=== PATIENT | male | born 1950 | race Caucasian/White ===

== ENCOUNTER 2016-11-10 20:32 | Emergency (ER) | payer BC ==
[~2016-11-10] VITALS: Ht 182.9 cm; Wt 126.9 kg
[~2016-11-10 20:32] MED LIST: ACET650T82 PO; ALLO300T2 PO; CHOL100027 PO; CLC6 PO; CYCL10TA6 PO; DOCU50CA2 PO; HYDR-5688 PO; METH2.5T PO; POTA20TA16 PO; TAMS0.4C38 PO
[2016-11-10 20:37] VITALS: Ht 182.9 cm; Wt 126.9 kg
[2016-11-10] MEDS ORDERED: HYDROmorphone INJ 1 MG/ML SYR IM STA (21:01)
[2016-11-10] MEDS ORDERED: ONDANSETRON 4MG OD TAB PO STA (21:01)
[2016-11-10] MEDS ORDERED: ONDA8TAB62 SL (21:04)
[2016-11-10] MEDS ORDERED: TYLER650 PO (21:04)
[2016-11-10] MEDS ORDERED: BACL10TA PO (21:04)
[2016-11-10] MEDS ORDERED: HYDR-5688 PO (21:04)
[2016-11-10] MEDS ORDERED: DOCU100C31 PO (21:04)
[2016-11-10] MEDS ORDERED: PRED-301 PO ×2 (21:04→21:34)
[2016-11-10] MEDS ORDERED: HYDR200T5 PO (21:25)
[2016-11-10] MEDS ORDERED: FRS/40 PO (21:25)
[2016-11-10] MEDS ORDERED: PRT/20 PO (21:25)
[2016-11-10] MEDS ORDERED: GABA-112 PO (21:25)
[2016-11-10] MEDS ORDERED: FOLI1TAB7 PO (21:25)
[2016-11-10] MEDS ORDERED: GLC/500 PO (21:34)
[2016-11-10] MEDS ORDERED: ACET-1256 PO (21:34)
[2016-11-10] MEDS ORDERED: CYAN100074 INJ (21:37)
[2016-11-10] MEDS ORDERED: CYAN100T6 PO (21:37)
--- NOTE | 2016-11-10 21:50 | EMERGENCY ROOM VISIT NOTE ---
ED Visit Note First contact with patient: 20:41 Patient was seen by our PA/CONCILIATION COURT JUDGE. I was involved in the patient's care and did evaluate the patient myself. I was involved in the care throughout the ER stay. The patient presents with neuropathic foot pain. He has tried other meds without relief. We will try some Dilaudid as his gabapentin is titrated up. He can follow with his doctors as an outpatient.
[2016-11-10] MEDS ORDERED: HYDROmorphone HCL 2 MG TAB PO STA (21:55)
[2016-11-10] MEDS ORDERED: HYDR4TAB2 PO (22:01)
--- NOTE | 2016-11-10 22:02 | EMERGENCY ROOM VISIT NOTE ---
History First contact with patient: 20:41 Chief Complaint: FOOT PAIN Stated Complaint: NERVE PAIN IN FOOT History of Present Illness The patient is a 66 year old male who presents to the Emergency Room via private vehicle accompanied by with complaints of "nerve pain and foot". The patient states that 19 months ago, he began with pitting edema, and neuropathy as well as has had L3, L4 and L5 fused together. He states that he is followed by many specialists who were attempting to identify the cause for his pitting edema. He also is status post shoulder surgery 1 week ago. He has been taking [place] 5 mg a muscle relaxers for pain. He states that approximately 3 days ago his lower extremity neuropathy has flared. He states that the pain medication that typically works is no longer working. He has increased from [place] 5 mg to [place] 10 mg. He points to the superior portion of the feet overlying the medial metatarsals extending between the great toe and the second toe. He notes that the pain is symmetric bilaterally. There is been no recent injury or trauma. He follows with [facility] orthopedics of which notes he has bone spurs and osteoarthritis. He has had cortisone injections in the past with minimal relief. Patient also follows with Dr. 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 Patient states he has been emailing Dr. Pate and also been discussing with his family doctor potential treatment options for his increase in pain. Patient has increased prednisone, 30 mg daily for the past 3 days. He notes this makes his blood sugars increase. He takes metformin. Patient states that the foot pain will at times make his toes curl. The pain is constant at a 3-4/10 with bursts of extreme pain rated as a 6 -7/10. Patient at this time denies any chest pain, shortness of breath, fevers , chills. He cannot take oxycodone as this makes him very nauseous. He states he is here looking for some pain relief until his gabapentin can be titrated up. Review of Systems A complete 10-point Review of Systems was discussed with the patient, with pertinent positives and negatives listed in the History of Present Illness. All remaining Review of Systems questions can be considered negative unless otherwise specified. Past Medical/Surgical History Medical Problems: (1) Bullard's esophagus (2) Dyslipidemia (3) GERD (gastroesophageal reflux disease) (4) Gout (5) IBS (irritable bowel syndrome) (6) Lumbar disc disorder (7) Metabolic syndrome (8) THAO on CPAP (9) Renal colic (10) Rheumatoid arthritis (11) Situational hypertension (12) Stasis edema of both lower extremities (13) Testicular hypofunction (14) Uric acid kidney stone Surgical Problems: (1) H/O colonoscopy (2) H/O esophagogastroduodenoscopy (3) History of repair of hiatal hernia (4) S/P arthroscopic knee surgery (5) S/P ear surgery (6) S/p kidney stone removal (7) S/P lumbar fusion (8) S/p removal of polyp from larynx (9) S/P tonsillectomy and adenoidectomy Family History Diabetes mellitus GRANDMOTHER FH: CAD (coronary artery disease) MOTHER ([place] age 81) UNCLE FH: cancer MOTHER (stomach CA) FATHER (lung CA) Stroke GRANDFATHER Social History Smoking Status: Never Smoker Occupation Status: retired Current/Historical Medications Scheduled Allopurinol (Zyloprim), 300 MG PO DAILY Cholecalciferol (Vitamin D 1000 Unit), 1,000 INTER.UNIT PO DAILY Cyanocobalamin (Vitamin B12 100 Mcg), 100 MCG PO DAILY Cyanocobalamin (Vitamin Deficiency Inject), MONTHLY Docusate Sodium (Docusate Sodium), 1 CAP PO BID Folic Acid (Folvite), 1 MG PO DAILY Furosemide (Lasix), 40 MG PO DAILY Gabapentin (Neurontin), 200 MG PO TID Hydroxychloroquine Sulfate (Plaquenil), 400 MG PO HS Metformin Hcl (Glucophage), 500 MG PO BIDM Methotrexate (Methotrexate), 6 TABS PO WK Pantoprazole (Protonix), 20 MG PO HS Potassium Ext Rel (Klor-Con), 20 MEQ PO DAILY Prednisone (Prednisone), 5 MG PO TAPER UD Scheduled PRN Acetaminophen (Tylenol), 1,000 MG PO TID PRN for Pain or Fever Baclofen (Lioresal), 10 MG PO BID PRN for Muscle Spasms Colchicine (Colcrys), 0.6 MG PO DAILY PRN for GOUT Hydrocodone/Acetaminophen 5MG/325MG (Rock[place] 5MG/325MG), 1 TABLET PO Q6 PRN for Pain Hydromorphone Hcl (Dilaudid), 1 TAB PO Q4 PRN for Pain Ondansetron Odt (Zofran Odt), 8 MG SL Q6H PRN for Nausea Allergies Coded Allergies: Penicillins (Verified Allergy, Unknown, RASH, 05/29/14) Sulfa Antibiotics (Verified Allergy, Unknown, RASH, 04/07/16) Trimethoprim (Verified Allergy, Unknown, RASH, 05/29/14) Physical Exam Vital Signs Date Time Temp Pulse Resp B/P Pulse Ox O2 Delivery O2 Flow Rate FiO2 11/10/16 22:31 36.8 65 18 168/76 96 11/10/16 22:07 65 168/76 96 Room Air 11/10/16 20:37 36.8 73 18 164/79 96 Room Air Physical Exam VITAL SIGNS - Vital signs and nursing notes were reviewed. Patient is afebrile , hypertensive at 164/79, non-tachycardic and is saturating well on room air at 96%. GENERAL -66-year-old male appearing his stated age who is in no acute distress. Communicates well with provider and answers questions appropriately. SKIN - Without rashes. The skin overlying the feet are unremarkable. HEAD - NC/AT. EXTREMITIES - No clubbing or peripheral cyanosis. No pretibial edema present. He is neurovascularly intact in the lower extremities. +5/5 strength noted in UE/LE bilaterally. Pain is minimally reproducible over palpation of the nerve tract. No evidence of fracture. No bony abnormalities. No deformity noted. No evidence of infection. No evidence of infection. Medical Decision & Procedures Medications Administered Medications (Trade) Dose Ordered Sig/Batool Route Start Time Stop Time Status Last Admin Dose Admin Hydromorphone HCl (Dilaudid Inj) 1 mg NOW STAT IM 11/10/16 21:01 11/10/16 21:02 DC 11/10/16 21:09 1 MG Ondansetron HCl (Zofran Odt) 4 mg NOW STAT PO 11/10/16 21:01 11/10/16 21:02 DC 11/10/16 21:08 4 MG Hydromorphone HCl (Dilaudid Tab) 2 mg NOW STAT PO 11/10/16 21:55 11/10/16 21:57 DC 11/10/16 22:06 2 MG Medical Decision Patient was seen and evaluated as above. After obtaining a thorough history and physical examination it was apparent the patient was likely experiencing neuropathic pain. There is been no recent injury or trauma. Physical exam does not show any evidence of infection or bony abnormalities. The patient has had numerous evaluation and studies regarding his lower leg pain. He has had arterial studies. The patient does have good pulses today. I believe that providing the patient with bridge of pain medication at this time is reasonable. The patient was offered various pain modalities, at this time it appears that intramuscular Dilaudid and oral Zofran is best. The Zofran as a combat any potential nausea. Patient was checked within the [place] drug monitoring system and no red flags were identified. Patient was also evaluated by my attending. The patient will be sent home on oral Dilaudid, and due to the patient's severity of pain I will begin him on 4 mg according to the rn primary care labeling. I do believe this is reasonable. The patient is currently titrating his gabapentin with his doctors. The patient was educated upon management today's findings, educated upon worrisome symptoms which to return, feels that he can be managed in the outpatient setting and was discharged home in good condition. The patient did have relief of his pain while here in the emergency department to a tolerable level. In evaluation treatment this patient the following differential diagnoses were entertained: Cellulitis, fracture, trauma, gout, neuropathic pain, among others. Impression Primary Impression: Foot pain Departure Information Dispostion Home / Self-Care Condition GOOD Prescriptions Hydromorphone Hcl (DILAUDID) 4 Mg Tab 1 TAB PO Q4 Y for Pain, #18 TAB For initial treatment Prov: Alejandro Alfaro PA-C 11/10/16 Referrals Rob Weiss M.D. (PCP) Patient Instructions My [facility] Additional Instructions You have been treated in the Emergency Department for bilateral foot pain. You have received pain medicine in the emergency department which impairs your ability to operate a vehicle. It is illegal for you to drive after receiving these medicines. You have been prescribed DILAUDID to be used for pain control. This is a narcotic medication. You cannot drive or consume alcohol while on this medicine. This medicine should only be used for pain that cannot be controlled with [id number] pain medicines. Please drink plenty of water and take stool softeners as you indicated. You should schedule a follow-up appointment in 2-3 days with your Primary Care Provider for further evaluation and treatment of your pain. Return to the Emergency Department if your current symptoms worsen despite treatment course outlined above, or if you develop any of the following symptoms : intractable pain despite aforementioned treatment course, loss of control of your bowel or bladder, numbness or tingling in your groin, or development of a fever. Please return to the emergency department with any new/concerning symptoms.
[2016-11-10 22:31] VITALS: BP 168/76; PULSE 65; TEMP 36.8; O2SAT 96
[2016-12-03] MEDS ORDERED: DXY100 PO (09:06)
[2016-12-27] MEDS ORDERED: LYR75 PO (13:57)
== END 2016-11-10 22:30 | disposition home or self-care (01) ==
LOC: C.EDB 20:35 → C.EDA 22:30
DX: G57.90 Unspecified mononeuropathy of unspecified lower limb (principal); M10.9 Gout, unspecified; K21.9 Gastro-esophageal reflux disease without esophagitis; Z98.1 Arthrodesis status; E78.5 Hyperlipidemia, unspecified; K22.70 Barrett's esophagus without dysplasia; Z98.890 Other specified postprocedural states; K58.9 Irritable bowel syndrome, unspecified; G47.33 Obstructive sleep apnea (adult) (pediatric); M06.9 Rheumatoid arthritis, unspecified; I10 Essential (primary) hypertension; E88.81 Metabolic syndrome and other insulin resistance; Z87.442 Personal history of urinary calculi; Z83.3 Family history of diabetes mellitus; Z82.49 Family history of ischemic heart disease and other diseases of the circulatory system; Z80.0 Family history of malignant neoplasm of digestive organs; Z80.1 Family history of malignant neoplasm of trachea, bronchus and lung; Z82.3 Family history of stroke; Z79.899 Other long term (current) drug therapy

== ENCOUNTER 2016-12-02 05:08 | Inpatient (IN) | payer BC, OTHER ==
[~2016-12-02] VITALS: Ht 182.9 cm; Wt 134.6 kg
[~2016-12-02 05:08] MED LIST changes: +ACET-1256 PO; -ACET650T82 PO; +BACL10TA PO; +CYAN100074 INJ; +CYAN100T6 PO; -CYCL10TA6 PO; +DOCU100C31 PO; -DOCU50CA2 PO; +FOLI1TAB7 PO; +FRS/40 PO; +GABA-112 PO; +GLC/500 PO; +HYDR200T5 PO; +ONDA8TAB62 SL; +PRED-301 PO; +PRT/20 PO; -TAMS0.4C38 PO
--- NOTE | 2016-12-02 05:35 | EMERGENCY ROOM VISIT NOTE ---
History Report prepared by Lakshmi: Jesse Contreras Under the Supervision of: Dr. Sneha Brink D.O. First contact with patient: 05:21 Chief Complaint: FEVER Stated Complaint: FEVER, SHAKES History of Present Illness The patient is a 66 year old male who presents to the Emergency Room with complaints of a fever that began this morning. When he took his temperature, it was 102.5 F. He is experiencing bilateral lower extremity pitting edema, neuropathy in his bilateral legs, shakiness, and a cough. He took Tylenol 1000 mg PO and Gabapentin 200 mg PO this morning. He currently has a kidney stone and gallstone. He is not experiencing pain that is different from his baseline stone pain. He also taken Lasix 40 mg twice a day. He has an appointment for his neuropathy next week. He denies any diarrhea or any other sickness. Source of History: patient Onset: this morning Position: other (global) Symptom Intensity: 102.5 F Quality: other (Fever) Timing: worsening Associated Symptoms: + chills, + cough, + numbness, No diarrhea Review of Systems See HPI for pertinent positives & negatives. A total of 10 systems reviewed and were otherwise negative. Past Medical & Surgical Medical Problems: (1) Bullard's esophagus (2) Dyslipidemia (3) GERD (gastroesophageal reflux disease) (4) Gout (5) IBS (irritable bowel syndrome) (6) Lumbar disc disorder (7) Metabolic syndrome (8) THAO on CPAP (9) Renal colic (10) Rheumatoid arthritis (11) Situational hypertension (12) Stasis edema of both lower extremities (13) Testicular hypofunction (14) Uric acid kidney stone Surgical Problems: (1) H/O colonoscopy (2) H/O esophagogastroduodenoscopy (3) History of repair of hiatal hernia (4) S/P arthroscopic knee surgery (5) S/P ear surgery (6) S/p kidney stone removal (7) S/P lumbar fusion (8) S/p removal of polyp from larynx (9) S/P tonsillectomy and adenoidectomy Family History Diabetes mellitus GRANDMOTHER FH: CAD (coronary artery disease) MOTHER ([place] age 81) UNCLE FH: cancer MOTHER (stomach CA) FATHER (lung CA) Stroke GRANDFATHER Social History Smoking Status: Never Smoker Drug Use: none Marital Status: Occupation Status: retired Current/Historical Medications Scheduled Allopurinol (Zyloprim), 300 MG PO DAILY Cholecalciferol (Vitamin D 1000 Unit), 1,000 INTER.UNIT PO DAILY Cyanocobalamin (Vitamin B12 100 Mcg), 100 MCG PO DAILY Cyanocobalamin (Vitamin Deficiency Inject), 1 ML INJ MONTHLY Docusate Sodium (Docusate Sodium), 1 CAP PO BID Folic Acid (Folvite), 1 MG PO DAILY Furosemide (Lasix), 40 MG PO DAILY Gabapentin (Neurontin), 600 MG PO TID Hydroxychloroquine Sulfate (Plaquenil), 400 MG PO HS Methotrexate (Methotrexate), 6 TABS PO WK Pantoprazole (Protonix), 20 MG PO HS Potassium Ext Rel (Klor-Con), 20 MEQ PO DAILY Scheduled PRN Acetaminophen (Tylenol), 1,000 MG PO TID PRN for Pain or Fever Colchicine (Colcrys), 0.6 MG PO DAILY PRN for GOUT Hydrocodone/Acetaminophen 5MG/325MG ([place] 5MG/325MG), 1 TABLET PO Q6 PRN for Pain Ondansetron Odt (Zofran Odt), 8 MG SL Q6H PRN for Nausea Allergies Coded Allergies: Penicillins (Verified Allergy, Unknown, RASH, 05/29/14) Sulfa Antibiotics (Verified Allergy, Unknown, RASH, 04/07/16) Trimethoprim (Verified Allergy, Unknown, RASH, 05/29/14) Physical Exam Vital Signs Date Time Temp Pulse Resp B/P (MAP) Pulse Ox O2 Delivery O2 Flow Rate FiO2 12/02/16 06:58 88 22 109/53 92 Room Air 12/02/16 06:50 38.1 121/58 94 Room Air 12/02/16 06:49 Room Air 12/02/16 05:13 38.3 90 20 145/67 93 Room Air Physical Exam HEENT: Head - normocephalic and atraumatic Pupils are equal, round, and reactive to light. Extraocular eye muscles are intact, and sclera are anicteric. Nose - moist nasal mucosa without discharge. Mouth - extremely dry buccal mucosa. Oropharynx is nonerythematous and there is no tonsillar exudate or edema noted. Neck: Supple; no JVD, nuchal rigidity, cervical lymphadenopathy. Heart: Regular rate and rhythm. There is a normal S1 and S2 with no murmurs, clicks, or gallops appreciated. Lungs: Clear to auscultation bilaterally with no wheezes, rales, or rhonchi. Abdomen: Soft, completely nontender, nondistended, with good bowel sounds. There are no palpable pulsatile masses or hepatosplenomegaly. There is no guarding, rigidity, or rebound noted. Extremities: No evidence of cyanosis or clubbing. 3+ pitting edema in his bilateral legs. There are easily palpable peripheral pulses. On his right upper extremity, there are well healing surgical incisions on the shoulder. Skin: hot and dry with good turgor and no rashes. Medical Decision & Procedures ER Provider Diagnostic Interpretation: X-ray results as stated below per interpretation by me: CHEST X-RAY 1 VIEW: Significant cardiomegaly. Calcified aortic knob. Questionable left lower lobe infiltrate. Per me. 2 View CXR: The patient does have evidence of cardiomegaly but the heart does not appear quite as enlarged as it did on the portable x-ray. The lateral does confirm a probable left lower lobe infiltrate. Laboratory Results 12/02/16 05:45 Red Blood Count 3.70, Mean Corpuscular Volume 92.4, Mean Corpuscular Hemoglobin 28.6, Mean Corpuscular Hemoglobin Concent 31.0, Mean Platelet Volume 8.8, Neutrophils (%) (Auto) 83.1, Lymphocytes (%) (Auto) 8.3, Monocytes (%) (Auto) 6.8, Eosinophils (%) (Auto) 1.6, Basophils (%) (Auto) 0.1, Neutrophils # (Auto) 5.58, Lymphocytes # (Auto) 0.56, Monocytes # (Auto) 0.46, Eosinophils # (Auto) 0.11, Basophils # (Auto) 0.01 12/02/16 05:45 Test 12/02/16 05:45 12/02/16 05:56 12/02/16 06:00 White Blood Count 6.73 K/uL (4.8-10.8) Red Blood Count 3.70 M/uL (4.7-6.1) Hemoglobin 10.6 g/dL (14.0-18.0) Hematocrit 34.2 % (42-52) Mean Corpuscular Volume 92.4 fL (80-100) Mean Corpuscular Hemoglobin 28.6 pg (25-34) Mean Corpuscular Hemoglobin Concent 31.0 g/dl (32-36) Platelet Count 227 K/uL (130-400) Mean Platelet Volume 8.8 fL (7.4-10.4) Neutrophils (%) (Auto) 83.1 % Lymphocytes (%) (Auto) 8.3 % Monocytes (%) (Auto) 6.8 % Eosinophils (%) (Auto) 1.6 % Basophils (%) (Auto) 0.1 % Neutrophils # (Auto) 5.58 K/uL (1.4-6.5) Lymphocytes # (Auto) 0.56 K/uL (1.2-3.4) Monocytes # (Auto) 0.46 K/uL (0.11-0.59) Eosinophils # (Auto) 0.11 K/uL (0-0.5) Basophils # (Auto) 0.01 K/uL (0-0.2) RDW Standard Deviation 44.6 fL (36.4-46.3) RDW Coefficient of Variation 13.4 % (11.5-14.5) Immature Granulocyte % (Auto) 0.1 % Immature Granulocyte # (Auto) 0.01 K/uL (0.00-0.02) Anion Gap 8.0 mmol/L (3-11) Est Creatinine Clear Calc Drug Dose 91.6 ml/min Estimated GFR () 80.1 Estimated GFR (Non- 69.1 BUN/Creatinine Ratio 22.0 (10-20) Calcium Level 8.7 mg/dl (8.5-10.1) Total Bilirubin 0.3 mg/dl (0.2-1) Aspartate Amino Transf (AST/SGOT) 19 U/L (15-37) Alanine Aminotransferase (ALT/SGPT) 37 U/L (12-78) Alkaline Phosphatase 64 U/L (45-117) Total Protein 6.2 gm/dl (6.4-8.2) Albumin 3.3 gm/dl (3.4-5.0) Globulin 2.9 gm/dl (2.5-4.0) Albumin/Globulin Ratio 1.1 (0.9-2) Bedside Lactic Acid Venous 3.25 mmol/L (0.90-1.70) Urine Color DK YELLOW Urine Appearance CLEAR (CLEAR) Urine pH 5.0 (4.5-7.5) Urine Specific [place] 1.025 (1.000-1.030) Urine Protein NEG (NEG) Urine Glucose (UA) NEG (NEG) Urine Ketones TRACE (NEG) Urine Occult Blood NEG (NEG) Urine Nitrite NEG (NEG) Urine Bilirubin NEG (NEG) Urine Urobilinogen NEG (NEG) Urine Leukocyte Esterase NEG (NEG) Urine WBC (Auto) 1-5 /hpf (0-5) Urine RBC (Auto) 0-4 /hpf (0-4) Urine Hyaline Casts (Auto) 1-5 /lpf (0-5) Urine Epithelial Cells (Auto) 5-10 /lpf (0-5) Urine Bacteria (Auto) NEG (NEG) Laboratory results per my review. Medications Administered Medications (Trade) Dose Ordered Sig/Batool Route Start Time Stop Time Status Last Admin Dose Admin Acetaminophen (Tylenol Tab) 1,000 mg NOW STAT PO 12/02/16 06:08 12/02/16 06:09 DC 12/02/16 06:08 1,000 MG Daptomycin 600 mg/ Sodium Chloride 62 ml @ 100 mls/hr NOW STAT IV 12/02/16 06:29 12/02/16 07:06 DC 12/02/16 07:07 100 MLS/HR Aztreonam 2000 mg/ Dextrose 110 ml @ 100 mls/hr NOW STAT IV 12/02/16 06:29 12/02/16 07:34 DC 12/02/16 07:07 100 MLS/HR Procedure Acetaminophen 1000 mg PO Aztreonam 2000 mg/Dextrose 110 ml @ 100 mls/hr IV Daptomycin 600 mg/ Sodium Chloride 62 ml @ 100 mls/hr IV ECG Indication: other (Fever) Rate (beats per minute): 82 Rhythm: normal sinus Findings: RBBB, no ectopy Comparison ECG Date: 03/29/2016 Change: no significant change ED Course 0521: Past medical records reviewed. The patient was evaluated in room B6. A complete history and physical exam was performed. A septic protocol was performed. EKG was obtained as described above. A urine was obtained. 0559: I was notified that the patient's lactic acid is 3.25. A chest x-ray was performed. 0608: Ordered Acetaminophen 1000 mg PO 0629: Ordered Aztreonam 2000 mg/Dextrose 110 ml @ 100 mls/hr IV, Daptomycin 600 mg/ Sodium Chloride 62 ml @ 100 mls/hr IV 0656: No previous echo study was found in [facility]'s system. 0700: Upon reevaluation, I discussed findings and results with him. He verbalized agreement of the treatment plan. I spoke with Dr. Holman of the [facility]. The patient will be evaluated for further management and care. Medical Decision The patient is a 56 year old male who presents to the ED with a fever. Differential diagnosis includes sepsis, UTI, bacteremia, and pneumonia. I attest that I have personally reviewed the patient's current medication list. Patient was found to have normal blood pressure on screening and does not require follow-up. Laboratory Results Showed: White Blood Cell count 6.7, hemoglobin 10.6, platelet count 227, lactic acid 3.25, BUN 24, creatinine 1.1, glucose 129, normal LFTs, and trace ketones. This is a 66-year-old male patient who developed a sudden onset of fever and shaking chills. The patient has no leukocytosis but does have significant lactic acidosis. He has remained hemodynamically stable. A specific source could not be identified. He had undergone recent right shoulder surgery but has no increased pain in that area and surgical incisions appear well healing. The patient did have a brief episode of coughing. Chest x-ray shows cardiomegaly and a questionable opacity in the left lung base. I did send the patient for a lateral view which did not confirm the presence of a pulmonary infiltrate. I discussed the case with the [facility]ist and they will evaluate for further management. The patient appears to have an acute infection. The source most likely from the lungs. Consults Time Called: 0655 Consulting Physician: Dr. Holman - [facility] Returned Call: [phone] He will be evaluating the patient for further management and care. Impression Primary Impression: Elevated lactic acid level Additional Impression: Left lower lobe pneumonia Scribe Attestation The scribe's documentation has been prepared under my direction and personally reviewed by me in its entirety. I confirm that the note above accurately reflects all work, treatment, procedures, and medical decision making performed by me. Departure Information Dispostion Being Evaluated By Hospitalist Referrals Rob Weiss M.D. (PCP) Patient Instructions My [facility] Problem Qualifiers
[2016-12-02] MEDS ORDERED: GABA-113 PO (05:39)
[2016-12-02 06:05] LABS: BASO % 0.1 %; BASO ABS # 0.01 K/uL (0-0.2); COMPLETE YES; EOS % 1.6 %; HEMATOCRIT 34.2 % (42-52); IG% 0.1 %; LYMPH % 8.3 %; LYMPH ABS # 0.56 K/uL (1.2-3.4); MEAN CELL VOLUME 92.4 fL (80-100); MEAN CORPUSCULAR HEMOGLOBIN 28.6 pg (25-34); MEAN PLATELET VOLUME 8.8 fL (7.4-10.4); MONO % 6.8 %; NEUT % 83.1 %; PLATELET COUNT 227 K/uL (130-400); WHITE BLOOD COUNT 6.73 K/uL (4.8-10.8)
[2016-12-02] MEDS ORDERED: ACETAMINOPHEN 500 MG TAB PO STA (06:08)
[2016-12-02 06:20] LABS: URINE APPEARANCE CLEAR (CLEAR); URINE BILIRUBIN NEG (NEG); URINE COLOR DK YELLOW; URINE NITRITE NEG (NEG); URINE SPECIFIC GRAVITY 1.025 (1.000-1.030); UROBILINOGEN NEG (NEG); ZZUR CULT IF INDIC CLEAN CATCH NO
[2016-12-02 06:22] LABS: MANUAL MICROSCOPIC REQUIRED? NO; REVIEW REQ? NO
[2016-12-02 06:23] LABS: CALCIUM 8.7 mg/dl (8.5-10.1); CREATININE 1.1 mg/dl (0.60-1.40)
[2016-12-02 06:26] LABS: ALB/GLOB RATIO 1.1 (0.9-2)
[2016-12-02] MEDS ORDERED: AZTREONAM IV 2,000 MG in DEXTROSE 5% 100ML 100 ML IV STA (06:29)
[2016-12-02] MEDS ORDERED: DAPTOmycin IV 600 MG in SODIUM CHLORIDE 0.9% 50ML 50 ML IV STA (06:29)
--- NOTE | 2016-12-02 06:58 | DIAGNOSTIC IMAGING REPORT ---
CHEST ONE VIEW PORTABLE CLINICAL HISTORY: Sepsis FEVER COMPARISON STUDY: 05/12/2014 FINDINGS: The heart is borderline enlarged. There is no failure. There are equivocal left basal airspace opacities. If symptoms persist, a follow-up PA and lateral study is recommended. There are no pleural effusions.[ IMPRESSION: Equivocal left basal airspace opacities. If symptoms persist, a follow-up PA and lateral study is recommended. Electronically signed by: Roger Villalpando M.D. 12/02/2016 6:56 AM Dictated Date/Time: 12/02/2016 6:55 AM
--- NOTE | 2016-12-02 07:37 | DIAGNOSTIC IMAGING REPORT ---
CHEST 2 VIEWS ROUTINE CLINICAL HISTORY: eval with lateral view COMPARISON STUDY: 12/02/2016 FINDINGS: Vague parenchymal infiltrate left lower lobe. Lungs otherwise appear clear. Diaphragms are smooth. IMPRESSION: Vague parenchymal infiltrate left lower lobe. Electronically signed by: Rob Queen M.D. 12/02/2016 7:35 AM Dictated Date/Time: 12/02/2016 7:35 AM
[2016-12-02] MEDS ORDERED: SODIUM CHLORIDE 0.9% 1000ML 500 ML IV ONE (08:11)
[2016-12-02] MEDS ORDERED: ALUMINUM/MAGNESIUM/SIMETH (MAALOX MAX) 30 ML UDC PO PRN (08:15)
[2016-12-02] MEDS ORDERED: ONDANSETRON INJ 2 MG/ML 2 ML VIAL IV PRN (08:15)
[2016-12-02] MEDS ORDERED: NITROGLYCERIN 0.4 MG SL PER TAB CHARGE SL PRN (08:15)
[2016-12-02] MEDS ORDERED: ACETAMINOPHEN 325 MG TAB PO PRN (08:15)
[2016-12-02] MEDS ORDERED: MAGNESIUM HYDROXIDE SUSP 30 ML UDC PO PRN (08:15)
[2016-12-02] MEDS ORDERED: ZOLPIDEM TARTRATE 5 MG TAB PO PRN (08:15)
[2016-12-02] MEDS ORDERED: POLYETHYLENE (MIRALAX) 17 GM PACK PO PRN (08:15)
--- NOTE | 2016-12-02 08:16 | History and Physical ---
History & Physical Date & Time of Service: Dec 02, 2016 at 08:16 Chief Complaint: Fever, Shakes Primary Care Physician: Rob Weiss M.D. History of Present Illness Source: patient This is a 66 yo M with hx of obesity , chronic bilateral lower ext edema , polyneuropathy, Rheumatoid arthritis on Methotrexate , GERD -came to ED with complains of fever , chills rigor Pt had a normal day yesterday , woke up around 3 am with chills , rigor , fever in the ED pt was found to be hypotensive , fever 38 , lactic acid elevated > 3 Cxray shows vague ill defined density on left lower lobe pt denies of any sick contact , no cough or SOB , no chest pain no GI or symptoms Past Medical/Surgical History Medical Problems: (1) Bullard's esophagus Status: Chronic (2) Dyslipidemia Status: Chronic (3) GERD (gastroesophageal reflux disease) Status: Chronic (4) Gout Status: Chronic (5) IBS (irritable bowel syndrome) Status: Chronic (6) Lumbar disc disorder Status: Chronic (7) Metabolic syndrome Status: Chronic (8) THAO on CPAP Status: Chronic (9) Rheumatoid arthritis Status: Chronic (10) Situational hypertension Status: Chronic (11) Stasis edema of both lower extremities Status: Chronic (12) Testicular hypofunction Status: Chronic (13) Uric acid kidney stone Status: Chronic Surgical Problems: (1) H/O colonoscopy Status: Chronic (2) H/O esophagogastroduodenoscopy Status: Chronic (3) History of repair of hiatal hernia Status: Chronic (4) S/P arthroscopic knee surgery Status: Chronic (5) S/P ear surgery Status: Chronic (6) S/p kidney stone removal Status: Chronic (7) S/P lumbar fusion Status: Chronic (8) S/p removal of polyp from larynx Status: Chronic (9) S/P tonsillectomy and adenoidectomy Status: Chronic Family History Diabetes mellitus GRANDMOTHER FH: CAD (coronary artery disease) MOTHER (OK age 81) UNCLE FH: cancer MOTHER (stomach CA) FATHER (lung CA) Stroke GRANDFATHER Social History Smoking Status: Never Smoker Drug Use: none Marital Status: Occupational Status: retired Immunizations History of Influenza Vaccine: Yes Influenza Vaccine Date: Apr 06, 2016 History of Tetanus Vaccine?: Yes Tetanus Immunization Date: Feb 14, 2012 History of Pneumococcal: Yes Pneumococcal Date: Mar 04, 2015 Multi-Drug Resistant Organisms History of MDRO: No Allergies Coded Allergies: Penicillins (Verified Allergy, Unknown, RASH, 05/29/14) Sulfa Antibiotics (Verified Allergy, Unknown, RASH, 04/07/16) Trimethoprim (Verified Allergy, Unknown, RASH, 05/29/14) Home Medications Scheduled Allopurinol (Zyloprim), 300 MG PO DAILY Cholecalciferol (Vitamin D 1000 Unit), 1,000 INTER.UNIT PO DAILY Cyanocobalamin (Vitamin B12 100 Mcg), 100 MCG PO DAILY Cyanocobalamin (Vitamin Deficiency Inject), 1 ML INJ MONTHLY Docusate Sodium (Docusate Sodium), 1 CAP PO BID Folic Acid (Folvite), 1 MG PO DAILY Furosemide (Lasix), 40 MG PO DAILY Gabapentin (Neurontin), 600 MG PO TID Hydroxychloroquine Sulfate (Plaquenil), 400 MG PO HS Methotrexate (Methotrexate), 6 TABS PO WK Pantoprazole (Protonix), 20 MG PO HS Potassium Ext Rel (Klor-Con), 20 MEQ PO DAILY Scheduled PRN Acetaminophen (Tylenol), 1,000 MG PO TID PRN for Pain or Fever Colchicine (Colcrys), 0.6 MG PO DAILY PRN for GOUT Hydrocodone/Acetaminophen 5MG/325MG ([place] 5MG/325MG), 1 TABLET PO Q6 PRN for Pain Ondansetron Odt (Zofran Odt), 8 MG SL Q6H PRN for Nausea Review of Systems Constitutional: + fever, + chills, + sweats, + weakness, + fatigue Respiratory: + cough (dry non productive started this AM ), No sputum, No wheezing, No shortness of breath, No dyspnea on exertion, No dyspnea at rest, No hemoptysis, No problem reported Cardiovascular: No chest pain, No orthopnea, No PND, No edema, No claudication , No palpitations, No problem reported Abdomen: No pain, No nausea, No vomiting, No diarrhea, No constipation, No GI bleeding, No problem reported Musculoskeletal: + swelling (bilater lower extremity chronic edema ), + problem reported (neuropathic pain ) Genitourinary - Male: No hematuria, No dysuria, No urinary frequency, No urinary urgency, No urinary hesitancy, No urinary retention, No urinary incontinence, No penile discharge, No lesions, No impotence, No problem reported Neurologic: + numbness/tingling (in both bilaterel lower ext ) Physical Exam Vital Signs Date Time Temp Pulse Resp B/P (MAP) Pulse Ox O2 Delivery O2 Flow Rate FiO2 12/02/16 06:58 88 22 109/53 92 Room Air 12/02/16 06:50 38.1 121/58 94 Room Air 12/02/16 06:49 Room Air 12/02/16 05:13 38.3 90 20 145/67 93 Room Air General Appearance: no apparent distress Head: normocephalic, atraumatic Eyes: sclerae normal Neck: no carotid bruits Respiratory/Chest: chest non-tender, no respiratory distress, + crackles (on base ) Cardiovascular: regular rate, rhythm, + pertinent finding (bilateral lower ext edema + 2-3 ) Abdomen/GI: normal bowel sounds, non tender, soft Extremities/Musculoskelatal: + calf tenderness, + pedal edema (+ 2-3 bilateral lower ext pitting edema ) Neurologic/Psych: alert, normal mood/affect, oriented x 3 Diagnostics Laboratory Results Results Past 24 Hours Test 12/02/16 05:45 12/02/16 05:56 12/02/16 06:00 Range/Units White Blood Count 6.73 4.8-10.8 K/uL Red Blood Count 3.70 4.7-6.1 M/uL Hemoglobin 10.6 14.0-18.0 g/dL Hematocrit 34.2 42-52 % Mean Corpuscular Volume 92.4 80-100 fL Mean Corpuscular Hemoglobin 28.6 25-34 pg Mean Corpuscular Hemoglobin Concent 31.0 32-36 g/dl Platelet Count 227 130-400 K/uL Mean Platelet Volume 8.8 7.4-10.4 fL Neutrophils (%) (Auto) 83.1 % Lymphocytes (%) (Auto) 8.3 % Monocytes (%) (Auto) 6.8 % Eosinophils (%) (Auto) 1.6 % Basophils (%) (Auto) 0.1 % Neutrophils # (Auto) 5.58 1.4-6.5 K/uL Lymphocytes # (Auto) 0.56 1.2-3.4 K/uL Monocytes # (Auto) 0.46 0.11-0.59 K/uL Eosinophils # (Auto) 0.11 0-0.5 K/uL Basophils # (Auto) 0.01 0-0.2 K/uL RDW Standard Deviation 44.6 36.4-46.3 fL RDW Coefficient of Variation 13.4 11.5-14.5 % Immature Granulocyte % (Auto) 0.1 % Immature Granulocyte # (Auto) 0.01 0.00-0.02 K/uL Sodium Level 144 136-145 mmol/L Potassium Level 4.0 3.5-5.1 mmol/L Chloride Level 107 98-107 mmol/L Carbon Dioxide Level 29 21-32 mmol/L Anion Gap 8.0 3-11 mmol/L Blood Urea Nitrogen 24 7-18 mg/dl Creatinine 1.10 0.60-1.40 mg/dl Est Creatinine Clear Calc Drug Dose 91.6 ml/min Estimated GFR () 80.1 Estimated GFR (Non- 69.1 BUN/Creatinine Ratio 22.0 10-20 Random Glucose 129 70-99 mg/dl Calcium Level 8.7 8.5-10.1 mg/dl Total Bilirubin 0.3 0.2-1 mg/dl Aspartate Amino Transf (AST/SGOT) 19 15-37 U/L Alanine Aminotransferase (ALT/SGPT) 37 12-78 U/L Alkaline Phosphatase 64 45-117 U/L Total Protein 6.2 6.4-8.2 gm/dl Albumin 3.3 3.4-5.0 gm/dl Globulin 2.9 2.5-4.0 gm/dl Albumin/Globulin Ratio 1.1 0.9-2 Bedside Lactic Acid Venous 3.25 0.90-1.70 mmol/L Urine Color DK YELLOW Urine Appearance CLEAR CLEAR Urine pH 5.0 4.5-7.5 Urine Specific Martin 1.025 1.000-1.030 Urine Protein NEG NEG Urine Glucose (UA) NEG NEG Urine Ketones TRACE NEG Urine Occult Blood NEG NEG Urine Nitrite NEG NEG Urine Bilirubin NEG NEG Urine Urobilinogen NEG NEG Urine Leukocyte Esterase NEG NEG Urine WBC (Auto) 1-5 0-5 /hpf Urine RBC (Auto) 0-4 0-4 /hpf Urine Hyaline Casts (Auto) 1-5 0-5 /lpf Urine Epithelial Cells (Auto) 5-10 0-5 /lpf Urine Bacteria (Auto) NEG NEG Microbiology Results 12/02/16 Blood Culture, Received Pending 12/02/16 Blood Culture, Received Pending Diagnostic Radiology CHEST 2 VIEWS ROUTINE CLINICAL HISTORY: eval with lateral view COMPARISON STUDY: 12/02/2016 FINDINGS: Vague parenchymal infiltrate left lower lobe. Lungs otherwise appear clear. Diaphragms are smooth. IMPRESSION: Vague parenchymal infiltrate left lower lobe. EKG NORMAL SINUS RHYTHM LEFT AXIS DEVIATION RT BUNDLE BRANCH BLOCK PROLONG QTC 516 Impression Assessment and Plan SEPSIS : meets criteria -presented with hypotension , fever , chills , elevated lactic acid possible source of infection -left lower lobe pneumonia pt will be admitted to tele IV fluid resuscitation ordered serial Lactic acid level to be checked to asses vol resuscitation status galeas culture -blood /urine culture , MRSA screen ordered empiric Abx with Vancomycin /Azactam ( Penicillin allergy ) ID eval requested CHRONIC BILATERAL LOWER EXT POLYNEUROPATHY : follows with neuro physiology in [place] cont Gabapentin pain control BILATERAL LOWER EXT PITTING EDEMA : due to above ? has been taking Lasix -on hold for sepsis /dehydration /hypotension lower ext Doppler to R/O DVT ordered ECHO ordered to assess LV function PROLONG QTC Qtc > 500 monitor in tele daily EKG , avoid medications causing EKG prolongation will D/c Zofran RHEUMATOID ARTHRITIS : hold MTx and Plaquenil for sepsis Follows with Dr Pate Rheumatology GERD: cont PPI THAO : uses CPAP at night pt can continue to use his own device while in hospital FULL CODE DVT PROPHYLAXIS: moderate to high risk due to bilateral + 3 pitting edema , obesity Sub q heparin DISPOSITION : was independent in his ADL's lives with expected to be discharged home when medically stable Medicine follow up with Dr Weiss Plan of care explained to Pt and Family ( and son ) present at bedside - verbalized understanding Level of Care Telemetry Resuscitation Status FULL RESUSCITATION VTE Prophylaxis VTE Risk Assessment Done? Y/N: Yes Risk Level: High Given or contraindicated: Unfractionated heparin SQ Additional Copies To Rob Weiss M.D.
[2016-12-02] MEDS ORDERED: ONDANSETRON 8MG OD TAB SL PRN (08:30)
[2016-12-02] MEDS ORDERED: HYDROmorphone HCL 2 MG TAB PO PRN (08:30)
[2016-12-02] MEDS ORDERED: VANCOMYCIN CONSULT ACTIVE PRN (08:45)
[2016-12-02] MEDS ORDERED: AZTREONAM CONSULT ACTIVE PRN ×2 (08:45)
[2016-12-02] MEDS ORDERED: VANCOMYCIN INJ 2,750 MG in SODIUM CHLORIDE 0.9% 500ML 500 ML IV ONE (08:45)
[2016-12-02] MEDS: SODIUM CHLORIDE 0.9% 1000ML 1,000 ML IV SCH ×2 (09:31→18:00)
[2016-12-02 09:33] VITALS: BP 121/74; PULSE 76; TEMP 37.1; O2SAT 91
[2016-12-02] MEDS: ALLOPURINOL 300 MG TAB PO SCH (09:37)
[2016-12-02] MEDS: HYDROCODONE/ACETAMOPHEN 5/325MG TAB PO PRN ×2 (09:37→18:00)
[2016-12-02] MEDS: DOCUSATE SODIUM 100 MG CAP PO SCH ×2 (09:37→20:40)
[2016-12-02] MEDS: PANTOprazole SOD 40 MG TAB PO SCH (09:37)
[2016-12-02] MEDS: CYANOCOBALAMIN 100 MCG TAB (VIT B-12) PO SCH (09:37)
[2016-12-02] MEDS: GABAPENTIN 600 MG TAB PO SCH ×3 (09:37→20:40)
[2016-12-02] MEDS: CHOLECALCIFEROL 1000 INTER.UNIT TAB PO SCH (09:38)
[2016-12-02 10:22] VITALS: O2SAT 91; Ht 182.9 cm; Wt 134.6 kg
--- NOTE | 2016-12-02 10:28 | Pharmacy Progress Note ---
Pharmacy Abx Initial Consult Date of Service Dec 02, 2016. Pharmacy Dosing Scope Date of Consult: 12/02/16 Consultation requested by: Dr. Howe Pharmacy is consulted to initiate Vancomycin/Azactam IV dosing therapy, order appropriate labs and adjust drug dose/frequency. Subjective The patient is a 66 year old male admitted on Dec 02, 2016 at 08:08 with sepsis secondary to likely lung source. Objective Height (Feet): 6 Height (Inches): 0 Weight (Kilograms): 132.000 Vital Signs (Past 12Hrs) Vital Signs Past 12 Hours Date Time Temp Pulse Resp B/P (MAP) Pulse Ox O2 Delivery O2 Flow Rate FiO2 12/02/16 09:33 37.1 76 18 121/74 (90) 91 Room Air 12/02/16 08:39 76 18 118/64 92 Room Air 12/02/16 06:58 88 22 109/53 92 Room Air 12/02/16 06:50 38.1 121/58 94 Room Air 12/02/16 06:49 Room Air 12/02/16 05:13 38.3 90 20 145/67 93 Room Air Lab Results (24Hrs) Laboratory Tests (24 Hours) Test 12/02/16 05:45 White Blood Count 6.73 K/uL (4.8-10.8) Red Blood Count 3.70 M/uL (4.7-6.1) L Hemoglobin 10.6 g/dL (14.0-18.0) L Hematocrit 34.2 % (42-52) L Mean Corpuscular Volume 92.4 fL (80-100) Mean Corpuscular Hemoglobin 28.6 pg (25-34) Mean Corpuscular Hemoglobin Concent 31.0 g/dl (32-36) L Platelet Count 227 K/uL (130-400) Mean Platelet Volume 8.8 fL (7.4-10.4) Neutrophils (%) (Auto) 83.1 % Lymphocytes (%) (Auto) 8.3 % Monocytes (%) (Auto) 6.8 % Eosinophils (%) (Auto) 1.6 % Basophils (%) (Auto) 0.1 % Neutrophils # (Auto) 5.58 K/uL (1.4-6.5) Lymphocytes # (Auto) 0.56 K/uL (1.2-3.4) L Monocytes # (Auto) 0.46 K/uL (0.11-0.59) Eosinophils # (Auto) 0.11 K/uL (0-0.5) Basophils # (Auto) 0.01 K/uL (0-0.2) Micro Results Date/Time Source Procedure Growth Status 12/02/16 05:55 Blood Blood Culture Pending Received 12/02/16 05:45 Blood Blood Culture Pending Received 12/02/16 00:00 Nasal MRSA DNA Surveillance Screen Pending Received 12/02/16 09:53 Urine , Clean Catch Urine Culture Pending Lucina Batch Assessment & Plan Assessment 66 year old male initiated on Vancomycin + Azactam IV for sepsis secondary to likely pulmonary source. MRSA swab, blood cultures, urine culture pending to aid in de-escalation. Plan Vancomycin * Loading dose: 2750 mg (20 mg/kg) * Maintenance dose: 2000 mg IV (15 mg/kg) every 12 hours * Goal trough level for lung source: 15 to 20 mcg/mL * Trough level ordered for 12/04/16 @0530 prior to the 0600 dose. * An extended dosing interval has been selected due to likelihood of drug accumulation in obese patient. After evaluation of first trough, may need to change dosing in attempts to stop patient from further accumulation. Azactam * 2 g IV every 8 hours * No renal adjustment at this time. Pharmacy will continue to follow and will adjust dose/frequency as necessary. Thank you.
[2016-12-02 10:36] LABS: PROTHROMBIN TIME (PATIENT) 10.4 SECONDS (9.0-12.0)
--- NOTE | 2016-12-02 11:13 | DIAGNOSTIC IMAGING REPORT ---
ULTRASOUND VENOUS DOPPLER LWR EXT BILA CLINICAL HISTORY: Leg swelling COMPARISON STUDY: No previous studies for comparison. FINDINGS: Real-time and color flow Doppler imaging were performed. Flow was seen within the femoral, popliteal and calf veins with no intraluminal thrombus demonstrated. The saphenous vein is patent. There is bilateral calf edema. IMPRESSION: No evidence of lower extremity DVT Electronically signed by: Roger Villalpando M.D. 12/02/2016 11:12 AM Dictated Date/Time: 12/02/2016 11:12 AM
[2016-12-02] MEDS ORDERED: PERFLUTREN LIPID MICROSPHERE (DEFINITY) IV ONE (12:17)
--- NOTE | 2016-12-02 13:15 | Progress Note ---
Progress Note Date of Service Dec 02, 2016. Progress Note ID Consult Dictated #[id number] A/P: 1. CAP 2. Fever -Continue abx, add azithro for atypical coverage -follow cultures -will follow, thank you
[2016-12-02] MEDS: HEPARIN SOD 5000 UNIT/0.5 ML CARP SQ SCH ×2 (13:50→20:43)
[2016-12-02 14:43] VITALS: BP 135/79; PULSE 69; TEMP 37.9; O2SAT 93
--- NOTE | 2016-12-02 14:45 | INFECT. DISEASE CONSULTATION ---
DATE OF CONSULTATION: 12/02/2016 REQUESTING PHYSICIAN: Dr. Howe. HISTORY OF PRESENT ILLNESS: This is a 66-year-old gentleman who was admitted after he awoke at 3:00 a.m. with shaking fever and chills. He states that he tried to take a warm shower but his chills returned. He also had a mild cough associated with this. He does struggle with bilateral lower extremity edema and neuropathy and follows with neurology in [place] for this. He states his temperature at home was as high as 105 degrees. Upon arrival to the ER, his temperature was 38.3. He did undergo blood and urine cultures which are pending. He does not have leukocytosis. His urinalysis was unremarkable. His lactic acid was elevated however. He did undergo a chest x-ray which shows a left lower lobe infiltrate. He also had bilateral lower extremity Dopplers which were unremarkable. He does have a chronic history of lower extremity edema which is unchanged. He states today he is still having episodes of fever but he has not had any additional shaking chills since admission to the hospital. He denies any pleuritic chest pain. He denies any shortness of breath or dyspnea on exertion. He denies any sick contacts. He has minimal cough with mild production of sputum and denies any hemoptysis. He has no nausea, vomiting, diarrhea, abdominal pain or urinary symptoms. All remaining review of systems are reviewed and are unremarkable. PAST MEDICAL HISTORY: Significant for Bullard esophagus, high cholesterol, GERD, gout, irritable bowel syndrome, lumbar pain, metabolic syndrome, obstructive sleep apnea with CPAP, rheumatoid arthritis, on methotrexate, hypertension, bilateral lower extremity edema and neuropathy, testicular hypofunction, history of kidney stones. PAST SURGICAL HISTORY: Significant for colonoscopy, EGD, hiatal hernia repair, knee surgery, ear surgery, kidney stone removal, lumbar fusion, polypectomies, larynx and tonsillectomy. FAMILY HISTORY: Noncontributory. SOCIAL HISTORY: Negative for alcohol use, drug use or tobacco use. He is and lives with his . ALLERGIES: HE HAS ALLERGIES TO PENICILLIN AND SULFA. CURRENT MEDICATIONS: Include vancomycin, aztreonam, subQ heparin, allopurinol, vitamin D, vitamin B, Colace, folic acid, Neurontin, Protonix, Dilaudid, Tylenol, Maalox, milk of magnesia, Ambien, and MiraLax. PHYSICAL EXAMINATION: VITAL SIGNS: T-max is 38.3, current temperature is 37.1, pulse 76, respiratory rate 18, blood pressure 121/74, oxygen saturation is 91-94% on room air. GENERAL: He is awake, alert and oriented x3 on my exam, he is ambulating in his room. HEENT: Mucous membranes are moist. Extraocular muscles are intact. HEART: Regular. LUNGS: Clear bilaterally. ABDOMEN: Soft, nontender, nondistended. SKIN: There are no rashes. EXTREMITIES: There is bilateral lower extremity edema. LABORATORY STUDIES: Urinalysis is unremarkable. CBC reveals a white blood cell count of 6.7, hemoglobin 10.6, hematocrit is 34.2, and platelets are 227. Chemistry panel reveals a sodium of 144, potassium 4.0, chloride 107, bicarb 29, BUN 24, creatinine 1.1, random glucose is 129. Lactic acid is 3.2. LFTs are within normal limits. Blood and urine cultures are pending. IMAGING: As above. ASSESSMENT AND PLAN: 1. Left lower lobe pneumonia. 2. Fever. At this time, he can be continued on empiric antibiotics. Blood cultures are pending. Sputum culture was not ordered. If he is able to produce a specimen, this would be helpful. I will also add azithromycin for atypical coverage. Thank you for this consultation.
--- NOTE | 2016-12-02 15:21 | ECHOCARDIOGRAM REPORT ---
*NOTICE TO RECEIVING [employer] This information is strictly Confidential and protected under [place] law. [place] law prohibits you from making any further disclosure of this information unless further disclosure is expressly permitted by the written consent of the person to whom it pertains or is authorized by law. A general authorization for the release of medical or other information is not sufficient for this purpose. Hospital accepts no responsibility if the information is made available to any other person, INCLUDING THE PATIENT. Interpretation Summary * Name: ABA AYERS Study Date: 12/02/2016 11:11 AM BP: 121/74 mmHg * Patient Location: [facility]\S\N276\S\2 HR: 76 * : 1950 (M/d/yyyy) Gender: Male Height: 72 in * Age: 66 yrs Ethnicity: [place] Weight: 291 lb * Ordering Physician: Colette Howe * Referring Physician: Self, Referred * Performed By: Kanwal Alcaraz RDCS * * Reason For Study: HYPOTENSION/ SEPSIS * BSA: 2.5 m2 * History: HYPOTENSION/SEPSIS * -- Conclusions -- * The study was technically difficult. * A contrast injection of Definity was performed to improve assessment of LV function. * The left ventricle is normal in size. * There is moderate concentric left ventricular hypertrophy. * The left ventricular wall motion is normal. * Left ventricular systolic function is normal. * Ejection Fraction = 65-70%. * Theere is no significant valvular disease Procedure Details * A contrast injection of Definity was performed to improve assessment of LV function. * Contrast was injected into an intravenous site in the left arm. * One vial of Definity ultrasound contrast was diluted in normal saline to a total volume of 10 ml. A total of '2' ml of solution was administered during imaging. * Lot # [id number] of Definity utilized for procedure. * Expiration date FEB 03. * The attending nurse who injected the contrast agent was SMITA HARDY RN. * The study was technically difficult. * A complete two-dimensional transthoracic echocardiogram was performed (2D, M-mode, Doppler and color flow Doppler). Left Ventricle * The left ventricle is normal in size. * There is moderate concentric left ventricular hypertrophy. * Ejection Fraction = 65-70%. * Left ventricular systolic function is normal. * The left ventricular wall motion is normal. Right Ventricle * The right ventricle is normal in size and function. Atria * The left atrial size is normal. * Right atrial size is normal. * No ASD detected; PFO is not assessed. Mitral Valve * The mitral valve is normal. * There is no mitral valve stenosis. * There is trace mitral regurgitation. Tricuspid Valve * The tricuspid valve is normal. * There is no tricuspid stenosis. * There is trace tricuspid regurgitation. * Doppler findings do not suggest pulmonary hypertension. Aortic Valve * The aortic valve is trileaflet. * Aortic valve sclerosis mild, without significant aortic valvular stenosis. * No hemodynamically significant valvular aortic stenosis. * No aortic regurgitation is present. Pulmonic Valve * The pulmonic valve is not well visualized. Great Vessels * The aortic root is normal size. Pericardium/Pleural * There is a trivial circumferential pericardial effusion of nonhemodydnamic significance MMode 2D Measurements and Calculations IVSd 2.0 cm IVSs 2.5 cm LVIDd 3.8 cm LVIDs 2.5 cm LVPWd 2.0 cm LVPWs 2.4 cm IVS/LVPW 1.0 FS 33.8 % EDV(Teich) 60.9 ml ESV(Teich) 22.3 ml EF(Teich) 63.4 % EDV(cubed) 53.7 ml ESV(cubed) 15.6 ml EF(cubed) 70.9 % % IVS thick 22.2 % % LVPW thick 16.3 % LV mass(C)d 355.1 grams LV mass(C)dI 142.1 grams/m\S\2 LV mass(C)s 316.2 grams LV mass(C)sI 126.5 grams/m\S\2 SV(Teich) 38.6 ml SI(Teich) 15.4 ml/m\S\2 SV(cubed) 38.1 ml SI(cubed) 15.2 ml/m\S\2 Ao root diam 4.0 cm Ao root area 12.3 cm\S\2 LA dimension 3.5 cm LA/Ao 0.89 Doppler Measurements and Calculations MV E max esperanza 112.7 cm/sec MV A max esperanza 74.9 cm/sec MV E/A 1.5 MV dec time 0.20 sec Ao V2 max 175.5 cm/sec Ao max PG 12.3 mmHg Ao max PG (full) 2.3 mmHg LV V1 max PG 10.0 mmHg LV V1 max 158.1 cm/sec TR max esperanza 260.1 cm/sec
[2016-12-02] MEDS: AZTREONAM IV 2,000 MG in DEXTROSE 5% 100ML 100 ML IV SCH ×2 (15:32→23:33)
[2016-12-02 16:45] VITALS: TEMP 37.6
[2016-12-02] MEDS: VANCOMYCIN INJ 2,000 MG in SODIUM CHLORIDE 0.9% 500ML 500 ML IV SCH (18:00)
[2016-12-02 19:42] VITALS: BP 132/81; PULSE 70; TEMP 36.9; O2SAT 93
[2016-12-02 23:25] VITALS: BP 107/66; PULSE 66; TEMP 36.7; O2SAT 91
[2016-12-03] MEDS: SODIUM CHLORIDE 0.9% 1000ML 1,000 ML IV SCH (04:14)
[2016-12-03 04:20] VITALS: BP 111/67; PULSE 65; TEMP 36.6; O2SAT 92
[2016-12-03] MEDS: VANCOMYCIN INJ 2,000 MG in SODIUM CHLORIDE 0.9% 500ML 500 ML IV SCH (06:06)
[2016-12-03] MEDS: HEPARIN SOD 5000 UNIT/0.5 ML CARP SQ SCH ×2 (06:08→13:13)
[2016-12-03 06:35] LABS: MEAN CELL VOLUME 93.8 fL (80-100); MEAN CORPUSCULAR HEMOGLOBIN 29.3 pg (25-34); MEAN CORPUSCULAR HGB CONC 31.3 g/dl (32-36); MEAN PLATELET VOLUME 8.8 fL (7.4-10.4); PLATELET COUNT 202 K/uL (130-400); RED BLOOD COUNT 3.41 M/uL (4.7-6.1); WHITE BLOOD COUNT 6.98 K/uL (4.8-10.8)
[2016-12-03 06:48] VITALS: BP 125/72; PULSE 70; TEMP 37; O2SAT 92
[2016-12-03 07:13] LABS: CALCIUM 8.1 mg/dl (8.5-10.1); CREATININE 0.96 mg/dl (0.60-1.40); MAGNESIUM 2.1 mg/dl (1.8-2.4)
[2016-12-03] MEDS: GABAPENTIN 600 MG TAB PO SCH ×2 (07:36→13:11)
[2016-12-03] MEDS: CHOLECALCIFEROL 1000 INTER.UNIT TAB PO SCH (07:36)
[2016-12-03] MEDS: ALLOPURINOL 300 MG TAB PO SCH (07:36)
[2016-12-03] MEDS: CYANOCOBALAMIN 100 MCG TAB (VIT B-12) PO SCH (07:36)
[2016-12-03] MEDS: DOCUSATE SODIUM 100 MG CAP PO SCH (07:36)
[2016-12-03] MEDS: PANTOprazole SOD 40 MG TAB PO SCH (07:36)
[2016-12-03] MEDS: AZTREONAM IV 2,000 MG in DEXTROSE 5% 100ML 100 ML IV SCH (07:37)
[2016-12-03] MEDS ORDERED: AZITHROMYCIN 250 MG TAB PO SCH (09:00)
--- NOTE | 2016-12-03 09:01 | Discharge Instructions ---
Discharge Instructions Date of Service Dec 03, 2016. Admission Reason for Admission: Sepsis Discharge Discharge Diagnosis / Problem: SEPSIS/LEFT LOWER LOBE PNEUMONIA Discharge Goals Goal(s): Improve disease control, Diagnostic testing Activity Recommendations Activity Limitations: resume your previous activity . Instructions / Follow-Up Instructions / Follow-Up HOSPITAL FOLLOW UP 12/07/2016 1:[address] Rashmi Amaral DO [facility] DR BARBA'S SCHEDULE IS FULL FOLLOW UP : 12/09/2016 1:[address] [facility] NOT [facility]XATE /PLAQUENIL TILL ANTIBIOTIC COURSE IS COMPLETED Current Hospital Diet Patient's current hospital diet: Low Sodium Diet (2gm Na), AHA Diet (Heart Healthy) Discharge Diet Recommended Diet: AHA Diet (Heart Healthy), Low Sodium Diet (2gm Na) Pending Studies Studies pending at discharge: no Medical Emergencies . Who to Call and When: Medical Emergencies: If at any time you feel your situation is an emergency, please call 911 immediately. . Non-Emergent Contact Non-Emergency issues call your: Primary Care Provider . . "Provider Documentation" section prepared by Colette Howe. . VTE Core Measure Inpt VTE Proph given/why not?: Unfractionated heparin SQ
[2016-12-03] MEDS ORDERED: DXY100 PO (09:06)
[2016-12-03 09:15] VITALS: BP 125/72; PULSE 70; TEMP 37; O2SAT 92
--- NOTE | 2016-12-03 09:17 | Progress Note ---
Internal Med Progress Note Date of Service: Dec 03, 2016. Provider Documentation: SUBJECTIVE: no fever or chills seen ambulating in [address] , no SOB or hypoxia has non productive cough energy and appetite improved to baseline OBJECTIVE: Vital Signs-as noted below Exam: General-no sign of distress Eyes-sclera non icteric ENT-NAD Lungs-no rales or wheeze noted Heart-regular S1/S2 Abdomen-soft, non tender Extremities-+ 1-2 bilateral pitting edema -chronic Neuro-AAO x3, no focal deficit Lab data as noted below. ASSESSMENT & PLAN: SEPSIS/LEFT LOWER LOBE PNEUMONIA /COMMUNITY ACQUIRED : resolved, afebrile , normal white count BP stable , hypotension/Lactic acidosis resolved with IV fluid admitted yesterday with chills /rigor meets criteria -presented with hypotension , fever , chills , elevated lactic acid Source of infection -left lower lobe pneumonia Blood cultures no growth was treated empiric Abx with Vancomycin /Azactam ( Penicillin allergy ) IVF and IV ABx is discontinued ' Abx changed to PO Doxycycline ( Quinolones avoided for prolong Qtc ) ID eval requested -appreciate input CHRONIC BILATERAL LOWER EXT POLYNEUROPATHY : follows with neuro physiology in [place] cont Gabapentin pain control BILATERAL LOWER EXT PITTING EDEMA : possible due to above Lasix -resumed lower ext Doppler negative for DVT ECHO normal LV function The left ventricle is normal in size. There is moderate concentric left ventricular hypertrophy. The left ventricular wall motion is normal. Left ventricular systolic function is normal. Ejection Fraction = 65-70%. There is no significant valvular disease PROLONG QTC improved Qtc > 500 -> 471 avoid medications causing EKG prolongation Zithromax D/cleo PO Doxycycline for CAP RHEUMATOID ARTHRITIS : MTx and Plaquenil was on hold for sepsis Follows with Dr Pate Rheumatology pt is asked not to take Mtx and Plaquenil till Antibiotic course is completed GERD: cont PPI THAO : uses CPAP at night using his own device while in hospital FULL CODE DVT PROPHYLAXIS: moderate to high risk due to bilateral + 3 pitting edema , obesity Sub q heparin ambulate DISPOSITION discharge home today afternoon Medicine follow up with Dr Weiss Vital Signs: Date Time Temp Pulse Resp B/P (MAP) Pulse Ox O2 Delivery O2 Flow Rate FiO2 12/03/16 06:48 37.0 70 18 125/72 (89) 92 Room Air 12/03/16 04:20 36.6 65 18 111/67 (82) 92 CPAP 12/03/16 04:00 CPAP 12/03/16 00:37 CPAP 12/02/16 23:25 36.7 66 18 107/66 (80) 91 CPAP 12/02/16 19:59 Room Air 12/02/16 19:42 36.9 70 20 132/81 (98) 93 Room Air 12/02/16 16:45 37.6 12/02/16 16:00 Room Air 12/02/16 14:43 37.9 69 20 135/79 (97) 93 Room Air 12/02/16 12:00 Room Air 12/02/16 10:22 91 Room Air 12/02/16 09:33 37.1 76 18 121/74 (90) 91 Room Air Lab Results: Results Past 24 Hours Test 12/02/16 09:55 12/02/16 14:24 12/02/16 22:07 12/03/16 06:22 Range/Units Prothrombin Time 10.4 9.0-12.0 SECONDS Prothromb Time International Ratio 1.0 0.9-1.1 Lactic Acid Level 1.3 1.1 1.6 0.4-2.0 mmol/L White Blood Count 6.98 4.8-10.8 K/uL Red Blood Count 3.41 4.7-6.1 M/uL Hemoglobin 10.0 14.0-18.0 g/dL Hematocrit 32.0 42-52 % Mean Corpuscular Volume 93.8 80-100 fL Mean Corpuscular Hemoglobin 29.3 25-34 pg Mean Corpuscular Hemoglobin Concent 31.3 32-36 g/dl RDW Standard Deviation 47.2 36.4-46.3 fL RDW Coefficient of Variation 14.0 11.5-14.5 % Platelet Count 202 130-400 K/uL Mean Platelet Volume 8.8 7.4-10.4 fL Sodium Level 142 136-145 mmol/L Potassium Level 4.0 3.5-5.1 mmol/L Chloride Level 107 98-107 mmol/L Carbon Dioxide Level 27 21-32 mmol/L Anion Gap 8.0 3-11 mmol/L Blood Urea Nitrogen 20 7-18 mg/dl Creatinine 0.96 0.60-1.40 mg/dl Est Creatinine Clear Calc Drug Dose 106.0 ml/min Estimated GFR () 94.4 Estimated GFR (Non- 81.5 BUN/Creatinine Ratio 21.0 10-20 Random Glucose 101 70-99 mg/dl Calcium Level 8.1 8.5-10.1 mg/dl Magnesium Level 2.1 1.8-2.4 mg/dl Microbiology Results 12/02/16 Urine Culture, Received Pending
[2016-12-03] MEDS ORDERED: POTASSIUM CHLORIDE 20 MEQ TABCR PO SCH (10:00)
[2016-12-03] MEDS ORDERED: FUROSEMIDE 40 MG TAB PO SCH (10:00)
[2016-12-03] MEDS ORDERED: DOXYCYCLINE HYCLATE 100 MG CAP PO SCH (10:00)
[2016-12-03] MEDS: HYDROCODONE/ACETAMOPHEN 5/325MG TAB PO PRN (13:11)
[2016-12-03 15:02] VITALS: BP 125/72; PULSE 70; TEMP 37; O2SAT 92
--- NOTE | 2016-12-03 15:06 | Discharge Summary ---
Discharge Summary Date of Service Dec 03, 2016. Discharge Summary Admission Date: Dec 02, 2016 at 08:08 Discharge Date: Dec 03, 2016 Discharge Disposition: Home Principal Diagnosis: SEPSIS/LEFT LOWER LOBE PNEUMONIA Procedures: ECHO : The study was technically difficult. A contrast injection of Definity was performed to improve assessment of LV function. The left ventricle is normal in size. There is moderate concentric left ventricular hypertrophy. The left ventricular wall motion is normal. Left ventricular systolic function is normal. Ejection Fraction = 65-70%. There is no significant valvular disease CHEST XRAY IMPRESSION: Vague parenchymal infiltrate left lower lobe. LOWER EXTREMITY DOPPLER IMPRESSION: No evidence of lower extremity DVT Consultations: INFECTIOUS DISEASE Medication Reconciliation New Medications: Doxycycline Hyclate (Doxycycline Hyclate) 100 Mg Cap 1 CAP PO BID for 7 Days, #14 CAP Continued Medications: Acetaminophen (Tylenol) 500 Mg Tab 1000 MG PO TID PRN for Pain or Fever, TAB Allopurinol (Zyloprim) 300 Mg Tab 300 MG PO DAILY, TAB Cholecalciferol (Vitamin D 1000 Unit) 1,000 Unit Cap 1000 INTER.UNIT PO DAILY, CAP Colchicine (Colcrys) 0.6 Mg Tab 0.6 MG PO DAILY PRN for GOUT Cyanocobalamin (Vitamin B12 100 Mcg) 100 Mcg Tab 100 MCG PO DAILY, TAB Cyanocobalamin (Vitamin Deficiency Inject) 1,000 Mcg/Ml Kit 1 ML INJ MONTHLY Docusate Sodium (Docusate Sodium) 100 Mg Cap 1 CAP PO BID for 15 Days, #30 CAP Folic Acid (Folvite) 1 Mg Tab 1 MG PO DAILY, TAB Furosemide (Lasix) 40 Mg Tab 40 MG PO DAILY, TAB Gabapentin (Neurontin) 300 Mg Cap 600 MG PO TID, CAP Hydrocodone/Acetaminophen 5MG/325MG (Xenia 5MG/325MG) Tab 1 TABLET PO Q6 PRN for Pain, TAB PRN PAIN Hydroxychloroquine Sulfate (Plaquenil) 200 Mg Tab 400 MG PO HS, TAB Methotrexate (Methotrexate) 2.5 Mg Tab 6 TABS PO WK, TAB MONDAY Ondansetron Odt (Zofran Odt) 8 Mg Soltab 8 MG SL Q6H PRN for Nausea, TAB Pantoprazole (Protonix) 20 Mg Tab 20 MG PO HS, #30 TAB Potassium Ext Rel (Klor-Con) 20 Meq Tabcr 20 MEQ PO DAILY, TAB Referrals At Discharge Follow up Referrals: Physician Referral - 12/07/16 with Rashmi Amaral D.O. Admission Information HPI (per Admitting provider): This is a 66 yo M with hx of obesity , chronic bilateral lower ext edema , polyneuropathy, Rheumatoid arthritis on Methotrexate , GERD -came to ED with complains of fever , chills rigor Pt had a normal day yesterday , woke up around 3 am with chills , rigor , fever in the ED pt was found to be hypotensive , fever 38 , lactic acid elevated > 3 Cxray shows vague ill defined density on left lower lobe pt denies of any sick contact , no cough or SOB , no chest pain no GI or symptoms Physical Exam (per Admitting): General Appearance: no apparent distress Head: normocephalic, atraumatic Eyes: sclerae normal Neck: no carotid bruits Respiratory/Chest: chest non-tender, no respiratory distress, + crackles ( on base ) Cardiovascular: regular rate, rhythm, + pertinent finding (bilateral lower ext edema + 2-3 ) Abdomen/GI: normal bowel sounds, non tender, soft Extremities/Musculoskelatal: + calf tenderness, + pedal edema (+ 2-3 bilateral lower ext pitting edema ) Neurologic/Psych: alert, normal mood/affect, oriented x 3 Hospital Course SEPSIS/LEFT LOWER LOBE PNEUMONIA /COMMUNITY ACQUIRED : resolved, afebrile , normal white count BP stable , hypotension/Lactic acidosis resolved with IV fluid admitted yesterday with chills /rigor meets criteria -presented with hypotension , fever , chills , elevated lactic acid Source of infection -left lower lobe pneumonia Blood cultures no growth was treated empiric Abx with Vancomycin /Azactam ( Penicillin allergy ) IVF and IV ABx is discontinued ' Abx changed to PO Doxycycline ( Quinolones avoided for prolong Qtc ) ID eval requested -appreciate input CHRONIC BILATERAL LOWER EXT POLYNEUROPATHY : follows with neuro physiology in [place] cont Gabapentin pain control BILATERAL LOWER EXT PITTING EDEMA : possible due to above Lasix -resumed lower ext Doppler negative for DVT ECHO normal LV function The left ventricle is normal in size. There is moderate concentric left ventricular hypertrophy. The left ventricular wall motion is normal. Left ventricular systolic function is normal. Ejection Fraction = 65-70%. There is no significant valvular disease PROLONG QTC improved Qtc > 500 -> 471 avoid medications causing EKG prolongation Zithromax D/cleo PO Doxycycline for CAP RHEUMATOID ARTHRITIS : MTx and Plaquenil was on hold for sepsis Follows with Dr Pate Rheumatology pt is asked not to take Mtx and Plaquenil till Antibiotic course is completed GERD: cont PPI THAO : uses CPAP at night using his own device while in hospital FULL CODE DVT PROPHYLAXIS: moderate to high risk due to bilateral + 3 pitting edema , obesity Sub q heparin ambulate DISPOSITION discharge home today afternoon Medicine follow up with Dr Weiss Total time spent on discharge = 35 MINS This includes examination of the patient, discharge planning, medication reconciliation, and communication with other providers. Discharge Instructions Discharge Instructions Date of Service Dec 03, 2016. Admission Reason for Admission: Sepsis Discharge Discharge Diagnosis / Problem: SEPSIS/LEFT LOWER LOBE PNEUMONIA Discharge Goals Goal(s): Improve disease control, Diagnostic testing Activity Recommendations Activity Limitations: resume your previous activity . Instructions / Follow-Up Instructions / Follow-Up HOSPITAL FOLLOW UP 12/07/2016 1:[address] Rashmi Amaral DO [facility] DR WEISS'S SCHEDULE IS FULL FOLLOW UP : 12/09/2016 1:[address] Jarocho Zeng MD Neurophysiology, [place] DO NOT TAKE METHOTREXATE /PLAQUENIL TILL ANTIBIOTIC COURSE IS COMPLETED Current Hospital Diet Patient's current hospital diet: Low Sodium Diet (2gm Na), AHA Diet (Heart Healthy) Discharge Diet Recommended Diet: AHA Diet (Heart Healthy), Low Sodium Diet (2gm Na) Pending Studies Studies pending at discharge: no Medical Emergencies . Who to Call and When: Medical Emergencies: If at any time you feel your situation is an emergency, please call 911 immediately. . Non-Emergent Contact Non-Emergency issues call your: Primary Care Provider . . "Provider Documentation" section prepared by Colette Howe. . VTE Core Measure Inpt VTE Proph given/why not?: Unfractionated heparin SQ Additional Copies To Rashmi Amaral D.O.
[2016-12-03 15:07] VITALS: BP 140/70; PULSE 70; TEMP 37.6; O2SAT 96
[2016-12-04] MEDS ORDERED: VANCOMYCIN TROUGH SCH (05:30)
[2016-12-27] MEDS ORDERED: LYR75 PO (13:57)
== END 2016-12-03 15:45 | disposition home or self-care (01) | DRG 871 ==
LOC: C.EDB 05:09 → C.MED 08:08 → ENRESERV 08:37
PROVIDERS: ADMIT Hospitalist; ATTEND Hospitalist
DX: A41.9 Sepsis, unspecified organism (principal); J18.9 Pneumonia, unspecified organism; Z68.41 Body mass index [BMI] 40.0-44.9, adult; E66.9 Obesity, unspecified; K21.9 Gastro-esophageal reflux disease without esophagitis; I95.9 Hypotension, unspecified; I10 Essential (primary) hypertension; G47.33 Obstructive sleep apnea (adult) (pediatric); M54.5 Low back pain; E78.00 Pure hypercholesterolemia, unspecified; R60.0 Localized edema; G62.9 Polyneuropathy, unspecified; M06.9 Rheumatoid arthritis, unspecified; I45.81 Long QT syndrome; R74.0 Nonspecific elevation of levels of transaminase and lactic acid dehydrogenase [LDH]; K22.70 Barrett's esophagus without dysplasia; K58.9 Irritable bowel syndrome, unspecified; E88.81 Metabolic syndrome and other insulin resistance; M10.9 Gout, unspecified; Z87.442 Personal history of urinary calculi; Z98.1 Arthrodesis status; Z79.899 Other long term (current) drug therapy; Z79.891 Long term (current) use of opiate analgesic; Z99.89 Dependence on other enabling machines and devices

== ENCOUNTER 2016-12-26 10:25 | Observation (INO) | payer BC, OTHER ==
[~2016-12-26] VITALS: Ht 182.9 cm; Wt 131.5 kg
[~2016-12-26 10:25] MED LIST changes: -BACL10TA PO; +DXY100 PO; -GABA-112 PO; +GABA-113 PO; -GLC/500 PO; -PRED-301 PO
[2016-12-26 11:52] LABS: BASO % 0.6 %; BASO ABS # 0.03 K/uL (0-0.2); COMPLETE YES; EOS % 3.2 %; HEMATOCRIT 37.3 % (42-52); IG% 0.4 %; LYMPH % 17.3 %; LYMPH ABS # 0.93 K/uL (1.2-3.4); MEAN CORPUSCULAR HEMOGLOBIN 29.4 pg (25-34); MEAN CORPUSCULAR HGB CONC 31.6 g/dl (32-36); MEAN PLATELET VOLUME 9.8 fL (7.4-10.4); MONO % 13.8 %; NEUT % 64.7 %; PLATELET COUNT 207 K/uL (130-400); RED BLOOD COUNT 4.01 M/uL (4.7-6.1); WHITE BLOOD COUNT 5.38 K/uL (4.8-10.8)
[2016-12-26 12:06] LABS: INR 0.9 (0.9-1.1); PARTIAL THROMBOPLASTIN RATIO 0.9; PROTHROMBIN TIME (PATIENT) 9.6 SECONDS (9.0-12.0)
[2016-12-26 12:09] LABS: ALT/SGPT 61 U/L (12-78); BLOOD UREA NITROGEN 24 mg/dl (7-18); BUN/CREATININE RATIO 24.8 (10-20); CALCIUM 8.7 mg/dl (8.5-10.1); CARBON DIOXIDE 26 mmol/L (21-32); CHLORIDE 105 mmol/L (98-107); CREATININE 0.95 mg/dl (0.60-1.40); GLUCOSE 100 mg/dl (70-99); POTASSIUM 3.9 mmol/L (3.5-5.1); SODIUM 140 mmol/L (136-145)
[2016-12-26 12:14] LABS: ALKALINE PHOSPHATASE 72 U/L (45-117); AST/SGOT 32 U/L (15-37)
[2016-12-26 12:15] LABS: URINE APPEARANCE CLEAR (CLEAR); URINE BILIRUBIN NEG (NEG); URINE COLOR YELLOW; URINE NITRITE NEG (NEG); URINE SPECIFIC GRAVITY 1.015 (1.000-1.030); UROBILINOGEN NEG (NEG)
[2016-12-26 12:19] LABS: MANUAL MICROSCOPIC REQUIRED? NO; REVIEW REQ? NO
--- NOTE | 2016-12-26 12:39 | DIAGNOSTIC IMAGING REPORT ---
CHEST ONE VIEW PORTABLE CLINICAL HISTORY: Respiratory distress. Dyspnea. COMPARISON STUDY: Chest radiograph December 02, 2016. FINDINGS: No pneumothorax or pleural effusion is present. Mild enlargement of the cardiac silhouette is unchanged. Left lower lung airspace opacity shown on exam of December 02, 2016 has likely resolved. There is no evidence of pulmonary edema. IMPRESSION: 1. No acute cardiopulmonary findings. 2. Resolution of left lower lung consolidation shown on prior exam. Electronically signed by: Gerber Moraes M.D. 12/26/2016 12:38 PM Dictated Date/Time: 12/26/2016 12:37 PM
[2016-12-26] MEDS ORDERED: OPTIRAY 320 IV PRN (13:30)
--- NOTE | 2016-12-26 13:45 | DIAGNOSTIC IMAGING REPORT ---
CT ANGIOGRAM OF THE CHEST CLINICAL HISTORY: Atypical chest pain. Dyspnea. COMPARISON STUDY: Chest x-ray dated 12/26/2016. Chest CT dated 06/16/2009. TECHNIQUE: Following the IV administration of 112 cc of Optiray 320, CT angiogram of the chest was performed from the upper abdomen to the thoracic inlet utilizing the pulmonary embolus protocol. Images are reviewed in the axial, sagittal, and coronal planes. 3-D MIPS images are created and assessed. IV contrast was administered without complication. The examination is degraded by large body habitus, and by streak artifact from the body wall abutting the CT gantry. The examination is also degraded by streak artifact from the right arm which could not be elevated above the chest. CT DOSE: 785.92 mGy.cm FINDINGS: Thyroid: Imaged portions of the thyroid gland are normal in size and attenuation. Thoracic aorta: There is atherosclerotic calcification of the thoracic aorta, which is normal in caliber and demonstrates standard 3-vessel arch anatomy. No dissection is seen. Pulmonary vasculature: The pulmonary trunk is normal in caliber. There are no filling defects identified in main, lobar, or segmental pulmonary branches to suggest pulmonary embolus. Heart: The heart is mildly enlarged and without pericardial effusion. There are coronary artery calcifications. Lungs and pleural spaces: Mild emphysematous change is observed. There is no lobar consolidation or pleural effusion. Faint groundglass opacities are seen in the left lower lobe on image #137 and in the medial right lower lobe on image #173. These likely represent a mild infectious/inflammatory pneumonitis. Mild diffuse peribronchial thickening suggests reactive airway disease. A small calcified granulomas in the right lower lobe. The trachea and central airways are clear. Mediastinum: There is no mediastinal lymphadenopathy. Arelis: Clear. Axillae: There is no axillary lymphadenopathy. Upper abdomen: The liver is enlarged and steatotic. There is a moderate hiatal hernia. Diverticula are identified in the partially imaged left colon. Skeletal structures: The skeletal structures are osteopenic. No lytic or blastic bony lesions are seen. Degenerative change is seen throughout the thoracic spine. IMPRESSION: 1. There is no evidence of pulmonary embolus in the main, lobar, or segmental pulmonary arteries. 2. Cardiomegaly and emphysema. 3. There are faint groundglass opacities seen in the lower lobes, likely representing a mild infectious/inflammatory pneumonitis. Clinical correlation will be required. 4. There is no lobar consolidation or pleural effusion. Mild peribronchial thickening suggests reactive airway disease. 5. Hepatomegaly and severe hepatic steatosis. 6. Moderate hiatal hernia. 7. Additional findings as above. Electronically signed by: Tico Reyes M.D. 12/26/2016 1:44 PM Dictated Date/Time: 12/26/2016 1:36 PM
[2016-12-26] MEDS ORDERED: ASPIRIN 324 MG CHEW PO STA (14:25)
[2016-12-26] MEDS ORDERED: FUROSEMIDE INJ 20 MG in SYRINGE 0 ML IV SCH (14:30)
[2016-12-26 14:49] VITALS: O2SAT 95; Ht 182.9 cm; Wt 131.5 kg
[2016-12-26] MEDS ORDERED: HYDROCODONE/ACETAMOPHEN 5/325MG TAB PO PRN (15:15)
[2016-12-26] MEDS ORDERED: ONDANSETRON 8MG OD TAB SL PRN (15:15)
[2016-12-26] MEDS ORDERED: ACETAMINOPHEN 325 MG TAB PO PRN (15:30)
[2016-12-26] MEDS ORDERED: MAGNESIUM HYDROXIDE SUSP 30 ML UDC PO PRN (15:30)
[2016-12-26] MEDS ORDERED: ZOLPIDEM TARTRATE 5 MG TAB PO PRN (15:30)
[2016-12-26] MEDS ORDERED: ONDANSETRON INJ 2 MG/ML 2 ML VIAL IV PRN (15:30)
[2016-12-26] MEDS ORDERED: POLYETHYLENE (MIRALAX) 17 GM PACK PO PRN (15:30)
--- NOTE | 2016-12-26 15:56 | History and Physical ---
History & Physical Date & Time of Service: Dec 26, 2016 at 15:48 Chief Complaint: Sob,Heaviness In Chest Primary Care Physician: Rob Weiss M.D. History of Present Illness Source: patient The patient is a 66 year old male with PMH mentioned below, who presents to the Emergency Room with complaints of c/o intermittent chest heaviness, SOB x 3 days. Patient was recently discharged from hospital 11/2016 and rxed for pneumonia , left sided with IV Vanco/Azactam and discharged on Doxycycline. Patient was recovering well with symptoms of pneumonia improving till 3 days ago when he noticed intermittent chest heaviness, SOB, mainly orthopnea, worsening of leg swelling. Denies any cough, improving in fact. No chest pain, fever, chills, nasal congestion, nausea, vomiting, diaphoresis, palpitations. Does mention that he has had b/l lower extremity edema x 3 years and has been on lasix 40 mg daily for that. Does have chronic neuropathic pain b/l lower extremity In ED, he is hemodynamically stable. Afebrile, BP/HR stable, Saturating well on RA. Labs - normal, CXR- improving Left sided consolidation, CT scan- no PE. EKG - no acute changes compared to prior EKG. Troponin x 1 negative. BNP is 189 Will admit him under observation for chest heaviness/SOB to rule out ACS as pulmonary issues seems to be better. Past Medical/Surgical History Medical Problems: (1) Bullard's esophagus Status: Chronic (2) Dyslipidemia Status: Chronic (3) GERD (gastroesophageal reflux disease) Status: Chronic (4) Gout Status: Chronic (5) IBS (irritable bowel syndrome) Status: Chronic (6) Lumbar disc disorder Status: Chronic (7) Metabolic syndrome Status: Chronic (8) THAO on CPAP Status: Chronic (9) Rheumatoid arthritis Status: Chronic (10) Situational hypertension Status: Chronic (11) Stasis edema of both lower extremities Status: Chronic (12) Testicular hypofunction Status: Chronic (13) Uric acid kidney stone Status: Chronic Surgical Problems: (1) H/O colonoscopy Status: Chronic (2) H/O esophagogastroduodenoscopy Status: Chronic (3) History of repair of hiatal hernia Status: Chronic (4) S/P arthroscopic knee surgery Status: Chronic (5) S/P ear surgery Status: Chronic (6) S/p kidney stone removal Status: Chronic (7) S/P lumbar fusion Status: Chronic (8) S/p removal of polyp from larynx Status: Chronic (9) S/P tonsillectomy and adenoidectomy Status: Chronic Family History Diabetes mellitus GRANDMOTHER FH: CAD (coronary artery disease) MOTHER ([place] age 81) UNCLE FH: cancer MOTHER (stomach CA) FATHER (lung CA) Stroke GRANDFATHER Social History Smoking Status: Never Smoker Drug Use: none Marital Status: Occupational Status: retired Immunizations History of Influenza Vaccine: Yes Influenza Vaccine Date: Apr 06, 2016 History of Tetanus Vaccine?: Yes Tetanus Immunization Date: Feb 14, 2012 History of Pneumococcal: Yes Pneumococcal Date: Mar 04, 2015 Multi-Drug Resistant Organisms History of MDRO: No Allergies Coded Allergies: Penicillins (Verified Allergy, Unknown, RASH, 12/26/16) Sulfa Antibiotics (Verified Allergy, Unknown, RASH, 12/26/16) Trimethoprim (Verified Allergy, Unknown, RASH, 12/26/16) Home Medications Scheduled Allopurinol (Zyloprim), 300 MG PO QAM Cholecalciferol (Vitamin D 1000 Unit), 1,000 INTER.UNIT PO QAM Cyanocobalamin (Vitamin B12 100 Mcg), 100 MCG PO QAM Cyanocobalamin (Vitamin Deficiency Inject), 1 ML INJ MONTHLY Docusate Sodium (Docusate Sodium), 1 CAP PO BID Folic Acid (Folvite), 1 MG PO QAM Furosemide (Lasix), 40 MG PO QAM Gabapentin (Neurontin), 600 MG PO TID Hydroxychloroquine Sulfate (Plaquenil), 400 MG PO HS Methotrexate (Methotrexate), 6 TABS PO WK Pantoprazole (Protonix), 20 MG PO HS Potassium Ext Rel (Klor-Con), 20 MEQ PO QAM Scheduled PRN Acetaminophen (Tylenol), 1,000 MG PO TID PRN for Pain or Fever Hydrocodone/Acetaminophen 5MG/325MG ([place] 5MG/325MG), 1 TABLET PO Q6 PRN for Pain Ondansetron Odt (Zofran Odt), 8 MG SL Q6H PRN for Nausea Review of Systems Constitutional: No fever, No chills Eyes: No worsening of vision, No eye pain, No redness, No discharge ENT: No hearing loss, No nasal symptoms Respiratory: + shortness of breath, No cough, No sputum, No wheezing, No hemoptysis Cardiovascular: + chest pain, + orthopnea, + edema, No palpitations Abdomen: No nausea, No vomiting, No diarrhea, No constipation Genitourinary - Male: No hematuria, No dysuria, No urinary frequency Neurologic: No memory loss, No paralysis Psychiatric: + anxiety Hematologic / Lymphatic: No abnormal bleeding/bruising Integumentary: No rash Physical Exam Vital Signs Date Time Temp Pulse Resp B/P (MAP) Pulse Ox O2 Delivery O2 Flow Rate FiO2 12/26/16 15:24 58 20 129/71 97 Room Air 12/26/16 14:49 95 Room Air 12/26/16 14:06 53 20 128/71 95 Room Air 12/26/16 13:53 56 12/26/16 12:04 62 12 135/76 99 Room Air 12/26/16 11:12 98 Room Air 12/26/16 11:12 98 Room Air 12/26/16 11:12 98 Room Air 12/26/16 11:05 60 12/26/16 10:29 36.4 63 22 131/72 96 Room Air General Appearance: no apparent distress Head: normocephalic, atraumatic Eyes: PERRL ENT: hearing grossly normal Neck: supple, no JVD Respiratory/Chest: chest non-tender, lungs clear, normal breath sounds, no respiratory distress, no accessory muscle use Cardiovascular: regular rate, rhythm, + pertinent finding (B/L pedal edema) Abdomen/GI: normal bowel sounds, non tender, soft, no organomegaly Extremities/Musculoskelatal: no calf tenderness, + pedal edema (bilateral pedal edema) Neurologic/Psych: no motor/sensory deficits, alert, oriented x 3 Skin: normal color Diagnostics Laboratory Results Results Past 24 Hours Test 12/26/16 11:40 12/26/16 12:00 Range/Units White Blood Count 5.38 4.8-10.8 K/uL Red Blood Count 4.01 4.7-6.1 M/uL Hemoglobin 11.8 14.0-18.0 g/dL Hematocrit 37.3 42-52 % Mean Corpuscular Volume 93.0 80-100 fL Mean Corpuscular Hemoglobin 29.4 25-34 pg Mean Corpuscular Hemoglobin Concent 31.6 32-36 g/dl Platelet Count 207 130-400 K/uL Mean Platelet Volume 9.8 7.4-10.4 fL Neutrophils (%) (Auto) 64.7 % Lymphocytes (%) (Auto) 17.3 % Monocytes (%) (Auto) 13.8 % Eosinophils (%) (Auto) 3.2 % Basophils (%) (Auto) 0.6 % Neutrophils # (Auto) 3.49 1.4-6.5 K/uL Lymphocytes # (Auto) 0.93 1.2-3.4 K/uL Monocytes # (Auto) 0.74 0.11-0.59 K/uL Eosinophils # (Auto) 0.17 0-0.5 K/uL Basophils # (Auto) 0.03 0-0.2 K/uL RDW Standard Deviation 46.5 36.4-46.3 fL RDW Coefficient of Variation 13.6 11.5-14.5 % Immature Granulocyte % (Auto) 0.4 % Immature Granulocyte # (Auto) 0.02 0.00-0.02 K/uL Prothrombin Time 9.6 9.0-12.0 SECONDS Prothromb Time International Ratio 0.9 0.9-1.1 Activated Partial Thromboplast Time 22.8 21.0-31.0 SECONDS Partial Thromboplastin Ratio 0.9 D-Dimer 1100 0-500 ug/L FEU Sodium Level 140 136-145 mmol/L Potassium Level 3.9 3.5-5.1 mmol/L Chloride Level 105 98-107 mmol/L Carbon Dioxide Level 26 21-32 mmol/L Anion Gap 9.0 3-11 mmol/L Blood Urea Nitrogen 24 7-18 mg/dl Creatinine 0.95 0.60-1.40 mg/dl Est Creatinine Clear Calc Drug Dose 106.9 ml/min Estimated GFR () 95.6 Estimated GFR (Non- 82.5 BUN/Creatinine Ratio 24.8 10-20 Random Glucose 100 70-99 mg/dl Calcium Level 8.7 8.5-10.1 mg/dl Total Bilirubin 0.2 0.2-1 mg/dl Aspartate Amino Transf (AST/SGOT) 32 15-37 U/L Alanine Aminotransferase (ALT/SGPT) 61 12-78 U/L Alkaline Phosphatase 72 45-117 U/L Troponin I < 0.015 0-0.045 ng/ml Pro-B-Type Natriuretic Peptide 189 0-900 pg/ml Total Protein 6.8 6.4-8.2 gm/dl Albumin 3.4 3.4-5.0 gm/dl Globulin 3.4 2.5-4.0 gm/dl Albumin/Globulin Ratio 1.0 0.9-2 Urine Color YELLOW Urine Appearance CLEAR CLEAR Urine pH 5.0 4.5-7.5 Urine Specific [place] 1.015 1.000-1.030 Urine Protein NEG NEG Urine Glucose (UA) NEG NEG Urine Ketones NEG NEG Urine Occult Blood NEG NEG Urine Nitrite NEG NEG Urine Bilirubin NEG NEG Urine Urobilinogen NEG NEG Urine Leukocyte Esterase NEG NEG Diagnostic Radiology CXR IMPRESSION: 1. No acute cardiopulmonary findings. 2. Resolution of left lower lung consolidation shown on prior exam. CT CHEST IMPRESSION: 1. There is no evidence of pulmonary embolus in the main, lobar, or segmental pulmonary arteries. 2. Cardiomegaly and emphysema. 3. There are faint groundglass opacities seen in the lower lobes, likely representing a mild infectious/inflammatory pneumonitis. Clinical correlation will be required. 4. There is no lobar consolidation or pleural effusion. Mild peribronchial thickening suggests reactive airway disease. 5. Hepatomegaly and severe hepatic steatosis. 6. Moderate hiatal hernia. 7. Additional findings as above. EKG Sinus bradycardia Right bundle branch block Abnormal ECG When compared with ECG of 03-DEC-2016 07:45, No significant change was found Impression Assessment and Plan Patient is a 66 year old M who comes in with C/o SOB, Orthopnea, chest heaviness , worsening leg edema x 3 days. Recently discharged from hospital 11/2016 for pneumonia and rxed with course of doxycycline. ASSESSMENT AND PLAN: INTERMITTENT CHEST HEAVINESS/SOB: Rule out ACS. Recently discharged from hospital in 11/2016 - rxed for pneumonia with IV Vancomycin/Azactam followed by Doxycycline on discharge. Symptoms/signs of pneumonia resolved, CXR showing improved Left lung consolidation, CT scan shows no PE, No Pulmonary congestion. Though presentation seems like fluid overload, he actually has venous insufficiency causing chronic b/l pedal edema x 3 years, gets worse with walking and at end of day with normal EF, creatinine, Liver function tests. BNP is normal. CHF is unlikely. Echo recently done - EF 65-70%; Mod LVH -Unlikely pulmonary etiology with pneumonia symptoms improving -Will do telemetry, EKG - serial, Troponin serial . If trop negative, stress echo in AM CHRONIC BILATERAL LOWER EXT POLYNEUROPATHY : Uncontrolled symptoms. Overnight had worsening of s ymptoms, so took percocet. -On Gabapentin 600 mg PO TID which has not helped at all to relieve the pain. Will try Lyrica BID to see if it helps -Follows with neuro physiology in [place] -Would avoid NARCOTICS for neuropathic pain. Explained him side effects, understands and agreeable to cut down on it. CHRONIC BILATERAL LOWER EXT PITTING EDEMA : Patient has had it for 3 years now. -Echo done in 11/2016- EF 65-70%, Mod LVH, Creatinine normal, LFTs normal. Swelling does get worse towards the end of the day -Most likely this is venous insufficiency. Unlikely CHF with normal EF, BNP, Clinically no crackles on exam, CXR/CT scan not suggestive of congestion -Recommend leg elevation and TEDS. -On lasix 40 mg for this. Defer discontinuation of lasix to PCP. -Had venous duplex last month- negative for clots HX OF RHEUMATOID ARTHRITIS : -Continue with MTx and Plaquenil -Follows with Dr Pate Rheumatology GERD: -cont PPI THAO : -uses CPAP at night - use his own device while in hospital FULL CODE DVT PROPHYLAXIS: Moderate risk due to chronic edema Lovenox SQ DISPOSITION Observation telemetry If stress test negative, okay to discharge tomorrow Level of Care Telemetry Advanced Directives Existing Living Will: No Existing Power of Supply Chain Systems Manager: No Resuscitation Status FULL RESUSCITATION VTE Prophylaxis VTE Risk Assessment Done? Y/N: Yes Risk Level: Moderate Given or contraindicated: Enoxaparin (Lovenox)SQ
[2016-12-26] MEDS ORDERED: IV FLUIDS COMPLETED PRN (16:00)
[2016-12-26 16:50] VITALS: O2SAT 96
--- NOTE | 2016-12-26 17:11 | EMERGENCY ROOM VISIT NOTE ---
History Report prepared by Lakshmi: Ros Berry Under the Supervision of: Dr. Kyle Mahoney D.O. First contact with patient: 10:40 Chief Complaint: SHORTNESS OF BREATH Stated Complaint: SOB,HEAVINESS IN CHEST History of Present Illness The patient is a 66 year old male who presents to the Emergency Room with complaints of worsening shortness of breath beginning 5 days prior to arrival. He describes the shortness of breath as a labored breathing. The patient states that his shortness of breath worsens when he lays down. The patient is also experiencing chest heaviness for the last 5 days. This chest heaviness is relieved when he takes a deep breath. The patient was in the ED on December 02 for pneumonia. He was hospitalized and had an echo done. The echo showed EF of 60-75% and no valvular disease. He also notes that he is retaining fluid. Since hospitalization on December 02 the patient has been experiencing a worsening in his lower leg swelling. He has chronic swelling for the past 3 years. He is on 40 gm Lasix twice a day. The patient does wear a CPAP at night. Last night he notes almost having an anxiety attack when wearing the CPAP and laying flat due to trouble breathing. 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 Pt denies headache, change in vision, arm or jaw pain, nausea, vomiting, diarrhea, pain with urination, and melena. He does not have a history of diabetes, hypertension, high cholesterol or blood thinner use. 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 Review of Systems See HPI for pertinent positives & negatives. A total of 10 systems reviewed and were otherwise negative. Past Medical & Surgical Medical Problems: (1) Bullard's esophagus (2) Chest discomfort (3) Dyslipidemia (4) GERD (gastroesophageal reflux disease) (5) Gout (6) IBS (irritable bowel syndrome) (7) Lumbar disc disorder (8) Metabolic syndrome (9) THAO on CPAP (10) Renal colic (11) Rheumatoid arthritis (12) Sepsis (13) Situational hypertension (14) Stasis edema of both lower extremities (15) Testicular hypofunction (16) Uric acid kidney stone Surgical Problems: (1) H/O colonoscopy (2) H/O esophagogastroduodenoscopy (3) History of repair of hiatal hernia (4) S/P arthroscopic knee surgery (5) S/P ear surgery (6) S/p kidney stone removal (7) S/P lumbar fusion (8) S/p removal of polyp from larynx (9) S/P tonsillectomy and adenoidectomy Family History Diabetes mellitus GRANDMOTHER FH: CAD (coronary artery disease) MOTHER (OR age 81) UNCLE FH: cancer MOTHER (stomach CA) FATHER (lung CA) Stroke GRANDFATHER Social History Smoking Status: Never Smoker Drug Use: none Marital Status: Occupation Status: retired Current/Historical Medications Scheduled Allopurinol (Zyloprim), 300 MG PO QAM Cholecalciferol (Vitamin D 1000 Unit), 1,000 INTER.UNIT PO QAM Cyanocobalamin (Vitamin B12 100 Mcg), 100 MCG PO QAM Cyanocobalamin (Vitamin Deficiency Inject), 1 ML INJ MONTHLY Docusate Sodium (Docusate Sodium), 1 CAP PO BID Folic Acid (Folvite), 1 MG PO QAM Furosemide (Lasix), 40 MG PO QAM Gabapentin (Neurontin), 600 MG PO TID Hydroxychloroquine Sulfate (Plaquenil), 400 MG PO HS Methotrexate (Methotrexate), 6 TABS PO WK Pantoprazole (Protonix), 20 MG PO HS Potassium Ext Rel (Klor-Con), 20 MEQ PO QAM Scheduled PRN Acetaminophen (Tylenol), 1,000 MG PO TID PRN for Pain or Fever Hydrocodone/Acetaminophen 5MG/325MG ([place] 5MG/325MG), 1 TABLET PO Q6 PRN for Pain Ondansetron Odt (Zofran Odt), 8 MG SL Q6H PRN for Nausea Allergies Coded Allergies: Penicillins (Verified Allergy, Unknown, RASH, 12/26/16) Sulfa Antibiotics (Verified Allergy, Unknown, RASH, 12/26/16) Trimethoprim (Verified Allergy, Unknown, RASH, 12/26/16) Physical Exam Vital Signs Date Time Temp Pulse Resp B/P (MAP) Pulse Ox O2 Delivery O2 Flow Rate FiO2 12/26/16 14:49 95 Room Air 12/26/16 14:06 53 20 128/71 95 Room Air 12/26/16 13:53 56 12/26/16 12:04 62 12 135/76 99 Room Air 12/26/16 11:12 98 Room Air 12/26/16 11:12 98 Room Air 12/26/16 11:12 98 Room Air 12/26/16 11:05 60 12/26/16 10:29 36.4 63 22 131/72 96 Room Air Physical Exam GENERAL: sitting up in bed, alert, talking in full sentences, well appearing, well nourished, no distress, non-toxic EYE EXAM: normal conjunctiva OROPHARYNX: no exudate, no erythema, lips, buccal mucosa, and tongue normal and mucous membranes are moist NECK: supple, no nuchal rigidity, no adenopathy, non-tender, unable to appreciate JVD LUNGS: Clear to auscultation. Normal chest wall mechanics HEART: no murmurs, S1 normal and S2 normal ABDOMEN: abdomen soft, non-tender, normo-active bowel sounds, no masses, no rebound or guarding. BACK: Back is symmetrical on inspection and there is no deformity, no midline tenderness, no CVA tenderness. SKIN: no rashes and no bruising UPPER EXTREMITIES: upper extremities are grossly normal. LOWER EXTREMITIES: Bilateral pitting edema. Calves equal bilaterally. NEURO EXAM: Normal sensorium, cranial nerves II-XII grossly intact, normal speech, no gross weakness of arms, no gross weakness of legs. Medical Decision & Procedures ER Provider Diagnostic Interpretation: Radiology results as stated below per my review and the radiologist's interpretation: CHEST ONE VIEW PORTABLE CLINICAL HISTORY: Respiratory distress. Dyspnea. COMPARISON STUDY: Chest radiograph December 02, 2016. FINDINGS: No pneumothorax or pleural effusion is present. Mild enlargement of the cardiac silhouette is unchanged. Left lower lung airspace opacity shown on exam of December 02, 2016 has likely resolved. There is no evidence of pulmonary edema. IMPRESSION: 1. No acute cardiopulmonary findings. 2. Resolution of left lower lung consolidation shown on prior exam. Electronically signed by: Gerber Moraes M.D. 12/26/2016 12:38 PM Dictated Date/Time: 12/26/2016 12:[address] ANGIOGRAM OF THE CHEST CLINICAL HISTORY: Atypical chest pain. Dyspnea. COMPARISON STUDY: Chest x-ray dated 12/26/2016. Chest CT dated 06/16/2009. TECHNIQUE: Following the IV administration of 112 cc of Optiray 320, CT angiogram of the chest was performed from the upper abdomen to the thoracic inlet utilizing the pulmonary embolus protocol. Images are reviewed in the axial, sagittal, and coronal planes. 3-D MIPS images are created and assessed. IV contrast was administered without complication. The examination is degraded by large body habitus, and by streak artifact from the body wall abutting the CT gantry. The examination is also degraded by streak artifact from the right arm which could not be elevated above the chest. CT DOSE: 785.92 mGy.cm FINDINGS: Thyroid: Imaged portions of the thyroid gland are normal in size and attenuation. Thoracic aorta: There is atherosclerotic calcification of the thoracic aorta, which is normal in caliber and demonstrates standard 3-vessel arch anatomy. No dissection is seen. Pulmonary vasculature: The pulmonary trunk is normal in caliber. There are no filling defects identified in main, lobar, or segmental pulmonary branches to suggest pulmonary embolus. Heart: The heart is mildly enlarged and without pericardial effusion. There are coronary artery calcifications. Lungs and pleural spaces: Mild emphysematous change is observed. There is no lobar consolidation or pleural effusion. Faint groundglass opacities are seen in the left lower lobe on image #137 and in the medial right lower lobe on image #173. These likely represent a mild infectious/inflammatory pneumonitis. Mild diffuse peribronchial thickening suggests reactive airway disease. A small calcified granulomas in the right lower lobe. The trachea and central airways are clear. Mediastinum: There is no mediastinal lymphadenopathy. Arelis: Clear. Axillae: There is no axillary lymphadenopathy. Upper abdomen: The liver is enlarged and steatotic. There is a moderate hiatal hernia. Diverticula are identified in the partially imaged left colon. Skeletal structures: The skeletal structures are osteopenic. No lytic or blastic bony lesions are seen. Degenerative change is seen throughout the thoracic spine. IMPRESSION: 1. There is no evidence of pulmonary embolus in the main, lobar, or segmental pulmonary arteries. 2. Cardiomegaly and emphysema. 3. There are faint groundglass opacities seen in the lower lobes, likely representing a mild infectious/inflammatory pneumonitis. Clinical correlation will be required. 4. There is no lobar consolidation or pleural effusion. Mild peribronchial thickening suggests reactive airway disease. 5. Hepatomegaly and severe hepatic steatosis. 6. Moderate hiatal hernia. 7. Additional findings as above. Electronically signed by: Tico Reyes M.D. 12/26/2016 1:44 PM Dictated Date/Time: 12/26/2016 1:36 PM Laboratory Results 12/26/16 11:40 Red Blood Count 4.01, Mean Corpuscular Volume 93.0, Mean Corpuscular Hemoglobin 29.4, Mean Corpuscular Hemoglobin Concent 31.6, Mean Platelet Volume 9.8, Neutrophils (%) (Auto) 64.7, Lymphocytes (%) (Auto) 17.3, Monocytes (%) (Auto) 13.8, Eosinophils (%) (Auto) 3.2, Basophils (%) (Auto) 0.6, Neutrophils # (Auto ) 3.49, Lymphocytes # (Auto) 0.93, Monocytes # (Auto) 0.74, Eosinophils # (Auto ) 0.17, Basophils # (Auto) 0.03 12/26/16 11:40 Test 12/26/16 11:40 12/26/16 12:00 White Blood Count 5.38 K/uL (4.8-10.8) Red Blood Count 4.01 M/uL (4.7-6.1) Hemoglobin 11.8 g/dL (14.0-18.0) Hematocrit 37.3 % (42-52) Mean Corpuscular Volume 93.0 fL (80-100) Mean Corpuscular Hemoglobin 29.4 pg (25-34) Mean Corpuscular Hemoglobin Concent 31.6 g/dl (32-36) Platelet Count 207 K/uL (130-400) Mean Platelet Volume 9.8 fL (7.4-10.4) Neutrophils (%) (Auto) 64.7 % Lymphocytes (%) (Auto) 17.3 % Monocytes (%) (Auto) 13.8 % Eosinophils (%) (Auto) 3.2 % Basophils (%) (Auto) 0.6 % Neutrophils # (Auto) 3.49 K/uL (1.4-6.5) Lymphocytes # (Auto) 0.93 K/uL (1.2-3.4) Monocytes # (Auto) 0.74 K/uL (0.11-0.59) Eosinophils # (Auto) 0.17 K/uL (0-0.5) Basophils # (Auto) 0.03 K/uL (0-0.2) RDW Standard Deviation 46.5 fL (36.4-46.3) RDW Coefficient of Variation 13.6 % (11.5-14.5) Immature Granulocyte % (Auto) 0.4 % Immature Granulocyte # (Auto) 0.02 K/uL (0.00-0.02) Prothrombin Time 9.6 SECONDS (9.0-12.0) Prothromb Time International Ratio 0.9 (0.9-1.1) Activated Partial Thromboplast Time 22.8 SECONDS (21.0-31.0) Partial Thromboplastin Ratio 0.9 D-Dimer 1100 ug/L FEU (0-500) Anion Gap 9.0 mmol/L (3-11) Est Creatinine Clear Calc Drug Dose 106.9 ml/min Estimated GFR () 95.6 Estimated GFR (Non- 82.5 BUN/Creatinine Ratio 24.8 (10-20) Calcium Level 8.7 mg/dl (8.5-10.1) Total Bilirubin 0.2 mg/dl (0.2-1) Aspartate Amino Transf (AST/SGOT) 32 U/L (15-37) Alanine Aminotransferase (ALT/SGPT) 61 U/L (12-78) Alkaline Phosphatase 72 U/L (45-117) Pro-B-Type Natriuretic Peptide 189 pg/ml (0-900) Total Protein 6.8 gm/dl (6.4-8.2) Albumin 3.4 gm/dl (3.4-5.0) Globulin 3.4 gm/dl (2.5-4.0) Albumin/Globulin Ratio 1.0 (0.9-2) Urine Color YELLOW Urine Appearance CLEAR (CLEAR) Urine pH 5.0 (4.5-7.5) Urine Specific [place] 1.015 (1.000-1.030) Urine Protein NEG (NEG) Urine Glucose (UA) NEG (NEG) Urine Ketones NEG (NEG) Urine Occult Blood NEG (NEG) Urine Nitrite NEG (NEG) Urine Bilirubin NEG (NEG) Urine Urobilinogen NEG (NEG) Urine Leukocyte Esterase NEG (NEG) Laboratory results per my review. Medications Administered Medications (Trade) Dose Ordered Sig/Batool Route Start Time Stop Time Status Last Admin Dose Admin Aspirin (Aspirin Chew) 324 mg NOW STAT PO 12/26/16 14:25 12/26/16 14:27 DC 12/26/16 14:58 324 MG ECG Indication: SOB/dyspnea Rate (beats per minute): 58 Rhythm: sinus bradycardia Findings: RBBB, other (flip T wave in lead 3) Change: no significant change (from 12/03/16) ED Course ED COURSE: Vital signs were reviewed and showed hypertension. The patients medical record was reviewed The above diagnostic studies were performed and reviewed. ED treatments and interventions as stated above. 1045: The patient was evaluated in room A9. A complete history and physical examination was performed. 1223: I checked on the patient and he is feeling better. 1420: I checked on the patient and he is feeling better. 1424: I reviewed the patient's case with KARLOS Martinez. She will evaluate the patient for further management. 1425: Aspirin Chew 324 mg PO. 1430: Furosemide 20 mg/ Syringe 2 ml @ 4 mls/min IV. 1436: Upon reevaluation, the patient is hemodynamically stable.I discussed my findings with the patient and he understands and agrees with the treatment plan. Based on the patients age, coexisting illnesses, exam and lab findings the decision to treat as an inpatient was made. The patient remained stable while under my care. The patient will be evaluated for further management. Medical Decision The patient is a 66 year old male who presents to the ED with complaints of shortness of breath. Patient notes that this has been getting worse with past 4 -5 days. He is unable to sleep flat without, short of breath. He does admit to increased swelling of his legs. He also admits to heaviness in his chest when he becomes short of breath. No arm or jaw pain. Previous echo was unremarkable. CBC along BMP, LFTs, bilirubin, troponin were all unremarkable. D-dimer was elevated and consequently CT PE was performed. CT PE showed no clots but did show groundglass opacities in the lung suggesting an infectious process. He has no current symptoms of this. I do favor this is likely secondary to his recent pneumonia which has resolved. With his pain edema, waking and inability to lie flat and favor this is most consistent with CHF. He was given a small dose Lasix in its internal medicine. Differential diagnoses includes but is not limited to pneumonia, bronchitis, COPD/Asthma exacerbation, pneumothorax, pulmonary embolism, congestive heart failure, acute coronary syndrome Medication Reconciliation: I attest that I have personally reviewed the patient' s current medication list. Blood pressure screening: Patient was found to have an elevated blood pressure and was referred to their primary doctor for recheck and further treatment. Consults Time Called: 142 Consulting Physician: KARLOS Martinez Returned Call: 1424 I reviewed the patient's case with KARLOS Martinez. She will evaluate the patient for further management. Impression Primary Impression: SOB (shortness of breath) Additional Impression: Precordial chest pain Scribe Attestation The scribe's documentation has been prepared under my direction and personally reviewed by me in its entirety. I confirm that the note above accurately reflects all work, treatment, procedures, and medical decision making performed by me. Departure Information Dispostion Being Evaluated By Hospitalist Referrals Rob Weiss M.D. (PCP) Problem Qualifiers
[2016-12-26 17:14] VITALS: BP 156/83; PULSE 58; TEMP 36.7; O2SAT 99
[2016-12-26] MEDS: PREGABALIN 75 MG CAP PO SCH ×2 (18:49→21:00)
[2016-12-26 20:02] VITALS: O2SAT 96
[2016-12-26] MEDS ORDERED: HYDROXYCHLOROQUINE SULFATE 200 MG TAB PO SCH (21:00)
[2016-12-26] MEDS ORDERED: GABAPENTIN 300 MG CAP PO SCH (21:00)
[2016-12-26] MEDS ORDERED: ENOXAPARIN 30 MG/0.3 ML SYR SC SCH (21:00)
[2016-12-26] MEDS ORDERED: PANTOprazole SOD 40 MG TAB PO SCH (21:00)
[2016-12-26] MEDS: DOCUSATE SODIUM 100 MG CAP PO SCH (21:13)
[2016-12-26] MEDS: GABAPENTIN 300 MG CAP PO SCH (21:14)
[2016-12-26 23:01] VITALS: BP 150/80; PULSE 58; TEMP 36.6; O2SAT 96
[2016-12-27] MEDS ORDERED: GABAPENTIN 600 MG TAB PO STA (01:30)
[2016-12-27] MEDS ORDERED: HYDROCODONE/ACETAMOPHEN 5/325MG TAB PO STA (01:46)
[2016-12-27 03:50] VITALS: BP 138/85; PULSE 56; TEMP 36.3; O2SAT 95
[2016-12-27 04:50] LABS: HEMATOCRIT 35.8 % (42-52); MEAN CELL VOLUME 92.7 fL (80-100); MEAN CORPUSCULAR HEMOGLOBIN 30.1 pg (25-34); MEAN CORPUSCULAR HGB CONC 32.4 g/dl (32-36); MEAN PLATELET VOLUME 9.7 fL (7.4-10.4); PLATELET COUNT 177 K/uL (130-400); RED BLOOD COUNT 3.86 M/uL (4.7-6.1); WHITE BLOOD COUNT 4.97 K/uL (4.8-10.8)
[2016-12-27 05:08] LABS: BLOOD UREA NITROGEN 21 mg/dl (7-18); BUN/CREATININE RATIO 22.1 (10-20); CALCIUM 8.9 mg/dl (8.5-10.1); CARBON DIOXIDE 29 mmol/L (21-32); CHLORIDE 103 mmol/L (98-107); CREATININE 0.97 mg/dl (0.60-1.40); GLUCOSE 105 mg/dl (70-99); POTASSIUM 3.9 mmol/L (3.5-5.1); SODIUM 139 mmol/L (136-145)
[2016-12-27 07:40] VITALS: O2SAT 95
[2016-12-27 07:46] VITALS: BP 124/78; PULSE 55; TEMP 36.6; O2SAT 96
[2016-12-27] MEDS: POTASSIUM CHLORIDE 20 MEQ TABCR PO SCH ×2 (08:55→12:44)
[2016-12-27] MEDS: ASPIRIN 81 MG ECTAB PO SCH ×2 (08:55→12:44)
[2016-12-27] MEDS: DOCUSATE SODIUM 100 MG CAP PO SCH ×2 (08:55→12:43)
[2016-12-27] MEDS: FUROSEMIDE 40 MG TAB PO SCH ×2 (08:56→12:44)
[2016-12-27] MEDS: PREGABALIN 75 MG CAP PO SCH ×2 (08:56→12:44)
[2016-12-27] MEDS: GABAPENTIN 300 MG CAP PO SCH ×3 (08:56→14:11)
[2016-12-27] MEDS: CHOLECALCIFEROL 1000 INTER.UNIT TAB PO SCH ×2 (08:56→12:44)
[2016-12-27] MEDS ORDERED: CYANOCOBALAMIN 100 MCG TAB (VIT B-12) PO SCH (09:00)
[2016-12-27] MEDS ORDERED: ALLOPURINOL 300 MG TAB PO SCH (09:00)
[2016-12-27] MEDS ORDERED: DOBUTamine HCL 12.5 MG/ML 20 ML VIAL ONE (10:10)
[2016-12-27] MEDS ORDERED: METOPROLOL TARTRATE 1 MG/ML VIAL ONE (10:10)
[2016-12-27] MEDS ORDERED: ATROPINE SULFATE 0.1 MG/ML 5ML SYR ONE (10:10)
[2016-12-27 11:30] VITALS: O2SAT 96
[2016-12-27] MEDS ORDERED: PERFLUTREN LIPID MICROSPHERE (DEFINITY) IV ONE (11:33)
--- NOTE | 2016-12-27 11:56 | DOBUTAMINE ECHO ---
*NOTICE TO RECEIVING DEMOCRAT AGENCY This information is strictly Confidential and protected under [place] law. [place] law prohibits you from making any further disclosure of this information unless further disclosure is expressly permitted by the written consent of the person to whom it pertains or is authorized by law. A general authorization for the release of medical or other information is not sufficient for this purpose. Hospital accepts no responsibility if the information is made available to any other person, INCLUDING THE PATIENT. Interpretation Summary * Name: ABA AYERS Study Date: 12/27/2016 09:27 AM BP: 148/57 mmHg * Patient Location: [facility]\S\N277\S\1 HR: 57 * : 1950 (M/d/yyyy) Gender: Male Height: 72 in * Age: 66 yrs Ethnicity: [place] Weight: 289 lb * Ordering Physician: Shon Stevenson * Referring Physician: Self, Referred * Performed By: Geni Bustillo RDCS * * Reason For Study: Chest pain * BSA: 2.5 m2 * -- Conclusions -- * Normal pharmacologic stress echocardiogram. * No echocardiographic or ECG evidence of myocardial ischemia having achieved heart rate adequate for diagnostic purposes. * No symptoms suggestive of angina were induced. * The heart rate and blood pressure response to pharmacologic stress was normal. * There is no significant valvular heart disease on the resting study. Procedure Details * DOBUTAMINE ECHO, CPT#27459 * ECHO DOPPLER, CPT #[id number] * ECHO COLOR FLOW, CPT #[id number] * A contrast injection of Definity was performed to improve assessment of LV function. * Contrast was injected into an intravenous site in the left arm. * One vial of Definity ultrasound contrast was diluted in normal saline to a total volume of 10 ml. A total of '8' ml of solution was administered during imaging. * Lot # [id number] of Definity utilized for procedure. * Expiration date FEB 03. * The attending nurse who injected the contrast agent was Surekha Brooke RN. Left Ventricle * The left ventricle is normal in size. * There is normal left ventricular wall thickness. * Left ventricular systolic function is normal. * Ejection Fraction = 60-65%. * The left ventricular wall motion is normal at rest. * The left ventricular ejection fraction increases normally with stress. The left ventricular end-systolic cavity size reduces post-stress (normal response). The left ventricular wall motion with stress is normal. Right Ventricle * The right ventricle is normal in size and function. Atria * The left atrial size is normal. * Right atrial size is normal. * No ASD detected; PFO is not assessed. Mitral Valve * The mitral valve is normal. * There is no mitral valve stenosis. * Significant mitral regurgitation is absent. Tricuspid Valve * The tricuspid valve is normal. * There is no tricuspid stenosis. * Significant tricuspid regurgitation is absent. Aortic Valve * The aortic valve is trileaflet. * Aortic valve sclerosis mild, without significant aortic valvular stenosis. * Aortic stenosis is absent. * There is no significant aortic regurgitation. Pulmonic Valve * The pulmonary valve is not well seen, but the Doppler examination is normal without significant regurgitation or stenosis. Great Vessels * The aortic root and proximal ascending aorta are normal sized. Pericardium * There is no pericardial effusion. * There is an echodensity in the pericardial space consistent with pericardial fat. Stress Parameters * The baseline EKG revealed sinus bradycardia with right bundle branch block pattern. * The stress EKG was negative for ischemia. No arrhythmias were observed. * The stress portion of this study was personally supervised by the undersigned interpreting physician. * Rest heart rate was '57' BPM. * Rest blood pressure was '148/57' * Maximum heart rate achieved was 134 bpm. * Maximum heart rate was 87 % of maximum age-predicted heart rate. * Maximum blood pressure was '175/52' * Maximum Dobutamine infusion rate was '40' mcg/kg/min. * A total of 0.5 mg of intravenous Atropine was used to supplement Dobutamine for heart rate response. * Dobutamine infusion was terminated due to achieving target heart rate * A total of 5 mg of IV Metoprolol was administered to reverse Dobutamine-induced tachycardia. * The patient did not exhibit any symptoms during drug infusion. Left Ventricular Diastolic Function * Grade I diastolic dysfunction, (abnormal relaxation pattern). MMode 2D Measurements and Calculations IVSd 1.2 cm LVIDd 4.8 cm LVIDs 3.2 cm LVPWd 1.0 cm IVS/LVPW 1.2 FS 34.4 % EDV(Teich) 108.5 ml ESV(Teich) 39.8 ml EF(Teich) 63.3 % EDV(cubed) 111.9 ml ESV(cubed) 31.6 ml EF(cubed) 71.7 % LV mass(C)d 205.8 grams LV mass(C)dI 82.6 grams/m\S\2 SV(Teich) 68.7 ml SI(Teich) 27.6 ml/m\S\2 SV(cubed) 80.2 ml SI(cubed) 32.2 ml/m\S\2 Ao root diam 3.7 cm Ao root area 10.5 cm\S\2 ACS 1.8 cm LA dimension 4.5 cm asc Aorta Diam 3.6 cm LA/Ao 1.2 LVOT diam 2.0 cm LVOT area 3.0 cm\S\2 LVAd ap4 30.1 cm\S\2 LVLd ap4 8.7 cm EDV(MOD-sp4) 88.6 ml EDV(sp4-el) 88.4 ml LVAs ap4 15.5 cm\S\2 LVLs ap4 6.8 cm ESV(MOD-sp4) 29.2 ml ESV(sp4-el) 30.1 ml EF(MOD-sp4) 67.0 % EF(sp4-el) 66.0 % LVAd ap2 26.4 cm\S\2 LVLd ap2 8.7 cm EDV(MOD-sp2) 64.2 ml EDV(sp2-el) 68.4 ml LVAs ap2 13.1 cm\S\2 LVLs ap2 6.9 cm ESV(MOD-sp2) 21.0 ml ESV(sp2-el) 21.3 ml EF(MOD-sp2) 67.3 % EF(sp2-el) 68.8 % LVLd %diff -0.03 % EDV(MOD-bp) 74.7 ml LVLs %diff 0.63 % ESV(MOD-bp) 24.5 ml EF(MOD-bp) 67.3 % SV(MOD-sp4) 59.4 ml SI(MOD-sp4) 23.8 ml/m\S\2 SV(MOD-sp2) 43.2 ml SI(MOD-sp2) 17.3 ml/m\S\2 SV(MOD-bp) 50.3 ml SI(MOD-bp) 20.2 ml/m\S\2 SV(sp4-el) 58.4 ml SI(sp4-el) 23.4 ml/m\S\2 SV(sp2-el) 47.0 ml SI(sp2-el) 18.9 ml/m\S\2 Doppler Measurements and Calculations MV E max esperanza 101.7 cm/sec MV A max esperanza 68.6 cm/sec MV E/A 1.5 MV dec time 0.24 sec Ao V2 max 168.3 cm/sec Ao max PG 11.3 mmHg Ao max PG (full) 6.7 mmHg NAYAN(V,A) 1.9 cm\S\2 NAYAN(V,D) 1.9 cm\S\2 LV V1 max PG 4.6 mmHg LV V1 max 107.4 cm/sec PA V2 max 112.7 cm/sec PA max PG 5.1 mmHg PA acc slope 607.5 cm/sec\S\2 PA acc time 0.14 sec PI end-d esperanza 129.0 cm/sec TR max esperanza 228.0 cm/sec PA pr(Accel) 17.2 mmHg
[2016-12-27 13:00] VITALS: BP 124/78; PULSE 55; TEMP 36.6; O2SAT 96
[2016-12-27] MEDS ORDERED: PREGABALIN 75 MG CAP PO SCH (13:45)
--- NOTE | 2016-12-27 13:48 | Progress Note ---
Internal Med Progress Note Date of Service: Dec 27, 2016. Provider Documentation: SUBJECTIVE: The patient was seen and examined No more Chest pain Complains of chronic Bilateral Legs edema OBJECTIVE: Vital Signs-as noted below Exam: General-no distress at rest Eyes-normal ENT-normal Neck-supple Lungs-clear to ausucltate bilaterally Heart-Regular,no murmur appreciated Abdomen-Benign,no masses,bowel sound present Extremities-1+ edema bilaterally Neuro-AAOx3 Lab data as noted below. ASSESSMENT & PLAN: INTERMITTENT CHEST HEAVINESS/SOB: Recently discharged from hospital in 11/2016 - rxed for pneumonia with IV Vancomycin/Azactam followed by Doxycycline on discharge. CXR showing improved Left lung consolidation, CT scan shows no PE, No Pulmonary congestion. Echo recently done - EF 65-70%; Mod LVH,EF, creatinine, Liver function tests. BNP is normal. CHF is unlikely. Serial Jean Claude and EKS did not show any evidence of ACS S/P negative Dobutamine Stress ECHO :: Normal pharmacologic stress echocardiogram. * No echocardiographic or ECG evidence of myocardial ischemia having achieved heart rate adequate for diagnostic purposes. * No symptoms suggestive of angina were induced. * The heart rate and blood pressure response to pharmacologic stress was normal. * There is no significant valvular heart disease on the resting study. No more chest pain Ambulating well Discharge home today CHRONIC BILATERAL LOWER EXT POLYNEUROPATHY : Uncontrolled symptoms -On Gabapentin 600 mg PO TID which has not helped at all to relieve the pain. Try Lyrica BID to see if it helps -Follows with neuro physiology in [place] -Would avoid NARCOTICS for neuropathic pain. CHRONIC BILATERAL LOWER EXT PITTING EDEMA : Patient has had it for 3 years now. -Echo done in 11/2016- EF 65-70%, Mod LVH, Creatinine normal, LFTs normal. -Most likely this is venous insufficiency. Unlikely CHF with normal EF, BNP, CXR/CT scan not suggestive of congestion -Recommend leg elevation and TEDS. -On lasix 40 mg for this.. -Had venous duplex last month- negative for clots HX OF RHEUMATOID ARTHRITIS : -Continue with MTx and Plaquenil -Follows with Dr Pate Rheumatology GERD: -cont PPI THAO : -uses CPAP at night - use his own device while in hospital FULL CODE DVT PROPHYLAXIS: Moderate risk due to chronic edema Lovenox SQ DISPOSITION Discharge home today Vital Signs: Date Time Temp Pulse Resp B/P (MAP) Pulse Ox O2 Delivery O2 Flow Rate FiO2 12/27/16 13:00 36.6 55 20 96 Room Air 12/27/16 11:30 96 Room Air 12/27/16 07:46 36.6 55 20 124/78 (93) 96 Room Air 12/27/16 07:40 95 Room Air 12/27/16 04:00 Room Air 12/27/16 03:50 36.3 56 18 138/85 (102) 95 Room Air 12/27/16 00:01 Room Air 12/26/16 23:01 36.6 58 18 150/80 (103) 96 Room Air 12/26/16 20:02 96 Room Air 12/26/16 17:14 36.7 58 18 156/83 (107) 99 Room Air 12/26/16 16:50 96 Room Air 12/26/16 16:30 58 20 139/97 96 12/26/16 16:01 58 20 139/97 96 Room Air 12/26/16 15:24 58 20 129/71 97 Room Air 12/26/16 14:49 95 Room Air 12/26/16 14:06 53 20 128/71 95 Room Air 12/26/16 13:53 56 Lab Results: Results Past 24 Hours Test 12/26/16 17:02 12/26/16 22:03 12/27/16 04:43 Range/Units Troponin I < 0.015 < 0.015 < 0.015 0-0.045 ng/ml White Blood Count 4.97 4.8-10.8 K/uL Red Blood Count 3.86 4.7-6.1 M/uL Hemoglobin 11.6 14.0-18.0 g/dL Hematocrit 35.8 42-52 % Mean Corpuscular Volume 92.7 80-100 fL Mean Corpuscular Hemoglobin 30.1 25-34 pg Mean Corpuscular Hemoglobin Concent 32.4 32-36 g/dl RDW Standard Deviation 46.4 36.4-46.3 fL RDW Coefficient of Variation 13.7 11.5-14.5 % Platelet Count 177 130-400 K/uL Mean Platelet Volume 9.7 7.4-10.4 fL Sodium Level 139 136-145 mmol/L Potassium Level 3.9 3.5-5.1 mmol/L Chloride Level 103 98-107 mmol/L Carbon Dioxide Level 29 21-32 mmol/L Anion Gap 7.0 3-11 mmol/L Blood Urea Nitrogen 21 7-18 mg/dl Creatinine 0.97 0.60-1.40 mg/dl Est Creatinine Clear Calc Drug Dose 104.7 ml/min Estimated GFR () 93.2 Estimated GFR (Non- 80.5 BUN/Creatinine Ratio 22.1 10-20 Random Glucose 105 70-99 mg/dl Calcium Level 8.9 8.5-10.1 mg/dl
[2016-12-27] MEDS ORDERED: LYR75 PO (13:57)
--- NOTE | 2016-12-27 13:59 | Discharge Instructions ---
Discharge Instructions Date of Service Dec 27, 2016. Admission Reason for Admission: Chest Discomfort Discharge Discharge Diagnosis / Problem: Chest pain,NO ACS-negative DSE Discharge Goals Goal(s): Prevent Disease Progression Activity Recommendations Activity Limitations: resume your previous activity . Instructions / Follow-Up Instructions / Follow-Up DR Weiss on 01/03/17 at 11:05AM Current Hospital Diet Patient's current hospital diet: AHA Diet (Heart Healthy), Low Sodium Diet (2gm Na) Discharge Diet Recommended Diet: AHA Diet (Heart Healthy), Low Sodium Diet (2gm Na) Fluid Restriction: 1800 ml (7 cups) Pending Studies Studies pending at discharge: no Medical Emergencies . Who to Call and When: Medical Emergencies: If at any time you feel your situation is an emergency, please call 911 immediately. . Non-Emergent Contact Non-Emergency issues call your: Primary Care Provider . Past History Medical & Surgical History: (1) Chest discomfort (2) Metabolic syndrome (3) THAO on CPAP (4) Rheumatoid arthritis (5) Bullard's esophagus (6) Stasis edema of both lower extremities (7) S/P tonsillectomy and adenoidectomy (8) S/P ear surgery (9) S/P arthroscopic knee surgery (10) History of repair of hiatal hernia (11) S/p removal of polyp from larynx (12) S/p kidney stone removal (13) H/O esophagogastroduodenoscopy (14) H/O colonoscopy . "Provider Documentation" section prepared by Shon Stevenson. . VTE Core Measure Inpt VTE Proph given/why not?: Enoxaparin (Lovenox)SQ
--- NOTE | 2016-12-28 08:19 | Discharge Summary ---
Discharge Summary Date of Service Dec 28, 2016. Discharge Summary Admission Date: Dec 26, 2016 at 15:18 Discharge Date: Dec 27, 2016 Discharge Disposition: Home Principal Diagnosis: Chest pain,NO ACS-negative DSE Secondary Diagnoses/Problems: Please see H&P and Hospital Progress note Medication Reconciliation New Medications: Pregabalin (Lyrica) 75 Mg Cap 75 MG PO BID for 7 Days, #14 CAP Continued Medications: Acetaminophen (Tylenol) 500 Mg Tab 1000 MG PO TID PRN for Pain or Fever, TAB Allopurinol (Zyloprim) 300 Mg Tab 300 MG PO QAM Cholecalciferol (Vitamin D 1000 Unit) 1,000 Unit Cap 1000 INTER.UNIT PO QAM Cyanocobalamin (Vitamin B12 100 Mcg) 100 Mcg Tab 100 MCG PO QAM Cyanocobalamin (Vitamin Deficiency Inject) 1,000 Mcg/Ml Kit 1 ML INJ MONTHLY Docusate Sodium (Docusate Sodium) 100 Mg Cap 1 CAP PO BID Folic Acid (Folvite) 1 Mg Tab 1 MG PO QAM Furosemide (Lasix) 40 Mg Tab 40 MG PO QAM Gabapentin (Neurontin) 300 Mg Cap 600 MG PO TID Hydrocodone/Acetaminophen 5MG/325MG ([place] 5MG/325MG) Tab 1 TABLET PO Q6 PRN for Pain PRN PAIN Hydroxychloroquine Sulfate (Plaquenil) 200 Mg Tab 400 MG PO HS Methotrexate (Methotrexate) 2.5 Mg Tab 6 TABS PO WK, TAB MONDAY Ondansetron Odt (Zofran Odt) 8 Mg Soltab 8 MG SL Q6H PRN for Nausea, TAB Pantoprazole (Protonix) 20 Mg Tab 20 MG PO HS Potassium Ext Rel (Klor-Con) 20 Meq Tabcr 20 MEQ PO QAM Admission Information HPI (per Admitting provider): The patient is a 66 year old male with PMH mentioned below, who presents to the Emergency Room with complaints of c/o intermittent chest heaviness, SOB x 3 days. Patient was recently discharged from hospital 11/2016 and rxed for pneumonia , left sided with IV Vanco/Azactam and discharged on Doxycycline. Patient was recovering well with symptoms of pneumonia improving till 3 days ago when he noticed intermittent chest heaviness, SOB, mainly orthopnea, worsening of leg swelling. Denies any cough, improving in fact. No chest pain, fever, chills, nasal congestion, nausea, vomiting, diaphoresis, palpitations. Does mention that he has had b/l lower extremity edema x 3 years and has been on lasix 40 mg daily for that. Does have chronic neuropathic pain b/l lower extremity In ED, he is hemodynamically stable. Afebrile, BP/HR stable, Saturating well on RA. Labs - normal, CXR- improving Left sided consolidation, CT scan- no PE. EKG - no acute changes compared to prior EKG. Troponin x 1 negative. BNP is 189 Will admit him under observation for chest heaviness/SOB to rule out ACS as pulmonary issues seems to be better. Past Medical/Surgical History Medical Problems: (1) Bullard's esophagus Status: Chronic (2) Dyslipidemia Status: Chronic (3) GERD (gastroesophageal reflux disease) Status: Chronic (4) Gout Status: Chronic (5) IBS (irritable bowel syndrome) Status: Chronic (6) Lumbar disc disorder Status: Chronic (7) Metabolic syndrome Status: Chronic (8) THAO on CPAP Status: Chronic (9) Rheumatoid arthritis Status: Chronic (10) Situational hypertension Status: Chronic (11) Stasis edema of both lower extremities Status: Chronic (12) Testicular hypofunction Status: Chronic (13) Uric acid kidney stone Status: Chronic Surgical Problems: (1) H/O colonoscopy Status: Chronic (2) H/O esophagogastroduodenoscopy Status: Chronic (3) History of repair of hiatal hernia Status: Chronic (4) S/P arthroscopic knee surgery Status: Chronic (5) S/P ear surgery Status: Chronic (6) S/p kidney stone removal Status: Chronic (7) S/P lumbar fusion Status: Chronic (8) S/p removal of polyp from larynx Status: Chronic (9) S/P tonsillectomy and adenoidectomy Status: Chronic Family History Diabetes mellitus GRANDMOTHER FH: CAD (coronary artery disease) MOTHER (SC age 81) UNCLE FH: cancer MOTHER (stomach CA) FATHER (lung CA) Stroke GRANDFATHER Social History Smoking Status: Never Smoker Drug Use: none Marital Status: Occupational Status: retired Immunizations History of Influenza Vaccine: Yes Influenza Vaccine Date: Apr 06, 2016 History of Tetanus Vaccine?: Yes Tetanus Immunization Date: Feb 14, 2012 History of Pneumococcal: Yes Pneumococcal Date: Mar 04, 2015 Multi-Drug Resistant Organisms History of MDRO: No Allergies Coded Allergies: Penicillins (Verified Allergy, Unknown, RASH, 12/26/16) Sulfa Antibiotics (Verified Allergy, Unknown, RASH, 12/26/16) Trimethoprim (Verified Allergy, Unknown, RASH, 12/26/16) Home Medications Scheduled Allopurinol (Zyloprim), 300 MG PO QAM Cholecalciferol (Vitamin D 1000 Unit), 1,000 INTER.UNIT PO QAM Cyanocobalamin (Vitamin B12 100 Mcg), 100 MCG PO QAM Cyanocobalamin (Vitamin Deficiency Inject), 1 ML INJ MONTHLY Docusate Sodium (Docusate Sodium), 1 CAP PO BID Folic Acid (Folvite), 1 MG PO QAM Furosemide (Lasix), 40 MG PO QAM Gabapentin (Neurontin), 600 MG PO TID Hydroxychloroquine Sulfate (Plaquenil), 400 MG PO HS Methotrexate (Methotrexate), 6 TABS PO WK Pantoprazole (Protonix), 20 MG PO HS Potassium Ext Rel (Klor-Con), 20 MEQ PO QAM Scheduled PRN Acetaminophen (Tylenol), 1,000 MG PO TID PRN for Pain or Fever Hydrocodone/Acetaminophen 5MG/325MG ([place] 5MG/325MG), 1 TABLET PO Q6 PRN for Pain Ondansetron Odt (Zofran Odt), 8 MG SL Q6H PRN for Nausea Review of Systems Constitutional: No fever, No chills Eyes: No worsening of vision, No eye pain, No redness, No discharge ENT: No hearing loss, No nasal symptoms Respiratory: + shortness of breath, No cough, No sputum, No wheezing, No hemoptysis Cardiovascular: + chest pain, + orthopnea, + edema, No palpitations Abdomen: No nausea, No vomiting, No diarrhea, No constipation Genitourinary - Male: No hematuria, No dysuria, No urinary frequency Neurologic: No memory loss, No paralysis Psychiatric: + anxiety Hematologic / Lymphatic: No abnormal bleeding/bruising Integumentary: No rash Physical Ex - H&P Physical Exam Vital Signs Date Time Temp Pulse Resp B/P (MAP) Pulse Ox O2 Delivery O2 Flow Rate FiO2 12/26/16 15:24 58 20 129/71 97 Room Air 12/26/16 14:49 95 Room Air 12/26/16 14:06 53 20 128/71 95 Room Air 12/26/16 13:53 56 12/26/16 12:04 62 12 135/76 99 Room Air 12/26/16 11:12 98 Room Air 12/26/16 11:12 98 Room Air 12/26/16 11:12 98 Room Air 12/26/16 11:05 60 12/26/16 10:29 36.4 63 22 131/72 96 Room Air General Appearance: no apparent distress Head: normocephalic, atraumatic Eyes: PERRL ENT: hearing grossly normal Neck: supple, no JVD Respiratory/Chest: chest non-tender, lungs clear, normal breath sounds, no respiratory distress, no accessory muscle use Cardiovascular: regular rate, rhythm, + pertinent finding (B/L pedal edema) Abdomen/GI: normal bowel sounds, non tender, soft, no organomegaly Extremities/Musculoskelatal: no calf tenderness, + pedal edema (bilateral pedal edema) Neurologic/Psych: no motor/sensory deficits, alert, oriented x 3 Skin: normal color Diagnostics - H&P Diagnostics Laboratory Results Results Past 24 Hours Test 12/26/16 11:40 12/26/16 12:00 Range/Units White Blood Count 5.38 4.8-10.8 K/uL Red Blood Count 4.01 4.7-6.1 M/uL Hemoglobin 11.8 14.0-18.0 g/dL Hematocrit 37.3 42-52 % Mean Corpuscular Volume 93.0 80-100 fL Mean Corpuscular Hemoglobin 29.4 25-34 pg Mean Corpuscular Hemoglobin Concent 31.6 32-36 g/dl Platelet Count 207 130-400 K/uL Mean Platelet Volume 9.8 7.4-10.4 fL Neutrophils (%) (Auto) 64.7 % Lymphocytes (%) (Auto) 17.3 % Monocytes (%) (Auto) 13.8 % Eosinophils (%) (Auto) 3.2 % Basophils (%) (Auto) 0.6 % Neutrophils # (Auto) 3.49 1.4-6.5 K/uL Lymphocytes # (Auto) 0.93 1.2-3.4 K/uL Monocytes # (Auto) 0.74 0.11-0.59 K/uL Eosinophils # (Auto) 0.17 0-0.5 K/uL Basophils # (Auto) 0.03 0-0.2 K/uL RDW Standard Deviation 46.5 36.4-46.3 fL RDW Coefficient of Variation 13.6 11.5-14.5 % Immature Granulocyte % (Auto) 0.4 % Immature Granulocyte # (Auto) 0.02 0.00-0.02 K/uL Prothrombin Time 9.6 9.0-12.0 SECONDS Prothromb Time International Ratio 0.9 0.9-1.1 Activated Partial Thromboplast Time 22.8 21.0-31.0 SECONDS Partial Thromboplastin Ratio 0.9 D-Dimer 1100 0-500 ug/L FEU Sodium Level 140 136-145 mmol/L Potassium Level 3.9 3.5-5.1 mmol/L Chloride Level 105 98-107 mmol/L Carbon Dioxide Level 26 21-32 mmol/L Anion Gap 9.0 3-11 mmol/L Blood Urea Nitrogen 24 7-18 mg/dl Creatinine 0.95 0.60-1.40 mg/dl Est Creatinine Clear Calc Drug Dose 106.9 ml/min Estimated GFR () 95.6 Estimated GFR (Non- 82.5 BUN/Creatinine Ratio 24.8 10-20 Random Glucose 100 70-99 mg/dl Calcium Level 8.7 8.5-10.1 mg/dl Total Bilirubin 0.2 0.2-1 mg/dl Aspartate Amino Transf (AST/SGOT) 32 15-37 U/L Alanine Aminotransferase (ALT/SGPT) 61 12-78 U/L Alkaline Phosphatase 72 45-117 U/L Troponin I < 0.015 0-0.045 ng/ml Pro-B-Type Natriuretic Peptide 189 0-900 pg/ml Total Protein 6.8 6.4-8.2 gm/dl Albumin 3.4 3.4-5.0 gm/dl Globulin 3.4 2.5-4.0 gm/dl Albumin/Globulin Ratio 1.0 0.9-2 Urine Color YELLOW Urine Appearance CLEAR CLEAR Urine pH 5.0 4.5-7.5 Urine Specific [place] 1.015 1.000-1.030 Urine Protein NEG NEG Urine Glucose (UA) NEG NEG Urine Ketones NEG NEG Urine Occult Blood NEG NEG Urine Nitrite NEG NEG Urine Bilirubin NEG NEG Urine Urobilinogen NEG NEG Urine Leukocyte Esterase NEG NEG Diagnostic Radiology CXR IMPRESSION: 1. No acute cardiopulmonary findings. 2. Resolution of left lower lung consolidation shown on prior exam. CT CHEST IMPRESSION: 1. There is no evidence of pulmonary embolus in the main, lobar, or segmental pulmonary arteries. 2. Cardiomegaly and emphysema. 3. There are faint groundglass opacities seen in the lower lobes, likely representing a mild infectious/inflammatory pneumonitis. Clinical correlation will be required. 4. There is no lobar consolidation or pleural effusion. Mild peribronchial thickening suggests reactive airway disease. 5. Hepatomegaly and severe hepatic steatosis. 6. Moderate hiatal hernia. 7. Additional findings as above. EKG Sinus bradycardia Right bundle branch block Abnormal ECG When compared with ECG of 03-DEC-2016 07:45, No significant change was found Impression - H&P Impression Assessment and Plan Patient is a 66 year old M who comes in with C/o SOB, Orthopnea, chest heaviness , worsening leg edema x 3 days. Recently discharged from hospital 11/2016 for pneumonia and rxed with course of doxycycline. ASSESSMENT AND PLAN: INTERMITTENT CHEST HEAVINESS/SOB: Rule out ACS. Recently discharged from hospital in 11/2016 - rxed for pneumonia with IV Vancomycin/Azactam followed by Doxycycline on discharge. Symptoms/signs of pneumonia resolved, CXR showing improved Left lung consolidation, CT scan shows no PE, No Pulmonary congestion. Though presentation seems like fluid overload, he actually has venous insufficiency causing chronic b/l pedal edema x 3 years, gets worse with walking and at end of day with normal EF, creatinine, Liver function tests. BNP is normal. CHF is unlikely. Echo recently done - EF 65-70%; Mod LVH -Unlikely pulmonary etiology with pneumonia symptoms improving -Will do telemetry, EKG - serial, Troponin serial . If trop negative, stress echo in AM CHRONIC BILATERAL LOWER EXT POLYNEUROPATHY : Uncontrolled symptoms. Overnight had worsening of s ymptoms, so took percocet. -On Gabapentin 600 mg PO TID which has not helped at all to relieve the pain. Will try Lyrica BID to see if it helps -Follows with neuro physiology in [place] -Would avoid NARCOTICS for neuropathic pain. Explained him side effects, understands and agreeable to cut down on it. CHRONIC BILATERAL LOWER EXT PITTING EDEMA : Patient has had it for 3 years now. -Echo done in 11/2016- EF 65-70%, Mod LVH, Creatinine normal, LFTs normal. Swelling does get worse towards the end of the day -Most likely this is venous insufficiency. Unlikely CHF with normal EF, BNP, Clinically no crackles on exam, CXR/CT scan not suggestive of congestion -Recommend leg elevation and TEDS. -On lasix 40 mg for this. Defer discontinuation of lasix to PCP. -Had venous duplex last month- negative for clots HX OF RHEUMATOID ARTHRITIS : -Continue with MTx and Plaquenil -Follows with Dr Pate Rheumatology GERD: -cont PPI THAO : -uses CPAP at night - use his own device while in hospital FULL CODE DVT PROPHYLAXIS: Moderate risk due to chronic edema Lovenox SQ DISPOSITION Observation telemetry If stress test negative, okay to discharge tomorrow Level of Care Telemetry Advanced Directives Existing Living Will: No Existing Power of Window [place]er: No Resuscitation Status FULL RESUSCITATION VTE Prophylaxis VTE Risk Assessment Done? Y/N: Yes Risk Level: Moderate Given or contraindicated: Enoxaparin (Lovenox)SQ Physical Exam (per Admitting): General Appearance: no apparent distress Head: normocephalic, atraumatic Eyes: PERRL ENT: hearing grossly normal Neck: supple, no JVD Respiratory/Chest: chest non-tender, lungs clear, normal breath sounds, no respiratory distress, no accessory muscle use Cardiovascular: regular rate, rhythm, + pertinent finding (B/L pedal edema) Abdomen/GI: normal bowel sounds, non tender, soft, no organomegaly Extremities/Musculoskelatal: no calf tenderness, + pedal edema (bilateral pedal edema) Neurologic/Psych: no motor/sensory deficits, alert, oriented x 3 Skin: normal color Hospital Course INTERMITTENT CHEST HEAVINESS/SOB: Recently discharged from hospital in 11/2016 - rxed for pneumonia with IV Vancomycin/Azactam followed by Doxycycline on discharge. CXR showing improved Left lung consolidation, CT scan shows no PE, No Pulmonary congestion. Echo recently done - EF 65-70%; Mod LVH,EF, creatinine, Liver function tests. BNP is normal. CHF is unlikely. Serial Jean Claude and EKS did not show any evidence of ACS S/P negative Dobutamine Stress ECHO :: Normal pharmacologic stress echocardiogram. * No echocardiographic or ECG evidence of myocardial ischemia having achieved heart rate adequate for diagnostic purposes. * No symptoms suggestive of angina were induced. * The heart rate and blood pressure response to pharmacologic stress was normal. * There is no significant valvular heart disease on the resting study. No more chest pain Ambulating well Discharge home today CHRONIC BILATERAL LOWER EXT POLYNEUROPATHY : Uncontrolled symptoms -On Gabapentin 600 mg PO TID which has not helped at all to relieve the pain. Try Lyrica BID to see if it helps -Follows with neuro physiology in [place] -Would avoid NARCOTICS for neuropathic pain. CHRONIC BILATERAL LOWER EXT PITTING EDEMA : Patient has had it for 3 years now. -Echo done in 11/2016- EF 65-70%, Mod LVH, Creatinine normal, LFTs normal. -Most likely this is venous insufficiency. Unlikely CHF with normal EF, BNP, CXR/CT scan not suggestive of congestion -Recommend leg elevation and TEDS. -On lasix 40 mg for this.. -Had venous duplex last month- negative for clots HX OF RHEUMATOID ARTHRITIS : -Continue with MTx and Plaquenil -Follows with Dr Pate Rheumatology GERD: -cont PPI THAO : -uses CPAP at night - use his own device while in hospital FULL CODE DVT PROPHYLAXIS: Moderate risk due to chronic edema Lovenox SQ DISPOSITION Discharge home today Total time spent on discharge = 35 minutes This includes examination of the patient, discharge planning, medication reconciliation, and communication with other providers. Discharge Instructions Date of Service Dec 27, 2016. Admission Reason for Admission: Chest Discomfort Discharge Discharge Diagnosis / Problem: Chest pain,NO ACS-negative DSE Discharge Goals Goal(s): Prevent Disease Progression Activity Recommendations Activity Limitations: resume your previous activity . Instructions / Follow-Up Instructions / Follow-Up DR Weiss on 01/03/17 at 11:05AM Current Hospital Diet Patient's current hospital diet: AHA Diet (Heart Healthy), Low Sodium Diet (2gm Na) Discharge Diet Recommended Diet: AHA Diet (Heart Healthy), Low Sodium Diet (2gm Na) Fluid Restriction: 1800 ml (7 cups) Pending Studies Studies pending at discharge: no Medical Emergencies . Who to Call and When: Medical Emergencies: If at any time you feel your situation is an emergency, please call 911 immediately. . Non-Emergent Contact Non-Emergency issues call your: Primary Care Provider . Past History Medical & Surgical History: (1) Chest discomfort (2) Metabolic syndrome (3) THAO on CPAP (4) Rheumatoid arthritis (5) Bullard's esophagus (6) Stasis edema of both lower extremities (7) S/P tonsillectomy and adenoidectomy (8) S/P ear surgery (9) S/P arthroscopic knee surgery (10) History of repair of hiatal hernia (11) S/p removal of polyp from larynx (12) S/p kidney stone removal (13) H/O esophagogastroduodenoscopy (14) H/O colonoscopy . "Provider Documentation" section prepared by Shon Stevenson. . VTE Core Measure Inpt VTE Proph given/why not?: Enoxaparin (Lovenox)SQ <Electronically signed by Shon Stevenson M.D.> Additional Copies To Rob Weiss M.D.
[2016-12-28] MEDS ORDERED: METHOTREXATE 2.5 MG TAB PO SCH (09:00)
[2017-01-04] MEDS ORDERED: CYANOCOBALAMIN 1000 MCG/ML VIAL IM SCH (09:00)
== END 2016-12-27 14:29 | disposition home or self-care (01) ==
LOC: C.EDB 10:27 → C.MED 15:18 → ENRESERV 15:52
PROVIDERS: ADMIT Internal Medicine; ATTEND Internal Medicine
DX: R07.9 Chest pain, unspecified (principal); G47.33 Obstructive sleep apnea (adult) (pediatric); M06.9 Rheumatoid arthritis, unspecified; K22.70 Barrett's esophagus without dysplasia; Z87.442 Personal history of urinary calculi; Z83.3 Family history of diabetes mellitus; Z82.49 Family history of ischemic heart disease and other diseases of the circulatory system; Z80.0 Family history of malignant neoplasm of digestive organs; Z80.1 Family history of malignant neoplasm of trachea, bronchus and lung; M10.9 Gout, unspecified; Z79.899 Other long term (current) drug therapy

== ENCOUNTER 2017-06-20 11:21 | Emergency (ER) | payer BC ==
[~2017-06-20] VITALS: Ht 180.3 cm; Wt 115.0 kg
[~2017-06-20 11:21] MED LIST changes: -CLC6 PO; -DXY100 PO; -FOLI1TAB7 PO; +FOLI1TAB8 PO; +LYR75 PO; +POTA-639 PO; -POTA20TA16 PO
[2017-06-20 11:29] VITALS: TEMP 36.9; Ht 180.3 cm; Wt 115.0 kg
[2017-06-20] MEDS ORDERED: DULO-24 PO (12:00)
[2017-06-20] MEDS ORDERED: MORP-157 PO (12:01)
[2017-06-20] MEDS ORDERED: AMT50 PO (12:02)
--- NOTE | 2017-06-20 13:17 | DIAGNOSTIC IMAGING REPORT ---
BILATERAL LOWER EXTREMITY VENOUS DOPPLER CLINICAL HISTORY: Leg pain and swelling. COMPARISON STUDY: Bilateral lower extremity venous Doppler December 02 2016. TECHNIQUE: Sonography of the deep venous system of the bilateral lower extremities was performed. Compression and augmentation were evaluated. FINDINGS: The bilateral common femoral, superficial femoral and popliteal veins were compressible. Augmentation was normal. Flow was shown within the deep calf vessels. Note is made of a 5.3 x 2.1 x 4 cm cystic focus within the subcutaneous tissues of the distal left thigh. This was not evident on exam of December 02, 2016. IMPRESSION: 1. No evidence of deep venous thrombus within the bilateral lower extremities. 2. 5.3 x 2.1 x 4 cm subcutaneous cystic focus within the distal left thigh which is predominantly simple-appearing with exception of slight irregularity along the wall. The sonographic appearance is nonspecific although this could reflect a resolving hematoma. Clinical follow-up to ensure resolution is recommended. If this should enlarge, a repeat ultrasound is recommended to exclude the much less likely possibility of a cystic mass. Electronically signed by: Gerber Moraes M.D. 06/20/2017 1:16 PM Dictated Date/Time: 06/20/2017 1:12 PM
--- NOTE | 2017-06-20 14:31 | EMERGENCY ROOM VISIT NOTE ---
History Report prepared by Lakshmi: Jesse Contreras Under the Supervision of: Dr. Rufino Wyman D.O. First contact with patient: 12:24 Chief Complaint: LEG PAIN,LEG INJURY Stated Complaint: LUMP ON LEG, LEFT History of Present Illness The patient is a 67 year old male who presents to the Emergency Room with complaints of left lower extremity pain (inner thigh) that began recently. He has a past medical history of bilateral lower extremity pitting edema and neuropathy. He does not have a history of diabetes. He states that recently he noticed that he has a lump to this left inner thigh that is causing him pain. He denies any other abnormal symptoms at this time. He is requesting an US to rule out a potential blood clot. Source of History: patient Onset: recently Position: leg (left) Symptom Intensity: moderate Quality: ache Timing: constant Note: He denies any other abnormal symptoms at this time. Review of Systems See HPI for pertinent positives & negatives. A total of 10 systems reviewed and were otherwise negative. Past Medical & Surgical Medical Problems: (1) Bullard's esophagus (2) Chest discomfort (3) Dyslipidemia (4) GERD (gastroesophageal reflux disease) (5) Gout (6) IBS (irritable bowel syndrome) (7) Lumbar disc disorder (8) Metabolic syndrome (9) THAO on CPAP (10) Renal colic (11) Rheumatoid arthritis (12) Sepsis (13) Situational hypertension (14) Stasis edema of both lower extremities (15) Testicular hypofunction (16) Uric acid kidney stone Surgical Problems: (1) H/O colonoscopy (2) H/O esophagogastroduodenoscopy (3) History of repair of hiatal hernia (4) S/P arthroscopic knee surgery (5) S/P ear surgery (6) S/p kidney stone removal (7) S/P lumbar fusion (8) S/p removal of polyp from larynx (9) S/P tonsillectomy and adenoidectomy Family History Diabetes mellitus GRANDMOTHER FH: CAD (coronary artery disease) MOTHER (HI age 81) UNCLE FH: cancer MOTHER (stomach CA) FATHER (lung CA) Stroke GRANDFATHER Social History Smoking Status: Never Smoker Smokeless Tobacco Use: No Drug Use: none Marital Status: Occupation Status: retired Current/Historical Medications Scheduled Allopurinol (Zyloprim), 300 MG PO QAM Amitriptyline Hcl (Elavil), 25 MG PO HS Cholecalciferol (Vitamin D 1000 Unit), 1,000 INTER.UNIT PO QAM Cyanocobalamin (Vitamin B12 100 Mcg), 100 MCG PO QAM Cyanocobalamin (Vitamin Deficiency Inject), 1 ML INJ MONTHLY Docusate Sodium (Docusate Sodium), 1 CAP PO BID Duloxetine HCl (Cymbalta), 50 MG PO DAILY Folic Acid (Folvite), 1 MG PO QAM Furosemide (Lasix), 40 MG PO QAM Methotrexate (Methotrexate), 6 TABS PO WK Morphine Cont Rel (Ms Contin), 15 MG PO QPM Pantoprazole (Protonix), 20 MG PO HS Potassium Ext Rel (Klor-Con), 20 MEQ PO QAM Scheduled PRN Acetaminophen (Tylenol), 1,000 MG PO TID PRN for Pain or Fever Ondansetron Odt (Zofran Odt), 8 MG SL Q6H PRN for Nausea Allergies Coded Allergies: Penicillins (Verified Allergy, Unknown, RASH, 06/20/17) Sulfa Antibiotics (Verified Allergy, Unknown, RASH, 06/20/17) Trimethoprim (Verified Allergy, Unknown, RASH, 06/20/17) Physical Exam Vital Signs Date Time Temp Pulse Resp B/P (MAP) Pulse Ox O2 Delivery O2 Flow Rate FiO2 06/20/17 13:49 65 18 141/76 94 Room Air 06/20/17 12:44 64 20 131/71 94 Room Air 06/20/17 11:29 36.9 77 20 150/75 93 Room Air Physical Exam CONSTITUTIONAL/VITAL SIGNS: Reviewed / noted above. GENERAL: Non-toxic in appearance. INTEGUMENTARY: Warm, dry, and [place]. HEAD: Normocephalic. EYES: without scleral icterus or trauma. ENT/OROPHARYNX: clear and moist. LYMPHADENOPATHY/NECK: Is supple without lymphadenopathy or meningismus. RESPIRATORY: Lungs clear and equal. CARDIOVASCULAR: Regular rate and rhythm. GI/ABDOMEN: Soft and nontender. No organomegaly or pulsatile mass. No rebound or guarding. Normal bowel sounds. EXTREMITIES: Warm and well perfused. Bilateral lower extremity edema. Left inner thigh reveals a nodular structure about 1 inch in diameter. BACK: No CVA tenderness. NEUROLOGICAL: Intact without focal deficits. PSYCHIATRIC: normal affect. MUSCULOSKELETAL: Normally developed with good muscle tone. Medical Decision & Procedures ER Provider Diagnostic Interpretation: Radiology results as stated below per my review and radiologist interpretation: BILATERAL LOWER EXTREMITY VENOUS DOPPLER CLINICAL HISTORY: Leg pain and swelling. COMPARISON STUDY: Bilateral lower extremity venous Doppler December 02 2016. TECHNIQUE: Sonography of the deep venous system of the bilateral lower extremities was performed. Compression and augmentation were evaluated. FINDINGS: The bilateral common femoral, superficial femoral and popliteal veins were compressible. Augmentation was normal. Flow was shown within the deep calf vessels. Note is made of a 5.3 x 2.1 x 4 cm cystic focus within the subcutaneous tissues of the distal left thigh. This was not evident on exam of December 02, 2016. IMPRESSION: 1. No evidence of deep venous thrombus within the bilateral lower extremities. 2. 5.3 x 2.1 x 4 cm subcutaneous cystic focus within the distal left thigh which is predominantly simple-appearing with exception of slight irregularity along the wall. The sonographic appearance is nonspecific although this could reflect a resolving hematoma. Clinical follow-up to ensure resolution is recommended. If this should enlarge, a repeat ultrasound is recommended to exclude the much less likely possibility of a cystic mass. Electronically signed by: Gerber Moraes M.D. 06/20/2017 1:16 PM Dictated Date/Time: 06/20/2017 1:12 PM ED Course 1224: Previous medical records were reviewed. The patient was evaluated in room B9. A complete history and physical examination was performed. 1436: On reevaluation, the patient is resting. I discussed the results and findings with the patient. He verbalized agreement of the treatment plan. He was discharged home. Medical Decision Differential diagnosis: Etiologies such as DVT, musculoskeletal, infection, joint effusion, trauma, lymphedema, idiopathic, CHF, as well as others were entertained. This is a 67-year-old male who presents to the ED with a chief complaint of bilateral inner thigh pain. The patient states that his symptoms started recently but he reports chronic lower extremity edema. The patient wanted to confirm that he has not developed a DVT. He does report chronic issues with his legs. He has no other complaints. Denies any chest pains, shortness of breath or fevers. Ultrasound of bilateral lower extremities did not reveal DVT. He was told the results. He is felt to be stable for discharge and outpatient follow-up. Medication Reconcilliation Current Medication List: was personally reviewed by me Blood Pressure Screening Patient's blood pressure: Elevated blood pressure Blood pressure disposition: Referred to PCP Impression Primary Impression: Edema of both legs Additional Impression: Thigh pain Scribe Attestation The scribe's documentation has been prepared under my direction and personally reviewed by me in its entirety. I confirm that the note above accurately reflects all work, treatment, procedures, and medical decision making performed by me. Departure Information Dispostion Home / Self-Care Referrals Rob Weiss M.D. (PCP) Forms HOME CARE DOCUMENTATION FORM, IMPORTANT VISIT INFORMATION Patient Instructions My [facility] Additional Instructions Follow-up with your doctor for further care and evaluation in 2-7 days. Return to the emergency department for worsening or new symptoms or any concerns. You have been examined and treated today on an emergency basis only. This is not a substitute for, or an effort to provide, complete comprehensive medical care. It is impossible to recognize and treat all injuries or illnesses in a single emergency department visit. It is therefore important that you follow up closely with your doctor. Call as soon as possible for an appointment. Problem Qualifiers
[2017-06-20 15:18] VITALS: BP 139/69; PULSE 71; O2SAT 94
[2017-07-10] MEDS ORDERED: ASPI81TA28 PO (14:33)
[2017-07-10] MEDS ORDERED: GLC/500 PO (14:33)
[2017-07-11] MEDS ORDERED: CARB100C2 PO (09:36)
[2017-07-11] MEDS ORDERED: CARB1TAB8 (09:36)
== END 2017-06-20 15:18 | disposition home or self-care (01) ==
LOC: C.EDB 11:24
DX: R60.0 Localized edema (principal); M79.652 Pain in left thigh; G62.9 Polyneuropathy, unspecified; R22.42 Localized swelling, mass and lump, left lower limb; K22.70 Barrett's esophagus without dysplasia; E78.5 Hyperlipidemia, unspecified; K21.9 Gastro-esophageal reflux disease without esophagitis; M10.9 Gout, unspecified; K58.9 Irritable bowel syndrome, unspecified; E88.81 Metabolic syndrome and other insulin resistance; G47.33 Obstructive sleep apnea (adult) (pediatric); M06.9 Rheumatoid arthritis, unspecified; I87.2 Venous insufficiency (chronic) (peripheral); E29.1 Testicular hypofunction; Z87.442 Personal history of urinary calculi; Z83.3 Family history of diabetes mellitus; Z82.3 Family history of stroke; Z80.0 Family history of malignant neoplasm of digestive organs; Z80.1 Family history of malignant neoplasm of trachea, bronchus and lung

== ENCOUNTER → 2017-08-08 | Outpatient (CLI) | payer BC ==
[~2017-08-08] MED LIST changes: +AMT50 PO; +ASPI81TA28 PO; +CARB100C2 PO; +CARB1TAB8; +DULO-24 PO; -GABA-113 PO; +GLC/500 PO; -HYDR-5688 PO; -HYDR200T5 PO; -LYR75 PO; +MORP-157 PO; -POTA-639 PO; +POTA20TA16 PO
== END | disposition home or self-care (01) ==
LOC: C.RDSM 08:00
PROVIDERS: ATTEND Family Medicine Sports Medicine
DX: M25.561 Pain in right knee (principal)

== ENCOUNTER → 2017-08-21 | Outpatient (CLI) | payer BC ==
--- NOTE | 2017-08-21 09:29 | DIAGNOSTIC IMAGING REPORT ---
R HEEL MIN 2 VIEWS, R FOOT MIN 3 VIEWS ROUTINE CLINICAL HISTORY: 67 years-old Male presenting with R FOOT PAIN. TECHNIQUE: Frontal and lateral views of the right heel and frontal, oblique, and lateral views of the right foot were obtained. COMPARISON: None. FINDINGS: Right heel: Prominent enthesophytes at the insertion of the Achilles tendon and origin of the plantar fascia. No abnormal sclerosis or fracture of the calcaneus. Right foot: Osteopenia may be present. Mild osteophytosis at the first metatarsophalangeal joint. No acute fracture or malalignment. Image quality is degraded by overexposure. IMPRESSION: 1. No acute osseous injury of the right foot or heel. 2. Prominent enthesophytes at the insertion of the Achilles tendon and origin of the plantar fascia, which implies chronic degenerative change. 3. Mild degenerative changes of the first metatarsophalangeal joint. Electronically signed by: Anton Echols M.D. 08/21/2017 9:28 AM Dictated Date/Time: 08/21/2017 9:26 AM
== END | disposition home or self-care (01) ==
LOC: C.RADBC 09:06
PROVIDERS: ATTEND Physician Assistant
DX: M79.671 Pain in right foot (principal); M76.61 Achilles tendinitis, right leg

== ENCOUNTER → 2017-11-02 | Outpatient (CLI) | payer OTHER ==
[~2017-11-02] VITALS: Ht 182.9 cm; Wt 127.8 kg
[~2017-11-02] MED LIST changes: -METH2.5T PO; +POTA-639 PO; -POTA20TA16 PO
[2017-11-02 13:24] VITALS: BP 133/79; PULSE 73; Ht 182.9 cm; Wt 127.8 kg
== END | disposition home or self-care (01) ==
LOC: C.NEUR 12:57
PROVIDERS: ATTEND Internal Medicine Pulmonary Disease
DX: G47.33 Obstructive sleep apnea (adult) (pediatric) (principal); Z88.0 Allergy status to penicillin; Z88.1 Allergy status to other antibiotic agents

== ENCOUNTER 2019-05-14 08:12 | Observation (INO) ==
[2019-05-14] MEDS ORDERED: methylPREDNISolone 125 MG/2 ML VIAL ONE (08:17)
[2019-05-14] MEDS ORDERED: EPINEPHrine INJ 1 MG/ML AMP ONE (08:18)
[2019-05-14] MEDS ORDERED: FAMOTIDINE 20MG/5ML IV PUSH IV ONE (08:18)
[2019-05-14] MEDS ORDERED: DiphenhydrAMINE HCL 50 MG/ML VIAL ONE (08:18)
[2019-05-14] MEDS ORDERED: EPINEPHrine INJ 1 MG/ML AMP IM STA ×2 (08:22→10:59)
[2019-05-14] MEDS ORDERED: DiphenhydrAMINE HCL 50 MG/ML VIAL IV PRN (08:24)
[2019-05-14] MEDS ORDERED: SODIUM CHLORIDE 0.9% 1000ML 1,000 ML IV ONE (08:43)
[2019-05-14] MEDS ORDERED: DiphenhydrAMINE HCL 50 MG/ML VIAL IV STA (10:59)
[2019-05-14] MEDS ORDERED: SODIUM CHLORIDE 0.9% 1000ML 1,000 ML IV SCH (11:30)
--- NOTE | 2019-05-14 12:32 | History & Physical Report ---
Date of Service May 14, 2019 Assessment & Plan (1) Anaphylaxis: (2) Allergic reaction: This is a 69 yr old M who has significant pmh of T2DM, HTN, HLD, THAO on CPAP, diabetic neuropathy, GERD who presents to [facility] ED 2/2 rash, lip/tongue swelling and SOB prior to arrival. Allergic rxn of unknown etiology No new medications, detergents or soaps Last new medication was gabapentin 2 weeks ago Known hx of sulfa/bactrim rxn ? if cross sensitivity with lasix but has been on for many years admit to med/surg tele IV methylprednisolone 40mg q8hr Pepcid 20mg IV Q12h benadryl 50mg po q6h prn mary 60mg Q12 repeat labs in a.m. alb neb tx for sob/wheezing incentive spirometry (3) Abnormal ECG: compared to ecg 12/2016 pt with known RBBB and known LAFB only change is twave inversion v4 attending reviewed with cardiology - no further recommendations will check trop x 3 to be thorough (4) T2DM (type 2 diabetes mellitus): Last A1C 6.2 hold metformin lantus/novolog per protocol except hyperglycemia in setting of steroid use (5) HTN (hypertension): blood pressure elevated in ED lasix daily monitor (6) THAO on CPAP: CPAP at HS (7) Dyslipidemia: continue statin (8) Gout: continue allopurinol (9) DVT prophylaxis: SCD/TEDS Disposition: admit to med/surg tele Follow up: PCP Dr. Weiss upon discharge Patient was seen and examined in collaboration with Dr. Dean, please see addendum History of Present Illness Chief Complaint: Rash, lip and tongue swelling, SOB prior to arrival. Primary Care Provider: Rob Weiss MD This is a 69 yr old M who has significant pmh of T2DM, HTN, HLD, THAO on CPAP, diabetic neuropathy, GERD who presents to [facility] ED 2/2 rash, lip/tongue swelling and SOB prior to arrival. He elicits when he took his CPAP off this morning his face felt funny and swollen. His also noted hives all over body. This then progressed to lip/tongue swelling and SOB. 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 He received epi, bendaryl, pepcid and solumedrol with improvement of symptoms. He was feeling better and got up to go to the bathroom. While in bathroom he noticed his rash start to return in groin region and his lip/tongue were starting to swell again. Because of this he received additional dose of epi and IV benadryl. Currently he feels much improved except for residual rash and lip swelling. He denies any new medications. Last new medication was gabapentin started 2-3 weeks ago. He started with 300mg daily and 6 days ago increased to bid. He has previous hx of PCN and sulfa but no history of anaphylaxis. No FH of anaphylaxis. Denies recent illness, f/c/s, dizziness, lightheaded, chest pain, sob, wheezing, n/v/d, abdominal pain, dysuria, increased urg/freq with urination, melena, hematochezia. is at bedside. Allergies Allergy/AdvReac Type Severity Reaction Status Date / Time Penicillins Allergy Unknown RASH Verified 05/14/19 09:05 Sulfa (Sulfonamide Allergy Unknown RASH Verified 05/14/19 09:05 Antibiotics) trimethoprim Allergy Unknown RASH Verified 05/14/19 09:05 sulfamethoxazole Allergy Unknown Unverified 05/14/19 09:05 [From Bactrim] Home Medications Home Medications Medication Instructions Recorded Confirmed Type acetaminophen [Tylenol Arthritis 650 mg PO Q12H PRN 05/14/19 05/14/19 History Pain] allopurinol 300 mg PO DAILY 05/14/19 05/14/19 History amitriptyline 50 mg PO DAILY 05/14/19 05/14/19 History aspirin [Aspirin Low Dose] 81 mg PO DAILY 05/14/19 05/14/19 History atorvastatin 40 mg PO DAILY 05/14/19 05/14/19 History cholecalciferol (vitamin D3) 1,000 unit PO DAILY 05/14/19 05/14/19 History cyanocobalamin (vitamin B-12) 100 mcg PO DAILY 05/14/19 05/14/19 History docusate sodium 100 mg PO BID PRN 05/14/19 05/14/19 History furosemide 20 mg PO DAILY 05/14/19 05/14/19 History gabapentin 300 mg PO DIRECTED 05/14/19 05/14/19 History metformin 500 mg PO BID 05/14/19 05/14/19 History morphine 15 mg PO HS PRN 05/14/19 05/14/19 History morphine 15 mg PO QPM 05/14/19 05/14/19 History pantoprazole 20 mg PO DAILY 05/14/19 05/14/19 History potassium chloride 10 meq PO DAILY 05/14/19 05/14/19 History Past Med/Surg History Medical History Dyslipidemia (Chronic) GERD (gastroesophageal reflux disease) (Chronic) IBS (irritable bowel syndrome) (Chronic) Metabolic syndrome (Chronic) THAO on CPAP (Chronic) Rheumatoid arthritis (Chronic) Situational hypertension (Chronic) Surgical History H/O colonoscopy (Chronic) H/O esophagogastroduodenoscopy (Chronic) S/P arthroscopic knee surgery (Chronic) S/P ear surgery (Chronic) S/P tonsillectomy and adenoidectomy (Chronic) Family History Father Lung cancer Mother Stomach cancer Social History (Updated 05/14/19 @ 12:46 by Estefania Lemus PA-C) Preferred Language: Korean Communication Ability: Effective Inspector Rag Sorting Required: No Beliefs That Will Affect Care: None Current Living Situation: Spouse Other Information That Helps Us Care for You: No Feels Safe at Home: Yes Safety Concerns: Feels Safe At This Time Smoking Status: Former smoker Tobacco Type: cigarettes ; Do You Dip or Chew Tob acco: No ; Smoking End Date: 1998 ; Second Hand Exposure: No ; Tobacco Cessation Education Requested by Patient: No Hx Alcohol Use: No Hx Substance Use: No Review of Systems Review of Systems: All systems reviewed & are unremarkable except as noted in HPI & below Physical Exam Physical Exam: Constitutional: WD/WN, obese, Mvitals as above, NAD, sitting up in bed, pleasant, conversing easily Head: Normocephalic, Atraumatic Eyes: PERRL, conjunctivae normal, anicteric sclerae ENMT: external ear and nose normal, oropharynx normal, mild upper lip swelling Neck: trachea midline, no thyromegaly normal visual inspection Respiratory: normal respiratory effort, lungs clear to auscultation, no wheeze, rales, rhonchi. Normal insp/exp effort, no accessory muscle use Cardiovascular: RRR, no murmur, trace lower ext edema Vessels: no JVD or carotid bruit Chest: normal inspection of chest Abdomen: normal bowel sounds, soft, nontender, no hepatosplenomegaly Musculoskeletal: no cyanosis or clubbing, extremities motor strength 5/5 Skin: no rashes, warm and dry normal turgor Neurologic: PERRL, EOMI, accommodation nl, no face palsy, no dysarthria CN's II-XI intact bilaterally and moves all extremities Psychiatric: A+Ox3, euthymic affect Lymphatic: no cervical or axillary lymphadenopathy : deferred Results & Data Vital Signs (Past 12 Hours) Vital Signs Temp Pulse Pulse Resp BP BP Pulse Ox 05/14/19 11:37 70 16 162/64 H 95 05/14/19 11:00 62 18 136/62 94 05/14/19 09:10 60 18 144/64 H 95 05/14/19 08:35 57 L 18 149/72 H 97 05/14/19 08:18 37.3 C 59 L 26 H 157/103 H 99 05/14/19 08:12 98 Laboratory Results Short CBC 05/14/19 Range/Units 08:20 WBC 4.87 (4.8-10.8) K/uL Hgb 12.9 L (14.0-18.0) g/dL Hct 40.5 L (42-52) % Plt Count 205 (130-400) K/uL BMP 05/14/19 08:20 Sodium 136 Potassium Chloride 104 Carbon Dioxide 27 BUN 23 H Creatinine 1.31 Glucose 105 H Calcium 9.1 Liver Function 05/14/19 Range/Units 08:20 Total Bilirubin 0.5 (0.2-1) mg/dl AST (15-37) U/L ALT 45 (12-78) U/L Alkaline Phosphatase 83 (45-117) U/L Albumin 3.5 (3.4-5.0) gm/dl Medications Administered Diphenhydramine HCl (Benadryl) 50 mg IV ONCE PRN PRN Reason: Anaphylaxis Stop: 06/13/19 08:23 Last Admin: 05/14/19 08:20 Dose: 50 mg Documented by: [id number] Sodium Chloride (Nss 1000ml) 1,000 mls @ 100 mls/hr IV .Q10H JC Stop: 06/13/19 11:29 Last Admin: 05/14/19 11:21 Dose: 100 mls/hr Documented by: [id number] Discontinued Medications Diphenhydramine HCl (Benadryl) Confirm Administered Dose 50 mg .ROUTE .STK-MED ONE Stop: 05/14/19 08:19 Last Admin: 05/14/19 08:29 Dose: Not Given Documented by: [id number] Diphenhydramine HCl (Benadryl) 25 mg IV NOW STA Stop: 05/14/19 11:00 Last Admin: 05/14/19 11:07 Dose: 25 mg Documented by: [id number] Epinephrine HCl (Epinephrine) 0.3 mg IM ONCE STA Stop: 05/14/19 08:23 Last Admin: 05/14/19 08:19 Dose: 0.3 mg Documented by: [id number] Epinephrine HCl (Epinephrine) Confirm Administered Dose 1 mg .ROUTE .[facility] ONE Stop: 05/14/19 08:19 Last Admin: 05/14/19 08:29 Dose: Not Given Documented by: [id number] Epinephrine HCl (Epinephrine) 0.3 mg IM NOW STA Stop: 05/14/19 11:00 Last Admin: 05/14/19 11:01 Dose: 0.3 mg Documented by: [id number] Famotidine (Pepcid 20mg Iv Push) Confirm Administered Dose 20 mg IV .STK-MED ONE Stop: 05/14/19 08:19 Last Admin: 05/14/19 08:21 Dose: 20 mg Documented by: [id number] Sodium Chloride (Nss 1000ml) 1,000 mls @ 999 mls/hr IV .Q1H1M ONE Stop: 05/14/19 09:43 Last Infusion: 05/14/19 09:22 Dose: 0 mls/hr Documented by: [id number] Admin: 05/14/19 08:20 Dose: 999 mls/hr Documented by: [id number] Methylprednisolone (Solumedrol) Confirm Administered Dose 125 mg .ROUTE .STK-MED ONE Stop: 05/14/19 08:18 Last Admin: 05/14/19 08:20 Dose: 125 mg Documented by: [id number] ECG Rate (beats per minute): 65 Findings: + LAFB and + RBBB Additional Comments: compared to ECG from 12/2016 reveals now LAFB, V4 more pronounced Code Status & VTE Plan Code Status Full Code VTE Prophylaxis Plan VTE Prophylaxis will be ordered: Yes Supervising Physician Co-Signing Physician Notes ROS-No Headache, No Visual Changes, No Nausea, No Vomiting, No Fever, No Chills, No Neck Pain or Stiffness, No Chest Pain, No Palpitations, No SOB, No CARREON, No Cough, No Sputum, No Wheezing, No Abdominal Pain, No Diarrhea, No Hematemesis, No Hemoptysis, No Unexpected Weight Loss, No Flank pain, No Melena, No Hematochezia, No Frequency, No Urgency, No Burning, No Hematuria, No Rashes, No Diaphoresis. Appetite is Normal, [place] an itchy rash on legs groin back and trunk Physical Exam Gen-AAO x 3, NAD, Afebrile, Obese Head-NCAT, EOMI, PERRLA, Anicteric Sclera, No Posterior Pharyngeal Erythema, swollen lips Neck-Supple, No JVD, No Thyromegaly, No Masses, No LAD, No Bruits Lungs-Clear to Auscultation Bilaterally, No Rales, No Rhonchi, No Wheezing, No Crepitus Chest-No S4, +S1, +S2, No S3, No Murmurs, No Rubs, No Gallops, No Ectopy Abdomen-Soft, Bowel Sounds Present, Non Tender, Non Distended, No Hepatomegaly, No Splenomegaly, No Palpable Masses, No Rebound, No Rigidity, No Guarding Musculoskeletal-Full Range of Motion Bilaterally, No CVAT Extremities-No Cyanosis, No Clubbing, No Edema Nuero-Cranial Nerves II-XII grossly intact, Motor WNL, DTRs WNL, Strength WNL, Non Focal Psych-Normal Mood Skin-Urticarial rash (1) Anaphylaxis Encounter type: initial encounter Qualified Code(s): T78.2XXA - Anaphylactic shock, unspecified, initial encounter
[2019-05-14 12:35] LABS: Basophils # (auto) 0.02 K/uL (0-0.2); Basophils % (auto) 0.4 %; Eosinophils # (auto) 0.15 K/uL (0-0.5); Eosinophils % (auto) 3.1 %; Hematocrit (blood only) 40.5 % (42-52); Hemoglobin 12.9 g/dL (14.0-18.0); Lymphocytes # (auto) 1.56 K/uL (1.2-3.4); Mean Corpuscular Hemoglobin 27.4 pg (25-34); Mean Corpuscular Hgb Conc 31.9 g/dL (32-36); Monocytes # (auto) 0.58 K/uL (0.11-0.59); Monocytes % (auto) 11.9 %; Neutrophils # (auto) 2.56 K/uL (1.4-6.5); Neutrophils % (auto) 52.6 %; Platelet Count 205 K/uL (130-400); RDW Standard Deviation 40.6 fL (36.4-46.3); Red Blood Count 4.71 M/uL (4.7-6.1); White Blood Count 4.87 K/uL (4.8-10.8)
[2019-05-14 12:42] LABS: Albumin Globulin Ratio 0.9 (0.9-2); Albumin Level 3.5 gm/dl (3.4-5.0); BUN Creatinine Ratio 17.8 (10-20); Bilirubin,Total 0.5 mg/dl (0.2-1); Calcium 9.1 mg/dl (8.5-10.1); Creatinine Clr Calc Pharmacy 68.8 ml/min; Est GFR (African American) 63.5; Est GFR (Non-African American) 54.8; Globulin 3.7 gm/dl (2.5-4.0); Total Protein 7.2 gm/dl (6.4-8.2)
[2019-05-14] MEDS ORDERED: DEXTROSE 50% 50 ML SYRINGE IV PRN (13:10)
[2019-05-14] MEDS ORDERED: CARBOHYDRATES FOR HYPOGLYCEMIA PO PRN (13:10)
[2019-05-14] MEDS ORDERED: ALBUTEROL 0.083% NEBU SOLN 3 ML VIAL NEB PRN (13:10)
[2019-05-14] MEDS ORDERED: GLUCOSE 10 TABS/TUBE PO PRN (13:10)
[2019-05-14] MEDS ORDERED: GLUCOSE 40% GEL 15 GM TUBE PO PRN (13:10)
[2019-05-14] MEDS ORDERED: ACETAMINOPHEN 325 MG TAB PO PRN (13:10)
[2019-05-14] MEDS ORDERED: FAMOTIDINE 20MG/5ML IV PUSH IV SCH (13:10)
[2019-05-14] MEDS ORDERED: MAGNESIUM HYDROXIDE SUSP 30 ML UDC PO PRN (13:10)
[2019-05-14] MEDS ORDERED: GLUCAGON FOR INJ 1 MG VIAL SQ PRN (13:10)
[2019-05-14] MEDS ORDERED: DOCUSATE SODIUM 100 MG CAP PO PRN (13:10)
[2019-05-14] MEDS ORDERED: ONDANSETRON INJ 2 MG/ML 2 ML VIAL IV PRN (13:10)
[2019-05-14] MEDS ORDERED: POLYETHYLENE (MIRALAX) 17 GM PACK PO PRN (13:10)
[2019-05-14] MEDS ORDERED: ALUMINUM/MAGNESIUM SUSP 30 ML UDC PO PRN (13:10)
--- NOTE | 2019-05-14 13:41 | Emergency Department Note ---
Entered by Fawn Blanton acting as a scribe for Jose David Quiñonez History of Present Illness General Chief complaint: Allergic Reaction Stated complaint: ALLERGIC RXN Time Seen by Provider: 05/14/19 08:17 Source: patient and family History of Present Illness Provider complaint: allergic reaction Onset (ago): hour(s) greater than 10 Location: head, back and genitals Pain Consistency: + constant Quality: + other (hives and shortness of breath ) Associated symptoms: + denies other symptoms The patient is a 69 year old male who presents to the emergency department for evaluation of allergic reaction and difficulty breathing when he woke up this morning. The patient states that he has face swelling and tongue swelling that started prior to arrival but began having a rash and hives on his lower back last night. The states the patients hives are especially concentrated near the groin that are new with the reaction. He notes shortness of breath as well. The patient denies any other symptoms. Home Medications Home Medications Medication Instructions Recorded Confirmed Type acetaminophen [Tylenol Arthritis 650 mg PO Q12H PRN 05/14/19 05/14/19 History Pain] allopurinol 300 mg PO DAILY 05/14/19 05/14/19 History amitriptyline 50 mg PO DAILY 05/14/19 05/14/19 History aspirin [Aspirin Low Dose] 81 mg PO DAILY 05/14/19 05/14/19 History atorvastatin 40 mg PO DAILY 05/14/19 05/14/19 History cholecalciferol (vitamin D3) 1,000 unit PO DAILY 05/14/19 05/14/19 History cyanocobalamin (vitamin B-12) 100 mcg PO DAILY 05/14/19 05/14/19 History docusate sodium 100 mg PO BID PRN 05/14/19 05/14/19 History furosemide 20 mg PO DAILY 05/14/19 05/14/19 History gabapentin 300 mg PO DIRECTED 05/14/19 05/14/19 History metformin 500 mg PO BID 05/14/19 05/14/19 History morphine 15 mg PO QPM 05/14/19 05/14/19 History pantoprazole 20 mg PO DAILY 05/14/19 05/14/19 History potassium chloride 10 meq PO DAILY 05/14/19 05/14/19 History Allergies Allergy/AdvReac Type Severity Reaction Status Date / Time Penicillins Allergy Unknown RASH Verified 05/14/19 09:05 Sulfa (Sulfonamide Allergy Unknown RASH Verified 05/14/19 09:05 Antibiotics) trimethoprim Allergy Unknown RASH Verified 05/14/19 09:05 sulfamethoxazole Allergy Unknown Unverified 05/14/19 09:05 [From Bactrim] Past Med/Surg History Medical History Dyslipidemia (Chronic) GERD (gastroesophageal reflux disease) (Chronic) IBS (irritable bowel syndrome) (Chronic) Metabolic syndrome (Chronic) THAO on CPAP (Chronic) Rheumatoid arthritis (Chronic) Situational hypertension (Chronic) Surgical History H/O colonoscopy (Chronic) H/O esophagogastroduodenoscopy (Chronic) S/P arthroscopic knee surgery (Chronic) S/P ear surgery (Chronic) S/P tonsillectomy and adenoidectomy (Chronic) Family History Father Lung cancer Mother Stomach cancer Social History (Updated 05/14/19 @ 12:46 by Estefania Lemus PA-C) Preferred Language: [place] Communication Ability: Effective Health Safety Manager Required: No Beliefs That Will Affect Care: None Current Living Situation: Spouse Other Information That Helps Us Care for You: No Feels Safe at Home: Yes Safety Concerns: Feels Safe At This Time Smoking Status: Former smoker Tobacco Type: cigarettes ; Do You Dip or Chew Tobacco: No ; Smoking End Date: 1998 ; Second Hand Exposure: No ; Tobacco Cessation Education Requested by Patient: No Hx Alcohol Use: No Hx Substance Use: No Review of Systems See HPI for pertinent positives & negatives. and A total of 10 systems reviewed and were otherwise negative Physical Exam Vital Signs Vital Signs - 24 hr 05/14/19 08:12 05/14/19 08:18 05/14/19 08:35 Temperature 37.3 C Temperature Source Oral Pulse Rate 59 L Pulse Rate [Apical] 57 L Pulse Rhythm Regular Respiratory Rate 26 H 18 Respiratory Effort / Characteristics Short of Breath Blood Pressure 157/103 H Blood Pressure [Left Arm] 149/72 H Blood Pressure Mean 121 Blood Pressure Mean [Left Arm] 97 Pulse Oximetry 98 99 97 Oxygen Delivery Method Room Air Room Air Room Air Sepsis Recent Fever Within 48 Hours No Sepsis New/Unexplained Change in Mental Status No Sepsis Action Taken by Nursing No Action Required 05/14/19 09:10 05/14/19 11:00 05/14/19 11:37 Temperature Temperature Source Pulse Rate Pulse Rate [Apical] 60 62 70 Pulse Rhythm Respiratory Rate 18 18 16 Respiratory Effort / Characteristics Blood Pressure Blood Pressure [Left Arm] 144/64 H 136/62 162/64 H Blood Pressure Mean Blood Pressure Mean [Left Arm] 90 86 96 Pulse Oximetry 95 94 95 Oxygen Delivery Method Room Air Room Air Room Air Sepsis Recent Fever Within 48 Hours Sepsis New/Unexplained Change in Mental Status Sepsis Action Taken by Nursing Physical Exam GENERAL: He does appear acutely distressed. ____ HENT: Exam performed. - Head: Normocephalic and atraumatic. - Right Ear: External ear normal. No mastoid tenderness. - Left Ear: External ear normal. No mastoid tenderness. - Mouth/Throat: Lower lip and tongue swollen. EYES: Conjunctivae and EOM are normal. Pupils are equal, round, and reactive to light. Right eye exhibits no discharge. Left eye exhibits no discharge. No scleral icterus. ____ NECK: Normal range of motion. Neck supple. No JVD present. No spinous process tenderness present. No carotid bruit present. No rigidity. No tracheal deviation and normal range of motion present. No Brudzinski's sign and no Kernig's sign noted. ____ CV: Normal rate, regular rhythm, normal heart sounds and intact distal pulses. There is no peripheral edema. Palpable radial pulses bue. ____ PULM/CHEST: respiratory distress with wheezing bilaterally no stridor. - Chest Wall: He exhibits no tenderness. ____ ABD: The abdomen is soft. Bowel sounds are normal. He has no distension. No mass is present. There is no tenderness. There is no rebound, no guarding, no Mckeon's sign and no tenderness at McBurney's point. Rovsig negative MUSC/SKEL: Normal range of motion. There is no peripheral edema, tenderness or deformity. LYMPH: No cervical adenopathy. ____ NEURO: He is alert and oriented to person, place, and time. He has normal strength. No cranial nerve deficit or sensory deficit. Coordination and gait normal. GCS eye subscore is 4. GCS verbal subscore is 5. GCS motor subscore is 6. cerbellar tests wnl. ____ SKIN: Skin is warm and dry. He is not diaphoretic. Urticaria over his anterior chest wall and abdomen, bilateral upper extremity, bilateral lower and groin. PSYCH: He has a normal mood and affect. His behavior is normal. Judgment and thought content normal. ____ Course Course 0815: Past medical records reviewed. The patient was evaluated in room A10. A complete history and physical exam was performed. It is thought that the patient is suffering from an acute allergic/anaphylactic reaction. Anaphylactic reaction was favored over possible angioedema given the patient's urticaria. He was therefore given epinephrine 0.3 mg IM, SOLU-MEDROL 125 mg IV push, Pepcid 20 mg IV push, Benadryl 50 mill grams IV push and 1 L normal saline. 0832: I checked on the patient after receiving 0.3 mg Epi IM, Benadryl 50mg IV, Solu-Medrol 125 mg IV, Pepcid 20 mg IV, patient reports feeling better and that his breathing is improved, swelling in lips is resolving and Urticaria is improving. 0850: Patient reports his rash is improving and his breathing is fine. He is in no respiratory distress at this time. Observation for anaphylactic reaction will begin at this time. Patient was kept on a play writer and pulse ox continuous. Administered Medications Discontinued Medications Diphenhydramine HCl (Benadryl) 50 mg IV ONCE PRN PRN Reason: Anaphylaxis Stop: 06/13/19 08:23 Last Admin: 05/14/19 08:20 Dose: 50 mg Documented by: [id number] Diphenhydramine HCl (Benadryl) Confirm Administered Dose 50 mg .ROUTE .STK-MED ONE Stop: 05/14/19 08:19 Last Admin: 05/14/19 08:29 Dose: Not Given Documented by: [id number] Diphenhydramine HCl (Benadryl) 25 mg IV NOW STA Stop: 05/14/19 11:00 Last Admin: 05/14/19 11:07 Dose: 25 mg Documented by: [id number] Epinephrine HCl (Epinephrine) 0.3 mg IM ONCE STA Stop: 05/14/19 08:23 Last Admin: 05/14/19 08:19 Dose: 0.3 mg Documented by: [id number] Epinephrine HCl (Epinephrine) Confirm Administered Dose 1 mg .ROUTE .STK-MED ONE Stop: 05/14/19 08:19 Last Admin: 05/14/19 08:29 Dose: Not Given Documented by: [id number] Epinephrine HCl (Epinephrine) 0.3 mg IM NOW STA Stop: 05/14/19 11:00 Last Admin: 05/14/19 11:01 Dose: 0.3 mg Documented by: [id number] Famotidine (Pepcid 20mg Iv Push) Confirm Administered Dose 20 mg IV .STK-MED ONE Stop: 05/14/19 08:19 Last Admin: 05/14/19 08:21 Dose: 20 mg Documented by: [id number] Sodium Chloride (Nss 1000ml) 1,000 mls @ 999 mls/hr IV .Q1H1M ONE Stop: 05/14/19 09:43 Last Infusion: 05/14/19 09:22 Dose: 0 mls/hr Documented by: [id number] Admin: 05/14/19 08:20 Dose: 999 mls/hr Documented by: [id number] Sodium Chloride (Nss 1000ml) 1,000 mls @ 100 mls/hr IV .Q10H JC Stop: 06/13/19 11:29 Last Infusion: 05/14/19 13:12 Dose: 0 mls/hr Documented by: [id number] Admin: 05/14/19 11:21 Dose: 100 mls/hr Documented by: [id number] Methylprednisolone (Solumedrol) Confirm Administered Dose 125 mg .ROUTE .STK-MED ONE Stop: 05/14/19 08:18 Last Admin: 05/14/19 08:20 Dose: 125 mg Documented by: [id number] Critical Care Time Critical Care Time: Yes Total Critical Care Time: 35 I have personally spent 35 minutes of critical care time in the direct management of this patient. This includes bedside care, interpretation of diagnostic studies, and testing, discussion with consultants, patient, and family members, and other required patient management activities. This 35 minutes is in excess of all separately billable procedures. Medical Decision Making Medical Records Attestation: I reviewed the patient's medical records. Home Medications Current Medication List: was personally reviewed by me Laboratory Data Attestation: I reviewed the patient's lab results. Result diagrams: 05/14/19 08:20 05/14/19 08:20 Lab Results 05/14/19 05/14/19 Range/Units 08:20 08:20 WBC 4.87 (4.8-10.8) K/uL RBC 4.71 (4.7-6.1) M/uL Hgb 12.9 L (14.0-18.0) g/dL Hct 40.5 L (42-52) % MCV 86.0 (80-100) fL MCH 27.4 (25-34) pg MCHC 31.9 L (32-36) g/dL RDW Std Deviation 40.6 (36.4-46.3) fL RDW Coeff of Mehran 13.0 (11.5-14.5) % Plt Count 205 (130-400) K/uL MPV 10.0 (7.4-10.4) fL Immature Gran % (Auto) 0.0 % Neut % (Auto) 52.6 % Lymph % (Auto) 32.0 % [place] % (Auto) 11.9 % Eos % (Auto) 3.1 % Baso % (Auto) 0.4 % Immature Gran # (Auto) 0.00 (0.00-0.02) K/uL Neut # (Auto) 2.56 (1.4-6.5) K/uL Lymph # (Auto) 1.56 (1.2-3.4) K/uL [place] # (Auto) 0.58 (0.11-0.59) K/uL Eos # (Auto) 0.15 (0-0.5) K/uL Baso # (Auto) 0.02 (0-0.2) K/uL Sodium 136 (136-145) mmol/L Potassium (3.5-5.1) mmol/L Chloride 104 (98-107) mmol/L Carbon Dioxide 27 (21-32) mmol/L Anion Gap 5.0 (3-11) BUN 23 H (7-18) mg/dl Creatinine 1.31 (0.6-1.4) mg/dl Est Cr Clr Drug Dosing 68.8 ml/min Est GFR ( Amer) 63.5 Est GFR (Non-Af Amer) 54.8 BUN/Creatinine Ratio 17.8 (10-20) Glucose 105 H (70-99) mg/dl Calcium 9.1 (8.5-10.1) mg/dl Magnesium (1.8-2.4) mg/dl Total Bilirubin 0.5 (0.2-1) mg/dl AST (15-37) U/L ALT 45 (12-78) U/L Alkaline Phosphatase 83 (45-117) U/L Total Protein 7.2 (6.4-8.2) gm/dl Albumin 3.5 (3.4-5.0) gm/dl Globulin 3.7 (2.5-4.0) gm/dl Albumin/Globulin Ratio 0.9 (0.9-2) ECG Data Attestation: I personally reviewed and interpreted this ECG as follows: Indication: + SOB/dyspnea Rate (beats per minute): 65 Rhythm: + sinus rhythm ECG ST segments: no ST depression and no ST elevation ECG Findings: + Other (QRS: 142, QTC: 463, CO:188 and a bifascicular block) Blood Pressure Blood Pressure Findings: Elevated blood pressure Blood Pressure Disposition: further management by hospitalist HAIM Narrative 0815: Past medical records reviewed. The patient was evaluated in room A10. A complete history and physical exam was performed. It is thought that the patient is suffering from an acute allergic/anaphylactic reaction. Anaphylactic reaction was favored over possible angioedema given the patient's urticaria. He was therefore given epinephrine 0.3 mg IM, SOLU-MEDROL 125 mg IV push, Pepcid 20 mg IV push, Benadryl 50 mill grams IV push and 1 L normal saline. 0832: I checked on the patient after receiving 0.3 mg Epi IM, Benadryl 50mg IV, Solu-Medrol 125 mg IV, Pepcid 20 mg IV, patient reports feeling better and that his breathing is improved, swelling in lips is resolving and Urticaria is improving. 0850: Patient reports his rash is improving and his breathing is fine. He is in no respiratory distress at this time. Observation for anaphylactic reaction will begin at this time. Patient was kept on a play writer and pulse ox continuous. Observation note: Indication: Anaphylaxis Patient, with history of hypertension, allergy to penicillin, Bactrim was first seen at 0815 hrs and the observation time began at 0850 hrs and was necessary in order to determine response to epinephrine for anaphylactic reaction and avoid unnecessary admission . 0912: I checked on the patient and his lip swelling improved, he does not feel like tongue or throat is still swelling and his urticaria is almost completely resolved. 0945: I checked on the patient his vitals are stable, he is feeling better, no wheezing, urticaria resolved, will continue to observe him. 1058: I was called to bedside by nursing staff the rash is coming back and his lip and tongue feels like they are swelling again. The urticaria is reappearing over back and groin. I will be giving a second dose of epi 0.3 mg IM and Benadryl 25 mg IV. 1106: I reexamined the patient. He reports his lip and tongue swelling sensation have completely resolved after receiving the second dose of epinephrine 0.3 mg IM and Benadryl IV push. The ureter cardia has also resolved again. Given the multiple doses of epi required for this patient's allergic reaction, the patient will be admitted to the hospitalist service. I spoke to Estefania Corbett for Dr.Giordano[facility] hospitalist. They will evaluate for further management. 2 hours 26 minutes of observation revealed that the patient should be admitted. Disposition date and time 1106 05/14/19. Impression & Plan Anaphylaxis Discharge Plan Visit Data *Final* Discharge Date/Time: 05/14/19 12:26 Chief Complaint: Allergic Reaction Stated Complaint: ALLERGIC RXN ED Provider: Jose David Quiñonez Discharge Problem: Anaphylaxis Patient Disposition: Admitted As Inpatient Discharge Instructions Interventions: ED Discharge Assessment Last Done: 05/14/19 12:26 Discharge Problem: Anaphylaxis Qualifiers: Encounter type: initial encounter Qualified Code(s): T78.2XXA - Anaphylactic shock, unspecified, initial encounter The scribe's documentation has been prepared under my direction and personally reviewed by me in its entirety. I confirm that the note above accurately reflects all work, treatment, procedures, and medical decision making performed by me.
[2019-05-14 13:58] LABS: Potassium 4.2 mmol/L (3.5-5.1)
[2019-05-14 14:07] LABS: Aspartate Aminotransferase 25 U/L (15-37); Troponin I < 0.015 ng/ml (0-0.045)
[2019-05-14] MEDS: INSULIN ASPART 100 UNITS/ML 3 ML PEN SC SCH ×3 (14:33→21:58)
[2019-05-14] MEDS ORDERED: MoRPHine SULFATE CR 15 MG TABCR PO PRN (14:47)
[2019-05-14] MEDS ORDERED: MoRPHine SULFATE CR 15 MG TABCR PO SCH ×2 (17:00→21:00)
[2019-05-14] MEDS: methylPREDNISolone 40 MG in SYRINGE 0 ML IV SCH (17:12)
[2019-05-14] MEDS ORDERED: GABAPENTIN 300 MG CAP PO SCH (21:00)
[2019-05-14] MEDS: FEXOFENADINE 60 MG TAB PO SCH (21:51)
[2019-05-14] MEDS: INSULIN GLARGINE SOLOSTAR 100 UNITS/ML 3 ML PEN SC SCH (21:56)
[2019-05-14] MEDS: FAMOTIDINE 20 MG in SYRINGE 3 ML IV SCH (22:09)
[2019-05-15] MEDS: methylPREDNISolone 40 MG in SYRINGE 0 ML IV SCH ×2 (00:09→08:06)
[2019-05-15] MEDS ORDERED: LORazepam 0.5 MG TAB PO STA (01:42)
[2019-05-15 05:58] LABS: Hematocrit (blood only) 35.6 % (42-52); Hemoglobin 11.5 g/dL (14.0-18.0); Mean Corpuscular Hemoglobin 27.6 pg (25-34); Mean Corpuscular Hgb Conc 32.3 g/dL (32-36); Mean Corpuscular Volume 85.6 fL (80-100); Mean Platelet Volume 9.3 fL (7.4-10.4); Platelet Count 198 K/uL (130-400); RDW Coefficient of Variation 12.9 % (11.5-14.5); RDW Standard Deviation 40.4 fL (36.4-46.3); Red Blood Count 4.16 M/uL (4.7-6.1)
[2019-05-15 06:33] LABS: BUN Creatinine Ratio 24.7 (10-20); Calcium 9.1 mg/dl (8.5-10.1); Creatinine Clr Calc Pharmacy 90.9 ml/min; Est GFR (African American) 90.2; Est GFR (Non-African American) 77.8; Magnesium 2.2 mg/dl (1.8-2.4); Potassium 4.2 mmol/L (3.5-5.1)
[2019-05-15] MEDS: FEXOFENADINE 60 MG TAB PO SCH (08:06)
[2019-05-15] MEDS ORDERED: PANTOprazole 40 MG TAB PO SCH (09:00)
[2019-05-15] MEDS ORDERED: CYANOCOBALAMIN (VITAMIN B-12) 100 MCG TABLET PO SCH (09:00)
[2019-05-15] MEDS ORDERED: FUROSEMIDE 20 MG TAB PO SCH (09:00)
[2019-05-15] MEDS ORDERED: ATORVASTATIN 40 MG TAB PO SCH (09:00)
[2019-05-15] MEDS ORDERED: CHOLECALCIFEROL 1,000 UNITS TAB PO SCH (09:00)
[2019-05-15] MEDS ORDERED: allopurinoL 300 MG TAB PO SCH (09:00)
[2019-05-15] MEDS ORDERED: ASPIRIN 81 MG ECTAB PO SCH (09:00)
[2019-05-15] MEDS ORDERED: POTASSIUM CHLORIDE 10 MEQ TABCR PO SCH (09:00)
[2019-05-15] MEDS ORDERED: AMITRIPTYLINE HCL 50 MG TAB PO SCH (09:00)
[2019-05-15] MEDS: FAMOTIDINE 20 MG in SYRINGE 3 ML IV SCH (09:06)
[2019-05-15] MEDS: INSULIN GLARGINE SOLOSTAR 100 UNITS/ML 3 ML PEN SC SCH (09:06)
[2019-05-15] MEDS: INSULIN ASPART 100 UNITS/ML 3 ML PEN SC SCH ×2 (09:07→12:54)
--- NOTE | 2019-05-15 13:53 | Hospitalist Progress Note ---
Date of Service May 15, 2019 Assessment & Plan (1) Anaphylaxis: (2) Allergic reaction: This is a 69 yr old M who has significant pmh of T2DM, HTN, HLD, THAO on CPAP, diabetic neuropathy, GERD who presents to [facility] ED 2/2 rash, lip/tongue swelling and SOB prior to arrival. Did not take any unusual food and/or drugs New medication has been gabapentin which can cause anaphylaxis in less than 1% population Receiving IV methylprednisolone 40mg q8hr Received Pepcid 20mg IV Q12h Received Benadryl 50mg po q6h prn Received Vanesa 60mg Q12 Has been on Alb neb tx for sob/wheezing Incentive spirometry Clinically improved and denies any significant symptoms Generalized rashes disappeared and denies any throat, lip or face swelling Will be discharged home this afternoon with EpiPen (3) Abnormal ECG: Compared to ecg 12/2016 pt with known RBBB and known LAFB Only change is twave inversion v4 Attending reviewed with cardiology - no further recommendations Will check trop x 3 to be thorough Troponin has been negative x3 Doubt any ACS (4) T2DM (type 2 diabetes mellitus): Last A1C 6.2 hold metformin lantus/novolog per protocol except hyperglycemia in setting of steroid use (5) HTN (hypertension): blood pressure elevated in ED lasix daily monitor (6) THAO on CPAP: CPAP at HS (7) Dyslipidemia: continue statin (8) Gout: continue allopurinol (9) DVT prophylaxis: SCD/TEDS Disposition: admit to med/surg tele Follow up: PCP Dr. Weiss upon discharge We will discharge him today Subjective 05/15 The patient was seen and examined in medical telemetry unit This is a 69 yr old M who has significant pmh of T2DM, HTN, HLD, THAO on CPAP, diabetic neuropathy, GERD who presents to [facility] ED 2/2 rash, lip/tongue swelling and SOB prior to arrival. His symptoms have completely resolved Denies any swelling of the lips and/or throat and denies any shortness of breath and/or palpitation The rash is completely resolved Review of Systems Review of Systems: All systems reviewed and are unremarkable except as noted below Physical Exam Physical Exam: Sitting on a chair without any acute distress Constitutional: well developed, well nourished and + obese; no acute distress and not ill appearing Eyes: PERRL, conjunctivae normal, anicteric sclerae ENMT: external ear and nose normal, oropharynx normal Neck: trachea midline, no thyromegaly Respiratory: normal respiratory effort; no respiratory distress Auscultation: lungs clear to auscultation bilaterally Cardiovascular: Rate/Rhythm: regular rate and regular rhythm Heart Sounds: no murmur Gastrointestinal (Abdomen): Inspection/Auscultation: abdomen normal to in spection and normal bowel sounds Percussion/Palpation: abdomen soft; abdomen nontender Musculoskeletal: No acute arthritis in any joints Neurologic: moves all extremities; no focal motor deficits Alert, awake and oriented x3 Lymphatic: no cervical or axillary lymphadenopathy Results & Data Vital Signs (Past 12 Hours) Vital Signs Temp Pulse Pulse Resp BP Pulse Ox 05/15/19 11: 36.3 C L 71 18 148/76 H 94 05/15/19 07:24 36.4 C L 72 20 169/91 H 92 05/15/19 07:16 69 05/15/19 04:34 36.5 C 64 18 162/78 H 96 Laboratory Results Short CBC 05/15/19 Range/Units 05:27 WBC 6.50 (4.8-10.8) K/uL Hgb 11.5 L (14.0-18.0) g/dL Hct 35.6 L (42-52) % Plt Count 198 (130-400) K/uL BMP 05/14/19 05/15/19 13:38 05:27 Sodium 137 Potassium 4.2 4.2 Chloride 104 Carbon Dioxide 26 BUN 24 H Creatinine 0.98 D Glucose 166 H Calcium 9.1 Cardiac Enzymes 05/14/19 05/14/19 05/15/19 Range/Units 13:38 19:09 00:34 Troponin I < 0.015 < 0.015 < 0.015 (0-0.045) ng/ml Liver Function 05/14/19 Range/Units 13:38 AST 25 (15-37) U/L Medications Administered Current Inpatient Medications Acetaminophen (Tylenol) 650 mg PO Q4H PRN PRN Reason: Pain or Fever Stop: 06/13/19 13:09 Last Admin: 05/14/19 14:35 Dose: 650 mg Documented by: Al Hydrox/Mg Hydrox/Simethicone (Maalox) 15 ml PO Q4H PRN PRN Reason: Dyspepsia Stop: 06/13/19 13:09 Albuterol (Ventolin 0.083% 2.5mg/3ml) 2.5 mg NEB Q6R PRN PRN Reason: sob/wheezing Stop: 06/13/19 13:09 Allopurinol (Zyloprim) 300 mg PO DAILY JC Stop: 06/14/19 08:59 Last Admin: 05/15/19 08:04 Dose: 300 mg Documented by: Amitriptyline HCl (Elavil) 50 mg PO DAILY JC Stop: 06/14/19 08:59 Last Admin: 05/15/19 08:04 Dose: Not Given Documented by: Aspirin (Ecotrin Ectab) 81 mg PO DAILY JC Stop: 06/14/19 08:59 Last Admin: 05/15/19 08:06 Dose: 81 mg Documented by: Atorvastatin Calcium (Lipitor) 40 mg PO DAILY JC Stop: 06/14/19 08:59 Last Admin: 05/15/19 08:04 Dose: 40 mg Documented by: Cyanocobalamin (Vitamin B-12) 100 mcg PO DAILY JC Stop: 06/14/19 08:59 Last Admin: 05/15/19 08:06 Dose: 100 mcg Documented by: Dextrose (Dextrose 50%) 25 - 50 ml IV UD PRN; Protocol PRN Reason: Hypoglycemia Protocol Stop: 06/13/19 13:09 Diphenhydramine HCl (Benadryl Capsule) 50 mg PO Q6H PRN PRN Reason: rash/sob/anaphylaxis Stop: 06/13/19 13:09 Docusate Sodium (Colace) 100 mg PO BID PRN PRN Reason: Constipation Stop: 06/13/19 13:09 Fexofenadine HCl (Vanesa) 60 mg PO BID JC Stop: 06/13/19 20:59 Last Admin: 05/15/19 08:06 Dose: 60 mg Documented by: Furosemide (Lasix) 20 mg PO DAILY JC Stop: 06/14/19 08:59 Last Admin: 05/15/19 08:05 Dose: 20 mg Documented by: Gabapentin (Neurontin) 300 mg PO BID JC Stop: 06/13/19 20:59 Last Admin: 05/14/19 21:52 Dose: Not Given Documented by: Glucagon (Glucagen) 1 mg SQ UD PRN; Protocol PRN Reason: Hypoglycemia Protocol Stop: 06/13/19 13:09 Glucose (Dex4 Glucose) 4 - 8 tabs PO UD PRN; Protocol PRN Reason: Hypoglycemia Protocol Stop: 06/13/19 13:09 Glucose (Glucose 40%) 15 - 30 gm PO UD PRN; Protocol PRN Reason: Hypoglycemia Protocol Stop: 06/13/19 13:09 Famotidine 20 mg/ Syringe 5 mls @ 2.5 mls/min IV Q12H [facility] Stop: 06/13/19 19:59 Last Admin: 05/15/19 09:06 Dose: 2.5 mls/min Documented by: Methylprednisolone 40 mg/ (Syringe) 0.64 mls @ 1.5 mls/min IV Q8H JC Stop: 06/13/19 15:59 Last Admin: 05/15/19 08:06 Dose: 1.5 mls/min Documented by: Insulin Aspart (Novolog Flexpen) 0 units SC ACHS [facility] Stop: 06/13/19 16:29 Last Admin: 05/15/19 12:54 Dose: 9 units Documented by: Insulin Glargine (Lantus Solostar Pen) 0 - 10 units SC BID JC; Protocol Stop: 06/13/19 20:59 Last Admin: 05/15/19 09:06 Dose: 5 units Documented by: Magnesium Hydroxide (Milk Of Magnesia) 30 ml PO Q12H PRN PRN Reason: Constipation Stop: 06/13/19 13:09 Miscellaneous (Carbohydrates For Hypoglycemia) 15 - 30 gm PO UD PRN PRN Reason: Hypoglycemia Protocol Stop: 06/13/19 13:09 Morphine Sulfate (Ms Contin) 15 mg PO HS PRN PRN Reason: Pain Stop: 05/28/19 20:59 Last Admin: 05/14/19 22:33 Dose: 15 mg Documented by: Morphine Sulfate (Ms Contin) 15 mg PO Q24H JC Stop: 05/28/19 16:59 Last Admin: 05/14/19 17:12 Dose: 15 mg Documented by: Ondansetron HCl (Zofran) 4 mg IV Q6H PRN PRN Reason: Nausea Stop: 06/13/19 13:09 Pantoprazole Sodium (Protonix) 40 mg PO DAILY [facility] Stop: 06/14/19 08:59 Last Admin: 05/15/19 08:06 Dose: Not Given Documented by: Polyethylene Glycol (Miralax Powder Packet) 17 gm PO DAILY PRN PRN Reason: Constipation Stop: 06/13/19 13:09 Potassium Chloride (Klor-Con M10) 10 meq PO DAILY JC Stop: 06/14/19 08:59 Last Admin: 05/15/19 08:06 Dose: 10 meq Documented by: Vitamin D (Vitamin D3) 1,000 units PO DAILY JC Stop: 06/14/19 08:59 Last Admin: 05/15/19 08:05 Dose: 1,000 units Documented by: (1) Anaphylaxis Encounter type: initial encounter Qualified Code(s): T78.2XXA - Anaphylactic shock, unspecified, initial encounter
--- NOTE | 2019-05-16 08:00 | Discharge Summary ---
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 He elicits when he took his CPAP off this morning his face felt funny and swollen. His also noted hives all over body. This then progressed to lip/tongue swelling and SOB. 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 He received epi, bendaryl, pepcid and solumedrol with improvement of symptoms. He was feeling better and got up to go to the bathroom. While in bathroom he noticed his rash start to return in groin region and his lip/tongue were starting to swell again. Because of this he received additional dose of epi and IV benadryl. Currently he feels much improved except for residual rash and lip swelling. He denies any new medications. Last new medication was gabapentin started 2-3 weeks ago. He started with 300mg daily and 6 days ago increased to bid. He has previous hx of PCN and sulfa but no history of anaphylaxis. No FH of anaphylaxis. Denies recent illness, f/c/s, dizziness, lightheaded, chest pain, sob, wheezing, n/v/d, abdominal pain, dysuria, increased urg/freq with urination, melena, hematochezia. is at bedside. Admission Exam Per Admitting Provider Physical Exam: Constitutional: WD/WN, obese, Mvitals as above, NAD, sitting up in bed, pleasant, conversing easily Head: Normocephalic, Atraumatic Eyes: PERRL, conjunctivae normal, anicteric sclerae ENMT: external ear and nose normal, oropharynx normal, mild upper lip swelling Neck: trachea midline, no thyromegaly normal visual inspection Respiratory: normal respiratory effort, lungs clear to auscultation, no wheeze, rales, rhonchi. Normal insp/exp effort, no accessory muscle use Cardiovascular: RRR, no murmur, trace lower ext edema Vessels: no JVD or carotid bruit Chest: normal inspection of chest Abdomen: normal bowel sounds, soft, nontender, no hepatosplenomegaly Musculoskeletal: no cyanosis or clubbing, extremities motor strength 5/5 Skin: no rashes, warm and dry normal turgor Neurologic: PERRL, EOMI, accommodation nl, no face palsy, no dysarthria CN's II-XI intact bilaterally and moves all extremities Psychiatric: A+Ox3, euthymic affect Lymphatic: no cervical or axillary lymphadenopathy : deferred Principal Diagnosis Anaphylaxis/allergic reaction-resolved Discharge Exam Constitutional well developed, well nourished and + obese; no acute distress and not ill appearing Eyes PERRL, conjunctivae normal, anicteric sclerae ENMT external ear and nose normal, oropharynx normal Neck trachea midline, no thyromegaly Respiratory normal respiratory effort; no respiratory distress Auscultation: lungs clear to auscultation bilaterally Cardiovascular Rate/Rhythm: regular rate and regular rhythm Heart Sounds: no murmur Gastrointestinal (Abdomen) Inspection/Auscultation: abdomen normal to inspection and normal bowel sounds Percussion/Palpation: abdomen soft; abdomen nontender Neurologic moves all extremities; no focal motor deficits Lymphatic no cervical or axillary lymphadenopathy Discharge Data Allergies Allergy/AdvReac Type Severity Reaction Status Date / Time Penicillins Allergy Unknown RASH Verified 05/14/19 09:05 Sulfa (Sulfonamide Allergy Unknown RASH Verified 05/14/19 09:05 Antibiotics) trimethoprim Allergy Unknown RASH Verified 05/14/19 09:05 sulfamethoxazole Allergy Unknown Unverified 05/14/19 09:05 [From Bactrim] Consultations 05/14/19 11:06 ED Decision to Admit Stat Hospital Course (1) Anaphylaxis: (2) Allergic reaction: This is a 69 yr old M who has significant pmh of T2DM, HTN, HLD, 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 Did not take any unusual food and/or drugs New medication has been gabapentin which can cause anaphylaxis in less than 1% population Receiving IV methylprednisolone 40mg q8hr Received Pepcid 20mg IV Q12h Received Benadryl 50mg po q6h prn Received Vanesa 60mg Q12 Has been on Alb neb tx for sob/wheezing Incentive spirometry Clinically improved and denies any significant symptoms Generalized rashes disappeared and denies any throat, lip or face swelling Will be discharged home this afternoon with EpiPen (3) Abnormal ECG: Compared to ecg 12/2016 pt with known RBBB and known LAFB Only change is twave inversion v4 Attending reviewed with cardiology - no further recommendations Will check trop x 3 to be thorough Troponin has been negative x3 Doubt any ACS (4) T2DM (type 2 diabetes mellitus): Last A1C 6.2 hold metformin lantus/novolog per protocol except hyperglycemia in setting of steroid use (5) HTN (hypertension): blood pressure elevated in ED lasix daily monitor (6) THAO on CPAP: CPAP at HS (7) Dyslipidemia: continue statin (8) Gout: continue allopurinol (9) DVT prophylaxis: SCD/TEDS Disposition: admit to med/surg tele Follow up: PCP Dr. Weiss upon discharge We will discharge him today Total Time Total Time Spent Total Time Spent (In Minutes): 35 minutes Total Time Includes: Examination of the Patient, Discharge Planning, Medication Reconciliation and Communication With Other Providers Discharge Plan Discharge Items Patient Disposition: Home - Self-Care Reason For Visit: ALLERGIC RXN, ANAPHYLAXIS Discharge Diagnosis: Anaphylaxis/allergic reaction-resolved Condition on Discharge: Good Activity: Resume your previous activity Non-emergency contact: Primary Care Provider Call non-emergency contact if: you have any medication questions Follow-up/Referrals: Rob Weiss MD [Primary Care Provider] - 05/22/19 12:45 pm (Dr. Martins is away) Diet: Carb Consistent or DM2 and Heart Healthy Addtl Attending Provider Instructions: Do not take any more gabapentin until you are being evaluated by pain therapist Gabapentin caused anaphylaxis in less than 1% of cases You do not need any more oral prednisone Keep EpiPen handy Pending Studies at Discharge: No Stand-Alone Forms: My [employer], Smoking Cessation Medications and DC Order Prescriptions: New epinephrine [EpiPen] 0.3 mg/0.3 mL auto-injector 0.6 mg IM Q3H PRN (Reason: bronchodilation) Qty: 1 RF: 0 Continued furosemide 40 mg tablet 20 mg PO DAILY RF: 0 atorvastatin 40 mg tablet 40 mg PO DAILY RF: 0 metformin 500 mg tablet 500 mg PO BID RF: 0 potassium chloride 10 mEq capsule, extended release 10 meq PO DAILY RF: 0 cyanocobalamin (vitamin B-12) 100 mcg Tablet 100 mcg PO DAILY RF: 0 aspirin [Aspirin Low Dose] 81 mg Tablet,Delayed Release (Dr/Ec) 81 mg PO DAILY RF: 0 amitriptyline 50 mg tablet 50 mg PO DAILY RF: 0 acetaminophen [Tylenol Arthritis Pain] 650 mg Tablet Extended Release 650 mg PO Q12H PRN (Reason: Pain) RF: 0 pantoprazole 20 mg tablet,delayed release (DR/EC) 20 mg PO DAILY RF: 0 docusate sodium 100 mg Capsule 100 mg PO BID PRN (Reason: Constipation) RF: 0 morphine 15 mg tablet extended release 15 mg PO QPM RF: 0 allopurinol 300 mg tablet 300 mg PO DAILY RF: 0 cholecalciferol (vitamin D3) 1,000 unit Capsule 1,000 unit PO DAILY RF: 0 morphine 15 mg Tablet Extended Release 15 mg PO HS PRN (Reason: Pain) RF: 0 Discontinued gabapentin 300 mg capsule 300 mg PO DIRECTED RF: 0 Discharge Orders: Discharge Order (Routine); Ordered 05/15/19 Ordered By: Shon Stevenson Admission Data Admit Date/Time: 05/14/19 12:04 Attending Provider: Shon Stevenson Admit Provider: Abe Dean Primary Care Provider: Rob Weiss Other Providers: Abe Dean Other Interventions: Discharge Summary Assessment (RN) Last Done: 05/15/19 14:48 DC Date/Time DO NOT enter until pt leaves facility: 05/15/19 16:04
== END 2019-05-15 16:04 | disposition home or self-care (01) ==
LOC: 2N 08:12 → ED 08:12 → SUATTDRO 12:04 → 2N 12:26

== ENCOUNTER 2024-06-12 11:31 | Inpatient (IN) ==
--- OUTSIDE RECORDS SUMMARY | 2024-06-12 11:37 | External Medical Summary | Summary of Care ---
Author Name Unknown Organization [facility] Address [address] [facility] [place] [address] Phone [phone] Care Team Providers Care Court Usher Name Role Phone Farrah Weiss MD Primary Care Provider [phone] Reason for Visit * Reason Onset Date Comments Medication Refill 05/23/2024 Encounter Details Date Type Department Care Team (Late st Contact Info) Description 05/23/2024 Refill [facility] [place] [address] [place] [phone] Farrah Weiss MD [address] [place] [address] HTN, goal below 140/90 Allergies Active Allergy Reactions Criticality Noted Date Comments Bactrim Rash 11/05/2007 Gabapentin Anaphylaxis High 05/22/2019 Lipoic Acid Anaphylaxis High 05/22/2019 Penicillin G 10/15/2013 Penicillins 01/11/1999 ?? Sulfamethoxazole 05/14/2019 Sulfamethoxazole-Trimethoprim 2013 Trimethoprim 05/14/2019 documented as of this encounter (statuses as of 05/24/2024) Medications TYLENOL ARTHRITIS PAIN 650 MG PO TBCRIndications:Di sc disorder of lumbar region 1 TABLETS EVERY 12 HOURS NEEDED 1 Tab 0 01/01/20 10 Active ONETOUCH DELICA LANCETS FINE MISCIndications:Ty pe 2 diabetes mellitus without complication (HCC) Use to test blood sugar up to 2 times daily or as directed e11.9 200 Each 5 10/12/19 16 Active EPINEPHrine, anaphylaxis, (AUTOINJECTOR) 0.3 MG/0.3ML SOAJ Inject 0.6 mg into a large muscle as needed. 0 05/15/20 19 Active diphenhydrAMINE (BENADRYL) 50 MG CAPS Take 1 Capsule by mouth at bedtime as needed for Sleep. Active Respiratory Therapy Supplies CRISTIAN Use as directed. CPAP with full mask. Titration 12-20 cm. Active Metamucil 0.36 GM Oral Capsule (Psyllium) Take 2 Capsules by mouth in the morning and 2 Capsules before bedtime. Active Mens Multivitamin Oral Tablet Take by mouth daily. Active Diclofenac Sodium 1 % External Gel (Voltaren)Indicati ons:Neuropathic pain of lower extremity, unspecified laterality Apply topically to affected area 4 times a day as needed (neuropathy). Apply to lower legs/ feet up to 4 times daily for neuropathy 350 g 3 05/10/20 21 Active Ondansetron 8 MG Oral Tablet Disintegrating (Zofran) Place on tongue 1 Tablet every 6 hours as needed for Nausea. dissolve on tongue. 20 Tablet 11/10/19 22 Active Fluorouracil 5 % External Cream (Efudex)Indication s:Actinic keratosis Start 07/11, apply thin layer to each of treated spots on face (or entire face) 2x daily for 3 weeks 40 g 06/02/20 22 Active Vitamin D3 25 MCG (1000 UT) Oral Tablet Chewable Take by mouth. Active Vitamin B-12 1000 MCG Oral Tablet (Cyanocobalamin) Take 1 Tablet by mouth in the morning. Active Ferrous Sulfate 325 (65 Fe) MG Oral Tablet Take 1 Tablet by mouth in the morning. Active DULoxetine HCl 60 MG Oral Capsule Delayed Release Particles (Cymbalta) Take 1 Capsule by mouth in the morning. 90 Capsule 3 06/25/19 24 Active Furosemide 40 MG Oral Tablet (Lasix)Indications :Stasis edema of both lower extremities Take 0.5 Tablets by mouth in the morning. 45 Tablet 5 06/25/19 24 Active Additional Information Patient not taking.Reported on 04/10/2024 Pantoprazole Sodium 40 MG Oral Tablet Delayed Release (Protonix) Take 1 Tablet by mouth in the morning and 1 Tablet before bedtime. 180 Tablet 3 06/25/19 24 Active Potassium Chloride ER 10 MEQ Oral Capsule Extended ReleaseIndications :HTN, goal below 140/90 Take 1 Capsule by mouth in the morning. 90 Capsule 3 06/25/19 24 Active OneTouch Verio In Vitro Strip (Glucose Blood) Use to test blood sugar up to 2 times daily or as directed DX e11.9 200 Strip 5 06/23/19 24 Active Albuterol Sulfate (2.5 MG/3ML) 0.083% Inhalation Nebulization Solution (Proventil)Indicat ions:Viral URI with cough Inhale 1 Vial via nebulizer every 4 hours as needed for Wheezing. 100 mL 1 06/26/19 24 Active tiZANidine HCl 4 MG Oral Tablet (Zanaflex) TAKE 1 TO 2 TABLETS BY MOUTH ONCE DAILY AT BEDTIME NEEDED FOR MUSCLE SPASMS 180 Tablet 12/15/19 24 Active Atorvastatin Calcium 40 MG Oral Tablet (Lipitor)Indicatio ns:Dyslipidemia, goal LDL below 100 TAKE 1 TABLET BY MOUTH AT BEDTIME. 90 Tablet 03/23/20 24 Active metFORMIN HCl 500 MG Oral Tablet (Glucophage)Indica tions:Type 2 diabetes mellitus with hemoglobin A1c goal of less than 8.0% (HCC) TAKE 1 TAB TWICE DAILY 04/10/20 24 Active Morphine Sulfate ER 15 MG Oral Tablet Extended Release (Ms Contin)Indications :Pain in both lower extremities Take 1 Tablet by mouth in the morning and 1 Tablet before bedtime. 60 Tablet 04/26/20 24 Active Losartan Potassium 50 MG Oral Tablet (Cozaar)Indication s:HTN, goal below 140/90 Take 1 Tablet by mouth in the morning. 90 Tablet 1 05/24/20 24 Active Losartan Potassium 50 MG Oral Tablet (Cozaar)Indication s:HTN, goal below 140/90 Take 1 Tablet by mouth in the morning. 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 To view the Medication Usage Agreement, go to Action, Patient Files. History of rheumatoid arthritis 11/08/2017 Encounter for long-term (current) use of medicat ions 08/07/2017 Neuropathic pain of lower extremity 05/30/2017 Neuropathy 02/24/2017 Edema of both legs 01/17/2017 Chronic right-sided low back pain without sciati ca 04/21/2016 Gouty arthritis 01/21/2016 Stasis edema of both lower extremities 6 HTN, goal below 140/90 08/18/2014 Chews tobacco 07/06/2013 THAO on CPAP 12/13/2011 Overview (12/13/2011): 12/13/11 CPAP 5 to 20cm of water pressure through T and B Pain in limb 10/01/2009 Bullard's esophagus 10/03/2007 TESTICULAR HYPOFUNC NEC 08/18/2003 Deviated nasal septum 03/25/2002 ESOPHAGEAL REFLUX, S/P FUNDOPILCATION 03/02/2001 DISC DIS [id number] 07/28/2000 IMPOTENCE, ORGANIC ORIGN 01/12/1999 Diaphragmatic hernia Metabolic syndrome Dyslipidemia, goal LDL below 100 documented as of this encounter (statuses as of 05/24/2024) Resolved Problems Problem Noted Date Diagnosed Date Resolved Date Type 2 diabetes mellitus wit h hemoglobin A1c goal of less than 7.0% 10/01/2018 12/28/2018 Prediabetes 03/26/2018 10/31/2018 Overview: Per Prediabetes protocol #1 Immunosuppression 02/24/2017 10/16/2017 Encounter for long-term (cur rent) use of medications 12/03/2015 02/24/2017 Rheumatoid arthritis with po sitive rheumatoid factor 10/26/2015 05/11/2016 Rheumatoid arthritis 10/09/2015 016 Kidney disease, chronic, sta ge III (GFR 30-59 ml/min) 08/12/2013 07/02/2015 Overview: Per CKD protocol #1 THAO on CPAP 07/06/2013 02/24/2017 HTN, goal below 140/80 07/15/201108/18 Hypoxemia 07/12/2011 02/24/2017 Overview (07/12/2011): Nocturnal THAO (obstructive sleep apnea) 07/12/2011 07/06/2013 Overview (08/24/2011): Mild, AHI 8.5 with nocturnal hypoxemia Resolved at pressure of 9 on titration study DME: [facility] OBESITY, BMI= 37.03 12/31/09 12/31/2009 01/19/2017 OBESITY, BMI 30-34 (SEE ACTUAL BMI) 09/10/2009 12/31/2009 Overview (09/10/2009): Per Obesity Taxonomy Pneumonia due to organism 06/26/2009 Overview (03/22/2016): ICD-10 update of inactive term Acute bronchitis, complicated 06/26/2009 12/31/2009 Need for pneumococcal vaccination 06/26/2009 01/19/2017 Chest pain 06/26/2009 02/24/2017 Elevated blood pressure, situational 04/24/2009 01/19/2017 Overview (04/24/2009): Modified per HTN Taxonomy. OBESITY, BMI= 33.91 09/26/07 09/26/2007 0 01/19/2017 Overweight (BMI 25.0-29.9) 08/07/2007 0 09/10/2009 Overview (09/10/2009): Per Obesity Taxonomy Dyslipidemia, goal to be determined 07/28/2006 12/31/2009 OBESITY, BMI= 39.63 07/28/06 07/28/2006 0 01/19/2017 Calculus of kidney 10/07/2005 7 Calculus of kidney 10/07/2005 9 Overview (07/17/2008): Resolved per Duplicate Protocol #2. ELEV BL PRES W-O HYPERTN 06/23/2005 Overview (07/17/2008): Resolved per Duplicate Protocol #2. OBESITY, BMI= 34.86 06/23/05 06/23/2005 0 01/19/2017 ADVANCE DIRECTIVE INFORMATION 01/05/2005 04/22/2024 Overview (01/05/2005): brochure given to pt. PLANTAR FIBROMATOSIS, LEFT FOOT 06/21/2004 02/24/2017 TESTICULAR HYPOFUNC NEC 06/21/200406/20 Overview (07/17/2008): Resolved per Duplicate Protocol #2. ACUTE STRESS 12/17/2003 02/24/2017 ELEV BL PRES W-O HYPERTN 12/17/200311/2008 Overview (04/24/2009): Modified per HTN Taxonomy. OBESITY, BMI= 36.14 06/04/03 06/04/2003 01/19/2017 TOBACCO USE DISORDER- ORAL 06/04/2003 0 02/24/2017 Urinary frequency 06/04/2003 12/17/2003 Need for influenza vaccination 04/15/2003 01/19/2017 BENIGN NEOPLASM LG BOWEL 07/01/200201/2017 Screening for prostate cancer 03/25/2002 08/27/2008 Overview (08/27/2008): Resolved per Screening Diagnosis Protocol #6 SCREEN MAL NEOP-RECTUM 03/25/200208/27 Overview (08/27/2008): Resolved per Screening Diagnosis Protocol #6 DIAPHORESIS 03/25/2002 12/17/2003 BULLARD'S ESOPHAGUS 07/28/2000 01/01/20 10 BACKACHE- CHRONIC, LUMBOSACRAL 04/25/2000 01/19/2017 Irritable bowel syndrome 04/25/200008/2016 VOCAL CORD POLYPS 01/19/2000 02/24/2017 ROUTINE MEDICAL EXAM 10/01/1999 017 FAM HX-DIABETES MELLITUS 10/01/199908/2016 FAM HX-ISCHEM HEART DIS 10/01/1999 08/0 08/2016 Esophageal reflux 01/12/1999 02/24/2017 Uric acid urolithiasis 02/24 documented as of this encounter (statuses as of 05/24/2024) Immunizations Name Administration Dates Next Due COVID-19 mRNA, LNP-s, No Pre serve, 2-Dose Series (Moderna) 05/10/2021,09/05/2020,08/03/2020 H1N1 2009 Influenza, IM 06/26/2009 Pneumococcal Conjugate Vacc, 13 Valent (Prevnar) 04/19/2015,03/04/2015 Pneumococcal Polysaccharide PPV23 (Pneumovax) 02/24/2017,06/26/2009 Seasonal Influenza Vac., MDV , IM, 0.5 mL (Fluzone) 03/04/2015,03/28/2013,03/12/2012,03/28,06/20/2009,03/27/2008 Seasonal Influenza Virus Vac cine, Unspecified Formulation 03/28/2023 Seasonal Influenza, PF, 6 M & above, IM , (FluLaval or Fluzone) 03/02/2020,03/26/2019,03/23/2018,03/27 Seasonal Influenza, Quadriva lent, No Preserve, IM 03/24/2021,04/06/2016 TDAP (age 10 and older)(Boostrix) 07/01/2022, Varicella Zoster Vaccine (Adult) 10/17/2013 Zoster Vaccine Recombinant (Shingrix) 03/24/2021 ,11/30/2020 documented as of this encounter Social History Tobacco Use Types Packs/Day Years Used Date Smoking Tobacco: Former Cigarettes 1 30 0 12/01/1968 - 12/01/1998 Smokeless Tobacco: Former Snuff Quit: 06/19/2016 Alcohol Use Standard Drinks/Week Comments Yes 0 (1 standard drink = 0.6 oz pure alcohol) occasionally, 1-2 x/week, 1 shot whiskey PHQ-2 Answer Date Recorded PHQ Adult Total Score 0 04/10/2024 Hunger Vital Sign Answer Date Recorded Within the past 12 months, y ou worried that your food would run out before you got the money to buy more. Never true 04/10/20 24 Within the past 12 months, t he food you bought just didn't last and you didn't have money to get more. Never true 04/10/2024 Childcare Answer Date Recorded Do you feel overwhelmed with taking care of a child, family member or friend? No 04/10/2024 Does your family need help f inding childcare? (Household - for ages 0-17 years) Not on file 04/10/2024 Clothing Answer Date Recorded Have you been unable to get clothing when it was really needed? No 04/10/2024 Is your family able to get c lothes or diapers when needed? (Household - for ages 0-17 years) Not on file 04/10/2024 Personal Safety Answer Date Recorded Do you feel unsafe or have concerns for your saf ety? No 04/10/2024 Do you have concerns for you r family's safety? (Household - for ages 0-17 years) Not on file 04/10/2024 Utilities Answer Date Recorded Do you have trouble paying y our heating, water, or electric bill? No 04/10/2024 Is your family able to pay t he heat, water, or electric bill? (Household - for ages 0-17 years) Not on file 04/10/2024 Does your family have access to good internet? (Household - for ages 0-17 years) Not on file 04/10/2024 Employment Status Answer Date Recorded Are you unemployed or without regular income? No 04/10/2024 Does the household have a re gular source of income? (Household - for ages 0-17 years) Not on file 04/10/2024 Social Connections Answer Date Recorded How often do you feel lonely or isolated from th ose around you? Never 04/10/2024 Financial Resource Strain Answer Date R ecorded Do you have any trouble payi ng for your medications, or do you think you might in the future? No 04/10/2024 Does your family have troubl e paying for medicine? (Household - for ages 0-17 years) Not on file 04/10/2024 Transportation Needs Answer Date Record ed Do you have trouble getting a ride to medical visits or work? (Adult - for ages 18 years and over) Not on file 04/10/2024 Does your family have a hard time getting a ride to doctors visits? (Household - for ages 0-17 years) Not on file 04/10/2024 Has lack of transportation k ept you from medical appointments, meetings, work, or from getting things needed for daily living? Check all that apply. No 04/10/2024 Do you (or your family) have trouble finding or paying for a ride (transportation)? (Household - for ages 0-17 years) Not on file 04/10/2024 Housing Stability Answer Date Recorded Do you currently live in a s helter or have no steady place to sleep at night? No 04/10/2024 Do you think you are at risk of becoming homeless? (Adult - for ages 18 years and over) Not on file 04/10/2024 Does your family worry about paying for your home or becoming homeless? (Household - for ages 0-17 years) Not on file 1 Are you homeless or worried that you might be in the future? No 04/10/2024 Are you (or your family) ángel eless or worried that you might be in the future? (Household - for ages 0-17 years) Not on file Food Insecurity Answer Date Recorded Do you need food for this week? No 04/10/2024 Are you able to get enough f ood for your family? (Household - for ages 0-17 years) Not on file 04/10/2024 Does your family need food t his week? (Household - for ages 0-17 years) Not on file 04/10/2024 Do you always have enough fo od for your family? (Household - for ages 0-17 years) Not on file 04/10/2024 Sex and Gender Information Value Date Recorded Sex Assigned at Male 05/22/2019 12:43 PM EST Legal Sex Male 5:28 AM EST Gender Identity Male 05/22/2019 12:43 PM EST Sexual Orientation Straight 12/28/2018 8: 02 AM EDT documented as of this encounter Miscellaneous Notes * Telephone Encounter - Viji Hawkins [facility] - 05/24/2024 1:13 PM ESTSigned Prescriptions: Disp Refills Losartan Potassium 50 MG Oral Tablet (Coza*90 Tab*1 Sig: Take 1 Tablet by mouth in the morning.Authorizing Provider: FARRAH WEISS User: VIJI HAWKINS---- documented in this encounter Plan of Treatment Upcoming Encounters Date Type Department Care Team (Late st Contact Info) Description 07/10/2024 10:00 AM EST Office Visit Cardiology, [facility] [address] [place] [address] Dae Berger DO [address] [place] [address] 08/06/2024 9:20 AM EST Office Visit [facility], [place] [facility] [address] [facility] [place] [phone] Qi Yap PA-C [address] [place] [address] [place] [address] 10/09/2024 2:00 PM EDT Office Visit [facility] [place] [facility] [address] [facility] [place] [address] Farrah Weiss MD [address] [facility] [place] [address] 01/07/2025 1:00 PM EDT Office Visit Pharmacy, [facility] [address] [place] [address] [facility] [address] [place] [address] Scheduled Procedures Name Priority Associated Diagnoses Date/Ti fl COLONOSCOPY FLEXIBLE PROXIMAL DIAGNOSTIC Recall History of colonic polyps Bullard's esophagus with esophagitis ESOPHAGOGASTRODUODENOSCOPY ( EGD), FLEXIBLE, TRANSORAL, DIAGNOSTIC Recall History of colonic polyps Bullard's esophagus with esophagitis Health Maintenance Due Date Last Done Comments Adult Wellness Visit 11/23/2021 11/23/2020 Diabetic Foot Exam 07/06/2024 07/06/2023, 12/28/2018 HbA1c 09/26/2024 03/28/2024, 09/19, 07/01/2022, Additional history exists Albumin/Creatinine Ratio 10/16/2024 024, 11/11/2022, 11/06/2020, Additional history exists GFR 10/16/2024 10/17/2023, 01/18, 01/16/2023, Additional history exists Diabetic Eye Exam 2025 2024, , 02/13/2023, Additional history exists Depression Screening 04/10/2025 04/10/2024 Bullard's Esophagus Surveilance 05/03/2026 05/03/2023, 05/03/2023, 09/01/2021, Additional history exists Colonoscopy 05/03/2026 05/03/2023, 04/19, 04/09/2015, Additional history exists DTap/Tdap Vaccines (3 - Td or Tdap) 07/01/2032 07/01/2022, 02/14/2012, 08/17/1995, Additional history exists Fecal Occult Blood Test Discontinued 03/17/2001 Pneumococcal Vaccine: 65+ Years Completed 02/24/2017, 04/19/2015, 03/04/2015, Additional history exists Zoster Vaccines Completed 03/24/2021, 11/17, 10/17/2013 COVID-19 Vaccine Completed 2024, , 09/05/2020, Additional history exists Influenza Vaccine (FLU shot) Completed 2024, 03/28/2023, 03/24/2021, Additional history exists HPV (Gardasil) Vaccine Aged Out No lo nger eligible based on patient's age to complete this topic Hepatitis B Vaccine Aged Out No longe r eligible based on patient's age to complete this topic MENINGOCOCCAL (MENACTRA/MENVEO) Aged Out No longer eligible based on patient's age to complete this topic documented as of this encounter Medical Devices Implanted Type Area Wireless Field Technician Device Identifier Shelf Expiration Date Model / Serial / Lot [employer] [id number]-2316-70e 70cm ,16,Trial Lead Kit Implanted:Qty: 1 on 02/10/2020 by Angie Tejada MD at OR [facility] N/A: Back 01/08/2022 SC-2316-70 E / [id number] / Leads Mri [employer] - [id number] - [id number] Implanted:Qty: 2 on 04/29/2020 by Angie Tejada MD at OR [facility] N/A: Spine Lumbar [employer] : PAIN MGMT 02/20/2022 [id number] / [id number] / Generator Implantable Pulse - [id number] - [id number] Implanted:Qty: 1 on 04/29/2020 by Angie Tejada MD at OR [facility] N/A: Back [employer] : PAIN MGMT 01/13/2022 [id number] / [id number] / documented as of this encounter Visit Diagnoses Diagnosis HTN, goal below 140/90 Unspecified essential hypertension documented in this encounter Care Teams Court Usher Relationship Specialty Start Date End Date Farrah Weiss MD [address] [place] [address] PCP - General Family Medicine 12/28/18 documented as of this encounter
--- OUTSIDE RECORDS SUMMARY | 2024-06-12 11:37 | External Medical Summary | Summary of Care ---
Author Name Unknown Organization [facility] Address [address] [facility] [place] [address] Phone [phone] Care Team Providers Care Drip Box Tender Name Role Phone Farrah Weiss MD Primary Care Provider Reason for Visit * Reason Onset Date Comments Medication Refill 05/23/2024 Encounter Details Date Type Department Care Team (Late st Contact Info) Description 05/23/2024 Refill [facility] [address] [place] [phone] Farrah Weiss MD [address] [facility] [address] Allergies Active Allergy Reactions Criticality Noted Date [...] Wheezing. 100 mL 1 06/26/19 24 Active Atorvastatin Calcium 40 MG Oral Tablet (Lipitor)Indicatio ns:Dyslipidemia, goal LDL below 100 TAKE 1 TABLET BY MOUTH AT BEDTIME. 90 Tablet 03/23/20 24 Active metFORMIN HCl 500 MG Oral Tablet (Glucophage)Indica tions:Type 2 diabetes mellitus with hemoglobin A1c goal of less than 8.0% (HCC) TAKE 1 TAB TWICE DAILY 04/10/20 24 Active Losartan Potassium 50 MG Oral Tablet (Cozaar)Indication s:HTN, goal below 140/90 Take 1 Tablet by mouth in the morning. 90 Tablet 1 05/24/20 24 Active tiZANidine HCl 4 MG Oral Tablet (Zanaflex) TAKE 1 TO 2 TABLETS BY MOUTH ONCE DAILY AT BEDTIME NEEDED FOR MUSCLE SPASMS 180 Tablet 05/24/20 24 Active tiZANidine HCl 4 MG Oral Tablet (Zanaflex) TAKE 1 TO 2 TABLETS BY MOUTH ONCE DAILY AT BEDTIME NEEDED FOR MUSCLE SPASMS 180 Tablet 12/15/19 24 024 Discontin ued(Refil l) Morphine Sulfate ER 15 MG Oral Tablet Extended Release (Ms Contin)Indications :Pain in both lower extremities Take 1 Tablet by mouth in the morning and 1 Tablet before bedtime. 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 Pre-operative clearance 12/12/2019 Actinic keratosis 07/11/2019 Overview (07/11/2019): Sandeep Dailey (Efudex face/ears/neck 06/2019) Diabetic peripheral neuropathy 12/28/2018 [...] ESOPHAGEAL REFLUX, S/P FUNDOPILCATION 03/02/2001 DISC DIS [id number] 07/28/2000 IMPOTENCE, ORGANIC ORIGN 01/12/1999 Diaphragmatic hernia [...] encounter Miscellaneous Notes * Telephone Encounter - Farrah Weiss MD - 05/24/2024 1:58 PM ESTSigned Prescriptions: Disp Refills tiZANidine HCl 4 MG Oral Tablet (Zanaflex) 180 Ta*0 Sig: TAKE 1 TO 2 TABLETS BY MOUTH ONCE DAILY AT BEDTIME NEEDED FOR MUSCLE SPASMS Authorizing Provider: FARRAH WEISS * Telephone Encounter - Kortney Schmidt [facility] - 05/24/2024 11:09 AM EST Pending Prescriptions: Disp Refills tiZANidine HCl 4 MG Oral Tablet (Zanaflex) 180 Ta*0 Sig: TAKE 1 TO 2 TABLETS BY MOUTH ONCE DAILY AT BEDTIME NEEDED FOR MUSCLE SPASMS * Telephone Encounter - Kortney Schmidt RPh - 05/24/2024 11:09 AM EST [facility] is currently not authorized to approve refills for the pended medication(s) per refill protocol. Please approve if appropriate. Thank you, Kortney Schmidt, PharmD Clinical Pharmacist [facility] ([facility]) 05/24/24 11:09 AM [phone] documented in this encounter Plan of Treatment Upcoming Encounters Date Type Department Care Team (Late st Contact Info) Description 07/10/2024 10:00 AM EST Office Visit Cardiology, [facility] [address] [place] [address] Dae Berger, [address] [place] [address] 08/06/2024 9:20 AM EST Office Visit Dermatology, [place] [address] [place] [phone] Qi Yap PA-C [address] [place] [address] [place] [address] 10/09/2024 2:00 PM EDT Office Visit Family Practice, [place] [address] [place] [phone] Farrah Weiss MD [address] [place] [address] 01/07/2025 1:00 PM EDT Office Visit Pharmacy, [facility] [address] [facility] [place] [address] [facility] [address] [facility] [place] [address] Scheduled Procedures Name Priority Associated Diagnoses Date/Ti me COLONOSCOPY FLEXIBLE PROXIMAL DIAGNOSTIC Recall History of [...] this encounter Medical Devices Implanted Type Area Farrowing Manager Device Identifier Shelf Expiration Date Model / Serial / Lot In[employer] Sc-2316-70e 70cm ,16,Trial Lead Kit Implanted:Qty: 1 on 02/10/2020 by Angie Tejada MD at OR [facility] N/A: Back 01/08/2022 SC-2316-70 E / [id number] / Leads Mri [employer] - [id number] - [id number] Implanted:Qty: 2 on 04/29/2020 by Angie Tejada MD at OR [facility] N/A: Spine Lumbar [employer] : PAIN MGMT 02/20/2022 [id number] / [id number] / Generator Implantable Pulse - [id number] - [id number] Implanted:Qty: 1 on 04/29/2020 by Angie Tejada MD at OR [facility] N/A: Back [employer] : PAIN MGMT 01/13/2022 [id number] / [id number] / documented as of this encounter Care Teams Drip Box Tender Relationship Specialty Start Date End Date Farrah Weiss MD [address] [place] [address] PCP - General Family Medicine 12/28/18 documented as of this encounter
--- OUTSIDE RECORDS SUMMARY | 2024-06-12 11:37 | External Medical Summary | Summary of Care ---
Author Name Unknown Organization [facility] Address [address] [facility] [place] [address] Phone [phone] Care Team Providers Care Quality Audit Representative Name Role Phone Farrah Weiss MD Primary Care Provider Reason for Visit * Reason Onset Date Comments Medication Refill 05/23/2024 Encounter Details Date Type Department Care Team (Late st Contact Info) Description 05/23/[address] [facility] [address] [place] [phone] Farrah Weiss MD [address] [facility] [address] [place] [id number] Pain in both lower extremities Allergies Active Allergy Reactions Criticality Noted Date [...] and 1 Tablet before bedtime. 60 Tablet 05/24/20 24 Active Losartan Potassium 50 MG Oral Tablet (Cozaar)Indication s:HTN, goal below 140/90 Take 1 Tablet by mouth in the morning. 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 (Household - for ages [...] Encounter - Farrah Weiss MD - 05/24/2024 1:59 PM ESTSigned Prescriptions: Disp Refills Morphine Sulfate ER 15 MG Oral Tablet Exte*60 Tab*0 Sig: Take 1 Tablet by mouth in the morning and 1 Tablet before bedtime. Authorizing Provider: FARRAH WEISS * Telephone Encounter - Mona Slaughter [facility] - 05/24/2024 1:00 PM ESTPending Prescriptions: Disp Refills Morphine Sulfate ER 15 MG Oral Tablet Exte*60 Tab*0 Sig: Take 1 Tablet by mouth in the morning and 1 Tablet before bedtime. * Telephone Encounter - Mona Slaughter [facility] - 05/24/2024 12:59 PM EST I have reviewed the patients controlled substance dispensing history in the Prescription Drug Monitoring Program in compliance with the [facility] regulations before prescribing a controlled substance. PDMP checked on 05/24/2024. Pending Prescriptions: Disp Refills Morphine Sulfate ER 15 MG Oral Tablet Ext*60 Tab*0 Sig: Take 1 Tablet by mouth in the morning and 1 Tablet before bedtime. Last Visit: 04/10/2024 (in office), 03/25/2020 (telemedicine) Next Visit: Visit date not found Date medication was last filled: 04/27/24 Date medication is due for refill: 05/25/24 Pharmacy: [id number] [facility] Is this request for a controlled substance? Yes and Urine Drug Screen was completed Toxicology results: Results for orders placed or performed in visit on 04/10/24 TOXICOLOGY, URINE SCREEN W/ CONFIRMATION Result Value Amphetamines Screen, U Negative Benzodiazepines Screen, U Negative Cannabinoids Screen, U Negative Cocaine Metabolite Screen, U Negative Fentanyl Screen, U Negative Hydrocodone Screen, U Positive (A) Methadone Metabolite Screen, U Negative Morphine/Codeine Screen, U Positive (A) Oxycodone Screen, U Negative Narrative Cutoff Concentrations: Drug Level Amphetamines 500 ng/mL Benzodiazepines 100 ng/mL Cannabinoids 50 ng/mL Cocaine Metabolite 150 ng/mL Fentanyl 1 ng/mL Hydrocodone / Hydromorphone 300 ng/mL Methadone Metabolite 100 ng/mL Morphine / Codeine 300 ng/mL Oxycodone / Oxymorphone 100 ng/mL Screening results are presumptive and can only be used for medical purposes. Positive screening results are reflexed to confirmatory testing. Results for orders placed or performed in visit on 10/14/21 PAIN MANAGEMENT DRUG PANEL, URINE W/ INTERPRETATION Result Value Compliance Interpretation Based on the medication information provided: The presence of morphine is CONSISTENT with recent morphine use prior to urine drug testing. Amphetamines Screen, U Negative Benzodiazepines Screen, U Negative Cannabinoids Screen, U Negative Cocaine Metabolite Screen, U Negative Fentanyl Screen, U Negative Hydrocodone Screen, U Refer to confirmation results (A) Methadone Metabolite Screen, U Negative Morphine/Codeine Screen, U Refer to confirmation results (A) Oxycodone Screen, U Refer to confirmation results (A) Valid Interpretation Normal Creatinine, U 18 Specific [place], U 1.0087 Narrative Cutoff Concentrations: Drug Level Amphetamines 500 ng/mL Benzodiazepines 100 ng/mL Cannabinoids 50 ng/mL Cocaine Metabolite 150 ng/mL Fentanyl 1 ng/mL Hydrocodone / Hydromorphone 300 ng/mL Methadone Metabolite 100 ng/mL Morphine / Codeine 300 ng/mL Oxycodone / Oxymorphone 100 ng/mL Screening results are presumptive and can only be used for medical purposes. Confirmatory testing is available upon request. Results for orders placed or performed in visit on 05/04/17 TOX SCREEN, URINE, W/O CONFIRMATION Result Value Amphetamine NEGATIVE Barbiturates NEGATIVE Benzodiazepines NEGATIVE Cannabinoids NEGATIVE Cocaine Metabolite NEGATIVE Morphine / Codeine POSITIVE (A) METHADONE METABOLITE NEGATIVE OXYCODONE NEGATIVE NOTE: THE ABOVE SCREENING RESULTS ARE PRESUMPTIVE AND CAN ONLY BE USED FOR MEDICAL PURPOSES. CONFIRMATORY TESTING IS AVAILABLE UPON REQUEST. Cutoff Concentration *Note: Due to a large number of results and/or encounters for the requested time period, some results have not been displayed. A complete set of results can be found in Results Review. Please approve if appropriate. Thank You, Mona Slaughter [facility] Clinical Pharmacist [facility] ([facility]) [phone] 05/24/2024, 12:59 PM documented in this encounter Plan of Treatment Upcoming Encounters Date Type Department Care Team (Late st Contact Info) Description 07/10/2024 10:00 AM EST Office Visit Cardiology, [facility] [address] [place] [address] Dae Berger DO [address] [place] [address] 08/06/2024 9:20 AM EST Office Visit Dermatology, [place] [address] [place] [phone] Qi Yap PA-C [address] [place] [address] [place] [address] 10/09/2024 2:00 PM EDT Office Visit [facility], [place] [address] [facility] [place] [phone] Farrah Weiss MD [address] [facility] [place] [address] 01/07/2025 1:00 PM EDT Office Visit Pharmacy, [facility] [address] [place] [address] [facility] [address] [place] [address] Scheduled Procedures Name Priority Associated Diagnoses Date/Ti [...] this encounter Medical Devices Implanted Type Area Chief Resource Officer Device Identifier Shelf Expiration Date Model / Serial / Lot [employer] [id number]-[id number] 70cm ,16,Trial Lead Kit Implanted:Qty: 1 on 02/10/2020 by Angie Tejada MD at OR [facility] N/A: Back 01/08/2022 SC-2316-70 [id number] / [id number] / Leads Mri [employer]ista - [id number] - [id number] Implanted:Qty: 2 on 04/29/2020 by Angie Tejada MD at OR [facility] N/A: Spine Lumbar [employer] : PAIN MGMT 02/20/2022 [id number] / [id number] / Generator Implantable Pulse - [id number] - [id number] Implanted:Qty: 1 on 04/29/2020 by Angie Tejada MD at OR [facility] N/A: Back [employer] : PAIN MGMT 01/13/2022 [id number] / [id number] / documented as of this encounter Visit Diagnoses Diagnosis Pain in both lower extremities documented in this encounter Care Teams Quality Audit Representative Relationship Specialty Start Date End Date Farrah Weiss MD [address] [place] [address] PCP - General Family Medicine 12/28/18 documented as of this encounter
--- OUTSIDE RECORDS SUMMARY | 2024-06-12 11:37 | External Medical Summary | Summary of Care ---
Author Name Unknown Organization [facility] Address [address] [place] [address] Phone [phone] Care Team Providers Care Senior Oracle Applications Developer Name Role Phone Rob Weiss MD Primary Care Provider [phone] Reason for Referral * Evaluate & Treat - Unlimited Visits (Within 30 days (routine)) - Pending Review Specialty Diagnoses / Procedures Referred By Kam spears Referred To Contact Cardiovascular Medicine / Cardiology Diagnoses Grade II diastolic dysfunction Rob Weiss MD [address] [place] [address] Phone: tel: fax: Referral ID Status Reason Start Date Expiration Date Visits Requested Visits Authorized [id number] Pending Review Specialty Services Required [phone] Question Answer Referral Priority Within 30 days (routine) Where should this appointment be scheduled? [facility] To which of the following clinics are you referring your patient? General Cardiology Clinic Comments Mod . Grade II diastolic dyfsunction. Reason for Visit * Reason Onset Date Comments Nurse Documentation 05/10/2024 Encounter Details Date Type Department Care Team (Late st Contact Info) Description 05/10/2024 Telephone [facility] [address] [facility] [place] [phone] Rob Weiss MD [address] [place] [address] Nurse Documentation Allergies Active Allergy Reactions Criticality Noted Date Comments Bactrim Rash 11/05/2007 Gabapentin Anaphylaxis High 05/22/2019 Lipoic Acid Anaphylaxis High 05/22/2019 Penicillin G 10/15/2013 Penicillins 01/11/1999 ?? Sulfamethoxazole 05/14/2019 Sulfamethoxazole-Trimethoprim 2013 Trimethoprim 05/14/2019 documented as of this encounter (statuses as of 05/22/2024) Medications TYLENOL ARTHRITIS PAIN 650 MG PO [...] by mouth in the morning. 90 Capsule 06/25/19 24 Active Furosemide 40 MG Oral Tablet (Lasix)Indications :Stasis edema of both lower extremities Take 0.5 Tablets by mouth in the morning. 45 Tablet 06/25/19 24 Active Additional Information Patient not taking.Reported on 04/10/2024 Losartan Potassium 50 MG Oral Tablet (Cozaar)Indication s:HTN, goal below 140/90 Take 1 Tablet by mouth in the morning. 90 Tablet 06/25/19 24 Active Pantoprazole Sodium 40 MG Oral Tablet Delayed Release (Protonix) Take 1 Tablet by mouth in the morning and 1 Tablet before bedtime. 180 Tablet 06/25/19 24 Active Potassium Chloride ER 10 MEQ Oral Capsule Extended ReleaseIndications :HTN, goal below 140/90 Take 1 Capsule by mouth in the morning. 90 Capsule 06/25/19 24 Active OneTouch Verio In Vitro Strip (Glucose Blood) Use to test blood sugar up to 2 times daily or as directed DX e11.9 200 Strip 06/23/19 24 Active Albuterol Sulfate (2.5 MG/3ML) [...] before bedtime. 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 Diaphragmatic hernia Metabolic syndrome Dyslipidemia, goal LDL below 100 documented as of this encounter (statuses as of 05/22/2024) Resolved Problems Problem Noted Date Diagnosed Date [...] as of this encounter (statuses as of 05/22/2024) Immunizations Name Administration Dates Next Due COVID-19 mRNA, LNP-s, No Pre serve, 2-Dose Series (Moderna) 05/10/2021,09/05/2020,08/03/2020 H1N1 2009 Influenza, IM 06/26/2009 Pneumococcal Conjugate Vacc, 13 Valent (Prevnar) 04/19/2015,03/04/2015 Pneumococcal Polysaccharide PPV23 (Pneumovax) 02/24/2017,06/26/2009 Seasonal Influenza Vac., MDV , IM, 0.5 mL (Fluzone) 03/04/2015,03/28/2013,03/12/2012,03/28,06/20/2009,03/27/2008,04/15/2003 ,06/28/2000,04/07/1999 Seasonal Influenza Virus Vac cine, Unspecified Formulation 03/28/2023,04/08/1998 Seasonal Influenza, PF, 6 M & above, IM , (FluLaval or Fluzone) 03/02/2020,03/26/2019,03/23/2018,03/27 Seasonal Influenza, Quadriva lent, No Preserve, IM 03/24/2021,04/06/2016 TD - Tetanus/Diptheria (ADULT) 08/17/1995 TDAP (age 10 and older)(Boostrix) 07/01/2022, Unknown Immunization 09/20/2000 Varicella Zoster Vaccine (Adult) 10/17/2013 Zoster Vaccine [...] encounter Miscellaneous Notes * Telephone Encounter - Marie Neves LPN - 05/13/2024 10:58 AM EST Attempted to call patient, there was no answer, left voicemail. When patient returns call, ok for THAO to relay message, please refer to below documentation. If needed, can transfer to dedicated nurse line. * Telephone Encounter - Rob Weiss MD - 05/10/2024 4:16 PM EST Please contact Pt: the echocardiogram shows moderate aortic stenosis and grade II diastolic dysfunction. This means the aortic valve at top of heart does not open quite as smoothly as we would like Nothing need be done now except to monitor with repeat echocardiograms every 6-12 months. Need to have him see cardiology . The diastolic heart dysfunction means the heart does not fill as quick as ideal. Cardiology can follow up in that regard as well. documented in this encounter Plan of Treatment Upcoming Encounters Date Type Department Care Team (Late st Contact Info) Description 07/10/2024 10:00 AM EST Office Visit Cardiology, [facility] [address] [place] [address] Dae Berger, [address] [place] [address] 08/06/2024 9:20 AM EST [facility] [address] [place] [phone] Qi Yap PA-C [address] [place] [address] [place] [address] 10/09/2024 2:00 PM EDT Office Visit [facility] [address] [facility] [place] [phone] Rob Weiss MD 226 [facility] [address] [place] [address] 01/07/2025 1:00 PM EDT Office Visit Pharmacy, [facility] [address] [facility] [place] [address] [facility] 132 [facility] [place] [address] Scheduled Procedures Name Priority Associated Diagnoses Date/Ti me COLONOSCOPY FLEXIBLE PROXIMAL DIAGNOSTIC Recall History of colonic polyps Bullard's esophagus with esophagitis ESOPHAGOGASTRODUODENOSCOPY ( EGD), FLEXIBLE, TRANSORAL, DIAGNOSTIC Recall History of colonic polyps Bullard's esophagus with esophagitis Scheduled Referrals Name Type Priority Associated Diagnoses Orde r Schedule CARDIOLOGY REFERRAL OP Referral Within 30 days (routine) Grade II diastolic dysfunction Ordered: 05/10/2024 Health Maintenance Due Date Last Done Comments [...] this encounter Medical Devices Implanted Type Area Gun Stocker Device Identifier Shelf Expiration Date Model / Serial / Lot [employer] Sc-2316-70e 70cm ,16,Trial Lead Kit Implanted:Qty: 1 on 02/10/2020 by Angie Tejada MD at OR [facility] N/A: Back 01/08/2022 SC-2316-70 E / [id number] / Leads Mri [employer] - [id number] - [id number] Implanted:Qty: 2 on 04/29/2020 by Angie Tejada MD at OR [facility] N/A: Spine Lumbar [employer] : PAIN MGMT 02/20/2022 [id number] / [id number] / Generator Implantable Pulse - [id number] - [id number] Implanted:Qty: 1 on 04/29/2020 by Angie Tejada MD at OR [facility] N/A: Back [employer] : PAIN MGMT 01/13/2022 [id number] / [id number] / documented as of this encounter Visit Diagnoses Diagnosis Aortic valve stenosis, etiology of cardiac valve disease unspecified- Primary Grade II diastolic dysfunction documented in this encounter Care Teams Senior Oracle Applications Developer Relationship Specialty Start Date End Date Rob Weiss MD [address] [facility] [place] [place] [address] PCP - General Family Medicine 12/28/18 documented as of this encounter
--- OUTSIDE RECORDS SUMMARY | 2024-06-12 11:37 | External Medical Summary | Summary of Care ---
Author Name Unknown Organization [facility] Address [address] [place] [address] Phone [phone] Care Team Providers Care Information Systems Project Manager Name Role Phone Rob Weiss MD Primary Care Provider [phone] Reason for Referral * Evaluate & Treat - Unlimited Visits (Within 30 days (routine)) - Pending Review Specialty Diagnoses / Procedures Referred By Kam spears Referred To Contact Cardiovascular Medicine / Cardiology Diagnoses Grade II diastolic dysfunction Rob Weiss MD [address] [place] [address] Phone: tel: fax: Referral ID Status Reason Start Date Expiration Date Visits Requested Visits Authorized [id number] Pending Review Specialty Services Required 4 999 [...] (Late st Contact Info) Description 05/10/2024 Telephone [facility] [address] [place] [facility] [place] [facility] [place] [address] Rob Weiss MD [address] [place] [address] Nurse Documentation Allergies Active Allergy Reactions Criticality Noted Date Comments Bactrim Rash 11/05/2007 Gabapentin Anaphylaxis High 05/22/2019 Lipoic Acid Anaphylaxis High 05/22/2019 Penicillin G 10/15/2013 Penicillins 01/11/1999 ?? 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 Weiss. Patient verbalized understanding. Has appt with Cardiology scheduled for 07/10/2024. Reason for Call: Nurse Documentation Contact: Telephone Call Contact Type: Test Results Provider In-Basket: No Outcome: See above Face to face time spent with Patient (minutes): 0 Total Time including non face to face (minutes): 10 * Telephone Encounter - Marie Neves LPN [...] 07/10/2024 10:00 AM EST Office Visit Cardiology, [facility] [address] [place] [address] Dae Berger DO [address] [place] [address] 08/06/2024 9:20 AM EST Office Visit Dermatology, [place] [address] [facility] [phone] Qi Yap PA-C [address] [place] [address] [place] [address] 10/09/2024 2:00 PM EDT Office Visit Family Practice, [place] [place] [phone] Rob Weiss MD [address] [place] [address] 01/07/2025 1:00 PM EDT Office Visit Pharmacy, [facility] [address] [address] [facility] [address] [place] [address] Scheduled Procedures Name Priority Associated Diagnoses Date/Ti [...] this encounter Medical Devices Implanted Type Area Superintendent System Operation Device Identifier Shelf Expiration Date Model / Serial / Lot pyco [id number]-2316-70e 70cm ,16,Trial Lead Kit Implanted:Qty: 1 on 02/10/2020 by Angie Tejada MD at OR [facility] N/A: Back 01/08/2022 MI-2316-70 E / [id number] / Leads Mri [employer] - [id number] - [id number] Implanted:Qty: 2 on 04/29/2020 by Angie Tejada MD at OR [facility] N/A: Spine Lumbar [employer] : PAIN MGMT 02/20/2022 [id number] / [id number] / Generator Implantable Pulse - [id number] - [id number] Implanted:Qty: 1 on 04/29/2020 by Angie Tejada MD at OR [facility] N/A: Back [employer] : PAIN MGMT 01/13/2022 [id number] / [id number] / documented as of this encounter Visit Diagnoses Diagnosis Aortic valve stenosis, etiology of cardiac valve disease unspecified- Primary Grade II diastolic dysfunction documented in this encounter Care Teams Information Systems Project Manager Relationship Specialty Start Date End Date Rob Weiss MD [address] [place] [address] PCP - General Family Medicine 12/28/18 documented as of this encounter
--- OUTSIDE RECORDS SUMMARY | 2024-06-12 11:37 | External Medical Summary | Summary of Care ---
Author Name Unknown Organization [facility] Address [address] [place] [address] Phone [phone] Care Team Providers Care Bartenders Name Role Phone Abdirashid Weiss MD Primary Care Provider [phone] Reason for Referral * Evaluate & Treat - Unlimited Visits (Within 30 days (routine)) - Pending Review Specialty Diagnoses / Procedures Referred By Kam spears Referred To Contact Cardiovascular Medicine / Cardiology Diagnoses Grade II diastolic dysfunction Abdirashid Weiss MD [address] [place] [address] Phone: tel: fax: Referral ID Status Reason Start Date Expiration Date Visits Requested Visits Authorized [id number] Pending Review Specialty Services Required 4 [phone] Question Answer Referral Priority Within 30 days (routine) Where should this appointment be scheduled? [facility] To which of the following clinics are you referring your patient? General Cardiology Clinic Comments Mod . Grade II diastolic dyfsunction. Encounter Details Date Type Department Care Team (Late st Contact Info) Description 05/10/2024 Telephone [facility] [address] [place] [address] Abdirashid Weiss MD [address] [place] [address] Allergies Active Allergy Reactions Criticality Noted Date Comments Bactrim Rash 11/05/2007 Gabapentin Anaphylaxis High 05/22/2019 Lipoic Acid Anaphylaxis High 05/22/2019 Penicillin G 10/15/2013 Penicillins 01/11/1999 ?? Sulfamethoxazole 05/14/2019 Sulfamethoxazole-Trimethoprim 2013 Trimethoprim 05/14/2019 documented as of this encounter (statuses as of 05/10/2024) Medications TYLENOL ARTHRITIS PAIN 650 MG PO [...] and 1 Tablet before bedtime. 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 Diaphragmatic hernia Metabolic syndrome Dyslipidemia, goal LDL below 100 documented as of this encounter (statuses as of 05/10/2024) Resolved Problems Problem Noted Date Diagnosed Date [...] Screening Diagnosis Protocol #6 DIAPHORESIS 03/25/2002 12/17/2003 KNAPP'S ESOPHAGUS 07/28/2000 01/01/20 10 BACKACHE- CHRONIC, LUMBOSACRAL 04/25/2000 01/19/2017 Irritable bowel syndrome 04/25/200008/2016 VOCAL CORD POLYPS 01/19/2000 02/24/2017 ROUTINE MEDICAL EXAM 10/01/1999 017 FAM HX-DIABETES MELLITUS 10/01/199908/2016 FAM HX-ISCHEM HEART DIS 10/01/199908/2016 Esophageal reflux 01/12/1999 02/24/2017 Uric acid urolithiasis 02/24 documented as of this encounter (statuses as of 05/10/2024) Immunizations Name Administration Dates Next Due COVID-19 [...] encounter Miscellaneous Notes * Telephone Encounter - Abdirashid Weiss MD - 05/10/2024 4:16 PM EST [...] Care Team (Late st Contact Info) Description 08/06/2024 9:20 AM EST [facility] [phone] Qi Yap PA-C [address] [place] [address] [place] [address] 10/09/2024 2:00 PM EDT Office [address] [phone] Abdirashid Weiss MD [address] [place] [address] 01/07/2025 1:00 PM EDT Office Visit Pharmacy, [facility] [address] [facility] [place] [address] [facility] [address] [place] [address] Scheduled Procedures Name Priority Associated Diagnoses Date/Ti me COLONOSCOPY FLEXIBLE PROXIMAL DIAGNOSTIC Recall History of colonic polyps Knapp's esophagus with esophagitis ESOPHAGOGASTRODUODENOSCOPY ( EGD), FLEXIBLE, TRANSORAL, DIAGNOSTIC Recall History of colonic polyps Knapp's esophagus with esophagitis Scheduled Referrals Name Type [...] Additional history exists Depression Screening 04/10/2025 04/10/2024 Knapp's Esophagus Surveilance 05/03/2026 05/03/2023, 05/03/2023, 09/01/2021, Additional [...] this encounter Medical Devices Implanted Type Area Soda Dialyzer Device Identifier Shelf Expiration Date Model / Serial / Lot [place] [employer] [id number]-2316-70e 70cm ,16,Trial Lead Kit Implanted:Qty: 1 on 02/10/2020 by Angie Tejada MD at OR [facility] N/A: Back 01/08/2022 SC-2316-70 E / [id number] / Leads [employer]ri [employer] - [id number] - [id number] Implanted:Qty: 2 on 04/29/2020 by Angie Tejada MD at OR [facility] N/A: Spine Lumbar [employer] : PAIN MGMT 02/20/2022 [id number] / [id number] / Generator Implantable Pulse - [id number] - [id number] Implanted:Qty: 1 on 04/29/2020 by Angie Tejada MD at OR [facility] N/A: Back [employer] : PAIN MGMT 01/13/2022 [id number] / [id number] / documented as of this encounter Visit Diagnoses Diagnosis Aortic valve stenosis, etiology of cardiac valve disease unspecified- Primary Grade II diastolic dysfunction documented in this encounter Care Teams Bartenders Relationship Specialty Start Date End Date Abdirashid Weiss MD [address] [place] [address] PCP - General Family Medicine 12/28/18 documented as of this encounter
--- OUTSIDE RECORDS SUMMARY | 2024-06-12 11:37 | External Medical Summary | Summary of Care ---
Author Name Unknown Organization [facility] Address [address] [place] [address] Phone [phone] Care Team Providers Care Forming Operator Name Role Phone Rob Weiss MD Primary Care Provider [phone] Reason for Referral * Evaluate & Treat - Unlimited Visits (Within 30 days (routine)) - Pending Review Specialty Diagnoses / Procedures Referred By Kam spears Referred To Contact Cardiovascular Medicine / Cardiology Diagnoses Grade II diastolic dysfunction Rob Weiss MD [address] [place] [address] Phone: tel: fax: Referral ID Status Reason Start Date Expiration Date Visits Requested Visits Authorized [id number] Pending Review Specialty Services Required 4 999 [...] (Late st Contact Info) Description 05/10/2024 Telephone [facility] [address] [place] [facility] [place] [address] Rob Weiss MD [address] [place] [address] Nurse Documentation Allergies Active Allergy Reactions Criticality Noted Date Comments Bactrim Rash 11/05/2007 Gabapentin Anaphylaxis High 05/22/2019 Lipoic Acid Anaphylaxis High 05/22/2019 Penicillin G 10/15/2013 Penicillins 01/11/1999 ?? 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 Diaphragmatic hernia Metabolic syndrome Dyslipidemia, goal LDL below 100 documented as of this encounter (statuses as of 05/13/2024) Resolved Problems Problem Noted Date Diagnosed Date [...] as of this encounter (statuses as of 05/13/2024) Immunizations Name Administration Dates Next Due COVID-19 [...] 07/10/2024 10:00 AM EST Office Visit Cardiology, [facility] [address] [place] [address] [address]ae [address], [address] [place] [address] 08/06/2024 9:20 AM EST [address] [place] [phone] Qi Yap PA-C [address] [place] [address] [place] [address] 10/09/2024 2:00 PM EDT Office Visit [facility] [address] [facility] [place] [phone] Rob Weiss MD [address] [facility] [place] [address] 01/07/2025 1:00 PM EDT Office Visit Pharmacy, [facility] 132 [facility] [place] [address] [facility] 132 [facility] [place] [address] Scheduled Procedures Name Priority Associated Diagnoses Date/Ti [...] this encounter Medical Devices Implanted Type Area Box Storage Worker Device Identifier Shelf Expiration Date Model / Serial / Lot [place] [employer] [id number]-2316-70e 70cm ,16,Trial Lead Kit Implanted:Qty: 1 on 02/10/2020 by Angie Tejada MD at OR [facility] N/A: Back 01/08/2022 SC-2316-70 E / [id number] / Leads Mri [employer] - [id number] - [id number] Implanted:Qty: 2 on 04/29/2020 by Angie Tejada MD at OR [facility] N/A: Spine Lumbar [employer] : PAIN MGMT 02/20/2022 [id number] / [id number] / Generator Implantable Pulse - [id number] - [id number] Implanted:Qty: 1 on 04/29/2020 by Angie Tejada MD at OR [facility] N/A: Back [employer] : PAIN MGMT 01/13/2022 [id number] / [id number] / documented as of this encounter Visit Diagnoses Diagnosis Aortic valve stenosis, etiology of cardiac valve disease unspecified- Primary Grade II diastolic dysfunction documented in this encounter Care Teams Forming Operator Relationship Specialty Start Date End Date Rob Weiss MD [address] [facility] [place] [address] PCP - General Family Medicine 12/28/18 documented as of this encounter
--- OUTSIDE RECORDS SUMMARY | 2024-06-12 11:38 | External Medical Summary | Summary of Care ---
Author Name Unknown Organization [facility] Address [address] [facility] [place] [address] Phone [phone] Care Team Providers Care Circular Head Saw Operator Name Role Phone Abdirashid Weiss MD Primary Care Provider [phone] Reason for Visit * Reason Comments Dosage Adjustment In Person (Anticoag Cl inic) Pain Encounter Details Date Type Department Care Team (Late st Contact Info) Description 04/30/2024 1:00 PM EST Office Visit Pharmacy, [facility] 132 [facility] [place] [address] [address] [address] MEDICATION USE AGREEMENT*; Diabetic peripheral neuropathy (HCC); Neuropathic pain of lower extremity; DISC DIS [id number] Allergies Active Allergy Reactions Criticality Noted Date Comments Bactrim Rash 11/05/2007 Gabapentin Anaphylaxis High 05/22/2019 Lipoic Acid Anaphylaxis High 05/22/2019 Penicillin G 10/15/2013 Penicillins 01/11/1999 ?? Sulfamethoxazole 05/14/2019 Sulfamethoxazole-Trimethoprim 2013 Trimethoprim 05/14/2019 documented as of this encounter (statuses as of 05/01/2024) Medications TYLENOL ARTHRITIS PAIN 650 MG PO [...] the morning. 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 Diaphragmatic hernia Metabolic syndrome Dyslipidemia, goal LDL below 100 documented as of this encounter (statuses as of 05/01/2024) Resolved Problems Problem Noted Date Diagnosed Date [...] MELLITUS 10/01/199908/2016 FAM HX-ISCHEM HEART DIS 10/01/1999 08/08/2016 Esophageal reflux 01/12/1999 02/24/2017 Uric acid urolithiasis 02/24 documented as of this encounter (statuses as of 05/01/2024) Immunizations Name Administration Dates Next Due COVID-19 [...] No 04/10/2024 Are you (or your family) ágnel eless or worried that you might be [...] AM EDT documented as of this encounter Progress Notes * Leilani Gonzalez [facility] - 05/01/2024 7:54 AM EST I agree with documented plan of care. Leilani Gonzalez, Pharm D, BCACP Clinical Pharmacist 05/01/2024, 7:54 AM * Joe Grant RP - 04/30/2024 1:03 PM EST Images from the original note were not included. Medication Therapy Disease Management - Chronic Pain History of Presenting Illness This visit occurred in person. Reinaldo Whittington, identified by name and date of , is a 74 year old male presents [facility] for return visit. Chief Complaint Patient presents with Dosage Adjustment In Person ([facility]) Pain Chronic Pain History Medication Use Agreement: Yes Past Pain Medications SA Opioids: Darvocet, Hydrocodone, Dilaudid, Percocet, Tramadol LA Opioids: Butrans NSAIDs: None Muscle Relaxants: None Anti-Depressants: Cymabalta Anti-Convulsants: Gabapentin - anaphylaxic reaction; amitriptyline Current Pain Medications: Morphine ER 15 mg BID - usually takes 1 with breakfast and 1 with dinner or after dinner, at times would take additional 1 at night if needed (once every few months) Duloxetine 60 mg daily Tizanidine 4 mg 1-2 tabs prn - 1 per day if needed for pain at bedtime Tylenol 650mg QID- 1-2 around lunchtime and 1 additional at bedtime Voltaren gel prn - rotate between salonpas and biofreeze - use voltaren for the worst pain Activity/Exercise: Limited, but still is very active - walks miles every day as result from his daily activities Functional Goal(s) QOL Interval History Good overall. Discussed with PCP. Gout pain with active flareup. Pt asked about chronic gout control, and was advised to seek further assessment/treatment with PCP. Pt reported that the morphine tablet is working really well to control his pain. Pt uses stimulator when needed. Pt reported having regular massages right before bed which helps. Movement vs moving too much. Having cramps and additiona l pain at night which is alleviated by the muscle relaxer. Pt switched that his CPAP switched to BIPAP machine in late January/early February. Upon inquiry, pt reported no adverse effects from his pain medications and no opioid adverse effects. History of Presenting Illness & Review of Systems Diagnosis: Back pain, Neuropathic foot pain Chronicity: Chronic Onset: More than a 1 year ago Frequency: Constantly Pain location: Foot and lower back Pain quality: Burning, electrical and shooting Pain is worse: In the evening Treatment(s) tried: Injections, surgery, opioids, antidepressants, anticonvulsants and muscle relaxants Problem List Reviewed and updated in the EHR during the visit Substance Use Reviewed and updated in the EHR during the visit Objective Imaging History Controlled Substance Compliance Monitoring Total Score for Opioid Risk Assessment Tool (BRQ): 0-2 points (Low Risk) Total Score for CAGE-AID (04/30/2024): 0 points (Unlikely Problem) Daily MME: 30 PDMP Reviewed (04/30/2024): I have reviewed the patient's controlled substance dispensing history in the Prescription Drug Monitoring Program in compliance with the [facility] regulations. Last Urine Toxicology Screening Results for orders placed or performed in [...] Valid Interpretation Normal Creatinine, U 18 Specific Warner, U 1.0087 Narrative Cutoff Concentrations: Drug Level [...] results can be found in Results Review. Creatinine Clearance: Creatinine clearance cannot be calculated (Patient's most recent lab result is older than the maximum 180 days allowed.) Creatinine Results: Recent Labs Units 10/17/23 0822 02/13/23 0000 01/16/23 0000 CREATININE - [facility] mg/dL 1.3* 1.1 1.05 Hepatic Function (ALT): Recent Labs Units 10/17/23 0822 ALT - [facility] U/L 29 Comprehensive Metabolic Panel Results: Results for orders placed or performed in visit on 10/17/23 COMPREHENSIVE METABOLIC PANEL Result Value Ref Range BUN 34 (H) 6 - 20 mg/dL CREATININE 1.3 (H) 0.6 - 1.2 mg/dL EGFR 60 >=60 mL/min SODIUM 141 135 - 146 mmol/L POTASSIUM 4.6 3.5 - 5.1 mmol/L CHLORIDE 101 98 - 107 mmol/L CO2 27 22 - 32 mmol/L ANION GAP 13 7 - 15 mmol/L GLUCOSE 143 (H) 70 - 120 mg/dL Albumin 4.3 3.8 - 5.0 g/dL AST 25 10 - 50 U/L Alkaline Phosphatase 75 35 - 130 U/L Bilirubin, Total 0.4 <=1.2 mg/dL CALCIUM 9.2 8.4 - 10.2 mg/dL Protein 6.6 6.0 - 8.3 g/dL ALT 29 10 - 50 U/L Assessment & Plan Patient aware MTM is a clinical pharmacist visit, with focus on medication options for current diagnoses referred by Primary Care Provider for review and optimization. The focus of this visit is: Medication optimization. Current regimen reviewed, patient is: Adherent to regimen. Treatment Options Continue current regimen Treatment Concerns No additional pain relief despite previously optimized therapy. Education Provided Opioid ADR. Recommendations Morphine ER 15 mg BID Duloxetine 60 mg daily Tizanidine 4 mg 1-2 tabs prn Tylenol 650mg QID Voltaren gel prn - rotate between salonpas and biofreeze Patient verbalized understanding of the plan. Contact clinic with any issues. 01/07/2025 I spent a total of Greater than 55 mins (exact time 60 mins) on the date of service in preparation,delivery, and documentation of the care provided to Reinaldo Whittington excluding any time spent in the performance of separately billed services or time spent by another provider/QHP. Joe Grant PharmD, [facility] PGY1 Travel Professional Medication Therapy Management Clin[facility] [place] 04/30/2024 9:48 PM documented in this encounter Plan of Treatment Upcoming Encounters Date Type Department Care Team (Late st Contact Info) Description 08/06/2024 9:20 AM EST [place] [address] [place] [address] Qi Yap PA-C [address] [place] [address] [place] [address] 10/09/2024 2:00 PM EDT Office Visit [facility] [address] [place] [address] Abdirashid Weiss MD [address] [place] [address] 01/07/2025 1:00 PM EDT Office Visit Pharmacy, [facility] 132 [facility] [place] [address] [facility] [address] [facility] [place] [address] Scheduled Procedures Name Priority Associated Diagnoses Date/Ti me COLONOSCOPY FLEXIBLE PROXIMAL DIAGNOSTIC Recall History of colonic polyps Knapp's esophagus with esophagitis ESOPHAGOGASTRODUODENOSCOPY ( EGD), FLEXIBLE, TRANSORAL, DIAGNOSTIC Recall History of colonic polyps Knapp's esophagus with esophagitis Health Maintenance Due Date [...] this encounter Medical Devices Implanted Type Area Siding Stapler Device Identifier Shelf Expiration Date Model / Serial / Lot [place] [employer] Sc-2316-70e 70cm ,16,Trial Lead Kit Implanted:Qty: 1 on 02/10/2020 by Angie Tejada MD at OR [facility] N/A: Back 01/08/2022 SC-2316-70 E / [id number] / Leads [employer]ri [employer] - [id number] - [id number] Implanted:Qty: 2 on 04/29/2020 by Angie Tejada MD at OR [facility] N/A: Spine Lumbar [employer] : PAIN MGMT 02/20/2022 [id number] / [id number] / Generator Implantable Pulse - [id number] - [id number] Implanted:Qty: 1 on 04/29/2020 by Angie Tejada MD at OR [facility] N/A: Back [employer] : PAIN MGMT 01/13/2022 [id number] / [id number] / documented as of this encounter Visit Diagnoses Diagnosis MEDICATION USE AGREEMENT- Primary Diabetic peripheral neuropathy (HCC) Type II or unspecified type diabetes mellitus with neurological manifestations, not stated as uncontrolled Neuropathic pain of lower extremity Mononeuritis of lower limb, unspecified DISC DIS [id number] Other and unspecified disc disorder of lumbar region documented in this encounter Care Teams Circular Head Saw Operator Relationship Specialty Start Date End Date Abdirashid Weiss MD [address] [place] [address] PCP - General Family Medicine 12/28/18 documented as of this encounter
--- OUTSIDE RECORDS SUMMARY | 2024-06-12 11:38 | External Medical Summary | Summary of Care ---
Author Name Unknown Organization [facility] Address [address] [facility] [place] [address] Phone [phone] Care Team Providers Care Watch Assembly Instructor Name Role Phone Abdirashid Weiss MD Primary Care Provider [phone] Reason for Visit * Reason Comments Outpatient Testing Encounter Details Date Type Department Care Team (Late st Contact Info) Description 04/10/2024 11:20 AM EDT Laboratory Laboratory, [place] [address] [place] [address] [place] [address] [place] [address] Diabetic peripheral neuropathy (HCC); Encounter for long-term (current) use of medications Allergies Active Allergy Reactions Criticality Noted Date Comments Bactrim Rash 11/05/2007 Gabapentin Anaphylaxis High 05/22/2019 Lipoic Acid Anaphylaxis High 05/22/2019 Penicillin G 10/15/2013 Penicillins 01/11/1999 ?? Sulfamethoxazole 05/14/2019 Sulfamethoxazole-Trimethoprim 2013 Trimethoprim 05/14/2019 documented as of this encounter (statuses as of 04/10/2024) Medications Medication Sig Dispensed Refills Start Date End Date Status TYLENOL ARTHRITIS PAIN 650 MG PO TBCRIndications:Disc disorder of lumbar region 1 TABLETS EVERY 12 HOURS NEEDED 1 Tab 0 12/31/2009 Active ONETOUCH DELICA LANCETS FINE MISCIndications:Type 2 diabetes mellitus without complication (HCC) Use to test blood sugar up to 2 times daily or as directed e11.9 200 Each 5 10/12/2015 Active EPINEPHrine, anaphylaxis, (AUTOINJECTOR) 0.3 MG/0.3ML SOAJ Inject 0.6 mg into a large muscle as needed. 0 05/15/2019 Active diphenhydrAMINE (BENADRYL) 50 MG CAPS Take [...] Active Diclofenac Sodium 1 % External Gel (Voltaren)Indication s:Neuropathic pain of lower extremity, unspecified laterality Apply topically to affected area 4 times a day as needed (neuropathy). Apply to lower legs/ feet up to 4 times daily for neuropathy 350 g 3 05/10/2021 Active Ondansetron 8 MG Oral Tablet Disintegrating (Zofran) Place on tongue 1 Tablet every 6 hours as needed for Nausea. dissolve on tongue. 20 Tablet 11/09/2021 Active Fluorouracil 5 % External Cream (Efudex)Indications: Actinic keratosis Start 07/11, apply thin layer to each of treated spots on face (or entire face) 2x daily for 3 weeks 40 g 06/02/2022 Active Vitamin D3 25 MCG (1000 UT) Oral Tablet Chewable Take by mouth. Activ e Vitamin B-12 1000 MCG Oral Tablet (Cyanocobalamin) Take 1 Tablet by mouth in the morning. Active Ferrous Sulfate 325 (65 Fe) MG Oral Tablet Take 1 Tablet by mouth in the morning. Active DULoxetine HCl 60 MG Oral Capsule Delayed Release Particles (Cymbalta) Take 1 Capsule by mouth in the morning. 90 Capsule 3 06/25/2023 Active Furosemide 40 MG Oral Tablet (Lasix)Indications:S tasis edema of both lower extremities Take 0.5 Tablets by mouth in the morning. 45 Tablet 5 06/25/2023 Active Additional Information Patient not taking.Reported on 04/10/2024 Losartan Potassium 50 MG Oral Tablet (Cozaar)Indications: HTN, goal below 140/90 Take 1 Tablet by mouth in the morning. 90 Tablet 3 06/25/2023 Active Pantoprazole Sodium 40 MG Oral Tablet Delayed Release (Protonix) Take 1 Tablet by mouth in the morning and 1 Tablet before bedtime. 180 Tablet 3 06/25/2023 Active Potassium Chloride ER 10 MEQ Oral Capsule Extended ReleaseIndications:H TN, goal below 140/90 Take 1 Capsule by mouth in the morning. 90 Capsule 3 06/25/2023 Active OneTouch Verio In Vitro Strip (Glucose Blood) Use to test blood sugar up to 2 times daily or as directed DX e11.9 200 Strip 5 06/23/2023 Active Albuterol Sulfate (2.5 MG/3ML) 0.083% Inhalation Nebulization Solution (Proventil)Indicatio ns:Viral URI with cough Inhale 1 Vial via nebulizer every 4 hours as needed for Wheezing. 100 mL 1 06/26/2023 Active tiZANidine HCl 4 MG Oral Tablet (Zanaflex) TAKE 1 TO 2 TABLETS BY MOUTH ONCE DAILY AT BEDTIME NEEDED FOR MUSCLE SPASMS 180 Tablet 12/15/2023 Active Morphine Sulfate ER 15 MG Oral Tablet Extended Release (Ms Contin)Indications:P ain in both lower extremities Take 1 Tablet by mouth in the morning and 1 Tablet before bedtime. 60 Tablet 03/25/2024 Active Atorvastatin Calcium 40 MG Oral Tablet (Lipitor)Indications :Dyslipidemia, goal LDL below 100 TAKE 1 TABLET BY MOUTH AT BEDTIME. 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 To view the [...] Chews tobacco 07/06/2013 THAO on CPAP 12/13/2011 Overview: 12/13/11 CPAP 5 to 20cm of water pressure through T and B Pain in limb 10/01/2009 Knapp's esophagus 10/03/2007 ADVANCE DIRECTIVE INFORMATION 01/05/2005 Overview: brochure given to pt. 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 Diaphragmatic hernia Metabolic syndrome Dyslipidemia, goal LDL below 100 documented as of this encounter (statuses as of 04/10/2024) Resolved Problems Problem Noted Date Diagnosed Date [...] goal below 140/80 07/15/201108/18 Hypoxemia 07/12/2011 02/24/2017 Overview: Nocturnal THAO (obstructive sleep apnea) 07/12/2011 07/06/2013 Overview: Mild, AHI 8.5 with nocturnal hypoxemia Resolved at pressure of 9 on titration study DME: [facility] OBESITY, BMI= 37.03 12/31/09 12/31/2009 01/19/2017 OBESITY, BMI 30-34 (SEE ACTUAL BMI) 09/10/2009 12/31/2009 Overview: Per Obesity Taxonomy Pneumonia due to organism 06/26/2009 Overview: ICD-10 update of inactive term Acute bronchitis, complicated 06/26/2009 12/31/2009 Need for pneumococcal vaccination 06/26/2009 01/19/2017 Chest pain 06/26/2009 02/24/2017 Elevated blood pressure, situational 04/24/2009 01/19/2017 Overview: Modified per HTN Taxonomy. OBESITY, BMI= 33.91 09/26/07 09/26/2007 0 01/19/2017 Overweight (BMI 25.0-29.9) 08/07/2007 0 09/10/2009 Overview: Per Obesity Taxonomy Dyslipidemia, goal to be determined 07/28/2006 12/31/2009 OBESITY, BMI= 39.63 07/28/06 07/28/2006 0 01/19/2017 Calculus of kidney 10/07/2005 7 Calculus of kidney 10/07/2005 9 Overview: Resolved per Duplicate Protocol #2. ELEV BL PRES W-O HYPERTN 06/23/2005 Overview: Resolved per Duplicate Protocol #2. OBESITY, BMI= 34.86 06/23/05 06/23/2005 0 01/19/2017 PLANTAR FIBROMATOSIS, LEFT FOOT 06/21/2004 02/24/2017 TESTICULAR HYPOFUNC NEC 06/21/200406/20 Overview: Resolved per Duplicate Protocol #2. ACUTE STRESS 12/17/2003 02/24/2017 ELEV BL PRES W-O HYPERTN 12/17/200311/2008 Overview: Modified per HTN Taxonomy. OBESITY, BMI= 36.14 06/04/03 06/04/2003 01/19/2017 TOBACCO USE DISORDER- ORAL 06/04/2003 0 02/24/2017 Urinary frequency 06/04/2003 12/17/2003 Need for influenza vaccination 04/15/2003 01/19/2017 BENIGN NEOPLASM LG BOWEL 07/01/200201/2017 Screening for prostate cancer 03/25/2002 08/27/2008 Overview: Resolved per Screening Diagnosis Protocol #6 SCREEN MAL NEOP-RECTUM 03/25/200208/27 Overview: Resolved per Screening Diagnosis Protocol #6 DIAPHORESIS 03/25/2002 12/17/2003 KNAPP'S ESOPHAGUS 07/28/2000 01/01/20 10 BACKACHE- CHRONIC, LUMBOSACRAL 04/25/2000 01/19/2017 Irritable bowel syndrome 04/25/200008/2016 VOCAL CORD POLYPS 01/19/2000 02/24/2017 ROUTINE MEDICAL EXAM 10/01/1999 017 FAM HX-DIABETES MELLITUS 10/01/199908/2016 FAM HX-ISCHEM HEART DIS 10/01/1999 0808/2016 Esophageal reflux 01/12/1999 02/24/2017 Uric acid urolithiasis 02/24 documented as of this encounter (statuses as of 04/10/2024) Immunizations Name Administration Dates Next Due COVID-19 [...] Date Recorded PHQ Adult Total Score 0 01/23/2023 Hunger Vital Sign Answer Date Recorded Within the past 12 months, y ou worried that your food would run out before you got the money to buy more. Never true 12/23/19 22 Within the past 12 months, t he food you bought just didn't last and you didn't have money to get more. Never true 12/22/2021 Sex and Gender Information Value Date Recorded Sex Assigned at Male 05/22/2019 12:43 PM EST Gender Identity Male 05/22/2019 12:43 PM EST Sexual Orientation Straight 12/28/2018 8: 02 AM EDT Job Start Date Occupation Industry Not on file Not on file Not on file documented as of this encounter Plan of Treatment Upcoming Encounters Date Type Department Care Team (Late st Contact Info) Description 04/12/2024 2:00 PM EDT Cardiac Studies Cardiac Studies, [place] [id number] 04/30/2024 1:00 PM EST Office Visit Pharmacy, [address] [place] [phone] [facility] [place] [address] [place] [address] 08/06/2024 9:20 AM EST Office Visit Dermatology, [place] [address] [place] [address] Qi Yap PA-C [address] [place] [address] [place] [address] 10/09/2024 2:00 PM EDT Office Visit Family [facility], [place] [address] [facility] [phone] Abdirashid Weiss MD [address] [place] [address] Pending Results Name Type Priority Associated Diagnoses Date /Time TOXICOLOGY, URINESCREEN W/ CONFIRMATION Lab Routine Diabetic peripheral neuropathy (HCC) Encounter for long-term (current) use of medications 04/10/2024 11:12 AM EDT Scheduled Procedures Name Priority Associated Diagnoses Date/Ti wy COLONOSCOPY FLEXIBLE PROXIMAL DIAGNOSTIC Recall History of [...] this encounter Medical Devices Implanted Type Area Radiation Monitor Device Identifier Shelf Expiration Date Model / Serial / Lot [employer] [id number] 70cm ,16,Trial Lead Kit Implanted:Qty: 1 on 02/10/2020 by Angie Tejada MD at OR [facility] N/A: Back 01/08/2022 [id number] [id number] / [id number] / Leads Mri [employer] - [id number] - [id number] Implanted:Qty: 2 on 04/29/2020 by Angie Tejada MD at OR [facility] N/A: Spine Lumbar [employer] : PAIN MGMT 02/20/2022 [id number] / [id number] / Generator Implantable Pulse - [id number] - [id number] Implanted:Qty: 1 on 04/29/2020 by Angie Tejada MD at OR [facility] N/A: Back [employer] : PAIN MGMT 01/13/2022 [id number] / [id number] / documented as of this encounter Visit Diagnoses Diagnosis Diabetic peripheral neuropathy (HCC) Type II or unspecified type diabetes mellitus with neurological manifestations, not stated as uncontrolled Encounter for long-term (current) use of medications Encounter for long-term (current) use of other medications documented in this encounter Care Teams Watch Assembly Instructor Relationship Specialty Start Date End Date Abdirashid Weiss MD [address] [place] [address] PCP - General Family Medicine 12/28/18 documented as of this encounter
--- OUTSIDE RECORDS SUMMARY | 2024-06-12 11:38 | External Medical Summary | Summary of Care ---
Author Name Unknown Organization [facility] Address [address] [facility] [place] [facility] [place] [place] [address] Phone [phone] Care Team Providers Care Hydraulic Dredge Operator Name Role Phone Abdirashid Barba MD Primary Care Provider Reason for Visit * Reason Comments eRx-Medication Refill Encounter Details Date Type Department Care Team (Late st Contact Info) Description 03/22/2024 Refill [facility] [address] [place] [address] Abdirashid Barba MD [address] [place] [address] Type 2 diabetes mellitus with hemoglobin A1c goal of less than 8.0% ([facility])*; Dyslipidemia, goal LDL below 100; Encounter for long-term (current) drug use Allergies Active Allergy Reactions Criticality Noted Date Comments Bactrim Rash 11/05/2007 Gabapentin Anaphylaxis High 05/22/2019 Lipoic Acid Anaphylaxis High 05/22/2019 Penicillin G 10/15/2013 Penicillins 01/11/1999 ?? Sulfamethoxazole 05/14/2019 Sulfamethoxazole-Trimethoprim 2013 Trimethoprim 05/14/2019 documented as of this encounter (statuses as of 03/26/2024) Medications Medication Sig Dispensed Refills Start Date End Date Status TYLENOL ARTHRITIS PAIN 650 MG PO TBCRIndications:Di sc disorder of lumbar region 1 TABLETS EVERY 12 HOURS NEEDED 1 Tab 0 0 Active ONETOUCH DELICA LANCETS FINE MISCIndications:Ty pe 2 diabetes mellitus without complication (HCC) Use to test blood sugar up to 2 times daily or as directed e11.9 200 Each 5 6 Active EPINEPHrine, anaphylaxis, (AUTOINJECTOR) 0.3 MG/0.3ML SOAJ Inject 0.6 mg into a large muscle as needed. 0 9 Active diphenhydrAMINE (BENADRYL) 50 MG CAPS Take [...] times daily for neuropathy 350 g 3 1 Active Ondansetron 8 MG Oral Tablet Disintegrating (Zofran) Place on tongue 1 Tablet every 6 hours as needed for Nausea. dissolve on tongue. 20 Tablet 2 Active Fluorouracil 5 % External Cream (Efudex)Indication s:Actinic keratosis Start 07/11, apply thin layer to each of treated spots on face (or entire face) 2x daily for 3 weeks 40 g 2 Active Additional Information Patient not taking.Reported on 09/06/2022 Vitamin D3 25 MCG (1000 UT) Oral [...] mouth in the morning. 90 Capsule 3 4 Active Furosemide 40 MG Oral Tablet (Lasix)Indications :Stasis edema of both lower extremities Take 0.5 Tablets by mouth in the morning. 45 Tablet 5 4 Active Losartan Potassium 50 MG Oral Tablet (Cozaar)Indication s:HTN, goal below 140/90 Take 1 Tablet by mouth in the morning. 90 Tablet 3 4 Active metFORMIN HCl 500 MG Oral Tablet (Glucophage)Indica tions:Type 2 diabetes mellitus with hemoglobin A1c goal of less than 8.0% (HCC) TAKE 2 TABLETS BY MOUTH TWO TIMES A DAY WITH MORNING AND EVENING MEALS. 360 Tablet 1 4 Active Pantoprazole Sodium 40 MG Oral Tablet Delayed Release (Protonix) Take 1 Tablet by mouth in the morning and 1 Tablet before bedtime. 180 Tablet 3 4 Active Potassium Chloride ER 10 MEQ Oral Capsule Extended ReleaseIndications :HTN, goal below 140/90 Take 1 Capsule by mouth in the morning. 90 Capsule 3 4 Active OneTouch Verio In Vitro Strip (Glucose Blood) Use to test blood sugar up to 2 times daily or as directed DX e11.9 200 Strip 5 4 Active Albuterol Sulfate (2.5 MG/3ML) 0.083% Inhalation Nebulization Solution (Proventil)Indicat ions:Viral URI with cough Inhale 1 Vial via nebulizer every 4 hours as needed for Wheezing. 100 mL 1 4 Active tiZANidine HCl 4 MG Oral Tablet (Zanaflex) TAKE 1 TO 2 TABLETS BY MOUTH ONCE DAILY AT BEDTIME NEEDED FOR MUSCLE SPASMS 180 Tablet 4 Active Atorvastatin Calcium 40 MG Oral Tablet (Lipitor)Indicatio ns:Dyslipidemia, goal LDL below 100 TAKE 1 TABLET BY MOUTH AT BEDTIME. 90 Tablet 4 Active Atorvastatin Calcium 40 MG Oral Tablet (Lipitor)Indicatio ns:Dyslipidemia, goal LDL below 100 Take 1 Tablet by mouth at bedtime. 90 Tablet 2 4 024 Discontinued Morphine Sulfate ER 15 MG Oral Tablet Extended Release (Ms Contin)Indications :Pain in both lower extremities Take 1 Tablet by mouth in the morning and 1 Tablet before bedtime. 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 To view the Medication Usage Agreement, go [...] ESOPHAGEAL REFLUX, S/P FUNDOPILCATION 03/02/2001 DISC DIS [id number] 07/28/2000 IMPOTENCE, ORGANIC ORIGN 01/12/1999 Diaphragmatic hernia Metabolic syndrome Dyslipidemia, goal LDL below 100 documented as of this encounter (statuses as of 03/26/2024) Resolved Problems Problem Noted Date Diagnosed Date [...] 07/28/06 07/28/2006 0 01/19/2017 Calculus of kidney 10/07/2005201 7 Calculus of kidney 10/07/2005200 9 Overview: Resolved per Duplicate Protocol #2. [...] as of this encounter (statuses as of 03/26/2024) Immunizations Name Administration Dates Next Due COVID-19 [...] on file documented as of this encounter Miscellaneous Notes * Telephone Encounter - Fan Bates - 03/26/2024 5:35 PM EDT Received message from [facility] regarding patient needing labs. Patient was notified. Successfully contacted patient and provided [facility] message. * Telephone Encounter - Purvi Christine [facility] - 03/23/2024 7:31 PM EDTSigned Prescriptions: Disp Refills Atorvastatin Calcium 40 MG Oral Tablet (Li*90 Tab*0 Sig: TAKE 1 TABLET BY MOUTH AT BEDTIME. Authorizing Provider: ABDIRASHID BARBA Ordering User: PURVI CHRISTINE Electronically signed by Purvi Christine [facility] at 03/23/2024 7:31 PM EDT * Telephone Encounter - Purvi Christine [facility] - 03/23/2024 7:27 PM EDT Provided 90 days supply with 0 refill. Per refill protocol patient should have routine labs on filewithin past year. Reviewed AMP report, Care Gaps/Health Maintenance, medications list, and for any routine labs typically ordered for this patient. Lab orders placed. Please contact patient to schedule office visit with PRIMARY CARE and advise of labs ordered for blood draw. Recommend patient to fast if able for labs. Patient may still have water and regular medications. Advise to obtain labs before requesting the next refill. Last Visit: 01/23/2023 (in office), 03/25/2020 (telemedicine) Next Visit: Visit date not found Thank you, Purvi Christine, PharmD Clinical Pharmacist [facility] [phone] 03/23/2024, 7:31 PM Electronically signed by Purvi Christine [facility] at 03/23/2024 7:31 PM EDT documented in this encounter Plan of Treatment Upcoming Encounters Date Type Department Care Team (Late st Contact Info) Description 04/10/2024 10:20 AM EDT Office Visit [facility], [place] [address] [facility] [phone] Abdirashid Barba MD [address] [facility] [address] 04/30/2024 1:00 PM EST Office Visit Pharmacy, [facility] [address] [facility] [place] [address] [facility] [address] [facility] [place] [address] 08/06/2024 9:20 AM EST Office Visit Dermatology, [place] [address] [facility] [address] Qi Yap PA-C [address] [place] [address] [place] [address] Scheduled Orders Name Type Priority Associated Diagnoses Orde r Schedule HEMOGLOBIN A1C Lab Routine Type 2 diabetes mellitus with hemoglobin A1c goal of less than 8.0% ([facility]) Expected: 03/23/2024, Expires: 03/23/2025 LIPID PANEL WITH DIRECT LDL IF TG IS HIGH Lab Routine Dyslipidemia, goal LDL below 100 Expected: 03/23/2024, Expires: 03/23/2025 VITAMIN B12 Lab Routine Encounter for long-term (current) drug use Expected: 03/23/2024, Expires: 03/23/2025 MAGNESIUM Lab Routine Encounter for long-term (current) drug use Expected: 03/23/2024, Expires: 03/23/2025 Scheduled Procedures Name Priority Associated Diagnoses Date/Ti me COLONOSCOPY FLEXIBLE PROXIMAL DIAGNOSTIC Recall History of colonic polyps Knapp's esophagus with esophagitis ESOPHAGOGASTRODUODENOSCOPY ( EGD), FLEXIBLE, TRANSORAL, DIAGNOSTIC Recall History of colonic polyps Knapp's esophagus with esophagitis Health Maintenance Due Date Last Done Comments Adult Wellness Visit 11/23/2021 11/23/2020 Depression Screening 01/24/2024 01/23/2023 COVID-19 Vaccine (5 - 2024-25 season) 2024 03/28/2023, 05/10/2021, 09/05/2020, Additional history exists Influenza Vaccine (FLU shot) (#1) 2024 03/28/2023, 03/24/2021, 03/02/2020, Additional history exists Diabetic Eye Exam 03/28/2024 03/28/2023, , 07/28/2022, Additional history exists HbA1c 04/17/2024 10/17/2023, 06/19, 12/30/2021, Additional history exists Diabetic Foot Exam 07/06/2024 07/06/2023, 12/28/2018 Albumin/Creatinine Ratio 10/16/2024 024, 11/11/2022, 11/06/2020, Additional history exists GFR 10/16/2024 10/17/2023, 01/18, 01/16/2023, Additional history exists Knapp's Esophagus Surveilance 05/03/2026 05/03/2023, 05/03/2023, 09/01/2021, Additional history exists Colonoscopy 05/03/2026 05/03/2023, 04/19, 04/09/2015, Additional history exists DTap/Tdap Vaccines (3 - Td or Tdap) 07/01/2032 07/01/2022, 02/14/2012, 08/17/1995, Additional history exists Fecal Occult Blood Test Discontinued 03/17/2001 Pneumococcal Vaccine: 65+ Years Completed 02/24/2017, 04/19/2015, 03/04/2015, Additional history exists Zoster Vaccines Completed 03/24/2021, 11/17, 10/17/2013 HPV (Gardasil) Vaccine Aged Out No lo nger eligible based on patient's age to complete this topic Hepatitis B Vaccine Aged Out No longe r eligible based on patient's age to complete this topic MENINGOCOCCAL (MENACTRA/MENVEO) Aged Out No longer eligible based on patient's age to complete this topic documented as of this encounter Medical Devices Implanted Type Area Web Marketing Intern Device Identifier Shelf Expiration Date Model / Serial / Lot Biomode - Biomolecular Determination [id number] 70cm ,16,Trial Lead Kit Implanted:Qty: 1 on 02/10/2020 by Angie Tejada MD at OR [facility] N/A: Back 01/08/2022 SC-2316-70 E / [id number] / Leads Mri [employer] - [id number] - [id number] Implanted:Qty: 2 on 04/29/2020 by Angie Tejada MD at OR [facility] N/A: Spine Lumbar [employer] : PAIN MGMT 02/20/2022 [id number] / [id number] / Generator Implantable Pulse - [id number] - [id number] Implanted:Qty: 1 on 04/29/2020 by Angie Tejada MD at OR [facility] N/A: Back [employer] : PAIN MGMT 01/13/2022 [id number] / [id number] / documented as of this encounter Visit Diagnoses Diagnosis Type 2 diabetes mellitus with hemoglobin A1c goal of less than 8.0% ([facility])- Primary Dyslipidemia, goal LDL below 100 Other and unspecified hyperlipidemia Encounter for long-term (current) drug use Encounter for long-term (current) use of other medications documented in this encounter Care Teams Hydraulic Dredge Operator Relationship Specialty Start Date End Date Abdirashid Barba MD [address] [place] [address] PCP - General Family Medicine 12/28/18 documented as of this encounter
--- OUTSIDE RECORDS SUMMARY | 2024-06-12 11:38 | External Medical Summary | Summary of Care ---
Author Name Unknown Organization [facility] Address [address] [facility] [place] [address] Phone [phone] Care Team Providers Care Executive Community Planning Name Role Phone Abdirashid Weiss MD Primary Care Provider [phone] Reason for Visit * Reason Onset Date Comments Medication Refill 04/25/2024 Encounter Details Date Type Department Care Team (Late st Contact Info) Description 04/25/2024 Refill [facility] [address] [place] [address] Abdirashid Weiss MD [address] [place] [address] Pain in both lower extremities Allergies Active Allergy Reactions Criticality Noted Date Comments Bactrim Rash 11/05/2007 Gabapentin Anaphylaxis High 05/22/2019 Lipoic Acid Anaphylaxis High 05/22/2019 Penicillin G 10/15/2013 Penicillins 01/11/1999 ?? Sulfamethoxazole 05/14/2019 Sulfamethoxazole-Trimethoprim 2013 Trimethoprim 05/14/2019 documented as of this encounter (statuses as of 04/26/2024) Medications TYLENOL ARTHRITIS PAIN 650 MG PO [...] before bedtime. 60 Tablet 04/26/20 24 Active Morphine Sulfate ER 15 MG Oral Tablet Extended Release (Ms Contin)Indications :Pain in both lower extremities Take 1 Tablet by mouth in the morning and 1 Tablet before bedtime. 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 Diaphragmatic hernia Metabolic syndrome Dyslipidemia, goal LDL below 100 documented as of this encounter (statuses as of 04/26/2024) Resolved Problems Problem Noted Date Diagnosed Date [...] of kidney 10/07/2005 7 Calculus of kidney 10/07/2005200 9 Overview (07/17/2008): Resolved per Duplicate Protocol [...] as of this encounter (statuses as of 04/26/2024) Immunizations Name Administration Dates Next Due COVID-19 [...] Telephone Encounter - Abdirashid Weiss MD - 04/26/2024 1:59 PM ESTSigned Prescriptions: Disp Refills Morphine Sulfate ER 15 MG Oral Tablet Exte*60 Tab*0 Sig: Take 1 Tablet by mouth in the morning and 1 Tablet before bedtime. Authorizing Provider: ABDIRASHID WEISS * Telephone Encounter - Ness Miles [facility] - 04/26/2024 1:53 PM EST Pending Prescriptions: Disp Refills Morphine Sulfate ER 15 MG Oral Tablet Exte*60 Tab*0 Sig: Take 1 Tablet by mouth in the morning and 1 Tablet before bedtime. * Telephone Encounter - Ness Miles [facility] - 04/26/2024 1:49 PM EST I have reviewed the patients controlled substance dispensing history in the Prescription Drug Monitoring Program in compliance with the [facility] regulations before prescribing a controlled substance. PDMP checked on 04/26/2024. Pending Prescriptions: Disp Refills Morphine Sulfate ER 15 MG Oral Tablet Ext*60 Tab*0 Sig: Take 1 Tablet by mouth in the morning and 1 Tablet before bedtime. Last Visit: 04/10/2024 (in office), 03/25/2020 (telemedicine) Next Visit: Visit date not found Date medication was last filled: 03/25 Date medication is due for refill: 04/23 Pharmacy: [id number] [facility] Is this request for a controlled [...] Valid Interpretation Normal Creatinine, U 18 Specific Mcdonald, U 1.0087 Narrative Cutoff Concentrations: Drug Level [...] in Results Review. Please approve if appropriate. Ness Umana PharmD Clinical Pharmacist [facility] ([facility]) [phone] 04/26/2024,1:53 PM documented in this encounter Plan of Treatment Upcoming Encounters Date Type Department Care Team (Late st Contact Info) Description 04/30/2024 1:00 PM EST Office Visit Pharmacy, [facility] [address] [place] [address] [facility] [address] [place] [address] 08/06/2024 9:20 AM EST Office Visit Dermatology, [place] [address] [place] [address] Qi Yap PA-C [address] [place] [address] [place] [id number] 10/09/2024 2:00 PM EDT Office Visit [facility] [address] [place] [address] Abdirashid Weiss MD [address] [place] [address] Scheduled Procedures Name Priority Associated Diagnoses Date/Ti me COLONOSCOPY FLEXIBLE PROXIMAL DIAGNOSTIC Recall History of colonic polyps Knapp's esophagus with esophagitis ESOPHAGOGASTRODUODENOSCOPY ( EGD), FLEXIBLE, TRANSORAL, DIAGNOSTIC Recall History of colonic polyps Knapp's esophagus with esophagitis Health Maintenance Due Date Last Done Comments Adult Wellness Visit 11/23/2021 11/23/2020 COVID-19 Vaccine ( season) 2024 2024, 05/10/2021, 09/05/2020, Additional history exists Diabetic Foot Exam 07/06/2024 07/06/2023, 12/28/2018 HbA1c [...] exists Zoster Vaccines Completed 03/24/2021, 11/17, 10/17/2013 Influenza Vaccine (FLU shot) Completed 2024, 03/28/2023, [...] this encounter Medical Devices Implanted Type Area Manager Of Marketing Device Identifier Shelf Expiration Date Model / Serial / Lot [employer] [id number]-2316-70e 70cm ,16,Trial Lead Kit Implanted:Qty: 1 on 02/10/2020 by Angie Tejada MD at OR [facility] N/A: Back 01/08/2022 SC-2316-70 E / [id number] / Leads Mri [employer] - [id number] - [id number] Implanted:Qty: 2 on 04/29/2020 by Angie Tejada MD at OR [facility] N/A: Spine Lumbar [employer] : PAIN MGMT 02/20/2022 [id number] / [id number] / Generator Implantable Pulse - [id number] - [id number] Implanted:Qty: 1 on 04/29/2020 by Angie Tejada MD at OR [facility] N/A: Back [employer] : PAIN MGMT 01/13/2022 [id number] / [id number] / documented as of this encounter Visit Diagnoses Diagnosis Pain in both lower extremities documented in this encounter Care Teams Executive Community Planning Relationship Specialty Start Date End Date Abdirashid Weiss MD [address] [place] [address] PCP - General Family Medicine 12/28/18 documented as of this encounter
--- OUTSIDE RECORDS SUMMARY | 2024-06-12 11:38 | External Medical Summary ---
Author Name Unknown Address Unknown Organization K01:[facility] - [address] [facility] [place] [address] Laboratory Report Ordering Provider Test Date Status NANCI ORTEGA 03/28/2024 08:05:51 Final Observation Date Value Abnormality Reference (Units ) Status Triglyceride 03/28/2024 08:05:51 122 <=174 ( mg/dL) Final Triglyceride Reference Range s (mg/dL):
<150 Acceptable
150-174 Borderline high
175-499 High
>=500 Very high Cholesterol 03/28/2024 08:05:51 122 <200 (mg /dL) Final Total Cholesterol Reference Ranges (mg/dL):
<200 Desirable
200-239 Borderline high
>=240 High HDL 03/28/2024 08:05:51 36 Below low normal >39 (mg/dL) Final HDL Cholesterol Reference Ra nges (mg/dL):
>=60 High (Desirable)
<50 Low (Undesirable) For Females
<40 Low (Undesirable) For Males NON-HDL CHOLESTEROL 03/28/2024 08:05:51 86 <=159 (mg/dL) Final Non-HDL Cholesterol Referenc e Range (mg/dL):
<100 Target level for high risk ASCVD patient
<130 Optimal for general population
130-159 Near optimal for general population
160-189 Borderline High
190-219 High
>=220 Very High LDL, (calculated) 03/28/2024 08:05:51 62 <= 129 (mg/dL) Final LDL Cholesterol Reference Ra nges (mg/dL):
<70 Target level for high risk ASCVD patient
<100 Optimal for general population
100-129 Near optimal for general population
130-159 Borderline high
160-189 High
>=190 Very high Performing Location [facility] - [address] [facility] [address]
--- OUTSIDE RECORDS SUMMARY | 2024-06-12 11:38 | External Medical Summary | Summary of Care ---
Author Name Unknown Organization [facility] Address [address] [facility] [place] [place] [address] Phone [phone] Care Team Providers Care Calcine Furnace Loader Name Role Phone Abdirashid Weiss MD Primary Care Provider [phone] Reason for Visit * Reason Comments Outpatient Testing Encounter Details Date Type Department Care Team (Late st Contact Info) Description 03/28/2024 8:10 AM EDT Laboratory Laboratory, [place] [address] [place] [address] [place] [address] [place] [address] Type 2 diabetes mellitus with hemoglobin A1c goal of less than 8.0% ([facility]); Dyslipidemia, goal LDL below 100; Encounter for long-term (current) drug use Allergies Active Allergy Reactions Criticality Noted Date Comments Bactrim Rash 11/05/2007 Gabapentin Anaphylaxis High 05/22/2019 Lipoic Acid Anaphylaxis High 05/22/2019 Penicillin G 10/15/2013 Penicillins 01/11/1999 ?? Sulfamethoxazole 05/14/2019 Sulfamethoxazole-Trimethoprim 2013 Trimethoprim 05/14/2019 documented as of this encounter (statuses as of 03/28/2024) Medications Medication Sig Dispensed Refills Start Date [...] for 3 weeks 40 g 06/02/2022 Active Additional Information Patient not taking.Reported on [...] the morning. 45 Tablet 5 06/25/2023 Active Losartan Potassium 50 MG Oral Tablet (Cozaar)Indications: HTN, goal below 140/90 Take 1 Tablet by mouth in the morning. 90 Tablet 3 06/25/2023 Active metFORMIN HCl 500 MG Oral Tablet (Glucophage)Indicati ons:Type 2 diabetes mellitus with hemoglobin A1c goal of less than 8.0% (HCC) TAKE 2 TABLETS BY MOUTH TWO TIMES A DAY WITH MORNING AND EVENING MEALS. 360 Tablet 1 06/25/2023 Active Pantoprazole Sodium 40 MG Oral [...] MOUTH AT BEDTIME. 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 [address] [facility] [place] [address] [facility] [address] [facility] [place] [address] 08/06/2024 9:20 AM EST Office Visit Dermatology, [place] [address] [place] [address] Qi Yap PA-C [address] [place] [address] [place] [phone] Pending Results Name Type Priority Associated Diagnoses Date /Time HEMOGLOBIN A1C Lab Routine Type 2 diabetes mellitus with hemoglobin A1c goal of less than 8.0% ([facility]) 03/28/2024 8:05 AM EDT LIPID PANEL WITH DIRECT LDL IF TG IS HIGH Lab Routine Dyslipidemia, goal LDL below 100 03/28/2024 8:05 AM EDT VITAMIN B12 Lab Routine Encounter for long-term (current) drug use 03/28/2024 8:05 AM EDT MAGNESIUM Lab Routine Encounter for long-term (current) drug use 03/28/2024 8:05 AM EDT Scheduled Procedures Name Priority Associated Diagnoses Date/Ti me COLONOSCOPY FLEXIBLE PROXIMAL DIAGNOSTIC Recall History of colonic polyps Knapp's esophagus with esophagitis ESOPHAGOGASTRODUODENOSCOPY ( EGD), FLEXIBLE, TRANSORAL, DIAGNOSTIC Recall History of colonic polyps Knapp's esophagus with esophagitis Health Maintenance Due Date Last Done Comments Adult Wellness Visit 11/23/2021 11/23/2020 Depression Screening 01/24/2024 01/23/2023 COVID-19 Vaccine ( season) 2024 03/28/2023, 05/10/2021, 09/05/2020, Additional history exists HbA1c 04/17/2024 10/17/2023, 06/19, 12/30/2021, Additional history exists Diabetic Foot Exam 07/06/2024 07/06/2023, 12/28/2018 Albumin/Creatinine Ratio 10/16/2024 024, 11/11/2022, 11/06/2020, Additional history exists GFR 10/16/2024 10/17/2023, 01/18, 01/16/2023, Additional history exists Diabetic Eye Exam 2025 2024, , 02/13/2023, Additional history exists Knapp's Esophagus Surveilance 05/03/2026 [...] this encounter Medical Devices Implanted Type Area Blasting Helper Device Identifier Shelf Expiration Date Model / Serial / Lot Architizer Sc-2316-70e 70cm ,16,Trial Lead Kit Implanted:Qty: 1 on 02/10/2020 by Angie Tejada MD at OR [facility] N/A: Back 01/08/2022 SC-2316-70 E / [id number] / Leads Mri [employer] - [id number] - [id number] Implanted:Qty: 2 on 04/29/2020 by Angie Tejada MD at OR [facility] N/A: Spine Lumbar [employer] : PAIN MGMT 02/20/2022 [id number] / [id number] / Generator Implantable Pulse - [id number] - [id number] Implanted:Qty: 1 on 04/29/2020 by Angie Tejada MD at OR [facility] N/A: Back [employer] : PAIN MGMT 01/13/2022 [id number] / [id number] / documented as of this encounter Visit Diagnoses Diagnosis Type 2 diabetes mellitus with hemoglobin A1c goal of less than 8.0% (HCC) Dyslipidemia, goal LDL below 100 Other and unspecified hyperlipidemia Encounter for long-term (current) drug use Encounter for long-term (current) use of other medications documented in this encounter Care Teams Calcine Furnace Loader Relationship Specialty Start Date End Date Abdirashid Weiss MD [address] [place] [address] PCP - General Family Medicine 12/28/18 documented as of this encounter
--- OUTSIDE RECORDS SUMMARY | 2024-06-12 11:38 | External Medical Summary | Summary of Care ---
Author Name Unknown Organization [facility] Address [address] [facility] [place] [place] [place] [address] Phone [phone] Care Team Providers Care Transportation Specialist Name Role Phone Rob Weiss MD Primary Care Provider [phone] Reason for Referral * Precert (Diagnostic Medical) (Within 10 days (routine)) - Authorized Specialty Diagnoses / Procedures Referred By Contac t Referred To Contact Cardiac Studies Diagnoses Heart murmur Procedures ECHO, COMPLETE (2D), TRANS-THORACIC Rob Weiss MD [address] [place] [address] Referral ID Status Reason Start Date Expiration Date V isits Requested Visits Authorized [id number] Authorized Precert 04/10/2024 04/23/2024 999 [id number] Reason for Visit * Reason Comments Follow Up Patient is here toda y for a follow up. Patient would like to discuss medications he has cut the doses on. Patient states he stopped taking metformin and lasix. Encounter Details Date Type Department Care Team (Late st Contact Info) Description 04/10/2024 10:20 AM EDT [facility] [address] [facility] [place] [address] Rob Weiss MD [address] [place] [address] Heart murmur*; Diabetic peripheral neuropathy (HCC); Type 2 diabetes mellitus with hemoglobin A1c goal of less than 8.0% ([facility]); Encounter for long-term (current) use of medications [...] Status TYLENOL ARTHRITIS PAIN 650 MG PO TBCRIndications:Dis c disorder of lumbar region 1 TABLETS EVERY 12 HOURS NEEDED 1 Tab 0 12/31/2009 Active ONETOUCH DELICA LANCETS FINE MISCIndications:Typ e 2 diabetes mellitus without complication ([facility]) Use to test blood sugar up to [...] Active Diclofenac Sodium 1 % External Gel (Voltaren)Indicatio ns:Neuropathic pain of lower extremity, unspecified laterality Apply [...] 11/09/2021 Active Fluorouracil 5 % External Cream (Efudex)Indications :Actinic keratosis Start 07/11, apply thin layer to [...] 06/25/2023 Active Furosemide 40 MG Oral Tablet (Lasix)Indications: Stasis edema of both lower extremities Take 0.5 Tablets by mouth in the morning. 45 Tablet 5 06/25/2023 Active Additional Information Patient not taking.Reported on 04/10/2024 Losartan Potassium 50 MG Oral Tablet (Cozaar)Indications :HTN, goal below 140/90 Take 1 Tablet by mouth in the morning. 90 Tablet 3 06/25/2023 Active Pantoprazole Sodium 40 MG Oral Tablet Delayed Release (Protonix) Take 1 Tablet by mouth in the morning and 1 Tablet before bedtime. 180 Tablet 3 06/25/2023 Active Potassium Chloride ER 10 MEQ Oral Capsule Extended ReleaseIndications: HTN, goal below 140/90 Take 1 Capsule by mouth in the morning. 90 Capsule 3 06/25/2023 Active OneTouch Verio In Vitro Strip (Glucose Blood) Use to test blood sugar up to 2 times daily or as directed DX e11.9 200 Strip 5 06/23/2023 Active Albuterol Sulfate (2.5 MG/3ML) 0.083% Inhalation Nebulization Solution (Proventil)Indicati ons:Viral URI with cough Inhale 1 Vial via nebulizer every 4 hours as needed for Wheezing. 100 mL 1 06/26/2023 Active tiZANidine HCl 4 MG Oral Tablet (Zanaflex) TAKE 1 TO 2 TABLETS BY MOUTH ONCE DAILY AT BEDTIME NEEDED FOR MUSCLE SPASMS 180 Tablet 12/15/2023 Active Morphine Sulfate ER 15 MG Oral Tablet Extended Release (Ms Contin)Indications: Pain in both lower extremities Take 1 Tablet by mouth in the morning and 1 Tablet before bedtime. 60 Tablet 03/25/2024 Active Atorvastatin Calcium 40 MG Oral Tablet (Lipitor)Indication s:Dyslipidemia, goal LDL below 100 TAKE 1 TABLET BY MOUTH AT BEDTIME. 90 Tablet 03/23/2024 Active metFORMIN HCl 500 MG Oral Tablet (Glucophage)Indicat ions:Type 2 diabetes mellitus with hemoglobin A1c goal of less than 8.0% (HCC) TAKE 1 TAB TWICE DAILY 04/10/2024 Active metFORMIN HCl 500 MG Oral Tablet (Glucophage)Indicat ions:Type 2 diabetes mellitus with hemoglobin A1c goal of less than 8.0% (HCC) TAKE 2 TABLETS BY MOUTH TWO TIMES A DAY WITH MORNING AND EVENING MEALS. 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 To view the [...] ESOPHAGEAL REFLUX, S/P FUNDOPILCATION 03/02/2001 DISC DIS [id number] 07/28/2000 IMPOTENCE, ORGANIC ORIGN 01/12/1999 Diaphragmatic hernia [...] on file documented as of this encounter Last Filed Vital Signs Vital Sign Reading Time Taken Comments Blood Pressure 142/62 04/10/2024 10:07 AM EDT Pulse 84 04/10/2024 10:07 AM EDT Temperature 36.2 C (97.1 F) 04/10/2024 1 0:07 AM EDT Respiratory Rate 18 04/10/2024 10:0 7 AM EDT Oxygen Saturation 93% 04/10/2024 10: 07 AM EDT Inhaled Oxygen Concentration - - Weight 120.6 kg (265 lb 12.8 oz) 2023 10:07 AM EDT Height 182.9 cm (6') 04/10/2024 10:07 AM EDT Body Mass Index 36.05 04/10/2024 10:07 AM EDT documented in this encounter Progress Notes * Rob Weiss MD - 04/10/2024 10:18 AM EDT Subjective: Reinaldo Whittington is a 74 year old male. Chief Complaint Patient presents with Follow Up Patient is here today for a follow up. Patient would like to discuss medications he has cut the doses on. Patient states he stopped taking metformin and lasix. HPI: Subjective: Reinaldo Whittington is a 74 year old male. Chief Complaint Patient presents with Follow Up Patient is here today for a follow up. Patient would like to discuss medications he has cut the doses on. Patient states he stopped taking metformin and lasix. HPI: 74-year-old seen today as a routine recheck. [facility] He also has regular follow-up with [facility]iat[facility]. He also sees [facility] on a regular basis. He ran out of metformin earlier this summer and monitored his blood sugars in did not see much of achange overall in the blood sugar control off of the metformin which he has been using 500 mg, 2 tablets twice a day. His latest hemoglobin A1c at 7.1 is good but it was a little lower 6 months ago at 6.8. He does monitor his blood sugars with finger prick he does not have a continuous glucose monitor. He has been using long-acting morphine 15 mg twice a day in this really has made a big difference Ithink as far as just his degree of discomfort especially at nighttime. He remains active although he recognizes a 74 years of age of the he isn't able to do what he could do 20 years ago. He is not bothered with exertional chest pain or significant shortness of breath although he does note that he does become winded quicker than he would have been many years ago. He is working with Dr. Montanez in regards to sleep apnea they they have switched from CPAP to BiPAP and have talked about using nasal pillows but that has not happened yet. He knows that he is getting much better sleep now than he was several years ago before he started a morphine and also electrical stimulation. An echocardiogram done 7 years ago because of edema was unremarkable in particular indicated that the aortic valve looked okay Patient Active Problem List Diagnosis IMPOTENCE, ORGANIC ORIGN DISC DIS [id number] ESOPHAGEAL REFLUX, S/P FUNDOPILCATION Deviated nasal septum TESTICULAR HYPOFUNC NEC ADVANCE DIRECTIVE INFORMATION Diaphragmatic hernia Knapp's esophagus Metabolic syndrome Dyslipidemia, goal LDL below 100 Pain in limb THAO on CPAP Chews tobacco HTN, goal below 140/90 Stasis edema of both lower extremities Gouty arthritis Chronic right-sided low back pain without sciatica Edema of both legs Neuropathy Neuropathic pain of lower extremity Encounter for long-term (current) use of medications History of rheumatoid arthritis MEDICATION USE AGREEMENT Diabetic peripheral neuropathy (HCC) Type 2 diabetes mellitus with hemoglobin A1c goal of less than 8.0% (HCC) Actinic keratosis Pre-operative clearance MRSA colonization Current Outpatient Medications Medication Sig Dispense Refill TYLENOL ARTHRITIS PAIN 650 MG PO TBCR 1 TABLETS EVERY 12 HOURS NEEDED 1 Tab 0 ONETOUCH DELICA LANCETS FINE MISC Use to test blood sugar up to 2 times daily or as directed e11.9 200 Each 5 EPINEPHrine, anaphylaxis, (AUTOINJECTOR) 0.3 MG/0.3ML SOAJ Inject 0.6 mg into a large muscle as needed. 0 diphenhydrAMINE (BENADRYL) 50 MG CAPS Take 1 Capsule by mouth at bedtime as needed for Sleep. Respiratory Therapy Supplies CRISTIAN Use as directed. CPAP with full mask. Titration 12-20 cm. Metamucil 0.36 GM Oral Capsule (Psyllium) Take 2 Capsules by mouth in the morning and 2 Capsules before bedtime. Mens Multivitamin Oral Tablet Take by mouth daily. Diclofenac Sodium 1 % External Gel (Voltaren) Apply topically to affected area 4 times a day as needed (neuropathy). Apply to lower legs/ feet up to 4 times daily for neuropathy 350 g 3 Ondansetron 8 MG Oral Tablet Disintegrating (Zofran) Place on tongue 1 Tablet every 6 hours as needed for Nausea. dissolve on tongue. 20 Tablet 0 Fluorouracil 5 % External Cream (Efudex) Start 07/11, apply thin layer to each of treated spots on face (or entire face) 2x daily for 3 weeks 40 g 0 Vitamin D3 25 MCG (1000 UT) Oral Tablet Chewable Take by mouth. Vitamin B-12 1000 MCG Oral Tablet (Cyanocobalamin) Take 1 Tablet by mouth in the morning. Ferrous Sulfate 325 (65 Fe) MG Oral Tablet Take 1 Tablet by mouth in the morning. DULoxetine HCl 60 MG Oral Capsule Delayed Release Particles (Cymbalta) Take 1 Capsule by mouth in the morning. 90 Capsule 3 Losartan Potassium 50 MG Oral Tablet (Cozaar) Take 1 Tablet by mouth in the morning. 90 Tablet 3 Pantoprazole Sodium 40 MG Oral Tablet Delayed Release (Protonix) Take 1 Tablet by mouth in the morning and 1 Tablet before bedtime. 180 Tablet 3 Potassium Chloride ER 10 MEQ Oral Capsule Extended Release Take 1 Capsule by mouth in the morning. 90 Capsule 3 OneTouch Verio In Vitro Strip (Glucose Blood) Use to test blood sugar up to 2 times daily or as directed DX e11.9 200 Strip 5 Albuterol Sulfate (2.5 MG/3ML) 0.083% Inhalation Nebulization Solution (Proventil) Inhale 1 Vial via nebulizer every 4 hours as needed for Wheezing. 100 mL 1 tiZANidine HCl 4 MG Oral Tablet (Zanaflex) TAKE 1 TO 2 TABLETS BY MOUTH ONCE DAILY AT BEDTIME NEEDED FOR MUSCLE SPASMS 180 Tablet 0 Morphine Sulfate ER 15 MG Oral Tablet Extended Release (Ms Contin) Take 1 Tablet by mouth in the morning and 1 Tablet before bedtime. 60 Tablet 0 Atorvastatin Calcium 40 MG Oral Tablet (Lipitor) TAKE 1 TABLET BY MOUTH AT BEDTIME. 90 Tablet 0 metFORMIN HCl 500 MG Oral Tablet (Glucophage) TAKE 1 TAB TWICE DAILY Furosemide 40 MG Oral Tablet (Lasix) Take 0.5 Tablets by mouth in the morning. (Patient not taking:Reported on 04/10/2024) 45 Tablet 5 No current facility-administered medications for this visit. Review of patient's allergies indicates: Allergen Reactions Gabapentin Anaphylaxis Lipoic Acid Anaphylaxis Bactrim Rash Penicillin G Penicillins ?? Sulfamethoxazole Sulfamethoxazole-Trimethoprim Trimethoprim Objective: BP 142/62 | Pulse 84 | Temp 36.2 C (97.1 F) (Tympanic) | Resp 18 | Ht 1.829 m (6') | Wt 120.6 kg (265 lb 12.8 oz) | SpO2 93% | BMI 36.05 kg/m | BSA 2.48 m Physical Exam: CONST: alert, pleasant, no acute distress HEAD: normocephalic, atraumatic NECK: supple, soft, no adenopathy EARS: canals normal, TMs normal NARES: clear Eyes - PERRLA, EOM'I OROPHARYNX: clear, no swelling or erythema, moist CV: regular rate and rhythm, Um grade 3/6 early systolic murmur best heard over the upper sternal area CHEST: clear to auscultation bilaterally, no rales or wheezing ABD: soft, non tender, non distended, no masses or hepatosplenomegaly. He has a midline reducible periumbilical hernia nontender. EXT: no edema, no joint swelling or deformities, NEURO: AAOx3, no gross focal deficits, cerebellar signs normal, affect appropriate MENTAL STATUS: no evidence of thought disorder, no delusional thought, no evidence of paranoia, thought is non-tangential. SKIN: no rash or significant lesions ASSESSMENT/PLAN: Heart murmur (Primary)-need to rule out aortic stenosis verses aortic sclerosis. Check echo although no urgency - ECHO, COMPLETE (2D), TRANS-THORACIC; Future; Expected date: 04/10/2024 Diabetic peripheral neuropathy (HCC)-she has ongoing Um long-acting morphine sulfate 15 mg twice a day. He also follows with [facility] management every few months. He has shown no signs of addictive disorder. - TOXICOLOGY, URINE SCREEN W/ CONFIRMATION; Future; Expected date: 04/10/2024 Type 2 diabetes mellitus with hemoglobin A1c goal of less than 8.0% ([facility])-he probably could get by not using metformin but I think that he would do little bit better and we can get his hemoglobin [id number] consistently under 7 if he uses 500 mg 1 twice a day i.e. half of what he has been on. Encounter for long-term (current) use of medications - TOXICOLOGY, URINE SCREEN W/ CONFIRMATION; Future; Expected date: 04/10/2024 I would like to see again 6 months Routine health maintenance I did recommend he get RSV vaccine [facility] If he can not get it there he could get a local pharmacy. Rob Weiss MD Patient Active Problem List Diagnosis IMPOTENCE, ORGANIC ORIGN DISC DIS [id number] ESOPHAGEAL REFLUX, S/P FUNDOPILCATION Deviated nasal septum TESTICULAR HYPOFUNC NEC ADVANCE DIRECTIVE INFORMATION Diaphragmatic hernia Knapp's esophagus Metabolic syndrome Dyslipidemia, goal LDL below 100 Pain in limb THAO on CPAP Chews tobacco HTN, goal below 140/90 Stasis edema of both lower extremities Gouty arthritis Chronic right-sided low back pain without sciatica Edema of both legs Neuropathy Neuropathic pain of lower extremity Encounter for long-term (current) use of medications History of rheumatoid arthritis MEDICATION USE AGREEMENT Diabetic peripheral neuropathy (HCC) Type 2 diabetes mellitus with hemoglobin A1c goal of less than 8.0% ([facility]) Actinic keratosis Pre-operative clearance MRSA colonization Current Outpatient Medications Medication Sig Dispense Refill TYLENOL ARTHRITIS PAIN 650 MG PO TBCR 1 TABLETS EVERY 12 HOURS NEEDED 1 Tab 0 ONETOUCH DELICA LANCETS FINE MISC Use to test blood sugar up to 2 times daily or as directed e11.9 200 Each 5 EPINEPHrine, anaphylaxis, (AUTOINJECTOR) 0.3 MG/0.3ML SOAJ Inject 0.6 mg into a large muscle as needed. 0 diphenhydrAMINE (BENADRYL) 50 MG CAPS Take 1 Capsule by mouth at bedtime as needed for Sleep. Respiratory Therapy Supplies CRISTIAN Use as directed. CPAP with full mask. Titration 12-20 cm. Metamucil 0.36 GM Oral Capsule (Psyllium) Take 2 Capsules by mouth in the morning and 2 Capsules before bedtime. Mens Multivitamin Oral Tablet Take by mouth daily. Diclofenac Sodium 1 % External Gel (Voltaren) Apply topically to affected area 4 times a day as needed (neuropathy). Apply to lower legs/ feet up to 4 times daily for neuropathy 350 g 3 Ondansetron 8 MG Oral Tablet Disintegrating (Zofran) Place on tongue 1 Tablet every 6 hours as needed for Nausea. dissolve on tongue. 20 Tablet 0 Fluorouracil 5 % External Cream (Efudex) Start 07/11, apply thin layer to each of treated spots on face (or entire face) 2x daily for 3 weeks 40 g 0 Vitamin D3 25 MCG (1000 UT) Oral Tablet Chewable Take by mouth. Vitamin B-12 1000 MCG Oral Tablet (Cyanocobalamin) Take 1 Tablet by mouth in the morning. Ferrous Sulfate 325 (65 Fe) MG Oral Tablet Take 1 Tablet by mouth in the morning. DULoxetine HCl 60 MG Oral Capsule Delayed Release Particles (Cymbalta) Take 1 Capsule by mouth in the morning. 90 Capsule 3 Losartan Potassium 50 MG Oral Tablet (Cozaar) Take 1 Tablet by mouth in the morning. 90 Tablet 3 Pantoprazole Sodium 40 MG Oral Tablet Delayed Release (Protonix) Take 1 Tablet by mouth in the morning and 1 Tablet before bedtime. 180 Tablet 3 Potassium Chloride ER 10 MEQ Oral Capsule Extended Release Take 1 Capsule by mouth in the morning. 90 Capsule 3 OneTouch Verio In Vitro Strip (Glucose Blood) Use to test blood sugar up to 2 times daily or as directed DX e11.9 200 Strip 5 Albuterol Sulfate (2.5 MG/3ML) 0.083% Inhalation Nebulization Solution (Proventil) Inhale 1 Vial via nebulizer every 4 hours as needed for Wheezing. 100 mL 1 tiZANidine HCl 4 MG Oral Tablet (Zanaflex) TAKE 1 TO 2 TABLETS BY MOUTH ONCE DAILY AT BEDTIME NEEDED FOR MUSCLE SPASMS 180 Tablet 0 Morphine Sulfate ER 15 MG Oral Tablet Extended Release (Ms Contin) Take 1 Tablet by mouth in the morning and 1 Tablet before bedtime. 60 Tablet 0 Atorvastatin Calcium 40 MG Oral Tablet (Lipitor) TAKE 1 TABLET BY MOUTH AT BEDTIME. 90 Tablet 0 Furosemide 40 MG Oral Tablet (Lasix) Take 0.5 Tablets by mouth in the morning. (Patient not taking:Reported on 04/10/2024) 45 Tablet 5 metFORMIN HCl 500 MG Oral Tablet (Glucophage) TAKE 2 TABLETS BY MOUTH TWO TIMES A DAY WITH MORNING AND EVENING MEALS. (Patient not taking: Reported on 04/10/2024) 360 Tablet 1 No current facility-administered medications for this visit. Review of patient's allergies indicates: Allergen Reactions Gabapentin Anaphylaxis Lipoic Acid Anaphylaxis Bactrim Rash Penicillin G Penicillins ?? Sulfamethoxazole Sulfamethoxazole-Trimethoprim Trimethoprim Objective: BP 142/62 | Pulse 84 | Temp 36.2 C (97.1 F) (Tympanic) | Resp 18 | Ht 1.829 m (6') | Wt 120.6 kg (265 lb 12.8 oz) | SpO2 93% | BMI 36.05 kg/m | BSA 2.48 m Physical Exam: CONST: alert, pleasant, no acute distress HEAD: normocephalic, atraumatic NECK: supple, soft, no adenopathy EARS: canals normal, TMs normal NARES: clear Eyes - PERRLA, EOM'I OROPHARYNX: clear, no swelling or erythema, moist CV: regular rate and rhythm, no murmur CHEST: clear to auscultation bilaterally, no rales or wheezing ABD: soft, non tender, non distended, no masses or hepatosplenomegaly EXT: no edema, no joint swelling or deformities, NEURO: AAOx3, no gross focal deficits, cerebellar signs normal, affect appropriate MENTAL STATUS: no evidence of thought disorder, no delusional thought, no evidence of paranoia, thought is non-tangential. SKIN: no rash or significant lesions ASSESSMENT/PLAN: Diabetic peripheral neuropathy (HCC) Type 2 diabetes mellitus with hemoglobin A1c goal of less than 8.0% (HCC) Rob Weiss MD documented in this encounter Nursing Notes * Nanci Marilia CHIO Graham - 04/10/2024 10:14 AM EDT The patient has been properly identified by confirmation of name and date of . Chief Complaint Patient presents with Follow Up Patient is here today for a follow up. Patient would like to discuss medications he has cut the doses on. Patient states he stopped taking metformin and lasix. documented in this encounter Plan of Treatment Upcoming Encounters Date Type Department Care Team (Late st Contact Info) Description 04/12/2024 2:00 PM EDT Cardiac Studies Cardiac Studies, [place] [address] [place] [address] 04/30/2024 1:00 PM EST [facility] [address] [facility] [address] [facility] [address] [facility] [place] [address] 08/06/2024 9:20 AM EST Office Visit Dermatology, [place] [address] [place] [facility] [place] [address] Qi Yap PAA[address] [place] [address] [place] [address] 10/09/2024 2:00 PM EDT Office Visit [facility], [place] [address] [facility] [id number] Rob Weiss MD [address] [place] [facility] [place] [address] Pending Results Name Type Priority Associated Diagnoses Date /Time TOXICOLOGY, URINESCREEN W/ CONFIRMATION Lab Routine Diabetic peripheral neuropathy (HCC) Encounter for long-term (current) use of medications 04/10/2024 11:12 AM EDT Scheduled Orders Name Type Priority Associated Diagnoses Orde r Schedule ECHO, COMPLETE (2D), TRANS-THORACIC Echocardiology Routine Heart murmur Expected: 04/10/2024 (Approximate), Expires: 04/10/2025 TOXICOLOGY, URINESCREEN W/ CONFIRMATION Lab Routine Diabetic peripheral neuropathy (HCC) Encounter for long-term (current) use of medications Expected: 04/10/2024, Expires: 04/10/2025 Scheduled Procedures Name Priority Associated Diagnoses Date/Ti [...] this encounter Medical Devices Implanted Type Area Haulage Engine Operator Device Identifier Shelf Expiration Date Model / Serial / Lot [employer] [id number] 70cm ,16,Trial Lead Kit Implanted:Qty: 1 on 02/10/2020 by Angie Tejada MD at OR [facility] N/A: Back 01/08/2022 [id number] / [id number] / Leads Mri [employer] - [id number] - [id number] Implanted:Qty: 2 on 04/29/2020 by Angie Tejada MD at OR [facility] N/A: Spine Lumbar [employer] : PAIN MGMT 02/20/2022 [id number] / [id number] / Generator Implantable Pulse - [id number] - [id number] Implanted:Qty: 1 on 04/29/2020 by Angie Tejada MD at OR [facility] N/A: Back [employer] : PAIN MGMT 01/13/2022 [id number] / [id number] / documented as of this encounter Visit Diagnoses Diagnosis Heart murmur- Primary Undiagnosed cardiac murmurs Diabetic peripheral neuropathy (HCC) Type II or unspecified type diabetes mellitus with neurological manifestations, not stated as uncontrolled Type 2 diabetes mellitus with hemoglobin A1c goal of less than 8.0% (HCC) Encounter for long-term (current) use of medications Encounter for long-term (current) use of other medications documented in this encounter Care Teams Transportation Specialist Relationship Specialty Start Date End Date Rob Weiss MD [address] [place] [address] PCP - General Family Medicine 12/28/18 documented as of this encounter"
--- OUTSIDE RECORDS SUMMARY | 2024-06-12 11:38 | External Medical Summary | Continuity of Care Document ---
Author Name Unknown Organization [place] [id number] Address [address] [place] [id number] Care Team Providers Care Financial Services Rep Name Role Phone Rob Weiss Primary Care Physician [phone] Encounter [facility] [id number] Date(s): 03/27/24 - 03/27/24 [facility] [address] [place] [id number] [address] [place] [id number] Encounter Diagnosis Diabetic polyneuropathy(Discharge Diagnosis) - 03/27/24 Peripheral neuropathy(Discharge Diagnosis) - 03/27/24 Diabetes(Discharge Diagnosis) - 03/27/24 Tinea unguium(Discharge Diagnosis) - 03/27/24 Discharge Disposition: Home or Self Care Attending Physician: SOURAV Chávez Christina L Referring Physician: MD Abhishek, Rob Carrero Allergies, Adverse Reactions, Alerts Substance Criticality Severity Reaction Reaction Severity Status gabapentin when combined w ith amitriptyline anaphylaxis Active Bactrim rash Active PCN (penicillin) rash Act dg Assessment and Plan Extracted from: Title:Follow Up Visit Author:SOURAV Chávez, Alvaro Brantley Date:03/27/24 1.Diabetic polyneuropathy 2.Peripheral neuropathy 3.Diabetes 4.Tinea unguium -Patient unable to provide self care to toenails due todiabetes - verbal consent obtained for debridement -Recommend toenail debridement -Patient had toenails of bilateral digits 1-5 debrided using nail nippers to tolerance, no bleeding noted -Patient instructed to use emery board to nails once per week -Patient had no ingrown toenails or infection noted -Patient is to follow up in4-5 months for treatment if needed in the future Immunizations Given and Recorded Vaccine Date Status Refusal Reason tetanus/diphtheria/pertuss, acel (Tdap) 1 07/01/22 Recorded tetanus/diphtheria/pertuss, acel (Tdap) 2 02/14/12 Recorded SARS-CoV-2 (COVID-19) mRNA-1273 vaccine 3 05/10/21 Recorded SARS-CoV-2 (COVID-19) mRNA-1273 vaccine 4 09/05/20 Recorded SARS-CoV-2 (COVID-19) mRNA-1273 vaccine 5 08/03/20 Recorded influenza virus vaccine, inactivated 6 03/27/17 Re corded influenza virus vaccine, inactivated 7 04/06/16 Re corded influenza virus vaccine, inactivated 8 03/04/15 Re corded influenza virus vaccine, inactivated 9 03/28/13 Re corded influenza virus vaccine, inactivated 10 03/12/12 R ecorded influenza virus vaccine, inactivated 11 03/28/11 R ecorded influenza virus vaccine, inactivated 12 06/20/09 R ecorded influenza virus vaccine, inactivated 13 03/27/08 R ecorded influenza virus vaccine, inactivated 14 04/15/03 R ecorded influenza virus vaccine, inactivated 15 06/28/00 R ecorded influenza virus vaccine, inactivated 16 04/07/99 R ecorded influenza virus vaccine, inactivated 17 04/08/98 R ecorded pneumococcal 23-valent vaccine 18 02/24/17 Recorde d pneumococcal 23-valent vaccine 19 06/26/09 Recorde d pneumococcal 13-valent vaccine 20 03/04/15 Recorde d pneumococcal 13-valent vaccine 21 03/04/15 Recorde d zoster vaccine live 22 10/17/13 Recorded influenza virus vaccine, H1N1 23 06/26/09 Recorded tetanus toxoids-diphtheria, Td (Adult) 24 08/17/95 Recorded 1Result Comment: 2022-09-22: Historical information-source unspecified 2Result Comment: 2017-06-22: Historical information-source unspecified 3Result Comment: 2021-09-16: Historical information-source unspecified 4Result Comment: 2021-09-16: Historical information-source unspecified 5Result Comment: 2021-09-16: Historical information-source unspecified 6Result Comment: 2017-06-22: Historical information-source unspecified 7Result Comment: 2017-06-22: Historical information-source unspecified 8Result Comment: 2017-06-22: Historical information-source unspecified 9Result Comment: 2017-06-22: Historical information-source unspecified 10Result Comment: 2017-06-22: Historical information-source unspecified 11Result Comment: 2017-06-22: Historical information-source unspecified 12Result Comment: 2017-06-22: Historical information-source unspecified 13Result Comment: 2017-06-22: Historical information-source unspecified 14Result Comment: 2017-06-22: Historical information-source unspecified 15Result Comment: 2017-06-22: Historical information-source unspecified 16Result Comment: 2017-06-22: Historical information-source unspecified 17Result Comment: 2017-06-22: Historical information-source unspecified 18Result Comment: 2017-06-22: Historical information-source unspecified 19Result Comment: 2017-06-22: Historical information-source unspecified 20Result Comment: [08/22/2017 Uncharted] Duplicate 21Result Comment: 2017-06-22: Historical information-source unspecified 22Result Comment: 2017-06-22: Historical information-source unspecified 23Result Comment: 2020-01-09: Historical information-source unspecified 24Result Comment: 2017-06-22: Historical information-source unspecified Medications albuterol 0.083% for nebulization inhale contents of 1 vial ( 3 milliliters ) in nebulizer by mouth... (REFER TO PRESCRIPTION NOTES). Start Date: 09/22/22 Status: Ordered allopurinol 300 mg oral tablet Start: 02/20/18 9:48:00 AM EDT, 1 tab, PO, Daily, Disp# 90 tab, Refills: 1, Note to Pharmacy: Mail order to patient's home., Pharmacy: [facility] Start Date: 02/20/18 Status: Ordered amitriptyline 25 mg oral tablet Start: 11/30/22 9:35:00 AM EDT, 270 each, take 1 tablet by mouth every evening and take 2 tablet by mouth EVERY NIGHT AT BEDTIME Start Date: 11/30/22 Status: Ordered amitriptyline 50 mg oral tablet Start: 03/10/20 2:04:00 PM EDT, See Instructions, Disp# 30 tab, Refills: 4, take 1 tablet by mouth at bedtime, Pharmacy: [address] Start Date: 03/10/20 Status: Ordered atorvastatin 40 mg oral tablet See Instructions, Disp# 30 tab, Refills: 2, take 1 tablet by mouth daily, Pharmacy: [address] Start Date: 05/10/21 Status: Ordered clindamycin 300 mg oral capsule Start: 12/20/23 10:17:00 AM EDT, 1 cap, PO, tid, Disp# 30 cap, Refills: 0, Pharmacy: [id number] Start Date: 12/20/23 Stop Date: 12/30/23 Status: Ordered CPAP Start: 09/22/22 9:16:00 AM EDT, CPAP Start Date: 09/22/22 Status: Ordered diclofenac 1% topical gel Start: 09/16/21 9:54:00 AM EDT, 1 appl, topical, qid Start Date: 09/16/21 Status: Ordered docusate sodium Start: 06/22/17 9:55:00 AM EST, 50 mg =, tid Start Date: 06/22/17 Status: Ordered DULoxetine 60 mg oral delayed release capsule Start: 01/09/24 10:29:00 AM EDT, 1 cap, PO, Daily Start Date: 01/09/24 Status: Ordered EPINEPHrine 0.3 mg injectable kit INJECT 0.6 ML INTRAMUSCULARLY EVERY 3 HOURS NEEDED FOR BRONCHODILATION UNTIL RESPONSE Start Date: 09/22/22 Status: Ordered fluorouracil 5% topical cream START 07/11 APPLY THIN LAYER TO EACH TREATED SPOT ON FACE (OR ENTIRE FACE) TWICE DAILY FOR 3 WEEKS Start Date: 09/22/22 Status: Ordered furosemide 40 mg oral tablet take 1/2 tablet by mouth every morning Start Date: 09/22/22 Status: Ordered lidocaine 0.5% topical gel Start: 05/28/19 10:30:00 AM EST, 1 appl, topical, Daily, Disp# 240 g, Refills: 1, Pharmacy: [address] Start Date: 05/28/19 Status: Ordered losartan 50 mg oral tablet Start: 07/20/22 10:44:00 AM EST, 1 tab, PO, Daily Start Date: 07/20/22 Status: Ordered Metamucil Start: 09/22/22 9:16:00 AM EDT, as needed Start Date: 09/22/22 Status: Ordered metFORMIN 500 mg oral tablet Start: 06/08/20 9:54:00 AM EST, 1 tab, PO, bid, Disp# 60 tab, Refills: 6, Pharmacy: [address] Start Date: 06/08/20 Stop Date: 01/04/21 Status: Ordered MS Contin 15 mg oral tablet, extended release Start: 01/10/19 8:22:00 AM EDT, Refills: 0, 1 in evening and at bedtime if needed 30mg currently will taper down to 15mg Start Date: 01/10/19 Status: Ordered multivitamin Start: 09/22/22 9:15:00 AM EDT, 1 tab, PO, Daily Start Date: 09/22/22 Status: Ordered ondansetron 8 mg oral tablet, disintegrating dissolve 1 tablet ON TONGUE every 6 hours if needed for nausea Start Date: 09/22/22 Status: Ordered One Touch Delica (33G) Lancets Start: 06/22/17 9:54:00 AM EST, See Instructions, Disp# 1 box, Use to test blood sugar up to 2 times daily or as directed Start Date: 06/22/17 Status: Ordered One Touch Verio IQ Test Strips 100 ct Start: 06/04/18 9:27:00 AM EST, See Instructions, Disp# 1 box, Refills: 5, fasting and 2 hours postmeal x 1- daily, Note to Pharmacy: 100 ct, Pharmacy: [address] Start Date: 06/04/18 Status: Ordered One Touch Verio Test Strips Start: 06/17/19 10:40:00 AM EST, See Instructions, Disp# 100 unit, Refills: 5, FASTING AND 2 HOURS POST MEAL ONCE DAILY DIRECTED, Pharmacy: [address] Start Date: 06/17/19 Status: Ordered pantoprazole 20 mg oral delayed release tablet Start: 02/13/19 11:08:00 AM EDT, 1 tab, PO, Daily, Disp# 30 tab, Refills: 3, Pharmacy: [address] Start Date: 02/13/19 Status: Ordered potassium chloride 10 mEq oral capsule, extended release Start: 05/16/22 8:28:00 PM EST, See Instructions, Disp# 30 cap, Refills: 5, take 1 capsule by mouthonce daily, Pharmacy: [facility] #[id number] Start Date: 05/16/22 Status: Ordered tiZANidine 4 mg oral tablet TAKE 1 TO 2 TABLETS BY MOUTH ONCE DAILY AT BEDTIME NEEDED FOR MUSCLE SPASMS Start Date: 09/22/22 Status: Ordered Tylenol Arthritis Extended Release Start: 06/22/17 9:56:00 AM EST, 650 mg =, q12h, PRN: Pain Start Date: 06/22/17 Status: Ordered Vitamin B12 Start: 11/01/17 12:58:00 PM EDT, 1,000 mcg =, PO, Daily Start Date: 11/01/17 Status: Ordered Vitamin D3 1000 intl units oral tablet Start: 06/22/17 9:55:00 AM EST, 1 tab, PO, Daily Start Date: 06/22/17 Status: Ordered Mental Status 03/27/24 Barriers to Learning one year None evide nt Mandatory Health Literacy Documentation Yes Health Literacy Communication Barriers N ever Primary Language Estonian Problem List Condition Confirmation Course Effective Dates Status H ealth Status Informant Abrasion, right foot, sequela Confirmed Active Bullard's esophagus Confirmed Active Arthritis of both feet Confirmed Active Blister (nonthermal), right foot, sequela Confirmed Active Obesity (BMI 30-39.9) Confirmed Active Deviated nasal septum Confirmed Active Diabetic polyneuropathy Confirmed Active Hypertension, essential Confirmed Active Chronic GERD Confirmed Active History of gout Confirmed Active History of diabetic ulcer of foot Confirmed Active Hyperlipidemia Confirmed Active Ingrown left big toenail Confirmed Active Left knee pain Confirmed Active Lymphedema Confirmed Active Metabolic syndrome Confirmed Active Neuritis Confirmed Active Tinea unguium Confirmed Active Right knee DJD Confirmed Active Chronic lower limb pain Confirmed Active Peripheral neuropathy Confirmed Active Peripheral vascular disease Confirmed Active 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 Apnea, sleep Confirmed Active Pes planus of both feet Confirmed Active 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 Confirmed Active Diagnosis Diagnosis Type Effective Dates Health Status Clinical Service Informant Tinea unguium Discharge Diagnosis 03/27/24 Non-Specified Diabetic polyneuropathy Discharge Diagnosis 03/27/24 Non-Specified Diabetes Discharge Diagnosis 03/27/24 Non-Specified Peripheral neuropathy Discharge Diagnosis 03/27/24 Non-Specified Procedures Procedure Date Related Diagnosis Body Site Status Spinal cord stimulation 04/29/20 C ompleted EMG - Electromyography 1 04/24/19 Completed Venous doppler ultrasonography 2 06/19/17 Completed MR angiography of pelvis wit hout & with contrast 3 04/28/[address] of abdomen and pelvis 4 03/07/17 Completed MRI of lumbar spine 5 02/24/17 Com pleted US abdominal scan 6 04/18/16 Compl eted Colonoscopy 7 04/09/15 Completed Upper GI endoscopy 8, 9 04/09/15 C ompleted Back Completed Hiatal hernia Completed Knee Completed Lithotripsy Completed Shoulder Completed 1This is an abnormal study. There is electrodiagnostic evidence of 1) a length- dependent, axonal, sensorimotor peripheral neuropathy; 2) a chronic, inactive superimposed L5 radiculopathy; 3) a chronic, inactive right C7 radiculopathy; 4) possible mild, superimposed right median mononeuropathy at thewrist 2No DVT bilateral lower extremities. 5.3 x 2.1 x 4cm subcutaneous cystic focus in distal left thigh. Could reflect resolving hematoma. 3No DVT in inferior vena cava, common iliac or common femoral veins. 4Short segment filling defect in right common iliac vein may be artifactual. Hepatomegaly with hepatic steatosis. Sigmoid diverticulosis. Cholelithiasis without cholecystitis. Small hiatal hernia. 5Mild bilateral neural foraminal stenosis at L3-L4 and L4-5 levels. Intrinsic T1 hyperintensity in L2-L3 central canal, bilateral L, L3, L4 exiting nerve roots are likely secondary to artifact from imcomplete fat suppression near fusion hardware rather than epidural enhancing fibrotic tissue. 6No hydronephrosis. Gallstone without cholecystitis. Overall appearance of liver unchanged and consistent with fatty replacement. 7Diverticulosis in entire examined colon. Otherwise normal. Repeat 10 years. 8Esophageal mucosal changes classified as Bullard's stage C9-M10 per [place] criteria. Chromoscopy performed, Biopsied. Small hiatus hernia. Prior fundoplication. Normal duodenum. 9Repeat in 3 years Social History Social History Type Response Smoking Status Never smoked cigaret sylvia Sex Male Sex Representation Male (finding) Ortho Outpt Note * SOURAV Chávez, Chelly Brantley: PERFORM Event Display: Ortho Outpt Note Authored Date: Chief Complaint nail care Primary Care Provider MD Abhishek, Rob Carrero Subjective Patient is a very pleasant 74-year-old male presenting today for carelast seen December 28, 2023. No acute concerns noted today Review of Systems Diabetesgout hyperlipidemia hypertension neuropathyperipheral neuropathy rheumatoid arthritisand chronic lower extremity pain has spinal stimulator implanttakes 15-30MS Continby mouth andamitriptyline Objective Physical Exam Problem focused bilateral feet: Dorsalis pedis pulse palpable 1 out of 4, posterior tibial pulsepalpable 1 out of 4,capillary refill time less than 3 seconds skin turgor is good to all digits of both feetpedal hair is noted to be absent. Mild swelling is noted dorsal aspect of both feet slightly worse on left versus rightside. Nonpitting edema wears compression hose daily. Significant neuropathy bilateral lower extremity History of chronic pain and has implanted stimulator. X-ray dictation 3 views bilateral feet:Taken atJuly 2021 visit. Interspaces are intact without maceration or breakdown. Toenails of digits 1 through 5right foot and digits 2 through 5 left foot feet with subungual debris, thickening greater than 1 mm and pain recommend debridement Left halluxstatus post total nail avulsion well-healed Assessment/Plan 1.Diabetic polyneuropathy 2.Peripheral neuropathy 3.Diabetes 4.Tinea unguium -Patient unable to provide self care to toenails due todiabetes - verbal consent obtained for debridement -Recommend toenail debridement -Patient had toenails of bilateral digits 1-5 debrided using nail nippers to tolerance, no bleedingnoted -Patient instructed to use emery board to nails once per week -Patient had no ingrown toenails or infection noted -Patient is to follow up in4-5 months for treatment if needed in the future Electronic Signature on File Electronically Reviewed/Signed by: Chelly Chávez DPM Author Signature Dt/Tm:03/27/2024 04:04 PM Division of Sports Medicine CLR Patient Care team information Care Team Personnel Name: SOURAV Chávez, Chelly Brantley Position: Physician - Podiatry Member Role: Lifetime Relationship Address: [address] [place] [address] Name: MD Weiss Mark S Position: Referring DIRECT Member Role: Primary Care Provider Address: [address] [place] [address] [place] Care Team Related Persons Name: SANTI AYERS
--- OUTSIDE RECORDS SUMMARY | 2024-06-12 11:38 | External Medical Summary ---
Author Name Unknown Address Unknown Organization K01:LABORATORY [address] [address] Laboratory Report Ordering Provider Test Date Status JAMESON YAN 04/10/2024 11:12:34 Final Cutoff Concentrations:
Drug Level
Amphetamines 500 ng/mL
Benzodiazepines 100 ng/mL
Cannabinoids 50 ng/mL
Cocaine Metabolite 150 ng/mL
Fentanyl 1 ng/mL
Hydrocodone / Hydromorphone 300 ng/mL
Methadone Metabolite 100 ng/mL
Morphine / Codeine 300 ng/mL
Oxycodone / Oxymorphone 100 ng/mL

Screening results are presumptive and can only be used for medical purposes. Positive screening results are reflexed to confirmatory testing. Observation Date Value Abnormality Reference (Units ) Status Amphetamines, Urine screen 04/10/2024 11:12:34 Negative Negative Final Benzodiazepines, Urine screen 04/10/2024 11:12:34 Negative Negative Final Cannabinoids, Urine screen 04/10/2024 11:12:34 Negative Negative Final Cocaine Metabolite, Urine screen 04/10/2024 11:12:34 Negative Negative Final fentaNYL [Presence] in Urine by Screen method 04/10/2024 11:12:34 Negative Negative Final HYDROcodone [Presence] in Urine by Screen method 04/10/2024 11:12:34 Positive Abnormal Negative Final 5-Ksczoctfbj-9,5-Dimeth yl-3,3-Diphenylpyrrolid ine (EDDP) [Presence] in Urine 04/10/2024 11:12:34 Negative Negative Final Opiates, Urine screen 04/10/2024 11:12:34 Positive Abnormal Negative Final oxyCODONE [Presence] in Urine by Screen method 04/10/2024 11:12:34 Negative Negative Final Performing Location LABORATORY [facility] - [address] [facility] [id number]
--- OUTSIDE RECORDS SUMMARY | 2024-06-12 11:38 | External Medical Summary ---
Author Name Unknown Address Unknown Organization K01:[facility]ORY [facility] [place] [facility] [address] [facility] [address] Laboratory Report Ordering Provider Test Date Status JAMESON YAN 04/10/2024 11:12:34 Final Cutoff Concentrations:
D rug Level
Codeine 40 ng/mL
Morphine 40 ng/mL
Hydrocodone 40 ng/mL
Hydromorphone 40 ng/mL
Dihydrocodeine 40 ng/mL
Oxycodone 50 ng/mL
Oxymorphone 50 ng/mL

This test was developed and its performance characteristics determined by [employer]. It has not been cleared or approved by the [place] Food and Drug Administration. Observation Date Value Abnormality Reference (Units ) Status METHODOLOGY 04/10/2024 11:12:34 LC-MS/MS Final Codeine 04/10/2024 11:12:34 Negative Negative Final Morphine, Urine confirmatory 04/10/2024 11:12:34 >4000 Above high normal Negative (ng/mL) Final HYDROcodone cutoff [Mass/volume] in Urine for Confirmatory method 04/10/2024 11:12:34 Negative Negative Final Hydromorphone, Urine confirmatory 04/10/2024 11:12:34 71 Above high normal Negative (ng/mL) Final Dihydrocodeine [Mass/volume] in Urine by Confirmatory method 04/10/2024 11:12:34 Negative Negative Final oxyCODONE [Presence] in Urine by Screen method 04/10/2024 11:12:34 Negative Negative Final oxyMORphone cutoff [Mass/volume] in Urine for Confirmatory method 04/10/2024 11:12:34 Negative Negative Final Performing Location [facility]ORY [place] [address] [place] [address]
--- OUTSIDE RECORDS SUMMARY | 2024-06-12 11:38 | External Medical Summary ---
Author Name Unknown Address Unknown Organization K01:LABORATORY [facility] - [address] [place] [address] Laboratory Report Ordering Provider Test Date Status NANCI ORTEGA 03/28/2024 08:05:51 Final Observation Date Value Abnormality Reference (Units ) Status Magnesium 03/28/2024 08:05:51 2.1 1.5-2.6 (m g/dL) Final Performing Location LABORATORY [facility] - [address] [place] [address]
--- OUTSIDE RECORDS SUMMARY | 2024-06-12 11:38 | External Medical Summary | Summary of Care ---
Author Name Unknown Organization [facility] Address [address] [facility] [address] Phone [phone] Care Team Providers Care Copy Chaser Name Role Phone Farrah Weiss MD Primary Care Provider Reason for Visit * Reason Onset Date Comments Medication Refill 03/22/2024 Encounter Details Date Type Department Care Team (Late st Contact Info) Description 03/22/2024 Refill [facility] [address] [place] [address] Farrah Weiss MD [address] [place] [address] Pain in both lower extremities Allergies Active Allergy Reactions Criticality Noted Date Comments Bactrim Rash 11/05/2007 Gabapentin Anaphylaxis High 05/22/2019 Lipoic Acid Anaphylaxis High 05/22/2019 Penicillin G 10/15/2013 Penicillins 01/11/1999 ?? Sulfamethoxazole 05/14/2019 Sulfamethoxazole-Trimethoprim 2013 Trimethoprim 05/14/2019 documented as of this encounter (statuses as of 03/25/2024) Medications Medication Sig Dispensed Refills Start Date End Date Status TYLENOL ARTHRITIS PAIN 650 MG PO TBCRIndications:Dis c disorder of lumbar region 1 TABLETS EVERY 12 HOURS NEEDED 1 Tab 0 12/31/2009 Active ONETOUCH DELICA LANCETS FINE MISCIndications:Typ e 2 diabetes mellitus without complication (HCC) Use [...] Active Losartan Potassium 50 MG Oral Tablet (Cozaar)Indications [...] MOUTH AT BEDTIME. 90 Tablet 03/23/2024 Active Morphine Sulfate ER 15 MG Oral Tablet Extended Release (Ms Contin)Indications: Pain in both lower extremities Take 1 Tablet by mouth in the morning and 1 Tablet before bedtime. 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 Authorizing Provider: FARRAH WEISS * Telephone Encounter - Montrell Barton material handling technician - 03/25/2024 9:15 AM EDTPending Prescriptions: Disp Refills Morphine Sulfate ER 15 MG Oral Tablet Exte*60 Tab*0 Sig: Take 1 Tablet by mouth in the morning and 1 Tablet before bedtime. * Telephone Encounter - Montrell Barton material handling technician - 03/25/2024 9:14 AM EDT Received message from [facility] regarding patient needing an appointment. Call Placed, Pt was agreeable to set up office visit. Patient scheduled for 04/10/2024. Thank you, Montrell Barton Inpatient Auditor [facility] 03/25/2024, 9:14 AM * Telephone Encounter - Enrique Ambrocio, [facility] - 03/23/2024 5:58 PM EDT Pending Prescriptions: Disp Refills Morphine Sulfate ER 15 MG Oral Tablet Exte*60 Tab*0 Sig: Take 1 Tablet by mouth in the morning and 1 Tablet before bedtime. * Telephone Encounter - Enrique Ambrocio [facility] - 03/23/2024 5:58 PM EDT Please contact patient so that an appointment can be scheduled with his PRIMARY CARE provider before this refill can be authorized. After contacting patient, please forward request to Farrah Weiss MD. Last Visit: 01/23/2023 (in office), 03/25/2020 (telemedicine) Next Visit: Visit date not found Thank You, Enrique Ambrocio, Pharm-D Clinical Pharmacist [facility] ([facility]) [phone] 03/23/2024, 5:58 PM * Telephone Encounter - Enrique Ambrocio [facility] - 03/23/2024 5:57 PM EDT I have reviewed the patients controlled substance dispensing history in the Prescription Drug Monitoring Program in compliance with the [facility] regulations before prescribing a controlled substance. PDMP checked on 03/23/2024. Pending Prescriptions: Disp Refills Morphine Sulfate ER 15 MG Oral Tablet Ext*60 Tab*0 Sig: Take 1 Tablet by mouth in the morning and 1 Tablet before bedtime. Last Visit: 01/23/2023 (in office), 03/25/2020 (telemedicine) Next Visit: Visit date not found Date medication was last filled: 02/24/2024 Date medication is due for refill: 03/24/2024 Pharmacy: [id number] Is this request for a controlled substance? Yes and Urine Drug Screen Not completed Toxicology results: Results for orders placed [...] Valid Interpretation Normal Creatinine, U 18 Specific [place], U 1.0087 Narrative Cutoff Concentrations: Drug Level [...] Review. Please approve if appropriate. Thank You, Enrique Ambrocio, Pharm-D Clinical Pharmacist [facility] ([facility]) [phone] 03/23/2024, 5:57 PM documented in this encounter Plan of Treatment Upcoming Encounters Date Type Department Care Team (Late st Contact Info) Description 04/10/2024 10:20 AM EDT Office Visit [facility] [address] [place] [address] Farrah Weiss MD [address] [place] [address] 04/30/2024 1:00 PM EST Office Visit Pharmacy, [facility] [address] [facility] [place] [address] [facility] [place] [address] 08/06/2024 9:20 AM EST Office Visit Dermatology[address] [place] [address] Qi Yap PA-C [address] [place] [address] [place] [id number] Scheduled Procedures Name Priority Associated Diagnoses Date/Ti [...] this encounter Medical Devices Implanted Type Area Raw Juice Weigher Device Identifier Shelf Expiration Date Model / Serial / Lot [employer] [id number]-2316-70e 70cm ,16,Trial Lead Kit Implanted:Qty: 1 on 02/10/2020 by Angie Tejada MD at OR [facility] N/A: Back 01/08/2022 SC-2316-70 E / [id number] / Leads Mri [employer]ista - [id number] - [id number] Implanted:Qty: 2 on 04/29/2020 by Angie Tejada MD at OR [facility] N/A: Spine Lumbar [employer] SCIENTIFIC : PAIN MGMT 02/20/2022 [id number] / [id number] / Generator Implantable Pulse - [id number] - [id number] Implanted:Qty: 1 on 04/29/2020 by Angie Tejada MD at OR [facility] N/A: Back [employer] : PAIN MGMT 01/13/2022 [id number] / [id number] / documented as of this encounter Visit Diagnoses Diagnosis Pain in both lower extremities documented in this encounter Care Teams Copy Chaser Relationship Specialty Start Date End Date Farrah Weiss MD [address], [place] [phone] PCP - General Family Medicine 12/28/18 documented as of this encounter
--- OUTSIDE RECORDS SUMMARY | 2024-06-12 11:38 | External Medical Summary ---
Author Name Unknown Address Unknown Organization K01:[facility]ATORY [place] [address] [facility] [address] Laboratory Report Ordering Provider Test Date Status JAMESON YAN 04/10/2024 11:12:34 Final Cutoff Concentrations:
D rug \X09\\X09\ Level
6-Monoacetylmorphine 5 ng/mL

This test was developed and its performance characteristics determined by [facility]. It has not been cleared or approved by the [place] Food and Drug Administration. Observation Date Value Abnormality Reference (Units ) Status METHODOLOGY 04/10/2024 11:12:34 LC-MS/MS Final 6-Monoacetylmorphine (6-DILIA) [Presence] in Urine by Screen method 04/10/2024 11:12:34 Negative Negative Final Performing Location [facility] [place] [facility] [address] [facility] [address]
--- OUTSIDE RECORDS SUMMARY | 2024-06-12 11:38 | External Medical Summary ---
Author Name Unknown Address Unknown Organization K01:[facility] [place] - [address] [facility] [address] Laboratory Report Ordering Provider Test Date Status NANCI ORTEGA 03/28/2024 08:05:51 Final Observation Date Value Abnormality Reference (Units ) Status HbA1C 03/28/2024 08:05:51 7.1 Above high normal 4. 0-5.6 (%) Final The use of HbA1c to monitor glycemic status is based on normal hemoglobin and HbA composition. This test should not be used in patients with abnormal hemoglobin that affects the half life of the red blood cell or the in vivo glycation rates. Glucose, estimated average 03/28/2024 08:05:51 157 Above high normal <126 (mg/dL) Ashutosh pompa Performing Location LAB[facility]ATORY [facility] [place] - [address] [facility] [address]
--- OUTSIDE RECORDS SUMMARY | 2024-06-12 11:38 | External Medical Summary ---
Author Name Unknown Address Unknown Organization K01:LABORATORY [facility] [place] - [address] [address] Laboratory Report Ordering Provider Test Date Status NANCI ORTEGA 03/28/2024 08:05:51 Final Observation Date Value Abnormality Reference (Units ) Status Vitamin B12 03/28/2024 08:05:51 1477 Above high normal 232-1245 (pg/mL) Final Performing Location LABORATORY [facility] - [address] [place] [address]
--- OUTSIDE RECORDS SUMMARY | 2024-06-12 11:38 | External Medical Summary | Summary of Care ---
Author Name Unknown Organization [facility] Address 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 Diaphragmatic hernia [...] Description 04/10/2024 10:20 AM EDT Office Visit [facility] [address] [place] [phone] Abdirashid Weiss MD [address] [place] [address] 04/30/2024 1:00 PM EST Office Visit Pharmacy, [facility] [address] [facility] [place] [address] [facility] [address] [address] 08/06/2024 9:20 AM EST Office Visit [place] [address] [address] [facility] [place] [address] Qi Yap PA-C [address] [place] [address] [place] [phone] Scheduled Procedures Name Priority Associated Diagnoses Date/Ti [...] this encounter Medical Devices Implanted Type Area Supervisor Throwing Department Device Identifier Shelf Expiration Date Model / Serial / Lot TapEngage Sc-2316-70e 70cm ,16,Trial Lead Kit Implanted:Qty: 1 on 02/10/2020 by Angie Tejada MD at OR [facility] N/A: Back 01/08/2022 SC-2316-70 E / [id number] / Leads Mri [employer]ista - [id number] - [id number] Implanted:Qty: 2 on 04/29/2020 by Angie Tejada MD at OR [facility] N/A: Spine Lumbar Spot [employer] SCIENTIFIC : PAIN MGMT 02/20/2022 [id number] / [id number] / Generator Implantable Pulse - [id number] - [id number] Implanted:Qty: 1 on 04/29/2020 by Angie Tejada MD at OR [facility] N/A: Back Spot [employer] SCIENTIFIC : PAIN MGMT 01/13/2022 [id number] / [id number] / documented as of this encounter Care Teams Unattended Ground Sensor Specialist Relationship Specialty Start Date End Date Abdirashid Weiss MD [address] [facility] [place] [phone] PCP - General Family Medicine 12/28/18 documented as of this encounter
--- NOTE | 2024-06-12 11:39 | Emergency Department Note ---
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 [facility] [employer] Prescriptions Prescriptions: No Action morphine [MS Contin] 15 mg tablet extended release 15 mg PO BID CPAP Machine Misc See Rx Instructions .ROUTE .COMPLEX Qty: 1 0RF Rx Instructions: Change to BiP[facility] 04/05, [facility]; cyanocobalamin (vitamin B-12) [Vitamin B-12] 1,000 mcg Tablet 1,000 mcg PO QPM atorvastatin 40 mg tablet 40 mg PO HS acetaminophen [Tylenol Arthritis Pain] 650 mg Tablet Extended Release 650 mg PO Q12H PRN (Reason: Pain) Patient Comments: pt states he takes daily. (05/16/19) cholecalciferol (vitamin D3) 1,000 unit Capsule 1,000 unit PO QPM epinephrine [EpiPen] 0.3 mg/0.3 mL auto-injector 0.6 mg IM Q3H PRN (Reason: bronchodilation) Qty: 1 0RF Rx Instructions: until response potassium chloride 10 mEq capsule, extended release 10 meq PO QAM multivitamin Tablet 1 tab PO QAM losartan 50 mg Tablet 50 mg PO QAM tizanidine [Zanaflex] 4 mg Tablet 4 mg PO BID PRN (Reason: muscle spasms) ferrous sulfate 325 mg (65 mg iron) Tablet 325 mg PO QAM psyllium husk 0.52 gram Capsule 1.04 g PO BID duloxetine [Cymbalta] 60 mg Capsule,Delayed Release(Dr/Ec) 60 mg PO QAM diclofenac sodium [Arthritis Pain (diclofenac)] 1 % Gel 2 g TOPICAL QID PRN (Reason: Pain) Rx Instructions: apply to single elbow, wrist or hand; for hand includes palm/fingers/back of hand pantoprazole 40 mg tablet,delayed release (DR/EC) 40 mg PO BID Referrals Referrals: Rob Weiss MD [Primary Care Provider] -
--- OUTSIDE RECORDS SUMMARY | 2024-06-12 11:39 | External Medical Summary | Summary of Care ---
Author Name Unknown Organization [facility] Address [address] [facility] [address] Phone [phone] Care Team Providers Care Triple Valve Mechanic Name Role Phone Farrah Weiss MD Primary Care Provider Reason for Visit * Reason Onset Date Comments Medication Refill 02/21/2024 Encounter Details Date Type Department Care Team (Late st Contact Info) Description 02/21/2024 Refill [facility] [address] [place] [address] Farrah Weiss MD [address] [place] [address] Pain in both lower extremities Allergies Active Allergy Reactions Criticality Noted Date Comments Bactrim Rash 11/05/2007 Gabapentin Anaphylaxis High 05/22/2019 Lipoic Acid Anaphylaxis High 05/22/2019 Penicillin G 10/15/2013 Penicillins 01/11/1999 ?? Sulfamethoxazole 05/14/2019 Sulfamethoxazole-Trimethoprim 2013 Trimethoprim 05/14/2019 documented as of this encounter (statuses as of 02/23/2024) Medications Medication Sig Dispensed Refills Start Date [...] Tablet by mouth in the morning. Active Atorvastatin Calcium 40 MG Oral Tablet (Lipitor)Indication s:Dyslipidemia, goal LDL below 100 Take 1 Tablet by mouth at bedtime. 90 Tablet 2 06/25/2023 Active DULoxetine HCl 60 MG Oral Capsule [...] 1 Tablet before bedtime. 60 Tablet 02/23/2024 Active Morphine Sulfate ER 15 MG Oral Tablet Extended Release (Ms Contin)Indications: Pain in both lower extremities Take 1 Tablet by mouth in the morning and 1 Tablet before bedtime. 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 Diaphragmatic hernia Metabolic syndrome Dyslipidemia, goal LDL below 100 documented as of this encounter (statuses as of 02/23/2024) Resolved Problems Problem Noted Date Diagnosed Date [...] as of this encounter (statuses as of 02/23/2024) Immunizations Name Administration Dates Next Due COVID-19 mRNA, LNP-s, No Pre serve, 2-Dose Series (Moderna) 05/10/2021,09/05/2020,08/03/2020 H1N1 2009 Influenza, IM 06/26/2009 Pneumococcal Conjugate Vacc, 13 Valent (Prevnar) 04/19/2015,03/04/2015 Pneumococcal Polysaccharide PPV23 (Pneumovax) 02/24/2017,06/26/2009 Seasonal Influenza Virus Vac cine, Unspecified Formulation 03/28/2023 Seasonal Influenza, PF, 6 M & above, IM , (FluLaval or Fluzone) 03/02/2020,03/26/2019,03/23/2018,03/27 Seasonal Influenza, Quadriva lent, No Preserve, IM 03/24/2021,04/06/2016 Seasonal Influenza, Trivalen t, (IIV3), with Preserv, (Fluzone) 03/04/2015,03/28/2013,03/12/2012,03/28,06/20/2009,03/27/2008 TDAP (age 10 and older)(Boostrix) 07/01/2022, Varicella [...] Telephone Encounter - Farrah Weiss MD - 02/23/2024 2:06 PM EDTSigned Prescriptions: Disp Refills Morphine Sulfate ER 15 MG Oral Tablet Exte*60 Tab*0 Sig: Take 1 Tablet by mouth in the morning and 1 Tablet before bedtime. Authorizing Provider: FARRAH WEISS * Telephone Encounter - Maria Elena Ashraf manager operational - 02/23/2024 8:06 AM EDT Pending Prescriptions: Disp Refills Morphine Sulfate ER 15 MG Oral Tablet Exte*60 Tab*0 Sig: Take 1 Tablet by mouth in the morning and 1 Tablet before bedtime. * Telephone Encounter - Maria Elena Ashraf manager operational - 02/23/2024 8:01 AM EDT Received message from [facility] regarding patient needing an appointment. Call Placed pt has motor home and is traveling to [place] for the next month Dr. Weiss schedule was not open or showed for March Pt would like to see only him if possible. Pt is asking to be scheduled after March 28 with thedr Please advise Thank you for your assistance Maria Elena Ashraf Memorial Designer II [facility] ([facility]) 02/23/2024,8:01 AM * Telephone Encounter - Lauren Dawn [facility] - 02/22/2024 10:14 PM EDT Pending Prescriptions: Disp Refills Morphine Sulfate ER 15 MG Oral Tablet Exte*60 Tab*0 Sig: Take 1 Tablet by mouth in the morning and 1 Tablet before bedtime. * Telephone Encounter - Lauren Dawn [facility] - 02/22/2024 10:14 PM EDT I have reviewed the patients controlled substance dispensing history in the Prescription Drug Monitoring Program in compliance with the [facility] regulations before prescribing a controlled substance. PDMP checked on 02/22/2024. Pending Prescriptions: Disp Refills Morphine Sulfate ER 15 MG Oral Tablet Ext*60 Tab*0 Sig: Take 1 Tablet by mouth in the morning and 1 Tablet before bedtime. Last Visit: 01/23/2023 (in office), 03/25/2020 (telemedicine) Next Visit: Visit date not found Date medication was last filled: 01/26/24 Date medication is due for refill: 02/24/24 Pharmacy: [id number] [facility] Is this request for a controlled substance? [...] Valid Interpretation Normal Creatinine, U 18 Specific [place], U 1.0087 Narrative Cutoff Concentrations: Drug Level [...] in Results Review. Please approve if appropriate. Thanks, Lauren Dawn PharmD Clinical Pharmacist [facility] ([facility]) [phone] 02/22/2024 10:14 PM * Telephone Encounter - Lauren Dawn RPh - 02/22/2024 10:13 PM EDT Please contact patient so that an appointment can be scheduled with his PRIMARY CARE provider before this refill can be authorized. After contacting patient, please forward request to Farrah Weiss MD. Last Visit: 01/23/2023 (in office), 03/25/2020 (telemedicine) Next Visit: Visit date not found Thanks, Lauren Dawn PharmD Clinical Pharmacist [facility] ([facility]) [phone] 02/22/2024 10:13 PM documented in this encounter Plan of Treatment Upcoming Encounters Date Type Department Care Team (Late st Contact Info) Description 04/30/2024 1:00 PM EST [facility] [address] [facility] [place] [address] [facility] [place] [address] 08/06/2024 9:20 AM EST [facility] [address] [place] [address] Qi Yap PA-C [address] [place] [address] [place] [id number] Scheduled Procedures Name Priority Associated Diagnoses Date/Ti me COLONOSCOPY FLEXIBLE PROXIMAL DIAGNOSTIC Recall History of colonic polyps Knapp's esophagus with esophagitis ESOPHAGOGASTRODUODENOSCOPY ( EGD), FLEXIBLE, TRANSORAL, DIAGNOSTIC Recall History of colonic polyps Knapp's esophagus with esophagitis Health Maintenance Due Date Last Done Comments Cologuard 1994 Sigmoidoscopy 1994 Fecal Occult Blood Test 03/17/2002 03/17/2001 Adult Wellness Visit 11/23/2021 11/23/2020 Depression Screening [...] 05/03/2026 05/03/2023, 04/19, 04/09/2015, Additional history exists Colorectal Cancer Screening 05/03/2026 Lipid Panel 11/12/2027 11/11/2022, 12/17, 05/04/2021, Additional history exists DTap/Tdap Vaccines (3 - Td or Tdap) 07/01/2032 07/01/2022, 02/14/2012, 08/17/1995, Additional history exists Pneumococcal Vaccine: 65+ Years Completed 02/24/2017, 04/19/2015, 03/04/2015, Additional history exists Zoster Vaccines Completed 03/24/2021, 11/17, 10/17/2013 AAA Screening Completed 10/30/2023, 02/17, 07/16/2015, Additional history exists HPV (Gardasil) Vaccine Aged Out No lo nger eligible based on patient's age to complete this topic Hepatitis B Vaccine Aged Out No longe r eligible based on patient's age to complete this topic MENINGOCOCCAL (MENACTRA/MENVEO) Aged Out No longer eligible based on patient's age to complete this topic documented as of this encounter Medical Devices Implanted Type Area Workers Compensation Claims Analyst Device Identifier Shelf Expiration Date Model / Serial / Lot [place] [employer] Sc-2316-70e 70cm ,16,Trial Lead Kit Implanted:Qty: 1 on 02/10/2020 by Angie Tejada MD at OR [facility] N/A: Back 01/08/2022 SC-2316-70 E / [id number] / Leads Mri [employer] - [id number] - [id number] Implanted:Qty: 2 on 04/29/2020 by Angie Tejada MD at OR [facility] N/A: Spine Lumbar [employer] : PAIN MGMT 02/20/2022 [id number] / [id number] / Generator Implantable Pulse - [id number] - [id number] Implanted:Qty: 1 on 04/29/2020 by Angie Tejada MD at OR [facility] N/A: Back [employer] SCI[employer] : PAIN MGMT 01/13/2022 [id number] / [id number] / documented as of this encounter Visit Diagnoses Diagnosis Pain in both lower extremities documented in this encounter Care Teams Triple Valve Mechanic Relationship Specialty Start Date End Date Farrah Weiss MD [address] [facility] [place] [address] PCP - General Family Medicine 12/28/18 documented as of this encounter
--- OUTSIDE RECORDS SUMMARY | 2024-06-12 11:39 | External Medical Summary | Summary of Care ---
Author Name Unknown Organization [facility] Address [address] [place] [address] Phone [phone] Care Team Providers Care Editorial Clerk Name Role Phone Abdirashid Weiss MD Primary Care Provider [phone] Reason for Visit * Reason Onset Date Comments Medication Refill 02/12/2024 Encounter Details Date Type Department Care Team (Late st Contact Info) Description 02/12/2024 Refill [facility] [address] [place] [address] Abdirashid Weiss MD [address] [place] [address] Pain in both lower extremities Allergies Active Allergy Reactions Criticality Noted Date Comments Bactrim Rash 11/05/2007 Gabapentin Anaphylaxis High 05/22/2019 Lipoic Acid Anaphylaxis High 05/22/2019 Penicillin G 10/15/2013 Penicillins 01/11/1999 ?? Sulfamethoxazole 05/14/2019 Sulfamethoxazole-Trimethoprim 2013 Trimethoprim 05/14/2019 documented as of this encounter (statuses as of 02/14/2024) Medications Medication Sig Dispensed Refills Start Date [...] Tablet (Lipitor)Indications :Dyslipidemia, goal LDL below 100 Take 1 Tablet [...] 1 Tablet before bedtime. 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 Diaphragmatic hernia Metabolic syndrome Dyslipidemia, goal LDL below 100 documented as of this encounter (statuses as of 02/14/2024) Resolved Problems Problem Noted Date Diagnosed Date [...] as of this encounter (statuses as of 02/14/2024) Immunizations Name Administration Dates Next Due COVID-19 [...] lent, No Preserve, IM 03/24/2021,04/06/2016 Seasonal Influenza, Split, I IV3, With Preserve, Inj 03/04/2015,03/28/2013,03/12/2012,03/28,06/20/2009,03/27/2008 TDAP (age 10 and older)(Boostrix) 07/01/2022, [...] encounter Miscellaneous Notes * Telephone Encounter - Clarita Pickering, [facility] - 02/14/2024 2:30 PM EDT I have reviewed the patients controlled substance dispensing history in the Prescription Drug Monitoring Program in compliance with the [facility] regulations before prescribing a controlled substance. PDMP checked on 02/14/2024. Pending Prescriptions: Disp Refills Morphine Sulfate ER 15 MG Oral Tablet Ext*60 Tab*0 Sig: Take 1 Tablet by mouth in the morning and 1 Tablet before bedtime. Last Visit: 01/23/2023 (in office), 03/25/2020 (telemedicine) Next Visit: Visit date not found Date medication was last filled: 01/26/24 Date medication is due for refill: 02/24/24 Pharmacy: [id number] Is this [...] Valid Interpretation Normal Creatinine, U 18 Specific [place], U 1.0087 Narrative Cutoff Concentrations: Drug Level [...] Results Review. Please approve if appropriate. Thanks, Clarita Pickering Clinical Pharmacist [facility] ([facility]) [phone] 02/14/2024, 2:30 PM documented in this encounter Plan of Treatment Upcoming Encounters Date Type Department Care Team (Late st Contact Info) Description 04/30/2024 1:00 PM EST Office Visit Pharmacy, [facility] [address] [place] [id number] [facility] [address] [facility] [place] [id number] 08/06/2024 9:20 AM EST Office Visit Dermatology, [address] [place] [address] Qi Yap PA-C [address] [place] [address] [place] [id number] Scheduled Procedures Name Priority Associated Diagnoses Date/Ti me COLONOSCOPY FLEXIBLE PROXIMAL DIAGNOSTIC Recall History of colonic polyps Knapp's esophagus with esophagitis ESOPHAGOGASTRODUODENOSCOPY ( EGD), FLEXIBLE, TRANSORAL, DIAGNOSTIC Recall History of colonic polyps Knapp's esophagus with esophagitis Health Maintenance Due Date Last Done Comments Cologuard 1994 Sigmoidoscopy 1994 Fecal Occult Blood Test 03/17/2002 03/17/2001 Adult Wellness Visit 11/23/2021 11/23/2020 COVID-19 Vaccine ( season) 2023 03/28/2023, 05/10/2021, 09/05/2020, Additional history exists Depression Screening 01/24/2024 01/23/2023 Influenza Vaccine (FLU shot) (#1) 2024 03/28/2023, [...] this encounter Medical Devices Implanted Type Area Apprentice Device Identifier Shelf Expiration Date Model / Serial / Lot [employer] [id number] 70cm ,16,Trial Lead Kit Implanted:Qty: 1 on 02/10/2020 by Angie Tejada MD at OR [facility] N/A: Back 01/08/2022 [id number] / [id number] / Leads Mri [employer] - [id number] - [id number] Implanted:Qty: 2 on 04/29/2020 by Angie Tejada MD at OR [facility] N/A: Spine Lumbar [employer] : PAIN MGMT 02/20/2022 [id number] / [id number] / Generator Implantable Pulse - [id number] - [id number] Implanted:Qty: 1 on 04/29/2020 by Angie Tejada MD at OR [facility] N/A: Back [employer] : PAIN MGMT 01/13/2022 [id number] / [id number] / documented as of this encounter Visit Diagnoses Diagnosis Pain in both lower extremities documented in this encounter Care Teams Editorial Clerk Relationship Specialty Start Date End Date Abdirashid Weiss MD [address] [place] [address] PCP - General Family Medicine 12/28/18 documented as of this encounter
[2024-06-12] MEDS: OPTIRAY 320 100ml IV ONE (11:47)
[2024-06-12 11:49] LABS: Basophils # (auto) 0.05 K/uL (0.00-0.20); Basophils % (auto) 0.9 %; Eosinophils # (auto) 0.14 K/uL (0.00-0.50); Eosinophils % (auto) 2.4 %; Hematocrit (blood only) 36.4 % (42.0-52.0); Hemoglobin 11.8 g/dl (14.0-18.0); Immature Granulocytes # (auto) 0.08 K/uL (0.01-0.20); Immature Granulocytes % (auto) 1.4 %; Lymphocytes # (auto) 1.06 K/uL (1.20-3.40); Lymphocytes % (auto) 18.3 %; Mean Corpuscular Hemoglobin 26.8 pg (25.0-34.0); Mean Corpuscular Hgb Conc 32.4 g/dL (32.0-36.0); Mean Corpuscular Volume 82.5 fL (80.0-100.0); Mean Platelet Volume 9.1 fL (9.4-12.4); Monocytes # (auto) 0.33 K/uL (0.11-0.59); Monocytes % (auto) 5.7 %; Neutrophils # (auto) 4.12 K/uL (1.40-6.50); Neutrophils % (auto) 71.3 %; Platelet Count 187 K/uL (130-400); RDW Coefficient of Variation 12.2 % (11.5-14.5); RDW Standard Deviation 37.3 fL (36.4-46.3); Red Blood Count 4.41 M/uL (4.70-6.10); White Blood Count 5.78 K/ul (4.8-10.8)
[2024-06-12 11:55] LABS: iSTAT Creatinine 1.1 mg/dl (0.6-1.3); iSTAT Hemoglobin 12.2 g/dl (14.0-18.0); iSTAT Ionized Calcium 1.18 mmol/l (1.12-1.32); iSTAT Potassium 4.7 mmol/L (3.3-5.0)
[2024-06-12 12:07] LABS: INR 0.9 (0.9-1.1); Partial Thromboplastin Time 27 Seconds (21-31); Prothrombin Time 10.1 Seconds (9.0-12.0)
[2024-06-12 12:11] LABS: Albumin Globulin Ratio 1.6 (0.9-2); Albumin Level 4.2 gm/dl (3.4-5.0); BUN Creatinine Ratio 25.9 (10-20); Bilirubin,Total 0.4 mg/dl (0.2-1.0); Calcium 9.1 mg/dl (8.6-10.3); Creatinine Clr Calc Pharmacy 78.6 ml/min; Globulin 2.6 gm/dl (2.5-4.0); Potassium 4.7 mmol/L (3.5-5.1); Total Protein 6.8 gm/dl (6.0-8.3)
--- NOTE | 2024-06-12 12:12 | CT Scan Report ---
EXAM: CT Abdomen and Pelvis With Intravenous Contrast INDICATION: Trauma. TECHNIQUE: Axial computed tomography images of the abdomen and pelvis with intravenous contrast. Sagittal and coronal reformatted images were created and reviewed. This CT exam was performed using one or more of the following dose reduction techniques: automated exposure control, adjustment of the mA and/or kV according to patient size, and/or use of iterative reconstruction technique. CONTRAST: 94ml of Optiray 320 was administered intravenously. COMPARISON: 03/28/2016 FINDINGS: Limitations: None. Lung bases: No abnormality noted. Pleural space: No visualized pleural effusion or pneumothorax. Heart: Stable mild cardiomegaly. Mediastinum: No abnormality noted. ABDOMEN: Liver: Normal size and contour. Hypodense typical of steatosis. No mass or ductal dilation. Gallbladder and bile ducts: Gallstones. No ductal dilatation or stone. Pancreas: Homogeneous enhancement. No mass, inflammation or ductal dilation. Spleen: No significant abnormality noted. Adrenals: No significant abnormality noted. Kidneys and ureters: Normal enhancement. No mass, hydronephrosis or visualized stone. Stomach and bowel: No distension or mucosal thickening. No inflammation noted. PELVIS: Appendix: Well seen and appears normal. Bladder: No filling defects to suggest mass or large stone. No inflammation. Reproductive: No abnormalities noted. ABDOMEN and PELVIS: Intraperitoneal space: No free air. No significant fluid collection. Bones/joints: There is slight age-indeterminate compression of the inferior endplate of L2. No retropulsion. Postoperative changes posterior L3-L5 fusion. Hardware intact and well-seated. Soft tissues: No significant abnormality noted. Vasculature: Atherosclerotic calcification of the aorta and branches. No aneurysm. Lymph nodes: No pathologically enlarged lymph nodes. IMPRESSION: 1. There is slight age-indeterminate compression of the inferior endplate of L2. No retropulsion. 2. Intact intra-abdominal organs. 3. Cholelithiasis. 4. Hepatic steatosis. 5. Diverticulosis. ACT 112: Negative or not required by law. Electronically signed by Sara Alfaro 06-12-2024 12:11 PM
--- NOTE | 2024-06-12 12:14 | CT Scan Report ---
EXAM: CT Cervical Spine Without Intravenous Contrast INDICATION: Trauma. TECHNIQUE: Axial computed tomography images of the cervical spine without intravenous contrast. Sagittal and coronal reformatted images were created and reviewed. This CT exam was performed using one or more of the following dose reduction techniques: automated exposure control, adjustment of the mA and/or kV according to patient size, and/or use of iterative reconstruction technique. CONTRAST: l of Optiray 320 was administered intravenously. COMPARISON: No relevant prior studies available. FINDINGS: Limitations: None. Vertebrae: Scoliotic spine. Diffuse moderate facet arthrosis and spondylosis. Prominent uncal spurring noted at multiple levels. Degenerative grade 1 retrolisthesis C4 on C5. No fracture. Discs/spinal canal/neural foramina: Diffuse moderate disc space narrowing noted. Mild ventral canal stenosis at C3-C4. Moderate stenosis C4-C5 and C5-C6. There is multilevel foraminal encroachment. Soft tissues: No significant abnormality noted. Vasculature: Atherosclerosis of the intracranial right vertebral artery. There is calcific plaque in the cervical internal carotid arteries. Lung apices: No significant abnormality noted. Other findings: Without. IMPRESSION: Degenerative changes. No cervical fracture noted. ACT 112: Negative or not required by law. Electronically signed by Sara Alfaro 06-12-2024 12:14 PM
--- NOTE | 2024-06-12 12:17 | CT Scan Report ---
EXAM: CT Head Without Intravenous Contrast INDICATION: Trauma. TECHNIQUE: Axial computed tomography images of the head/brain without intravenous contrast. Sagittal and/or coronal reformats are provided. Sagittal and coronal reformatted images were created and reviewed. This CT exam was performed using one or more of the following dose reduction techniques: automated exposure control, adjustment of the mA and/or kV according to patient size, and/or use of iterative reconstruction technique. COMPARISON: No relevant prior studies available. FINDINGS: Limitations: None. Brain and extra-axial spaces: There is age appropriate cortical atrophy and chronic ischemic periventricular white matter hypodensity. No acute infarct, hemorrhage or mass noted. Bones/joints: No acute changes. Soft tissues: There is severe hematoma of the frontal scalp slightly asymmetric to the right. Vasculature: There is atherosclerosis of the intracranial vertebral and carotid arteries. Sinuses: No layering fluid in the visualized portions of the paranasal sinuses. Mastoid air cells: No mastoid effusion. Orbits: No significant abnormality noted. IMPRESSION: 1. There is severe hematoma of the frontal scalp slightly asymmetric to the right. 2. Cerebral atrophy. No acute change in the brain. ACT 112: Negative or not required by law. Electronically signed by Sara Alfaro 06-12-2024 12:16 PM
--- NOTE | 2024-06-12 12:20 | CT Scan Report ---
EXAM: CT Chest With Intravenous Contrast INDICATION: Trauma. TECHNIQUE: Axial computed tomography images of the chest with intravenous contrast. Sagittal and coronal reformatted images were created and reviewed. This CT exam was performed using one or more of the following dose reduction techniques: automated exposure control, adjustment of the mA and/or kV according to patient size, and/or use of iterative reconstruction technique. CONTRAST: 94ml of Optiray 320 was administered intravenously. COMPARISON: No relevant prior studies available. FINDINGS: Limitations: None. Lungs and pleural spaces: No abnormality noted. No mass. No consolidation. No pneumothorax. No significant effusion. Heart: Cardiomegaly. No pericardial effusion. Mediastinum: Small sliding hiatal hernia. Thyroid: No abnormality noted. Bones/joints: Degenerative changes noted throughout the spine. No acute osseous abnormality seen. Ribs, sternum and visualized shoulders are intact. Soft tissues: No significant abnormality noted. Vasculature: Atherosclerotic calcification of the aorta and branches. No aneurysm. Lymph nodes: No enlarged lymph nodes. Tubes, lines and devices: Dorsal column electrode terminates in the lower cervical canal. IMPRESSION: No traumatic change identified. ACT 112: Negative or not required by law. Electronically signed by Sara Alfaro 06-12-2024 12:20 PM
--- NOTE | 2024-06-12 12:24 | Electrocardiogram Report ---
Test Reason : Blood Pressure : */* mmHG Vent. Rate : 68 BPM Atrial Rate : 68 BPM P-R Int : 204 ms QRS Dur : 146 ms QT Int : 442 ms P-R-T Axes : 53 -51 -2 degrees QTcB Int : 469 ms Sinus rhythm with Premature supraventricular complexes Right bundle branch block Left anterior fascicular block Abnormal ECG When compared with ECG of 16-Jan-2023 09:06, Premature supraventricular complexes are now Present Confirmed by Fernando Matute ([id number]) on 06/12/2024 12:23:44 PM Referred By: Confirmed By: Fernando Matute
[2024-06-12] MEDS: ONDANSETRON INJ 2 MG/ML 2 ML VIAL IV STA (12:31)
[2024-06-12] MEDS: ACETAMINOPHEN 1,000 MG/100 ML VIAL IV STA (12:31)
--- NOTE | 2024-06-12 12:46 | XRay Report ---
EXAM: Radiographs of the Pelvis 1 View INDICATION: Trauma. TECHNIQUE: Frontal view of the pelvis. COMPARISON: No relevant prior studies available. FINDINGS: Limitations: None. Bones/joints: Visualized portions of lower posterior lumbar fusion hardware intact. Soft tissues: No abnormality noted. No radiopaque foreign body noted. Tubes, lines and devices: Electrode generator projects over the left iliac bone. IMPRESSION: No visible pelvic fracture. ACT 112: Negative or not required by law. Electronically signed by Sara Alfaro 06-12-2024 12:45 PM
--- NOTE | 2024-06-12 12:46 | XRay Report ---
EXAM: Radiograph of the Chest 1 View INDICATION: Trauma. TECHNIQUE: Frontal view of the chest. COMPARISON: 01/16/2023 FINDINGS: Lungs and pleural spaces: No consolidation or pulmonary edema. No pleural effusion or pneumothorax. Heart: Stable large cardiac shadow. Mediastinum: Normal contour. Bones/joints: No fracture, erosion or dislocation. Soft tissues: No abnormality noted. No radiopaque foreign body noted. Vasculature: Stable ectatic calcified aorta. Tubes, lines and devices: Dorsal column electrode terminates in the lower thoracic canal. Upper abdomen: No abnormality noted. IMPRESSION: No acute cardiopulmonary disease. ACT 112: Negative or not required by law. Electronically signed by Sara Alfaro 06-12-2024 12:46 PM
--- NOTE | 2024-06-12 13:01 | CT Scan Report ---
EXAM: CT Lumbar Spine Without Intravenous Contrast INDICATION: Posttraumatic back pain. TECHNIQUE: Axial computed tomography images of the lumbar spine without intravenous contrast. Sagittal and coronal reformatted images were created and reviewed. This CT exam was performed using one or more of the following dose reduction techniques: automated exposure control, adjustment of the mA and/or kV according to patient size, and/or use of iterative reconstruction technique. COMPARISON: CT abdomen the same day and MRI lumbar spine 06/04/2015 FINDINGS: Limitations: None. Vertebrae: For the purposes of this dictation the lowermost rib containing vertebra is T12. There is lumbarization of S1. There is posterior fusion L4-S1 with intact, well-seated hardware. There is mild acute compression deformity of the inferior endplate of L2. There is about 20% anterior height loss. No retropulsion. Sacrum/coccyx: No significant abnormality noted. No acute change noted. Discs/spinal canal/neural foramina: Diffuse narrowing. There is moderate canal stenosis with contributing ligamentous and facet hypertrophy at L3-L4. Canal at the other levels obscured by artifact. Soft tissues: No significant abnormality noted. IMPRESSION: 1. There is acute compression fracture of the inferior endplate of L2 without retropulsion and about 20% anterior wedging. 2. The first sacral vertebra is lumbarized. L4-S1 fusion hardware intact. ACT 112: Negative or not required by law. Electronically signed by Sara Alfaro 06-12-2024 13:00 PM
[2024-06-12] MEDS: fentaNYL citrate PF 100 MCG/2 ML VIAL IV STA (13:21)
[2024-06-12 13:30] LABS: Appearance Urine Clear (Clear); Bilirubin Urine Negative (Negative); Blood Urine Negative (Negative); Color Urine Yellow; Glucose Urine UA Negative (Negative); Ketones Urine Negative (Negative); Leukocyte Esterase Urine Negative (Negative); Nitrite Urine Negative (Negative); Protein Urine Negative (Negative); Specific Gravity Urine 1.023 (1.000-1.030); Urobilinogen Urine Negative (Negative); pH Urine 7.5 (4.5-7.5)
[2024-06-12] MEDS: MoRPHine SULFATE 4 MG/ML 1 ML CARP\\VIAL IV STA (14:22)
[2024-06-12] MEDS: LIDOCAINE 5% 1 PATCH TD STA (15:29)
[2024-06-12] MEDS ORDERED: DICLOFENAC SOD 1% GEL 100 GM TUBE EXT PRN (15:45)
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
[2024-06-12] MEDS ORDERED: CARBOHYDRATES FOR HYPOGLYCEMIA PO PRN (16:48)
[2024-06-12] MEDS ORDERED: DEXTROSE 50% 50 ML SYRINGE IV PRN (16:48)
[2024-06-12] MEDS ORDERED: GLUCOSE 40% GEL 15 GM TUBE PO PRN (16:48)
[2024-06-12] MEDS ORDERED: PHARMACY GLYCEMIC MGMT CONSULT PRN (16:48)
[2024-06-12] MEDS ORDERED: GLUCAGON FOR INJ 1 MG VIAL SQ PRN (16:48)
[2024-06-12] MEDS ORDERED: GLUCOSE 10 TAB/TUBE PO PRN (16:48)
[2024-06-12] MEDS: PROMETHAZINE 12.5 MG/50.5 ML BAG IV PRN (17:37)
[2024-06-12] MEDS: INSULIN ASPART PER UNIT CHARGE SC SCH (17:38)
[2024-06-12] MEDS: MoRPHine SULFATE 4 MG/ML 1 ML CARP\\VIAL IV PRN (17:38)
[2024-06-12] MEDS: hydrALAZINE HCL 20 MG/ML VIAL IV PRN (18:33)
[2024-06-12] MEDS: ACETAMINOPHEN 325 MG TAB PO PRN (18:38)
[2024-06-12] MEDS: PANTOprazole 40 MG TAB PO SCH (21:05)
[2024-06-12] MEDS: ATORVASTATIN 40 MG TAB PO SCH (21:05)
[2024-06-12] MEDS: PSYLLIUM or GUAR GUM FIBER 4GM PACKET PO SCH (21:05)
[2024-06-12] MEDS: MoRPHine SULFATE CR 15 MG TABCR PO SCH (21:05)
[2024-06-12] MEDS: CHOLECALCIFEROL 25 MCG (1000 UNITS) TAB PO SCH (21:05)
[2024-06-12] MEDS: CYANOCOBALAMIN (B-12) 500 MCG TABLET PO SCH (21:34)
[2024-06-13 06:50] LABS: Basophils # (auto) 0.04 K/uL (0.00-0.20); Basophils % (auto) 0.6 %; Eosinophils # (auto) 0.17 K/uL (0.00-0.50); Eosinophils % (auto) 2.5 %; Hematocrit (blood only) 33.1 % (42.0-52.0); Hemoglobin 11.1 g/dl (14.0-18.0); Immature Granulocytes # (auto) 0.02 K/uL (0.01-0.20); Immature Granulocytes % (auto) 0.3 %; Lymphocytes # (auto) 0.82 K/uL (1.20-3.40); Lymphocytes % (auto) 11.9 %; Mean Corpuscular Hemoglobin 26.7 pg (25.0-34.0); Mean Corpuscular Hgb Conc 33.5 g/dL (32.0-36.0); Mean Corpuscular Volume 79.8 fL (80.0-100.0); Mean Platelet Volume 9.3 fL (9.4-12.4); Monocytes # (auto) 0.67 K/uL (0.11-0.59); Monocytes % (auto) 9.8 %; Neutrophils # (auto) 5.15 K/uL (1.40-6.50); Neutrophils % (auto) 74.9 %; Platelet Count 168 K/uL (130-400); RDW Coefficient of Variation 12.2 % (11.5-14.5); RDW Standard Deviation 35.3 fL (36.4-46.3); Red Blood Count 4.15 M/uL (4.70-6.10); White Blood Count 6.87 K/ul (4.8-10.8)
[2024-06-13 07:14] LABS: Albumin Globulin Ratio 1.5 (0.9-2); Albumin Level 3.7 gm/dl (3.4-5.0); Bilirubin,Total 0.6 mg/dl (0.2-1.0); Calcium 9.1 mg/dl (8.6-10.3); Creatinine Clr Calc Pharmacy 81.9 ml/min; Globulin 2.4 gm/dl (2.5-4.0); Potassium 4.5 mmol/L (3.5-5.1); Total Protein 6.1 gm/dl (6.0-8.3)
[2024-06-13 07:40] LABS: Estimated Average Glucose 146 mg/dl; Hemoglobin A1C 6.7 % (4.5-5.6)
[2024-06-13] MEDS: tiZANidine HCL 4 MG TABLET PO PRN (08:01)
[2024-06-13] MEDS: DULoxetine HCL 60 MG CAP PO SCH (08:01)
[2024-06-13] MEDS: MULTIVITAMIN TAB PO SCH (08:02)
[2024-06-13] MEDS: FERROUS SULFATE 325 MG TAB PO SCH (08:02)
[2024-06-13] MEDS: LOSARTAN POTASSIUM 50 MG TAB PO SCH (08:02)
[2024-06-13] MEDS: POTASSIUM CHLORIDE 10 MEQ TABCR PO SCH (08:07)
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
--- NOTE | 2024-06-13 12:54 | Anesthesiology Consultation ---
Date of Service June 13, 2024 Assessment & Plan Chart Review Chart Review: Acceptable Risk for Surgery Consults Requested none History Surgery Operation Date: 06/13/24 12:00 Proposed Procedures p L2 Kyphoplasty - [address] DO Height/Weight Height: 6 ft Weight: 121.65 kg Allergies Allergy/AdvReac Type Severity Reaction Status Date / Time alpha lipoic acid Allergy Severe Anaphylaxis Verified 06/12/24 14:05 [From Lipoic Acid] gabapentin Allergy Severe Anaphylaxis Verified 06/12/24 14:05 nortriptyline Allergy Severe Anaphylaxis Unverified 06/12/24 14:05 Penicillins Allergy Unknown RASH Verified 06/12/24 14:05 Sulfa (Sulfonamide Allergy Unknown RASH Verified 06/12/24 14:05 Antibiotics) sulfamethoxazole Allergy Unknown Rash Unverified 06/12/24 14:05 [From Bactrim] trimethoprim Allergy Unknown RASH Verified 06/12/24 14:05 Medications Home Medications Medication Instructions Recorded Confirmed Last Taken acetaminophen 650 mg 650 mg PO Q12H PRN Pain 05/14/19 06/12/24 02/14/23 17:30 tablet,extended release (Tylenol Arthritis Pain) atorvastatin 40 mg tablet 40 mg PO HS 05/14/19 06/12/24 06/11/24 cholecalciferol (vitamin D3) 25 1,000 unit PO QPM 05/14/19 06/12/24 06/11/24 mcg (1,000 unit) capsule epinephrine 0.3 mg/0.3 mL 0.6 mg (0.6 mL) IM Q3H PRN 05/15/19 06/12/24 Unknown injection, auto-injector (EpiPen) bronchodilation #1 ea cyanocobalamin (vitamin B-12) 1,000 mcg PO QPM 05/16/19 06/12/24 06/11/24 1,000 mcg tablet (Vitamin B-12) potassium chloride 10 mEq 10 meq PO QAM 02/20/20 06/12/24 06/12/24 capsule,extended release morphine 15 mg tablet,extended 15 mg PO BID Severe Pain (Scale 02/25/21 06/12/24 06/12/24 release (MS Contin) Score 7-10) diclofenac sodium 1 % topical gel 2 g topical QID PRN Pain 02/08/23 06/12/24 02/08/23 (Arthritis Pain (diclofenac)) duloxetine 60 mg capsule,delayed 60 mg PO QAM 02/08/23 06/12/24 06/12/24 release (Cymbalta) ferrous sulfate 325 mg (65 mg 325 mg PO QAM 02/08/23 06/12/24 06/12/24 iron) tablet losartan 50 mg tablet 50 mg PO QAM 02/08/23 06/12/24 06/12/24 multivitamin 1 tab PO QAM 02/08/23 06/12/24 06/12/24 psyllium husk 0.52 gram capsule 1.04 g PO BID 02/08/23 06/12/24 06/12/24 tizanidine 4 mg tablet (Zanaflex) 4 mg PO BID PRN muscle spasms 02/08/23 06/12/24 02/13/23 CPAP Machine See Rx Instructions .Route 02/14/24 02/14/24 Unknown .COMPLEX #1 ea pantoprazole 40 mg tablet,delayed 40 mg PO BID 06/12/24 06/12/24 06/12/24 release Active Medications Generic Name Dose Route Start Last Admin Trade Name Freq PRN Reason Stop Dose Admin Acetaminophen 650 mg 06/12/24 16:48 06/13/24 07:57 Acetaminophen 325 Mg Tab PO 07/12/24 16:47 650 mg Q4H PRN Administration Pain or Fever Atorvastatin Calcium 40 mg 06/12/24 21:00 06/12/24 21:05 Atorvastatin 40 Mg Tab PO 07/12/24 20:59 40 mg HS JC Administration Cyanocobalamin 1,000 mcg 06/12/24 21:00 06/12/24 21:34 Cyanocobalamin (B-12) 500 Mcg Tablet PO 07/12/24 20:59 1,000 mcg QPM JC Administration Duloxetine HCl 60 mg 06/13/24 09:00 06/13/24 08:01 Duloxetine Hcl 60 Mg Cap PO 07/13/24 08:59 60 mg QAM JC Administration Ferrous Sulfate 325 mg 06/13/24 09:00 06/13/24 08:02 Ferrous Sulfate 325 Mg Tab PO 07/13/24 08:59 325 mg QAM JC Administration Hydralazine HCl 5 mg 06/12/24 18:19 06/12/24 18:33 Hydralazine Hcl 20 Mg/Ml Vial IV 07/12/24 18:18 5 mg Q6H PRN Administration systolic bp > 160 Promethazine HCl 12.5 mg in 50.5 mls @ 202 mls/hr 06/12/24 16:48 06/13/24 01:45 Phenergan IV 07/12/24 16:47 Infused Q6H PRN Infusion Nausea And Vomiting Insulin Aspart 0 units 06/12/24 17:30 06/13/24 12:45 Insulin Aspart Per Unit Charge SC 07/12/24 17:29 Not Given ACHS JC Losartan Potassium 50 mg 06/13/24 09:00 06/13/24 08:02 Losartan Potassium 50 Mg Tab PO 07/13/24 08:59 50 mg QAM JC Administration Miscellaneous 1 each 06/13/24 06:00 06/13/24 05:56 Remove Lidoderm Patch N/A 07/13/24 05:59 1 each DAILY@0600 JC Administration Morphine Sulfate 15 mg 06/12/24 21:00 06/13/24 08:00 Morphine Sulfate Cr 15 Mg Tabcr PO 06/26/24 20:59 15 mg BID JC Administration Morphine Sulfate 4 mg 06/12/24 16:48 06/13/24 04:11 Morphine Sulfate 4 Mg/Ml 1 Ml Carp\Vial IV 06/26/24 16:47 4 mg Q4H PRN Administration severe pain Multivitamins 1 tab 06/13/24 09:00 06/13/24 08:02 Multivitamin Tab PO 07/13/24 08:59 1 tab QAM JC Administration Pantoprazole Sodium 40 mg 06/12/24 21:00 06/13/24 08:07 Pantoprazole 40 Mg Tab PO 07/12/24 20:59 40 mg BID JC Administration Potassium Chloride 10 meq 06/13/24 09:00 06/13/24 08:07 Potassium Chloride 10 Meq Tabcr PO 07/13/24 08:59 10 meq QAM JC Administration Psyllium Hydrophilic Mucilloid 4 gm 06/12/24 21:00 06/13/24 08:04 Psyllium Or Guar Gum Fiber 4gm Packet PO 07/12/24 20:59 Not Given BID JC Tizanidine HCl 4 mg 06/12/24 15:45 06/13/24 08:01 Tizanidine Hcl 4 Mg Tablet PO 07/12/24 15:44 4 mg BID PRN Administration muscle spasms Vitamin D 25 mcg 06/12/24 21:00 06/12/24 21:05 Cholecalciferol 25 Mcg (1000 Units) Tab PO 07/12/24 20:59 25 mcg QPM JC Administration Past Medical History Medical History (Updated 06/12/24 @ 19:30 by Sabas Ortega MD) Lymphedema Fatty liver CKD (chronic kidney disease) stage 3, GFR 30-59 ml/min Anemia follows with [facility], plan for future EGD/colonoscopy; hgb 11.8 12/2022 and 10.9 10/2022 Diaphragmatic hernia Gout Degenerative disc disease Chronic back pain Spinal cord stimulator status Hiatal hernia Barretts esophagus Diabetes mellitus, type 2 NIDDM BCC (basal cell carcinoma) hx Diabetic neuropathy bilateral feet Past Family History Family History Father Lung cancer Mother Stomach cancer Other No family history of adverse response to anesthesia Past Surgical History Surgical History S/P insertion of spinal cord stimulator (~2019) [facility] [place] Fusion of spine L3-L5 with hardware History of repair of rotator cuff bilateral S/P right knee arthroscopy S/P left knee arthroscopy History of ear surgery as a child - pt unsure History of repair of hiatal hernia (~2000) Social History Smoking Status: Never smoker tobacco type: cigarettes Do You Dip or Chew Tobacco: No Hx Alcohol Use: Yes Alcohol type: beer alcohol intake frequency: a few times a week Hx Substance Use: No substance use type: does not use Physical Exam Vital Signs Last Vital Signs Temp 36.6 C 06/13/24 12:19 Pulse 56 L 06/13/24 12:19 Resp 16 06/13/24 12:19 BP 145/69 H 06/13/24 12:19 Pulse Ox 90 06/13/24 12:19 O2 Del Method Room Air 06/13/24 12:19 O2 Flow Rate 0 06/12/24 11:37 Testing Laboratory Results 06/13/24 06:28 06/13/24 06:28 PT 10.1 Seconds (9.0-12.0) 06/12/24 11:40 INR 0.9 (0.9-1.1) 06/12/24 11:40 APTT 27 Seconds (21-31) 06/12/24 11:40 Hemoglobin A1c 6.7 % (4.5-5.6) H 06/13/24 06:28 Urine Color Yellow 06/12/24 12:27 Urine Appearance Clear (Clear) 06/12/24 12:27 Urine pH 7.5 (4.5-7.5) 06/12/24 12: Ur Specific [place] 1.023 (1.000-1.030) 06/12/24 12:27 Urine Protein Negative (Negative) 06/12/24 12:27 Urine Glucose (UA) Negative (Negative) 06/12/24 12: Urine Ketones Negative (Negative) 06/12/24 12:27 Urine Nitrite Negative (Negative) 06/12/24 12:27 Ur Leukocyte Esterase Negative (Negative) 06/12/24 12:27 06/13/24 06/13/24 12:12 08:09 POC Glucose 131 H 137 H
[2024-06-13] MEDS ORDERED: ATROPINE SULFATE 0.1 MG/ML 10ML SYR IV PRN (12:56)
[2024-06-13] MEDS ORDERED: PROMETHAZINE HCL 6.25 MG in SODIUM CHLORIDE 0.9% 50 ML IV PRN (12:56)
[2024-06-13] MEDS ORDERED: HYDROmorphone INJ 2 MG/ML SYR/VIAL IV PRN (12:56)
[2024-06-13] MEDS ORDERED: fentaNYL citrate PF 100 MCG/2 ML VIAL IV PRN (12:56)
[2024-06-13] MEDS ORDERED: ePHEDrine sulfate 50 MG/ML AMP IV PRN (12:56)
[2024-06-13] MEDS ORDERED: ONDANSETRON INJ 2 MG/ML 2 ML VIAL IV PRN (12:56)
[2024-06-13] MEDS ORDERED: Nursing to Pharmacy Communication SCH (13:00)
[2024-06-13] MEDS: LR 15ML/HR IV SCH (13:15)
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
[2024-06-13] MEDS ORDERED: LIDOCAINE 2% 2 ML VIAL/AMP(20MG/ML) INFIL ONE (13:27)
[2024-06-13] MEDS ORDERED: ROCURONIUM BROMIDE 10 MG/ML 5 ML VIAL IV ONE ×2 (13:27→14:33)
[2024-06-13] MEDS ORDERED: PROPOFOL IV EMULSION 10 MG/ML 20 ML VIAL IV ONE (13:27)
[2024-06-13] MEDS ORDERED: GLYCOPYRROLATE 0.2 MG/ML VIAL ONE (13:27)
[2024-06-13] MEDS ORDERED: ONDANSETRON INJ 2 MG/ML 2 ML VIAL ONE (13:27)
[2024-06-13] MEDS ORDERED: fentaNYL citrate PF 100 MCG/2 ML VIAL ONE ×2 (13:27→14:43)
[2024-06-13] MEDS ORDERED: DEXAMETHASONE SOD INJ 4 MG/ML VIAL ONE (13:27)
--- NOTE | 2024-06-13 13:42 | History & Physical Bridge Note ---
Date of Service June 13, 2024 History & Physical Bridge Note I have examined the patient, reviewed the History & Physical and in the interval since the performance of the History & Physical I have noted the following changes of clinical significance: no changes noted Kyphoplasty L2
[2024-06-13] MEDS: ceFAZolin 2000MG 2,000 MG/15 ML SYR IV SCH (14:08)
[2024-06-13] MEDS: BUPIVACAINE/EPINEPHRINE 0.25% 1:200,000 30 ML VIAL ONE (14:45)
[2024-06-13] MEDS ORDERED: SUGAMMADEX SODIUM 200 MG/2 ML VIAL IV ONE (14:48)
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
--- NOTE | 2024-06-13 15:24 | Fluoroscopy Report ---
FL lumbar spine 2-3V CLINICAL HISTORY: KYPHO TECHNIQUE: 3 views were obtained with the C-arm in the OR with the above procedure. Total fluoroscopy time was 108.4 seconds. Radiation dose was 109.20 mGy. Comparison: Comparison is made to CT lumbar spine 06/12/2024 FINDINGS/IMPRESSION: Intraoperative images were obtained of L1 kyphoplasty. Please correlate with intraoperative fluoroscopy and operative report. ACT 112: Negative or not required by law. Electronically signed by: Lito Arteaga M.D. 06/13/2024 3:23 PM
--- NOTE | 2024-06-13 15:46 | Anesthesiology Progress Note ---
Date of Service June 13, 2024 Anesthesia Post Procedure Vital Signs Vital Signs: Temp Pulse Pulse Pulse Pulse Resp BP 06/13/24 15:35 37 C 66 17 06/13/24 15:25 62 18 06/13/24 15:15 65 16 06/13/24 15:08 37.2 C 67 16 06/13/24 14:17 58 L 06/13/24 13:15 37.1 C 60 20 06/13/24 12:19 36.6 C 56 L 16 06/13/24 07:36 36.8 C 66 20 06/13/24 07:31 06/13/24 03:32 36.9 C 66 18 06/12/24 23:04 36.9 C 60 18 06/12/24 22:00 61 06/12/24 21:05 06/12/24 19:42 37 C 58 L 18 06/12/24 17:46 61 06/12/24 16:49 36.8 C 62 20 06/12/24 16:11 58 L 18 194/72 H BP BP Pulse Ox O2 Del Method O2 Flow Rate 06/13/24 15:35 159/59 H 94 Oxymask 3 06/13/24 15:25 154/65 H 95 Oxymask 5 06/13/24 15:15 154/63 H 94 Oxymask 5 06/13/24 15:08 182/46 H 92 Oxymask 5 06/13/24 14:17 06/13/24 13:15 174/62 H 91 Room Air 06/13/24 12:19 145/69 H 90 Room Air 06/13/24 07:36 174/68 H 90 Room Air 06/13/24 07:31 Room Air 06/13/24 03:32 173/67 H 91 Room Air 06/12/24 23:04 195/76 H 90 Room Air 06/12/24 22:00 06/12/24 21:05 Room Air 06/12/24 19:42 182/71 H 92 Room Air 06/12/24 17:46 06/12/24 16:49 211/71 H 93 Room Air 06/12/24 16:11 90 Room Air Pain Intensity Head: Pain Intensity: 8 Transfer of Care Handoff Completed per policy Notes Mental Status: alert / awake / arousable and participated in evaluation Patient Amnestic to Procedure: Yes Nausea / Vomiting: adequately controlled Pain: adequately controlled Airway Patency, RR, SpO2: stable & adequate BP & HR: stable & adequate Hydration State: stable & adequate Anesthetic Complications: no major complications apparent
[2024-06-13] MEDS: LIDOCAINE 5% 1 PATCH TD SCH (18:01)
[2024-06-14 09:20] LABS: Hemoglobin 11.1 g/dl (14.0-18.0); Mean Corpuscular Hemoglobin 27.3 pg (25.0-34.0); Mean Corpuscular Hgb Conc 33.6 g/dL (32.0-36.0); Mean Corpuscular Volume 81.3 fL (80.0-100.0); Mean Platelet Volume 9.8 fL (9.4-12.4); Platelet Count 177 K/uL (130-400); RDW Coefficient of Variation 12.4 % (11.5-14.5); RDW Standard Deviation 36.8 fL (36.4-46.3); Red Blood Count 4.06 M/uL (4.70-6.10); White Blood Count 6.78 K/ul (4.8-10.8)
[2024-06-14 09:28] LABS: Calcium 8.9 mg/dl (8.6-10.3); Creatinine Clr Calc Pharmacy 76.7 ml/min; Magnesium 2.1 mg/dl (1.7-2.4); Phosphorus 4.5 mg/dl (2.5-4.9); Potassium 4.3 mmol/L (3.5-5.1)
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
--- NOTE | 2024-06-14 14:39 | Pharmacy Report ---
Pharmacy Glycemic Sign Off Nt - Date of Service June 14, 2024 - Assessment & Plan ASSESSMENT: * Pharmacy was consulted by Dr Ortega on 06/12 for glycemic control and to write orders per [facility] inpatient glycemic control protocol. * Major changes made by pharmacy to antidiabetic regimen include: * added novolog scale * Patient has been receiving/requiring <10 units of insulin * Please see recommendations for outpatient antidiabetic regimen below. PLAN FOR INPATIENT GLYCEMIC CONTROL: No changes needed to current regimen. * Restarted home metformin 500 mg bidm * Hold basal insulin * Continue NovoLog per scale ACHS/Q6hrs while NPO * Goal range = 120-160 mg/dl * CF = 30 mg/dl/unit * CR = 1 unit for ever -- g CHO consumed * Pharmacy is signing off of glycemic consult and will no longer be making adju stments to inpatient regimen. Please feel free to re-consult if needed. Thank you.
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
[2024-06-14 19:46] VITALS: RESP 18
[2024-06-14] MEDS: tiZANidine HCL 4 MG TABLET PO PRN (23:10)
[2024-06-15 07:56] LABS: Hemoglobin 10.3 g/dl (14.0-18.0); Mean Corpuscular Hemoglobin 27.1 pg (25.0-34.0); Mean Corpuscular Hgb Conc 32.2 g/dL (32.0-36.0); Mean Corpuscular Volume 84.2 fL (80.0-100.0); Mean Platelet Volume 9.3 fL (9.4-12.4); Platelet Count 160 K/uL (130-400); RDW Coefficient of Variation 12.5 % (11.5-14.5); RDW Standard Deviation 38.2 fL (36.4-46.3); White Blood Count 4.77 K/ul (4.8-10.8)
[2024-06-15] MEDS: metFORMIN HCL 500 MG TAB PO SCH (09:03)
[2024-06-15 11:39] VITALS: TEMP 98.1; O2SAT 95
[2024-06-15 12:36] VITALS: BP 103/57
[2024-06-15 13:57] VITALS: PULSE 67
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
== END 2024-06-15 15:10 | disposition home or self-care (01) | DRG 517 ==
LOC: ED 11:31 → 2N 15:40 → SUATTDRO 15:40 → 2N 16:11
DX: V48.0XXA Car driver injured in noncollision transport accident in nontraffic accident, initial encounter; Z88.2 Allergy status to sulfonamides; Z96.82 Presence of neurostimulator; Z88.8 Allergy status to other drugs, medicaments and biological substances; I35.0 Nonrheumatic aortic (valve) stenosis; Z79.899 Other long term (current) drug therapy; S32.020A Wedge compression fracture of second lumbar vertebra, initial encounter for closed fracture; S06.0X0A Concussion without loss of consciousness, initial encounter; E11.22 Type 2 diabetes mellitus with diabetic chronic kidney disease; I12.9 Hypertensive chronic kidney disease with stage 1 through stage 4 chronic kidney disease, or unspecified chronic kidney disease; S00.83XA Contusion of other part of head, initial encounter; E11.40 Type 2 diabetes mellitus with diabetic neuropathy, unspecified; N18.30 Chronic kidney disease, stage 3 unspecified; Y92.014 Private driveway to single-family (private) house as the place of occurrence of the external cause; Z88.0 Allergy status to penicillin; K21.9 Gastro-esophageal reflux disease without esophagitis; G47.33 Obstructive sleep apnea (adult) (pediatric); R60.0 Localized edema; E78.5 Hyperlipidemia, unspecified; Z99.89 Dependence on other enabling machines and devices; G89.29 Other chronic pain; F32.A Depression, unspecified